=== PATIENT | female | born 1975 | race Caucasian/White ===

== ENCOUNTER 2016-10-19 05:07 | Observation (INO) | payer SELFPAY ==
[2016-10-19] MEDS ORDERED: NS 0.9% 1000 ML* 3,000 ML IV ONE (05:33)
[2016-10-19] MEDS ORDERED: Ondansetron INJ* 2 MG/ML VIAL IV ONE ×2 (05:33→09:58)
[2016-10-19] MEDS ORDERED: HYDROmorphone INJ* 1 MG/ML CARPUJECT SYRINGE IV ONE ×2 (05:33→09:58)
[2016-10-19 05:52] LABS: Hematocrit 39 % (35-47); Mean Corpuscular HGB Conc 34 g/dl (31-36); Mean Corpuscular Hemoglobin 29 pg (27-31); Mean Corpuscular Volume 88 fL (80-97); Mean Platelet Volume 7 um3 (7.4-10.4); Red Blood Count 4.42 10^6/ul (4.0-5.4); Red Cell Distribution Width 14 % (10.5-15); White Blood Count 7.6 10^3/ul (3.5-10.8)
[2016-10-19 06:04] LABS: Urine Bacteria 1+ (Absent); Urine Bilirubin Negative (Negative); Urine Glucose Negative (Negative); Urine Nitrite Positive (Negative)
[2016-10-19] MEDS ORDERED: Ketorolac INJ* 30 MG/ML 1 ML VIAL IV ONE (06:07)
[2016-10-19] MEDS ORDERED: Ketorolac INJ* 30 MG/ML 1 ML VIAL ONE (06:08)
[2016-10-19 06:25] LABS: ALT 11 U/L (7-52); AST 16 U/L (13-39); Albumin 4.1 g/dL (3.2-5.2); Alkaline Phosphatase 49 U/L (34-104); Anion Gap 7 mmol/L (2-11); BUN/Creatinine Ratio 17.7 (8-20); Blood Urea Nitrogen 11 mg/dL (6-24); C Reactive Protein 4.74 mg/L (< 5.00); CO2 Carbon Dioxide 23 mmol/L (22-32); Calcium 9.3 mg/dL (8.6-10.3); Chloride 106 mmol/L (101-111); EGFR African American 137.8 (>60); EGFR Non-African American 107.2 (>60); Globulin 3.2 g/dL (2-4); Glucose 96 mg/dL (70-100); Lipase 30 U/L (11.0-82.0); Potassium 4.1 mmol/L (3.5-5.0); Sodium 136 mmol/L (133-145); Total Protein 7.3 g/dL (6.4-8.9)
[2016-10-19] MEDS ORDERED: Iohexol 300* (CONTRAST) 10 ML SDV IV ONE (06:38)
--- NOTE | 2016-10-19 08:35 | RAD ---
INDICATION: Right abdominal and flank pain. COMPARISON: Appear seated is made with a prior study from August 30, 2016. TECHNIQUE: A CT scan of the abdomen and pelvis was performed with intravenous and oral contrast following intravenous injection of 72 ml of Omnipaque 300 nonionic contrast. Contiguous axial sections were obtained from the lung bases through the symphysis pubis. Images were reconstructed in the coronal and sagittal planes. FINDINGS: There is mild dependent bilateral lower lobe subsegmental atelectasis. No pleural effusion is present. The liver and spleen are normal in size without significant focal abnormality. The patient is status post cholecystectomy. The pancreas appears to be within normal limits. The kidneys and adrenal glands are normal in size. No hydronephrosis is seen. No significant focal renal abnormality is seen. The aorta is normal in caliber. There is mild to moderate calcific plaque present. No significant enlarged retroperitoneal lymph nodes are seen. The stomach, small and large bowel appear nondistended. There is a surgical suture line present along the medial aspect of the cecum consistent with a prior appendectomy which correlates with the patient's history. There is mild descending and sigmoid diverticulosis without evidence for diverticulitis. The uterus is anteverted and normal in size. No free intraperitoneal air or fluid is seen. There is anterior subluxation of L4 relative to L5 of approximately 8 mm consistent with grade I anterior spondylolisthesis. There is bilateral spondylolysis at the L4 level. No other focal osseous abnormality is seen. IMPRESSION: 1. NO EVIDENCE FOR ACUTE FINDING OR CAUSE FOR THE PATIENT'S ABDOMINAL PAIN IS SEEN. 2. STATUS POST CHOLECYSTECTOMY AND APPENDECTOMY. 3. GRADE I ANTERIOR SPONDYLOLISTHESIS AT THE L4-L5 LEVEL AND BILATERAL SPONDYLOLYSIS AT THE L4 LEVEL.
[2016-10-19] MEDS ORDERED: NS 0.9% 1000 ML* 1,000 ML IV ONE (09:58)
[2016-10-19] MEDS ORDERED: Ciprofloxacin 400MG IVPREMIX(* 400 MG/200 ML BAG IVPB ONE (09:58)
[2016-10-19] MEDS ORDERED: Ondansetron INJ* 2 MG/ML VIAL IV PRN ×2 (11:53→18:36)
[2016-10-19] MEDS ORDERED: Morphine INJ* 2 MG/ML 1 ML CARPUJECT IV PRN (11:53)
[2016-10-19] MEDS ORDERED: diPHENhydraMINE IV* 50 MG/ML 1 ml VIAL (BENADRYL) IV ONE (12:56)
[2016-10-19] MEDS: NS 0.9% 1000 ML* 1,000 ML IV SCH ×2 (14:08→23:05)
[2016-10-19] MEDS: cefTRIAXone VIAL(*) 1,000 MG in NS 0.9% 50 ML* 50 ML IVPB SCH (14:29)
[2016-10-19] MEDS: HYDROmorphone INJ* 1 MG/ML CARPUJECT SYRINGE IV SLOW PU PRN ×5 (15:00→23:02)
[2016-10-19] MEDS: Ketorolac INJ* 30 MG/ML 1 ML VIAL IV PUSH PRN (15:00)
--- NOTE | 2016-10-19 17:28 | PN ---
Hospitalist Progress Note HOSPITALIST ADDENDUM Case reviewed and d/w Ruy MARTINS. Mrs. Herrera is a 41yo F with possible h/o nephrolithiasis, admission in August 2016 with E. coli UTI, who presents to ED with intractable right flank pain. Although her CT did not show nephrolithiasis, it was a contrasted study. She does have hematuria on her UA. Agree with current management.
--- NOTE | 2016-10-19 20:43 | HP ---
ADMISSION HISTORY AND PHYSICAL: DATE OF ADMISSION: PRIMARY CARE PROVIDER: Saleem Cramer NP ADMITTING PROVIDER: ELIEZER Mccabe SUPERVISING PHYSICIAN: Dr. Denise Nicole.* (DICTATED BY ELIEZER MCCABE) CHIEF COMPLAINT: Right flank pain. HISTORY OF PRESENT ILLNESS: This is an otherwise healthy 41-year-old female who presented to the emergency department with complaints of right flank pain, nausea, and vomiting. The patient states that her symptoms started acutely yesterday. She has been feeling feverish with chills with right-sided abdominal /flank pain. She noted gross hematuria, but no burning sensation. She has not checked her temperature at home. She denies any associated diarrhea. No sick contacts. The patient was admitted with flank pain in August of this past year where no acute etiology was identified. She was diagnosed with urinary tract infection with no evidence of pyelonephritis. It was suspected that her pain was due to radicular symptoms from her low back and the patient states that her symptoms did subside completely a day or two after returning home and she has had no similar symptoms to that since her admission. In terms of her symptoms today compared to her prior admission, she says that it does feel similar, but she had less abdominal pain and no nausea or vomiting previously, the symptoms are new for her. The patient denies associated chest pain, shortness of breath, cough, or palpitations. She denies any other recent acute illnesses. PAST MEDICAL HISTORY: None. PAST SURGICAL HISTORY: 1. Cholecystectomy. 2. Appendectomy. 3. Tubal ligation. HOME MEDICATIONS: None. SOCIAL HISTORY: The patient smokes a half pack of cigarettes daily. She denies any regular alcohol consumption. Lives at home with her . REVIEW OF SYSTEMS: As noted above in HPI, otherwise negative. PHYSICAL EXAMINATION GENERAL: This is a young female who appears to be incredibly uncomfortable. She is lying in a position and wincing in pain, but is able to participate in conversation. VITAL SIGNS: Temperature 98.6 degrees Fahrenheit, pulse 79 beats per minute, respiratory rate 20 per minute, oxygen saturation 100% on room air, and blood pressure 143/77 mmHg. HEENT: Head is normocephalic, atraumatic. Mucous membranes are pink and moist. RESPIRATORY: Lungs are clear to auscultation without wheezes, crackles, or rhonchi. CARDIOVASCULAR: Heart has a regular rate and rhythm without murmurs, rubs, or gallops. ABDOMEN: Soft, tender to palpation in both right upper and right lower quadrants. Bowel sounds are present, perhaps slightly hyperactive. She does have some right CVA tenderness. EXTREMITIES: No lower extremity edema. PSYCH: The patient is alert, appropriately oriented. SKIN: Limited exam shows no concerning rashes or lesions. DIAGNOSTIC STUDIES/LAB DATA: CBC shows a white blood cell count of 7600, hemoglobin of 13 g/dL, platelet count of 238,000. Comprehensive metabolic panel was unremarkable with a sodium of 136 mmol/L, potassium 4.1 mmol/L, BUN of 11, creatinine 0.62. Transaminases and total bilirubin within normal limits. Beta HCG is negative. Urinalysis shows 3+ blood, is positive for nitrites and bacteria, and is otherwise negative. Imaging: CT of the abdomen and pelvis performed with contrast shows no acute process. No hydronephrosis. She does have a grade 1 anterior spondylolisthesis L4 on L5. ASSESSMENT AND PLAN: This is a 41-year-old female who is otherwise healthy, admitted with intractable right flank pain. No acute findings appreciated on initial workup. 1. Intractable right flank pain - the patient received significant amounts of analgesics in the emergency department with minimal effect. CT scan did not show any hydronephrosis. The scan was completed with contrast and could obscure a small stone which would certainly fit with her presenting symptoms of gross hematuria, right flank pain, nausea, and vomiting. We will continue with IV fluids at this time. Urine was positive for nitrites and we will empirically treat for urinary tract infection with ceftriaxone awaiting final sensitivities. Have her strain her urine and see if she is able to pass a small stone. We will otherwise focus on pain control. 2. Tobacco use: The patient continues to smoke half a pack of cigarettes daily. Did not discuss smoking cessation at this time. She declines the use of a nicotine patch during her hospital stay. 3. Code status: The patient is full code. 4. Healthcare proxy is her . 5. DVT prophylaxis: The patient is a relatively low risk and we will encourage regular ambulation. Medical prophylaxis will not be initiated at this time. DISPOSITION: The patient is being admitted to observation status for intractable right flank pain and suspected small ureterolithiasis. Anticipate discharge tomorrow. ELIEZER MCCABE CC: Saleem Cramer, VIDEO EFFECTS EDITOR* [id number]/[facility] #: [id number] [facility] HEALTHRosalina
[2016-10-20] MEDS: HYDROmorphone INJ* 1 MG/ML CARPUJECT SYRINGE IV SLOW PU PRN ×7 (01:15→15:41)
[2016-10-20] MEDS: NS 0.9% 1000 ML* 1,000 ML IV SCH ×2 (06:06→12:55)
--- NOTE | 2016-10-20 07:36 | CONSULT ---
Consult Consult: Ms. Herrera presented during a previous shift with severe left flank pain that was poorly controlled with parenteral narcotics. Her labs and CT scan were unrevealing and the hospitalist service was called to consult for intractable pain. She had a recent admission for the same thing in which no diagnosis was reached but her pain resolved. She was admitted in stable condition with a diagnosis of intractable flank pain.
[2016-10-20] MEDS: cefTRIAXone VIAL(*) 1,000 MG in NS 0.9% 50 ML* 50 ML IVPB SCH (12:54)
[2016-10-20] MEDS: Ketorolac INJ* 30 MG/ML 1 ML VIAL IV PUSH PRN (15:47)
[2016-10-20] MEDS ORDERED: oxyCODONE/Acetamin 5/325 MG* TAB PO PRN (17:19)
[2016-10-20] MEDS ORDERED: HYDROmorphone INJ* 1 MG/ML CARPUJECT SYRINGE IV SLOW PU PRN (17:19)
--- NOTE | 2016-10-20 17:23 | PN ---
Subjective Date of Service: 10/20/16 Interval History: Patient seen and examined at bedside. Pt reports continued right lower quad abdominal pain and right flank pain. Pt denies fever, chills, shortness of breath, chest discomfort, N/V/D, numbness or tingling. Pt reports that she has passed kidney stones in the past, and this is similar. She has never needed surgical intervention for her kidney stones and passed them at home. Family History: Unchanged from Admission Social History: Unchanged from Admission Past Medical History: Unchanged from Admission Objective Active Medications: Hydromorphone HCl (Dilaudid Iv*) 2 mg IV SLOW PU Q2H PRN Reason: PAIN Sodium Chloride (Ns 0.9% 1000 Ml*) 1,000 mls @ 150 mls/hr IV PER RATE KAUR Ceftriaxone Sodium 1,000 mg/ (Sodium Chloride) 50 mls @ 200 mls/hr IVPB Q24H KAUR Ketorolac Tromethamine (Toradol Inj*) 30 mg IV PUSH Q6H PRN Reason: PAIN Stop: 10/21/16 05:55 Ondansetron HCl (Zofran Inj*) 4 mg IV Q4H PRN Reason: NAUSEA Oxycodone/Acetaminophen (Percocet 5/325 Tab*) 2 tab PO Q4H PRN Reason: PAIN Vital Signs 10/19/16 10/19/16 10/19/16 18:36 19:13 19:36 Temperature 98.4 F Pulse Rate 70 Respiratory 22 18 17 Rate Blood Pressure 95/55 (mmHg) O2 Sat by Pulse 99 Oximetry 10/19/16 10/20/16 10/20/16 23:16 00:02 01:15 Temperature 99.5 F Pulse Rate 60 Respiratory 16 17 20 Rate Blood Pressure 99/53 (mmHg) O2 Sat by Pulse 98 Oximetry 10/20/16 10/20/16 10/20/16 02:15 03:51 03:56 Temperature 98.8 F Pulse Rate 56 Respiratory 16 17 16 Rate Blood Pressure 98/66 (mmHg) O2 Sat by Pulse 99 Oximetry 10/20/16 10/20/16 10/20/16 04:51 06:04 07:54 Temperature 98.3 F Pulse Rate 57 Respiratory 18 18 18 Rate Blood Pressure 109/68 (mmHg) O2 Sat by Pulse 99 Oximetry 10/20/16 10/20/16 10/20/16 08:23 08:56 10:42 Temperature Pulse Rate 62 Respiratory 16 16 18 Rate Blood Pressure 104/52 (mmHg) O2 Sat by Pulse 96 Oximetry Oxygen Devices in Use Now: None Appearance: Laying in bed, looks uncomfortable Eyes: No Scleral Icterus, PERRLA Ears/Nose/Mouth/Throat: NL Teeth, Lips, Gums, Mucous Membranes Moist Neck: NL Appearance and Movements; NL JVP, Trachea Midline Respiratory: Symmetrical Chest Expansion and Respiratory Effort, Clear to Auscultation Cardiovascular: NL Sounds; No Murmurs; No JVD, RRR Abdominal: - - Bowel sounds present, Abdomen soft, tender in the right lower extremity Extremities: No Edema Skin: No Rash or Ulcers Neurological: Alert and Oriented x 3, NL Muscle Strength and Tone Lines/Tubes/Other Access: Clean, Dry and Intact Peripheral IV - site benign Nutrition: Taking PO's Result Diagrams: 10/19/16 05:35 10/19/16 05:35 Assess/Plan/Problems-Billing Assessment: Ms. Herrera is a 41 yo female with no significant PMH who presented to the emergency room with complaints of intractable right flank pain. - Patient Problems (1) Right flank pain Code(s): R10.9 - UNSPECIFIED ABDOMINAL PAIN SNOMED Code(s): 140572068 Comment: - Pt continues to have right flank pain, reports some improvement from yesterday - CT - showed no hydronephrosis - Will get a renal US today to eval for stones - Continue to strain urine (2) UTI (urinary tract infection) Comment: - Urine growing Staph Epidermidis - Continue Ceftriaxone, while cultures are pending (3) Tobacco abuse Code(s): Z72.0 - TOBACCO USE SNOMED Code(s): 786582448 Comment: - Declined Nicotine patch - Will order Nicotine Inhaler PRN (4) DVT prophylaxis Code(s): KGG3877 - SNOMED Code(s): 669985624 Comment: - Ambulation (5) Full code status Code(s): Z78.9 - OTHER SPECIFIED HEALTH STATUS SNOMED Code(s): 102862647 Status and Disposition: OBV. Discharge to home when medically stable.
[2016-10-20] MEDS ORDERED: Mouth Piece, Nicotine* 1 EACH CARTRIDGE INH PRN (17:33)
[2016-10-20] MEDS ORDERED: Nicotine Inhaler* 10 MG AMP INH PRN (17:33)
[2016-10-20 17:55] VITALS: BP 124/75
--- NOTE | 2016-10-20 18:24 | RAD ---
HISTORY: Right flank pain COMPARISONS: CT dated October 19, 2016 TECHNIQUE: Multiple transverse and longitudinal ultrasound images were obtained of the kidneys using grayscale and color Doppler imaging. FINDINGS: RIGHT KIDNEY: The right kidney is normal in shape, size, contour, and echogenicity. There is no hydronephrosis or nephrolithiasis. The right kidney measures 11.2 x 4.3 x 5.9 cm. LEFT KIDNEY: The left kidney is normal in shape, size, contour, and echogenicity. There is no hydronephrosis or nephrolithiasis. The left kidney measures 10.9 x 6.6 x 5.4 cm. BLADDER: No images are submitted of the bladder. AORTA AND IVC: No images are submitted of the vasculature. RETROPERITONEUM: Unremarkable. OTHER: None. IMPRESSION: NO HYDRONEPHROSIS OR NEPHROLITHIASIS
--- NOTE | 2016-10-21 07:07 | DS ---
DISCHARGE SUMMARY: DATE OF ADMISSION: 10/19/16 DATE OF DISCHARGE: 10/20/16 - against medical advice. ATTENDING PHYSICIAN: Edwin Espitia MD *(dictated by Katarina Cobian NP). PRIMARY CARE PROVIDER: Saleem Cramer NP. PRIMARY DIAGNOSIS: Intractable right flank pain. STUDIES WHILE IN THE HOSPITAL: 1. Abdomen and pelvis CT on 10/19/16. Radiologist's impression: No evidence for acute findings or cause for the patient's abnormal pain is seen. Status post cholecystectomy and appendectomy. Grade 1 anterior spondylolisthesis at the L4-L5 level and bilateral spondylolisthesis at the L4 level. 2. Renal ultrasound on 10/20/16. Radiologist's impression: No hydronephrosis or nephrolithiasis noted. HOME MEDICATIONS: Include ibuprofen 800 mg oral 3 times daily as needed for pain. HISTORY OF PRESENT ILLNESS/HOSPITAL COURSE: Ms. Herrera is a 41-year-old healthy female, who presented to the emergency room with complaints of right flank pain, nausea and vomiting. The patient stated that her symptoms started suddenly the day prior. The patient was reporting fever and chills with right- sided abdominal and flank pain. The patient noted gross hematuria but no burning sensation. The patient had not checked her temperature at home. Denied any associated diarrhea or sick contacts. The patient was also noted to have similar flank pain in August and was found to have no acute etiology. The patient had been diagnosed with urinary tract infection with no evidence for pyelonephritis at the time. It was suspected that the patient's pain was due to radicular symptoms from her low back and the patient's symptoms had resolved a few days after being discharged from the hospital for that admission. The patient feels that these symptoms are similar to last time and she presented to the emergency room for further evaluation of her symptoms. While in the emergency room, the patient had urinalysis showing 3+ blood, positive for nitrites and bacteria. It was otherwise negative. The patient had labs that were fairly unremarkable. She had a beta-HCG that was negative. The patient had a CTA of her abdomen and pelvis showing no acute process including no hydronephrosis. She was noted to have a grade 1 anterior spondylolisthesis at L4-L5. The patient was evaluated by hospitalist for admission. While in the hospital, the patient reported decreased pain, where she continued to have right flank pain and right-sided abdominal pain. Her urine grew Staphylococcus epidermidis. It was felt that this could be a contaminant and final cultures were pending. The patient remained afebrile during her stay. Her vital signs were stable. Due to the patient's continued pain and self- reported history of kidney stones, the patient had bilateral renal ultrasound showing no acute findings. The patient continued to also have right CVA tenderness. The patient was encouraged to stay overnight for further IV hydration and pain management. The patient stated that she needed to leave due to a family emergency. It was discussed with the patient the risks of leaving against medical advice. This included progression of illness, permanent disability and possible . The patient stated understanding and proceeded to leave against medical advice. It is to be noted that due to the patient not having final urine cultures back and possibility of a contaminant of staph, the patient was not sent on antibiotics. The patient was then encouraged to follow up with her primary care provider or at an urgent care center if her symptoms persist or she became feeling more ill. The patient states understanding. Again, the patient left against medical advice. This is a summarized report of a complex medical history and hospital stay. For further details, please see the entire medical record. TIME SPENT: Time for this discharge was 30 minutes, 20 minutes was spent face- to- face with the patient, discussing leaving against medical advice. The patient left against medical advice. Reviewed by EBONY LIM 10/27/161910 CC: Saleem Cramer NP* [id number]/[facility] #: [id number] JATINDER
--- NOTE | 2016-11-16 21:14 | ED ---
Jason Kumar Adam, scribed for Shahzad Lara MD on 10/19/16 at 0514 . Abdominal Pain/Female - HPI Summary HPI Summary: Pt is a 41 year old female presenting with abdominal pain. The pain set on yesterday and is localized in the RLQ. It radiates to the right flank. She states that it is similar to but worse than pain she had several months ago when she had a UTI. Pt also c/o nausea and vomiting. PMHx of renal calculi. - History of Current Complaint Stated Complaint: ABD/FLANK PAIN Time Seen by Provider: 10/19/16 05:12 Hx Obtained From: Patient Hx Last Menstrual Period: 08/16/16 Onset/Duration: Gradual Onset, Lasting Days, Still Present Timing: Constant Severity Initially: Moderate Severity Currently: Moderate Location: Discrete At: RLQ Radiates: Yes Radiates to: Flank - Right Aggravating Factor(s): Nothing Alleviating Factor(s): Nothing Associated Signs and Symptoms: Positive: Nausea, Vomiting Allergies/Adverse Reactions: Allergies Allergy/AdvReac Type Severity Reaction Status Date / Time No Known Allergies Allergy Verified 10/19/16 05:22 PMH/Surg Hx/FS Hx/Imm Hx Endocrine/Hematology History: Denies: Hx Anticoagulant Therapy, Hx Diabetes, Hx Thyroid Disease Cardiovascular History: Reports: Other Cardiovascular Problems/Disorders - current hypotension Denies: Hx Congestive Heart Failure, Hx Deep Vein Thrombosis, Hx Hypertension , Hx Myocardial Infarction, Hx Pacemaker/ICD Respiratory History: Reports: Other Respiratory Problems/Disorders - 1 AND 1/2 PACK A DAY Denies: Hx Asthma, Hx Chronic Obstructive Pulmonary Disease (COPD), Hx Lung Cancer, Hx Pneumonia, Hx Pulmonary Embolism GI History: Denies: Hx Gall Bladder Disease, Hx Gastrointestinal Bleed, Hx Ulcer, Hx Urosepsis History: Reports: Hx Kidney Stones - pt stated, Other Problems/Disorders - UTIs Denies: Hx Renal Disease Sensory History: Reports: Hx Contacts or Glasses - reading glasses Opthamlomology History: Reports: Hx Contacts or Glasses - reading glasses Neurological History: Reports: Hx Migraine - No medications for this. Denies: Hx Dementia, Hx Developmental Delay, Hx Headaches, Hx Nerve Disease, Hx Seizures, Hx Spinal Cord Injury, Hx Transient Ischemic Attacks (TIA), Other Neuro Impairments/Disorders Psychiatric History: Denies: Hx Anxiety, Hx Depression, Hx Panic Disorder, Hx Schizophrenia, Hx Bipolar Disorder - Surgical History Surgery Procedure, Year, and Place: hao. appy. tubal. galbladder and appendectomy Hx Anesthesia Reactions: No Infectious Disease History: Denies: Hx Clostridium Difficile, Hx Hepatitis, Hx Human Immunodeficiency Virus (HIV), Hx of Known/Suspected MRSA, Hx Shingles - Family History Known Family History: Positive: Hypertension, Diabetes Negative: Cardiac Disease - Social History Occupation: Employed Full-time Lives: Alone Alcohol Use: None Hx Substance Use: No Substance Use Type: Reports: None Hx Tobacco Use: Yes Smoking Status (MU): Light Every Day Tobacco Smoker Type: Cigarettes Amount Used/How Often: 1/2PPD Length of Time of Smoking/Using Tobacco: 20+ years Have You Smoked in the Last Year: Yes Review of Systems Positive: Abdominal Pain, Vomiting, Nausea Positive: flank pain All Other Systems Reviewed And Are Negative: Yes Physical Exam Triage Information Reviewed: Yes Vital Signs On Initial Exam: Initial Vitals Temp Pulse Resp BP Pulse Ox 98.6 F 79 20 143/77 100 10/19/16 05:10 10/19/16 05:10 10/19/16 05:10 10/19/16 05:10 10/19/16 05:10 Vital Signs Reviewed: Yes Appearance: Positive: Well-Appearing, No Pain Distress Skin: Positive: Warm, Skin Color Reflects Adequate Perfusion, Dry Head/Face: Positive: Normal Head/Face Inspection Eyes: Positive: EOMI, ESTEFANY ENT: Positive: Normal ENT inspection Neck: Positive: Supple, Nontender Respiratory/Lung Sounds: Positive: Clear to Auscultation, Breath Sounds Present Cardiovascular: Positive: RRR Abdomen Description: Positive: Nontender, Soft Bowel Sounds: Positive: Present Musculoskeletal: Positive: Normal, Strength/ROM Intact Neurological: Positive: Normal, Sensory/Motor Intact, Alert, Oriented to Person Place, Time Psychiatric: Positive: Affect/Mood Appropriate Diagnostics - Vital Signs Vital Signs Temp Pulse Resp BP Pulse Ox 10/19/16 11:30 60 112/69 99 10/19/16 11:00 59 105/69 99 10/19/16 10:36 18 10/19/16 10:00 69 115/72 100 10/19/16 09:30 67 113/69 100 10/19/16 09:29 65 98 10/19/16 09:28 110/76 10/19/16 08:30 68 102/72 99 10/19/16 08:01 62 102/50 98 10/19/16 08:00 63 98 10/19/16 07:00 62 99/62 100 10/19/16 06:30 63 96/65 100 10/19/16 06:00 68 101/62 98 10/19/16 05:45 77 99 10/19/16 05:44 105/67 10/19/16 05:39 16 10/19/16 05:10 98.6 F 79 20 143/77 100 - Laboratory Lab Results: Lab Results 10/19/16 10/19/16 10/19/16 Range/Units 05:35 05:35 05:35 WBC 7.6 (3.5-10.8) 10^3/ul RBC 4.42 (4.0-5.4) 10^6/ul Hgb 13.0 (12.0-16.0) g/dl Hct 39 (35-47) % MCV 88 (80-97) fL MCH 29 (27-31) pg MCHC 34 (31-36) g/dl RDW 14 (10.5-15) % Plt Count 238 (150-450) 10^3/ul MPV 7 L (7.4-10.4) um3 Neut % (Auto) 45.5 (38-83) % Lymph % (Auto) 39.7 (25-47) % [place] % (Auto) 9.7 H (1-9) % Eos % (Auto) 3.9 (0-6) % Baso % (Auto) 1.2 (0-2) % Absolute Neuts (auto) 3.5 (1.5-7.7) 10^3/ul Absolute Lymphs (auto) 3.0 (1.0-4.8) 10^3/ul Absolute Monos (auto) 0.7 (0-0.8) 10^3/ul Absolute Eos (auto) 0.3 (0-0.6) 10^3/ul Absolute Basos (auto) 0.1 (0-0.2) 10^3/ul Absolute Nucleated RBC 0 10^3/ul Nucleated RBC % 0.1 Sodium 136 (133-145) mmol/L Potassium 4.1 (3.5-5.0) mmol/L Chloride 106 (101-111) mmol/L Carbon Dioxide 23 (22-32) mmol/L Anion Gap 7 (2-11) mmol/L BUN 11 (6-24) mg/dL Creatinine 0.62 (0.51-0.95) mg/dL Est GFR ( Amer) 137.8 (>60) Est GFR (Non-Af Amer) 107.2 (>60) BUN/Creatinine Ratio 17.7 (8-20) Glucose 96 (70-100) mg/dL Calcium 9.3 (8.6-10.3) mg/dL Total Bilirubin 0.30 (0.2-1.0) mg/dL AST 16 (13-39) U/L ALT 11 (7-52) U/L Alkaline Phosphatase 49 (34-104) U/L C-Reactive Protein 4.74 (< 5.00) mg/L Total Protein 7.3 (6.4-8.9) g/dL Albumin 4.1 (3.2-5.2) g/dL Globulin 3.2 (2-4) g/dL Albumin/Globulin Ratio 1.3 (1-3) Lipase 30 (11.0-82.0) U/L Beta HCG, Quant < 0.60 mIU/mL Urine Color Yellow Urine Appearance Cloudy Urine pH 8.0 (5-9) Ur Specific [place] 1.014 (1.010-1.030) Urine Protein Negative (Negative) Urine Ketones Negative (Negative) Urine Blood 3+ H (Negative) Urine Nitrate Positive H (Negative) Urine Bilirubin Negative (Negative) Urine Urobilinogen Negative (Negative) Ur Leukocyte Esterase Negative (Negative) Urine WBC (Auto) Trace(0-5/hpf) (Absent) Urine RBC (Auto) 3+(>10/hpf) H (Absent) Ur Squamous Epith Cells Present H (Absent) Urine Bacteria 1+ H (Absent) Urine Glucose Negative (Negative) Result Diagrams: 10/19/16 05:35 10/19/16 05:35 Lab Statement: Any lab studies that have been ordered have been reviewed, and results considered in the medical decision making process. Abdominal Pain Fem Course/Dx - Course Course Of Treatment: ADMIT HOSPITALIST STABLE - Diagnoses Provider Diagnoses: Flank pain Discharge - Discharge Plan Condition: Fair Disposition: ADMITTED TO [facility] documentation as recorded by the Jason vo Adam accurately reflects the service I personally performed and the decisions made by me, Shahzad Lara MD.
== END 2016-10-20 19:30 | disposition left against medical advice (07) ==
LOC: ED 05:07 → MEDTELE 11:52
PROVIDERS: ADMIT Internal Medicine; ATTEND Internal Medicine
DX: R10.9 Unspecified abdominal pain (principal); M43.16 Spondylolisthesis, lumbar region; R11.2 Nausea with vomiting, unspecified; N39.0 Urinary tract infection, site not specified; R31.0 Gross hematuria; F17.210 Nicotine dependence, cigarettes, uncomplicated
CPT/HCPCS: 36415; 74177; 76775; 80053; 81003; 81015; 83690; 84702; 85025; 86140; 87077; 87086; 87186; 96361; 96365; 96366; 96375; 96376; 99283; G0378; J0696; J0744; J1170; J1200; J1885; J2270; J2405; Q9967

== ENCOUNTER 2017-07-09 15:34 | Emergency (ER) | payer MEDICAID, OTHER ==
[2017-07-09 16:01] VITALS: BP 109/81
--- NOTE | 2017-07-09 16:05 | UC ---
Throat Pain/Nasal Regan HPI - HPI Summary HPI Summary: 41 y/o female presents to the urgent care c/o left side sinus pain, fever, severe nasal congestion for the past 7 days. Pt states symptoms became worse yesterday when she developed fever and left ear pain, mild PUCKETT and dizziness. Symptoms started with nasal congestion and sore throat. She has been taking Mucinex and Tylenol and Ibuprofen PO to w/o any improvement of symptoms. Pt states now she has pain with swallowing , left side facial swelling and his ear pain is 8/10. Last dose of ibuprofen was this morning. Nasal congestion with green nasal discharge. Pt denies dental pain, cough, SOB, chest pain, N/V/D, abdominal pain. - History of Current Complaint Chief Complaint: UCRespiratory Stated Complaint: SINUS PAIN Time Seen by Provider: 07/09/17 15:57 Hx Obtained From: Patient Hx Last Menstrual Period: 3 WEEKS ?: No Onset/Duration: Gradual Onset, Lasting Weeks - 1 week, Still Present Severity: Worse Since: - yesterday with fever Pain Intensity: 8 Pain Scale Used: 0-10 Numeric Cough: None Associated Signs & Symptoms: Positive: Dysphagia, Sinus Discomfort, Nasal Discharge, Fever - Epiglottits Risk Factors Epiglottis Risk Factors: Negative - Allergies/Home Medications Allergies/Adverse Reactions: Allergies Allergy/AdvReac Type Severity Reaction Status Date / Time No Known Allergies Allergy Verified 07/09/17 16:01 Home Medications: Home Medications Mucinex Multi-Symptom Col 1 tab PO DAILY 07/09/17 [History Confirmed 07/09/17] PMH/Surg Hx/FS Hx/Imm Hx Previously Healthy: Yes - Pt denies PMHX Other History Of: Negative For: HIV, Hepatitis B, Hepatitis C, Anticoagulant Therapy - Surgical History Surgical History: Yes Surgery Procedure, Year, and Place: hao. appy. tubal. galbladder and appendectomy - Family History Known Family History: Positive: Hypertension, Diabetes Negative: Cardiac Disease - Social History Occupation: Employed Full-time Lives: With Family Alcohol Use: None Substance Use Type: None Smoking Status (MU): Light Every Day Tobacco Smoker Type: Cigarettes Amount Used/How Often: 1/2PPD Length of Time of Smoking/Using Tobacco: 20+ years Have You Smoked in the Last Year: Yes Household Exposure Type: Cigarettes - Immunization History Most Recent Influenza Vaccination: unknown Most Recent Tetanus Shot: within the last 5 years Most Recent Pneumonia Vaccination: never Review of Systems Constitutional: Fever - at home Skin: Negative Eyes: Negative ENT: Sore Throat, Ear Ache - Left ear pain, Nasal Discharge, Sinus Congestion, Sinus Pain/Tenderness - left side with mild swelling Respiratory: Negative Cardiovascular: Negative Gastrointestinal: Negative Genitourinary: Negative Motor: Negative Neurovascular: Negative Musculoskeletal: Negative Neurological: Headache Psychological: Negative Is Patient Immunocompromised?: No All Other Systems Reviewed And Are Negative: Yes Physical Exam Triage Information Reviewed: Yes Vital Signs: Initial Vital Signs Temp 98.9 F 07/09/17 15:55 Pulse 90 07/09/17 15:55 Resp 17 07/09/17 15:55 BP 109/81 07/09/17 15:55 Pulse Ox 100 07/09/17 15:55 - Additional Comments Vittal signs: reviewed General: Well developed, well-nourished female patient with NAD. Head and face: Normocephalic and atraumatic, Positive tenderness over the frontal and maxillary sinuses, LF >RT with left side mild swelling. Eyes: PERRLA, EOMI x 2. Normal conjunctiva. No eye discharge. ENT: External ear canal clear and RT TM with normal limits. LF TM injected with erythema and purulent discharge. Mouth WNL, dentures removed and no signs of gum infection or abscess. Nose: Erythematous and edematous nasal mucosa with yellowish discharge .. Pharynx with erythema B/L, no exudate. Neck: Supple, no JVD, no carotid bruits and positive anterior cervical lymphadenopathy tender and enlarged to palpation Lungs: clear, no rales, no rhonchi, no wheezes. CVS: RRR, S1 and S2 present no murmurs or gallops appreciated. Abdomen: soft nontender with positive bowel sounds. Extremities: no edema noted. Neuro: WNL. Skin: warm and dry Throat Pain/Nasal Course/Dx - Course Course Of Treatment: 41 y/o female presents to the urgent care c/o left side sinus pain, fever, severe nasal congestion for the past 7 days. Pt states symptoms became worse yesterday when she developed fever and left ear pain, mild PUCKETT and dizziness. Symptoms started with nasal congestion and sore throat. She has been taking Mucinex and Tylenol and Ibuprofen PO to w/o any improvement of symptoms. Pt states now she has pain with swallowing , left side facial swelling and his ear pain is 8/10. Last dose of ibuprofen was this morning. Nasal congestion with green nasal discharge. Pt denies dental pain, cough, SOB, chest pain, N/V/D, abdominal pain.Hx obtained. Pt with acute sinusitis and Lf otitis media on examination. Pt uses dentures. No signs of infection around gums. Rapid strep ordered: negative. Pt with 1 week of symptoms getting worse. Pt Rx Augmentin PO and flonase nasal spray and Claritine PO . Discharge instructions explained to Pt. Advised to Return to the clinic or PCP in 3 days if symptoms do not improve.Pt understood and agreed with plan of care. - Differential Dx/Diagnosis Differential Diagnosis/HQI/PQRI: Laryngitis, Mononucleosis, Otitis Media, Pharyngitis, Sinusitis, Tonsillitis Provider Diagnoses: 1- Acute sinusitis. 2-Right otitis media Discharge - Discharge Plan Condition: Stable Disposition: HOME Prescriptions: Amoxicillin/Clavulanate TAB* [Augmentin TAB 875*] 875 mg PO BID #20 tab Fluticasone NASAL SPRAY 50MCG* [Flonase NASAL SPRAY 50MCG*] 2 spray BOTH NARES DAILY #1 btl Ibuprofen TAB* [Motrin TAB* 800 MG] 800 mg PO Q6HR #30 tab Loratadine & Pseudoephedrine [Claritin-D 12 Hour] 1 tab PO Q12HR #20 tab Patient Education Materials: Sinusitis (ED), Otitis Media (ED) Referrals: [facility] [place] [facility] [Outside] - 3 Days Non Staff,Doctor [Primary Care Provider] - Additional Instructions: 1- Please increase fluid intake and rest. take full course of antibiotic to avoid resistance 2-Use Flonase as directed to help drain fluid. Also buy saline drops to clear sinuses 3-Take Sudafed or Claritine PO to alleviates sinus congestion 4-Return to the clinic or PCP in 3 days if symptoms do not improve for further management and treatment
[2017-07-09] MEDS ORDERED: Ibuprofen TAB* 400 MG PO ONE (16:14)
== END 2017-07-09 16:52 | disposition home or self-care (01) ==
LOC: UCEAST 15:34
DX: J01.90 Acute sinusitis, unspecified (principal); H66.91 Otitis media, unspecified, right ear; F17.210 Nicotine dependence, cigarettes, uncomplicated
CPT/HCPCS: 87651; 99212; A9270-GY; G0463

== ENCOUNTER 2018-01-12 09:03 | Inpatient (IN) | payer OTHER ==
[2018-01-12] MEDS ORDERED: LORazepam TAB(*) 1 MG PO ONE (10:11)
[2018-01-12 10:37] LABS: ABS Basophils 0.1 10^3/ul (0-0.2); ABS Eosinophils 0.2 10^3/ul (0-0.6); ABS Lymphocytes 3.3 10^3/ul (1.0-4.8); ABS Monocytes 0.6 10^3/ul (0-0.8); ABS Nucleated RBC 0 10^3/ul; Eosinophil % 2.3 % (0-6); Hematocrit 40 % (35-47); Hemoglobin 13.6 g/dl (12.0-16.0); Lymphocyte % 36.1 % (25-47); Mean Corpuscular HGB Conc 34 g/dl (31-36); Mean Corpuscular Hemoglobin 31 pg (27-31); Mean Corpuscular Volume 91 fL (80-97); Mean Platelet Volume 6.7 um3 (7.4-10.4); Nucleated Red Blood Cells % 0.1; Platelet Count 265 10^3/ul (150-450); Red Blood Count 4.34 10^6/ul (4.0-5.4); Red Cell Distribution Width 13 % (10.5-15); White Blood Count 9.2 10^3/ul (3.5-10.8)
[2018-01-12 10:49] LABS: EGFR Non-African American 78.3 (>60)
[2018-01-12 11:01] LABS: INR 0.9 (0.77-1.02)
--- NOTE | 2018-01-12 17:56 | ED ---
Jovon Kumar Stephanie, scribed for Brando Pireto MD on 01/12/18 at 1018 . Neurological HPI - HPI Summary HPI Summary: The pt is a 42 y/o F presenting to the ED with c/o seizure that occurred yesterday at 17:00 while in the car. The pt appears to have seizure-like activity at 09:35 while in the ED. She states she felt weird before and after the seizure. The pt denies ETOH and drug use. - History of Current Complaint Chief Complaint: EDSeizure Stated Complaint: SEIZURES Time Seen by Provider: 01/12/18 10:06 Hx Obtained From: Patient, Family/Crime Scene Technician Hx Last Menstrual Period: 3 WEEKS Onset/Duration: Sudden Onset, Started hours ago, Resolved Timing: Intermittent Episodes Lasting: - seconds Current Severity: Mild Pain Intensity: 8 Pain Scale Used: 0-10 Numeric Aggravating: Nothing Alleviating: Nothing - Additional Pertinent History Primary Care Physician: DENICE - Allergy/Home Medications Allergies/Adverse Reactions: Allergies Allergy/AdvReac Type Severity Reaction Status Date / Time No Known Allergies Allergy Verified 01/12/18 09:09 Home Medications: Home Medications buPROPion TAB* [Wellbutrin TAB*] 300 mg PO DAILY 01/12/18 [History Confirmed 12/27] traZODone TAB* [Desyrel TAB*] 50 mg PO BEDTIME PRN 01/12/18 [History Confirmed 01/12/18] PMH/Surg Hx/FS Hx/Imm Hx Endocrine/Hematology History: Denies: Hx Anticoagulant Therapy, Hx Diabetes, Hx Thyroid Disease Cardiovascular History: Reports: Other Cardiovascular Problems/Disorders - current hypotension Denies: Hx Congestive Heart Failure, Hx Deep Vein Thrombosis, Hx Hypertension , Hx Myocardial Infarction, Hx Pacemaker/ICD Respiratory History: Reports: Other Respiratory Problems/Disorders - 1 AND 1/2 PACK A DAY Denies: Hx Asthma, Hx Chronic Obstructive Pulmonary Disease (COPD), Hx Lung Cancer, Hx Pneumonia, Hx Pulmonary Embolism GI History: Reports: Other GI Disorders - gall bladder removed Denies: Hx Gall Bladder Disease, Hx Gastrointestinal Bleed, Hx Ulcer, Hx Urosepsis History: Reports: Hx Kidney Stones - pt stated, Other Problems/Disorders - UTIs Denies: Hx Renal Disease Sensory History: Reports: Hx Contacts or Glasses - reading glasses Opthamlomology History: Reports: Hx Contacts or Glasses - reading glasses Neurological History: Reports: Hx Migraine - No medications for this. Denies: Hx Dementia, Hx Developmental Delay, Hx Headaches, Hx Nerve Disease, Hx Seizures, Hx Spinal Cord Injury, Hx Transient Ischemic Attacks (TIA), Other Neuro Impairments/Disorders Psychiatric History: Denies: Hx Anxiety, Hx Depression, Hx Panic Disorder, Hx Schizophrenia, Hx Bipolar Disorder - Surgical History Surgery Procedure, Year, and Place: hao. appy. tubal. galbladder and appendectomy Hx Anesthesia Reactions: No - Immunization History Date of Tetanus Vaccine: utd Date of Influenza Vaccine: none Infectious Disease History: No Infectious Disease History: Denies: Hx Clostridium Difficile, Hx Hepatitis, Hx Human Immunodeficiency Virus (HIV), Hx of Known/Suspected MRSA, Hx Shingles, History Other Infectious Disease, Traveled Outside the [place] in Last 30 Days - Family History Known Family History: Positive: Hypertension, Diabetes Negative: Cardiac Disease - Social History Occupation: Employed Full-time Lives: Alone Alcohol Use: None Hx Substance Use: No Substance Use Type: Reports: None Hx Tobacco Use: Yes Smoking Status (MU): Light Every Day Tobacco Smoker Type: Cigarettes Amount Used/How Often: 1/2PPD Length of Time of Smoking/Using Tobacco: 20+ years Have You Smoked in the Last Year: Yes Review of Systems Negative: Fever Negative: Slurred Speech All Other Systems Reviewed And Are Negative: Yes Physical Exam - Summary Physical Exam Summary: Appearance: The patient is well-nourished in no acute distress and in no acute pain. She is shaking at rest. Skin: The skin is warm and dry and skin color reflects adequate perfusion. HEENT: The head is normocephalic and atraumatic. The pupils are equal and reactive. The conjunctivae are clear and without drainage. Nares are patent and without drainage. Mouth reveals moist mucous membranes and the throat is without erythema and exudate. The external ears are intact. The ear canals are patent and without drainage. The tympanic membranes are intact. Neck: the neck is supple with full range of motion and non-tender. There are no carotid bruits. There is no neck vein distension. Respiratory: Chest is non-tender. Lungs are clear to auscultation and breath sounds are symmetrical and equal. Cardiovascular: Heart is regular rate and rhythm. There is no murmur or rub auscultated. There is no peripheral edema and pulses are symmetrical and equal. Abdomen: The abdomen is soft and non-tender. There are normal bowel sounds heard in all four quadrants and there is no organomegaly palpated. Musculoskeletal: There is no back tenderness noted. Extremities are non-tender with full range of motion. There is good capillary refill. There is no peripheral edema or calf tenderness elicited. Neurological: Patient is alert and oriented to person, place and time. The patient has symmetrical motor strength in all four extremities. Cranial nerves are grossly intact. Deep tendon reflexes are symmetrical and equal in all four extremities. Psychiatric: The patient has an appropriate affect and does not exhibit any anxiety or depression. Triage Information Reviewed: Yes Vital Signs On Initial Exam: Initial Vitals Temp Pulse Resp BP Pulse Ox 98.8 F 94 16 121/79 98 01/12/18 09:09 01/12/18 09:09 01/12/18 09:09 01/12/18 09:09 01/12/18 09:09 Vital Signs Reviewed: Yes Diagnostics - Vital Signs Vital Signs Temp Pulse Resp BP Pulse Ox 01/12/18 10:00 96 97 01/12/18 09:56 104 143/93 99 01/12/18 09:38 88 16 114/66 97 01/12/18 09:09 98.8 F 94 16 121/79 98 - Laboratory Lab Results: Lab Results 01/12/18 01/12/18 01/12/18 Range/Units 10:14 10:14 10:14 WBC 9.2 (3.5-10.8) 10^3/ul RBC 4.34 (4.0-5.4) 10^6/ul Hgb 13.6 (12.0-16.0) g/dl Hct 40 (35-47) % MCV 91 (80-97) fL MCH 31 (27-31) pg MCHC 34 (31-36) g/dl RDW 13 (10.5-15) % Plt Count 265 (150-450) 10^3/ul MPV 6.7 L (7.4-10.4) um3 Neut % (Auto) 54.4 (38-83) % Lymph % (Auto) 36.1 (25-47) % [place] % (Auto) 6.4 (0-7) % Eos % (Auto) 2.3 (0-6) % Baso % (Auto) 0.8 (0-2) % Absolute Neuts (auto) 5.0 (1.5-7.7) 10^3/ul Absolute Lymphs (auto) 3.3 (1.0-4.8) 10^3/ul Absolute Monos (auto) 0.6 (0-0.8) 10^3/ul Absolute Eos (auto) 0.2 (0-0.6) 10^3/ul Absolute Basos (auto) 0.1 (0-0.2) 10^3/ul Absolute Nucleated RBC 0 10^3/ul Nucleated RBC % 0.1 INR (Anticoag Therapy) 0.90 (0.77-1.02) Sodium 136 L (139-145) mmol/L Potassium 4.1 (3.5-5.0) mmol/L Chloride 106 (101-111) mmol/L Carbon Dioxide 19 L (22-32) mmol/L Anion Gap 11 (2-11) mmol/L BUN 10 (6-24) mg/dL Creatinine 0.81 (0.51-0.95) mg/dL Est GFR ( Amer) 100.7 (>60) Est GFR (Non-Af Amer) 78.3 (>60) BUN/Creatinine Ratio 12.3 (8-20) Glucose 94 (70-100) mg/dL Lactic Acid (0.5-2.0) mmol/L Calcium 9.4 (8.6-10.3) mg/dL Magnesium 1.7 L (1.9-2.7) mg/dL Total Bilirubin 0.40 (0.2-1.0) mg/dL AST 15 (13-39) U/L ALT 12 (7-52) U/L Alkaline Phosphatase 45 (34-104) U/L Total Protein 7.5 (6.4-8.9) g/dL Albumin 4.4 (3.2-5.2) g/dL Globulin 3.1 (2-4) g/dL Albumin/Globulin Ratio 1.4 (1-3) TSH 2.02 (0.34-5.60) mcIU/mL Beta HCG, Quant < 0.60 mIU/mL Serum Alcohol < 10 (<10) mg/dL 01/12/18 Range/Units 10:14 WBC (3.5-10.8) 10^3/ul RBC (4.0-5.4) 10^6/ul Hgb (12.0-16.0) g/dl Hct (35-47) % MCV (80-97) fL MCH (27-31) pg MCHC (31-36) g/dl RDW (10.5-15) % Plt Count (150-450) 10^3/ul MPV (7.4-10.4) um3 Neut % (Auto) (38-83) % Lymph % (Auto) (25-47) % [place] % (Auto) (0-7) % Eos % (Auto) (0-6) % Baso % (Auto) (0-2) % Absolute Neuts (auto) (1.5-7.7) 10^3/ul Absolute Lymphs (auto) (1.0-4.8) 10^3/ul Absolute Monos (auto) (0-0.8) 10^3/ul Absolute Eos (auto) (0-0.6) 10^3/ul Absolute Basos (auto) (0-0.2) 10^3/ul Absolute Nucleated RBC 10^3/ul Nucleated RBC % INR (Anticoag Therapy) (0.77-1.02) Sodium (139-145) mmol/L Potassium (3.5-5.0) mmol/L Chloride (101-111) mmol/L Carbon Dioxide (22-32) mmol/L Anion Gap (2-11) mmol/L BUN (6-24) mg/dL Creatinine (0.51-0.95) mg/dL Est GFR ( Amer) (>60) Est GFR (Non-Af Amer) (>60) BUN/Creatinine Ratio (8-20) Glucose (70-100) mg/dL Lactic Acid 5.3 H* (0.5-2.0) mmol/L Calcium (8.6-10.3) mg/dL Magnesium (1.9-2.7) mg/dL Total Bilirubin (0.2-1.0) mg/dL AST (13-39) U/L ALT (7-52) U/L Alkaline Phosphatase (34-104) U/L Total Protein (6.4-8.9) g/dL Albumin (3.2-5.2) g/dL Globulin (2-4) g/dL Albumin/Globulin Ratio (1-3) TSH (0.34-5.60) mcIU/mL Beta HCG, Quant mIU/mL Serum Alcohol (<10) mg/dL Result Diagrams: 01/12/18 10:14 01/12/18 10:14 Lab Statement: Any lab studies that have been ordered have been reviewed, and results considered in the medical decision making process. Re-Evaluation - Re-Evaluation First Eval Re-Evaluation Time: 12:29 Change: Unchanged - The pt is shaking upon re-eval. Course/Dx - Course Course Of Treatment: I was called into the room stat to see Ms. Herrera as she was seizing. I did not see any seizure activity and she was not post-ictal. Her lactate returned elevated at 5 which points to a seizure. Her W/U here was negative and she was seen by Dr. Gaspar who recommended admission for further W/ U. - Diagnoses Provider Diagnoses: Seizure - Physician Notifications Discussed Care Of Patient With: Orestes Jones Time Discussed With Above Provider: 16:37 Instructed by Provider To: Admit As Inpatient Discharge - Sign-Out/Discharge Documenting (check all that apply): Discharge/Admit/Transfer - admit - Discharge Plan Condition: Stable Disposition: ADMITTED TO [facility] Referrals: Aishwarya Linares MD [Primary Care Provider] - - Billing Disposition and Condition Condition: STABLE Disposition: [facility] [place] The documentation as recorded by the Jovon vo Stephanie accurately reflects the service I personally performed and the decisions made by al, Brando Prieto MD.
[2018-01-12] MEDS ORDERED: Gadoteridol* (CONTRAST) 279.3 MG/ML 10 ML IV ONE (19:45)
--- NOTE | 2018-01-12 20:34 | RAD ---
HISTORY: Seizure COMPARISONS: None TECHNIQUE: The following sequences were obtained of the head: Sagittal T1-weighted images, axial T2-weighted images, axial FLAIR images, axial susceptibility weighted images, axial T1-weighted images, coronal T1, T2 and FLAIR images through the mesial temporal lobes. Additionally, axial diffusion-weighted images were obtained with calculated apparent diffusion coefficients. Additionally, sagittal and axial T1 weighted images with thin section coronal T1-weighted images through the mesial temporal lobes were obtained after contrast enhancement with a gadolinium-based intravenous contrast agent. FINDINGS: Evaluation is somewhat limited by patient motion artifact. HEMORRHAGE/INFARCT: There is no hemorrhage or acute infarct. MASSES/SHIFT: There is no mass or shift. EXTRA-AXIAL SPACES/MENINGES: There are no extra-axial fluid collections. SULCI AND VENTRICLES: The sulci and ventricles are normal in size and position for the patient's stated age. CEREBRUM: There are scattered small foci of elevated T2/FLAIR signal within the subcortical white matter, predominantly along the frontal lobes, greater on the left than on the right.. There is no associated abnormal enhancement.. The mesial temporal lobes are symmetric in size, architecture, and signal intensity. The collateral white matter bundles are symmetric. The mamillary bodies and temporal horns of the lateral ventricles are symmetric in size. There is no appreciable cortical dysplasia or heterotopia. BRAINSTEM: There are no focal parenchymal abnormalities. CEREBELLUM: There are no focal parenchymal abnormalities. The cerebellar tonsils are normal in size and position. SELLA: The sella is normal. PINEAL: The pineal region is clear. CP ANGLE/TEMPORAL BONES: The labyrinthine structures are grossly normal. VESSELS: Normal flow-voids are noted within the visualized vertebral vasculature. DIFFUSION ABNORMALITIES: There are no diffusion abnormalities. PARANASAL SINUSES/MASTOIDS: The paranasal sinuses are clear. ORBITS: The orbits are unremarkable. BONES AND SOFT TISSUE: No bone or soft tissue abnormalities are noted. OTHER: There is no abnormal enhancement. IMPRESSION: 1. THERE ARE SEVERAL SCATTERED SMALL NONENHANCING FOCI OF ELEVATED T2/FLAIR SIGNAL WITHIN THE SUBCORTICAL WHITE MATTER ALONG THE FRONTAL LOBES BILATERALLY, GREATER ON THE LEFT THAN ON THE RIGHT.. WHILE THESE FINDINGS ARE NONSPECIFIC, THEY CAN BE SEEN IN ASSOCIATION WITH MIGRAINE HEADACHE, THE SEQUELA OF PREVIOUS INFECTION OR INFLAMMATION, AND CHRONIC SMALL VESSEL ISCHEMIA. DEMYELINATING DISEASE IS ALSO WITHIN THE DIFFERENTIAL, BUT IS CONSIDERED LESS LIKELY IN THE ABSENCE OF THE APPROPRIATE CLINICAL PRESENTATION. 2. THE MESIAL TEMPORAL LOBES ARE SYMMETRIC. THERE IS NO APPRECIABLE CORTICAL DYSPLASIA OR HETEROTOPIA.
--- NOTE | 2018-01-12 20:39 | ADMNOTE ---
Subjective Date of Service: 01/12/18 Interval History: Ms. Herrera is a 42 yo F with no significant PMH who was admitted on 01/12/18 with concern for seizure activity. Ms. Herrera notes that she has had a new tremor for the past 24 hours or so. It is described as a full body tremor. She denies ever having a similar tremor or shaking in the past. Yesterday, her witnessed her have a full body shakes in which she appears unconscious. The patient recovered well but then had a similar episode this morning and was therefore brought to the emergency room for evaluation. She was then witnessed to have an episode of shaking which was observed in the emergency room. She was noted by nursing staff to appear to have no post-ictal period afterwards. At the time of my evaluation, she is tremulous and appears anxious. She notes some anxiety in the past but denies having an panic attacks or new recent stressors. Patient is on welbutrin and trazodone. She reports that she has been on welbutrin for over a year. This was started to help with smoking cessation but she reports that it has not helped much as she still smokes about a 1/2 pack per day. She has never had a seizure before. Workup thus far in the emergency room is unremarkable, including a normal CT brain, essentially normal labs, and stable vital signs. Family History: Findings - Mother related to a stroke, Father related to heart failure Social History: Findings - Persistent 1/2 pack per day smoker, denies alcohol, denies drug use Past Medical History: Findings - Cholecystectomy, Appendectomy, Tubal Ligation Review of Systems - Measurements Intake and Output: Intake and Output Last 24 Hours 01/10/18 01/11/18 01/12/18 01/13/18 06:59 06:59 06:59 06:59 Weight 130 lb - Review of Systems Constitutional Symptoms: Positive: Other - Denies unintended weight loss, fatigue, weakness Dermatology: Positive: Normal HEENT: Positive: Normal Eyes: Positive: Normal Thyroid: Positive: Normal Pulmonary: Positive: Normal Cardiology: Positive: Normal Gastroenterology: Positive: Normal Genital - Urinary: Positive: Normal Musculoskeletal: Positive: Other - Denies join pain or stiffness, history of low back pain Endocrinology: Positive: Normal Neurology: Negative: Normal, Headache, Migraines, Change in Vision, Diplopia, Dizziness , Change in Balancing, Change in Coordination, Change in Memory, Change in Speech, Change in Sphincter Function, Change in Walking, Numbness\Paresthesiae, Unexplained Weakness, Hx of Stroke\TIA, Hx of Seizures, Other Psychiatry: Positive: Anxiety Objective Active Medications: Bupropion HCl (Wellbutrin Sr Tab*) 150 mg PO DAILY KAUR Clonazepam (Klonopin Tab(*)) 0.5 mg PO Q8H PRN Heparin Sodium (Porcine) (Heparin Vial(*)) 5,000 units SUBCUT Q8HR KAUR Vital Signs: Temp Pulse Resp BP Pulse Ox 99.0 F 87 20 98/64 97 01/12/18 20:46 01/12/18 20:46 01/12/18 20:46 01/12/18 20:46 01/12/18 20:46 Oxygen Devices in Use Now: None Appearance: Female sitting up in bed, family at bedside, in NAD Eyes: No Scleral Icterus Ears/Nose/Mouth/Throat: Mucous Membranes Moist Neck: NL Appearance and Movements; NL JVP Respiratory: Symmetrical Chest Expansion and Respiratory Effort, Clear to Auscultation Cardiovascular: NL Sounds; No Murmurs; No JVD, No Edema Abdominal: NL Sounds; No Tenderness; No Distention Lymphatic: No Cervical Adenopathy Extremities: No Edema Skin: No Rash or Ulcers Neurological: Alert and Oriented x 3, NL Muscle Strength and Tone Nutrition: Taking PO's Result Diagrams: 01/12/18 10:14 01/12/18 10:14 Additional Lab and Data: Lab Results 01/12/18 01/12/18 01/12/18 Range/Units 10:14 10:14 10:14 WBC 9.2 (3.5-10.8) 10^3/ul RBC 4.34 (4.0-5.4) 10^6/ul Hgb 13.6 (12.0-16.0) g/dl Hct 40 (35-47) % MCV 91 (80-97) fL MCH 31 (27-31) pg MCHC 34 (31-36) g/dl RDW 13 (10.5-15) % Plt Count 265 (150-450) 10^3/ul MPV 6.7 L (7.4-10.4) um3 Neut % (Auto) 54.4 (38-83) % Lymph % (Auto) 36.1 (25-47) % Apache % (Auto) 6.4 (0-7) % Eos % (Auto) 2.3 (0-6) % Baso % (Auto) 0.8 (0-2) % Absolute Neuts (auto) 5.0 (1.5-7.7) 10^3/ul Absolute Lymphs (auto) 3.3 (1.0-4.8) 10^3/ul Absolute Monos (auto) 0.6 (0-0.8) 10^3/ul Absolute Eos (auto) 0.2 (0-0.6) 10^3/ul Absolute Basos (auto) 0.1 (0-0.2) 10^3/ul Absolute Nucleated RBC 0 10^3/ul Nucleated RBC % 0.1 INR (Anticoag Therapy) 0.90 (0.77-1.02) Sodium 136 L (139-145) mmol/L Potassium 4.1 (3.5-5.0) mmol/L Chloride 106 (101-111) mmol/L Carbon Dioxide 19 L (22-32) mmol/L Anion Gap 11 (2-11) mmol/L BUN 10 (6-24) mg/dL Creatinine 0.81 (0.51-0.95) mg/dL Est GFR ( Amer) 100.7 (>60) Est GFR (Non-Af Amer) 78.3 (>60) BUN/Creatinine Ratio 12.3 (8-20) Glucose 94 (70-100) mg/dL Lactic Acid (0.5-2.0) mmol/L Calcium 9.4 (8.6-10.3) mg/dL Magnesium 1.7 L (1.9-2.7) mg/dL Total Bilirubin 0.40 (0.2-1.0) mg/dL AST 15 (13-39) U/L ALT 12 (7-52) U/L Alkaline Phosphatase 45 (34-104) U/L Total Protein 7.5 (6.4-8.9) g/dL Albumin 4.4 (3.2-5.2) g/dL Globulin 3.1 (2-4) g/dL Albumin/Globulin Ratio 1.4 (1-3) TSH 2.02 (0.34-5.60) mcIU/mL Beta HCG, Quant < 0.60 mIU/mL Serum Alcohol < 10 (<10) mg/dL 01/12/18 Range/Units 10:14 WBC (3.5-10.8) 10^3/ul RBC (4.0-5.4) 10^6/ul Hgb (12.0-16.0) g/dl Hct (35-47) % MCV (80-97) fL MCH (27-31) pg MCHC (31-36) g/dl RDW (10.5-15) % Plt Count (150-450) 10^3/ul MPV (7.4-10.4) um3 Neut % (Auto) (38-83) % Lymph % (Auto) (25-47) % Apache % (Auto) (0-7) % Eos % (Auto) (0-6) % Baso % (Auto) (0-2) % Absolute Neuts (auto) (1.5-7.7) 10^3/ul Absolute Lymphs (auto) (1.0-4.8) 10^3/ul Absolute Monos (auto) (0-0.8) 10^3/ul Absolute Eos (auto) (0-0.6) 10^3/ul Absolute Basos (auto) (0-0.2) 10^3/ul Absolute Nucleated RBC 10^3/ul Nucleated RBC % INR (Anticoag Therapy) (0.77-1.02) Sodium (139-145) mmol/L Potassium (3.5-5.0) mmol/L Chloride (101-111) mmol/L Carbon Dioxide (22-32) mmol/L Anion Gap (2-11) mmol/L BUN (6-24) mg/dL Creatinine (0.51-0.95) mg/dL Est GFR ( Amer) (>60) Est GFR (Non-Af Amer) (>60) BUN/Creatinine Ratio (8-20) Glucose (70-100) mg/dL Lactic Acid 5.3 H* (0.5-2.0) mmol/L Calcium (8.6-10.3) mg/dL Magnesium (1.9-2.7) mg/dL Total Bilirubin (0.2-1.0) mg/dL AST (13-39) U/L ALT (7-52) U/L Alkaline Phosphatase (34-104) U/L Total Protein (6.4-8.9) g/dL Albumin (3.2-5.2) g/dL Globulin (2-4) g/dL Albumin/Globulin Ratio (1-3) TSH (0.34-5.60) mcIU/mL Beta HCG, Quant mIU/mL Serum Alcohol (<10) mg/dL Assess/Plan/Problems-Billing Assessment: Ms. Herrera is a 42 yo F with no significant PMH who is admitted on 01/12/18 with concern for seizure like activity. - Patient Problems (1) Seizure Comment: - Patient with seizure like activity. - Appreciate consultation from neurology. Suspect could be related to welbutrin and trazodone which lower seizure threshold. - Recommend tapering welbutrin and then discontinuing. Plan for 150mg po tomorrow. EEG completed in ED. MRI brain report pending. - No antiepileptics ordered at this time. (2) Anxiety Comment: - I question whether some of her symptoms may be psychogenic in origin as she is very anxious in the ED. - Plan for clonazepam 0.5mg po q8h prn anxiety. (3) DVT prophylaxis Comment: - Ambulation (4) Full code status Comment: Status and Disposition: OBV. Anticipate discharge to home when medically stable.
[2018-01-12 21:24] LABS: Urine Appearance Cloudy; Urine Blood Negative (Negative); Urine Color Amber; Urine Ketones Trace (Negative); Urine Protein Negative (Negative); Urine Specific Gravity 1.021 (1.010-1.030); Urine Urobilinogen Negative (Negative)
[2018-01-12] MEDS: Heparin VIAL(*) 5000 UNITS/ML VIAL (FIVE THOUSAND) SUBCUT SCH (21:26)
[2018-01-12] MEDS ORDERED: NS 0.9% 1000 ML* 1,000 ML IV ONE (21:33)
[2018-01-12] MEDS ORDERED: Acetaminophen TAB* 325 MG PO PRN (21:33)
--- NOTE | 2018-01-12 21:33 | PN ---
Progress Note - Progress Note Date of Service: 01/12/18 Note: Nursing staff note foul smelling, dark urine. Patient noted to have positive nitrate in urine concerning for urinary tract infection. Plan to start ceftriaxone now awaiting cultures.
[2018-01-12] MEDS: clonazePAM TAB(*) 0.5 MG PO PRN (23:34)
[2018-01-12] MEDS: cefTRIAXone(*) 1 GM in NS 0.9% 50 ML* 50 ML IVPB SCH (23:47)
[2018-01-13] MEDS: NS 0.9% 1000 ML* 1,000 ML IV SCH ×3 (01:58→21:59)
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
[2018-01-13] MEDS: Heparin VIAL(*) 5000 UNITS/ML VIAL (FIVE THOUSAND) SUBCUT SCH ×3 (06:23→21:53)
--- NOTE | 2018-01-13 08:09 | RAD ---
INDICATION: Head injury. COMPARISON: Comparison is made with a prior MRI of the brain from January 12, 2018. TECHNIQUE: Contiguous axial sections of the brain were obtained from the skull base to the vertex without contrast. FINDINGS: The ventricles, cisterns and sulci are within normal limits. No significant focal abnormality or mass effect is seen. There is no evidence for hemorrhage. No significant focal osseous abnormality is seen. The visualized portion of the paranasal sinuses and mastoid air cells appear clear. IMPRESSION: NO EVIDENCE FOR ACUTE INTRACRANIAL ABNORMALITY.
[2018-01-13] MEDS: buPROPion SR TAB.SR* 150 MG PO SCH (11:03)
[2018-01-13] MEDS: clonazePAM TAB(*) 0.5 MG PO PRN (11:13)
[2018-01-13] MEDS ORDERED: Ibuprofen TAB* 600 MG PO ONE (11:51)
[2018-01-13] MEDS ORDERED: levETIRAcetam TAB* 500 MG PO ONE (12:29)
[2018-01-13] MEDS ORDERED: Magnesium Sulfate 2 GM IV* 2 GM/50 ML BAG IVPB ONE (12:34)
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
--- NOTE | 2018-01-13 14:51 | EEG ---
ELECTROENCEPHALOGRAM REPORT: DATE OF STUDY: 01/12/18 LOCATION: She is in the emergency room to be admitted. REFERRING PROVIDER: Dr. Gaspar. CLINICAL PROBLEM: Episodes of diminished or unresponsiveness starting the day before this recording. Apparently, there is also generalized shaking. MEDICATIONS: Listed are only lorazepam. REPORT: This 16-channel EEG is remarkable for background rhythms consisting of a posterior alpha rhy thm at about 11 cycles per second, which is symmetric and suppressed by eye opening. The patient is described as awake, antsy, and with eyes open. Muscle artifact is seen not infrequently. Low voltag e beta rhythms are seen bifrontally. The patient has intermittent tremoring of one leg or other some times both legs. There is movement artifact, but no electroencephalographic abnormalities. The behzad ent perspires creating some perspiration artifact, but that resolves with cleaning the patient's skin with alcohol. The patient does not show evidence of drowsiness or sleep. Activation procedure is n ot attempted. There are no focal, lateralized, or epileptiform abnormalities. CLINICAL IMPRESSION: Normal awake EEG other than excessive movement artifacts seen at times. There are no epileptiform discharges including during episodes of leg shaking. [id number]/[facility] #: [id number]
--- NOTE | 2018-01-13 15:46 | PN ---
Subjective Date of Service: 01/13/18 Interval History: Examined patient in AM. Discussed event overnight where patient woke up after hitting face after leaning over bed to vomit. Slight abrasion on right face. Patient states she usually gets nauseated before her episodes of losing conciousness. Patient states that she had a febrile illness several months ago with fevers up to 103 but could not elucidate on cause. Patient denies F/C, N/V , abdominal pain, diarrhea, dysuria, hematuria, or other pain. Patient had an episode of convulsing around 1200 and was examined after. Patient was agitated and complained on severe left sided headache but had not focal neurological deficits. Family History: Findings - Mother related to a stroke, Father related to heart failure Social History: Findings - Persistent 1/2 pack per day smoker, denies alcohol, denies drug use Past Medical History: Findings - Cholecystectomy, Appendectomy, Tubal Ligation Objective Active Medications: Acetaminophen (Tylenol Tab*) 650 mg PO Q6H PRN PRN Reason: PAIN Bupropion HCl (Wellbutrin Sr Tab*) 150 mg PO DAILY [facility] Last Admin: 01/13/18 11:03 Dose: 150 mg Clonazepam (Klonopin Tab(*)) 0.5 mg PO Q8H PRN PRN Reason: ANXIETY Last Admin: 01/13/18 11:13 Dose: 0.5 mg Heparin Sodium (Porcine) (Heparin Vial(*)) 5,000 units SUBCUT Q8HR [facility] Last Admin: 01/13/18 13:45 Dose: 5,000 units Ceftriaxone Sodium 1 gm/ (Sodium Chloride) 50 mls @ 200 mls/hr IVPB Q24H [facility] Last Admin: 01/12/18 23:47 Dose: 200 mls/hr Sodium Chloride (Ns 0.9% 1000 Ml*) 1,000 mls @ 100 mls/hr IV PER RATE [facility] Last Admin: 01/13/18 13:16 Dose: 100 mls/hr Levetiracetam (Keppra Tab*) 500 mg PO BID [facility] Vital Signs - 8 hr 01/13/18 01/13/18 01/13/18 11:13 11:21 11:48 Temperature 98.2 F Pulse Rate 86 97 Respiratory 20 20 26 Rate Blood Pressure 93/64 107/60 (mmHg) O2 Sat by Pulse 98 99 Oximetry 01/13/18 13:45 Temperature Pulse Rate Respiratory 18 Rate Blood Pressure (mmHg) O2 Sat by Pulse Oximetry Oxygen Devices in Use Now: None Appearance: Patient is a 42yo female who appears stated age and is sitting in the bed in NAD. Eyes: No Scleral Icterus, PERRLA Ears/Nose/Mouth/Throat: NL Teeth, Lips, Gums, Clear Oropharnyx, Mucous Membranes Moist Neck: NL Appearance and Movements; NL JVP, Trachea Midline Respiratory: Symmetrical Chest Expansion and Respiratory Effort, Clear to Auscultation Cardiovascular: NL Sounds; No Murmurs; No JVD, RRR, No Edema Abdominal: NL Sounds; No Tenderness; No Distention, No Hepatosplenomegaly Lymphatic: No Cervical Adenopathy Extremities: No Edema, No Clubbing, Cyanosis Skin: No Rash or Ulcers, No Nodules or Sclerosis Neurological: Alert and Oriented x 3, NL Sensation, NL Muscle Strength and Tone , - - CN II-XII intact. Result Diagrams: 01/12/18 10:14 01/12/18 10:14 Additional Lab and Data: Lab Results Microbiology and Other Data: Microbiology 01/12/18 21:00 Urine Culture - Preliminary Urine Escherichia Coli Assess/Plan/Problems-Billing Assessment: Ms. Herrera is a 42 yo F with no significant PMH who is admitted on 01/12/18 with concern for seizure like activity which is ongoing. - Patient Problems (1) Seizure Current Visit: Yes Status: Acute Code(s): R56.9 - UNSPECIFIED CONVULSIONS SNOMED Code(s): 75410710 Comment: Patient with seizure like activity. Appreciate consultation from neurology. Suspect could be related to welbutrin and trazodone which lower seizure threshold. Recommend tapering welbutrin and then discontinuing. Plan for 150mg po tomorrow. EEG completed in ED. MRI brain shows diffuse non-specific white matter disease consistent with patient's history of Migraines. Started on Keppra 750mg now and 500 BID. (2) Anxiety Current Visit: Yes Status: Acute Code(s): F41.9 - ANXIETY DISORDER, UNSPECIFIED SNOMED Code(s): 40775834 Comment: I question whether some of her symptoms may be psychogenic in origin as she is very anxious in the ED. Plan for clonazepam 0.5mg po q8h prn anxiety. PNES frequently characterized by lack of concern about events after seizure activity which patient does not display. Will wean off Wellbutrin. Concern for exacerbation with Keppra. (3) UTI (urinary tract infection) Current Visit: No Status: Acute Comment: Continue fluids as urine is concentrated >100K E. Coli Continue Ceftriaxone Could be precipitating factor for Seizures. (4) Tobacco abuse Current Visit: No Status: Acute Code(s): Z72.0 - TOBACCO USE SNOMED Code(s ): 087507188 Comment: Denies cravings at this time. (5) Full code status Current Visit: No Status: Acute Code(s): Z78.9 - OTHER SPECIFIED HEALTH STATUS SNOMED Code(s): 413466770 Comment: (6) DVT prophylaxis Current Visit: No Status: Acute Code(s): LND8471 - SNOMED Code(s): 725088666 Comment: Ambulation Status and Disposition: Inpatient.
[2018-01-13] MEDS ORDERED: NS 0.9% 1000 ML* 1,000 ML IV ONE (17:36)
[2018-01-13] MEDS ORDERED: LORazepam INJ* 2 MG/ML 1 ML VIAL IV PUSH ONE (17:45)
[2018-01-13] MEDS ORDERED: LORazepam INJ* 2 MG/ML 1 ML VIAL ONE (17:46)
[2018-01-13] MEDS ORDERED: LORazepam INJ* 2 MG/ML 1 ML VIAL IV PUSH PRN (17:48)
[2018-01-13] MEDS ORDERED: Ibuprofen TAB* 400 MG PO PRN (17:51)
[2018-01-13] MEDS: levETIRAcetam TAB* 500 MG PO SCH (21:52)
[2018-01-13] MEDS: cefTRIAXone(*) 1 GM in NS 0.9% 50 ML* 50 ML IVPB SCH (21:53)
--- NOTE | 2018-01-13 23:17 | EEG ---
ELECTROENCEPHALOGRAM REPORT: DATE OF STUDY: 01/13/18 LOCATION: She is an inpatient, in room 413. REFERRING PHYSICIAN: Dr. Rios. CLINICAL PROBLEM: Episode of unresponsiveness and generalized shaking, rule out seizure disorder. MEDICATIONS: Include lorazepam, bupropion, clonazepam, ceftriaxone, levetiracetam. EEG DESCRIPTION: This 16-channel EEG is remarkable for background rhythms consisting of a posterior alpha rhythm at about 10.5 to 11 cycles per second, which is symmetric and suppressed by eye opening. Low voltage beta rhythms are seen bifrontally. Movement artifact is seen frequently, particularly during early portions of tracing, but does subside. Activation procedures were not attempted. The patient drowses and briefly falls asleep, with vertex slowing and sleep spindles symmetrically. The patient is awoken with normal background rhythms resuming. There were no clinical events. There were no focal, focal, lateralized, or epileptiform abnormalities. INTERPRETATION: Normal awake and briefly asleep EEG. [id number]/[facility] #: [id number] MTDD
[2018-01-14] MEDS: clonazePAM TAB(*) 0.5 MG PO PRN ×2 (04:19→12:45)
[2018-01-14] MEDS: Heparin VIAL(*) 5000 UNITS/ML VIAL (FIVE THOUSAND) SUBCUT SCH ×2 (05:43→13:16)
[2018-01-14] MEDS: NS 0.9% 1000 ML* 1,000 ML IV SCH (07:46)
[2018-01-14 08:00] LABS: ABS Basophils 0 10^3/ul (0-0.2); ABS Eosinophils 0.2 10^3/ul (0-0.6); ABS Lymphocytes 2.1 10^3/ul (1.0-4.8); ABS Monocytes 0.5 10^3/ul (0-0.8); ABS Nucleated RBC 0 10^3/ul; Eosinophil % 2.8 % (0-6); Hematocrit 33 % (35-47); Hemoglobin 11.6 g/dl (12.0-16.0); Lymphocyte % 36.4 % (25-47); Mean Corpuscular HGB Conc 35 g/dl (31-36); Mean Corpuscular Hemoglobin 32 pg (27-31); Mean Corpuscular Volume 91 fL (80-97); Mean Platelet Volume 7.1 um3 (7.4-10.4); Nucleated Red Blood Cells % 0.1; Platelet Count 209 10^3/ul (150-450); Red Blood Count 3.65 10^6/ul (4.0-5.4); Red Cell Distribution Width 13 % (10.5-15); White Blood Count 5.7 10^3/ul (3.5-10.8)
[2018-01-14] MEDS ORDERED: Nicotine PATCH 21 MG/24 HR* PATCH TRANSDERM SCH (08:00)
[2018-01-14] MEDS: levETIRAcetam TAB* 500 MG PO SCH (08:00)
[2018-01-14] MEDS: buPROPion SR TAB.SR* 150 MG PO SCH (08:00)
[2018-01-14 08:21] LABS: EGFR Non-African American 115.1 (>60)
--- NOTE | 2018-01-14 09:57 | PN ---
Subjective Date of Service: 01/14/18 Interval History: No seizure activity overnight or this am. She felt like she might be about to have one yesterday, has some tremor, but no seizures. Overnight she has done ok and wants to go home. No new issues. EEG: WNL X 2 CT: negative Family History: Findings - Mother related to a stroke, Father related to heart failure Social History: Findings - Persistent 1/2 pack per day smoker, denies alcohol, denies drug use Past Medical History: Findings - Cholecystectomy, Appendectomy, Tubal Ligation Objective Active Medications: Acetaminophen (Tylenol Tab*) 650 mg PO Q6H PRN PRN Reason: PAIN Bupropion HCl (Wellbutrin Sr Tab*) 150 mg PO DAILY [facility] Last Admin: 01/14/18 08:00 Dose: 150 mg Clonazepam (Klonopin Tab(*)) 0.5 mg PO Q8H PRN PRN Reason: ANXIETY Last Admin: 01/14/18 04:19 Dose: 0.5 mg Heparin Sodium (Porcine) (Heparin Vial(*)) 5,000 units SUBCUT Q8HR [facility] Last Admin: 01/14/18 05:43 Dose: 5,000 units Ceftriaxone Sodium 1 gm/ (Sodium Chloride) 50 mls @ 200 mls/hr IVPB Q24H [facility] Last Admin: 01/13/18 21:53 Dose: 200 mls/hr Sodium Chloride (Ns 0.9% 1000 Ml*) 1,000 mls @ 100 mls/hr IV PER RATE [facility] Last Admin: 01/14/18 07:46 Dose: 100 mls/hr Ibuprofen (Motrin Tab*) 400 mg PO Q6H PRN PRN Reason: HEADACHE Last Admin: 01/14/18 08:00 Dose: 400 mg Levetiracetam (Keppra Tab*) 500 mg PO BID [facility] Last Admin: 01/14/18 08:00 Dose: 500 mg Lorazepam (Ativan Inj*) 1 mg IV PUSH Q10M PRN PRN Reason: Seizure Nicotine (Nicotine Patch 21 Mg/24 Hr*) 1 patch TRANSDERM DAILY@0800 [facility] Last Admin: 01/14/18 08:00 Dose: 1 patch Pharmacy Profile Note (Nicotine Patch Removal Note*) 1 note PATCH OFF 2100 [facility] Vital Signs 01/13/18 01/13/18 01/13/18 17:15 17:36 17:50 Temperature 98.3 F Pulse Rate 83 Respiratory 20 12 Rate Blood Pressure 88/48 90/58 (mmHg) O2 Sat by Pulse 99 Oximetry 01/13/18 01/13/18 01/13/18 17:57 18:57 19:15 Temperature 98.4 F Pulse Rate 84 Respiratory 12 16 16 Rate Blood Pressure 101/60 (mmHg) O2 Sat by Pulse 98 Oximetry 01/13/18 01/13/18 01/14/18 20:00 23:48 03:02 Temperature 97.7 F 97.5 F Pulse Rate 85 88 Respiratory 16 18 20 Rate Blood Pressure 101/58 97/60 (mmHg) O2 Sat by Pulse 100 98 Oximetry 01/14/18 01/14/18 01/14/18 04:16 04:19 08:18 Temperature 98.5 F Pulse Rate 90 80 Respiratory 22 20 16 Rate Blood Pressure 101/56 111/69 (mmHg) O2 Sat by Pulse 100 98 Oximetry Oxygen Devices in Use Now: None Neurology Exam: General: HEENT: Normocephalic/atraumatic, sclera anicteric, mucous membranes moist Neck: Supple Chest: Clear to auscultation bilaterally Cardiovascular: Regular rate and rhythm without murmurs, rubs, gallops Abdomen: Soft, nontender/nondistended Extremities: No clubbing, cyanosis, or edema Neurological Findings: Awake, Alert, Oriented x3 Speech: fluent without dysarthria, repetition intact Cranial Nerve: PEERL, EOM intact, VFF, no nystagmus, face symmetric bilaterally , facial sensation intact, hearing intact to finger rub bilaterally, palate elevates symmetrically, tongue midline Motor: 5/5 throughout, proximal and distal extremities x4 tone/bulk normal Sensation: intact to LT/PP bilaterally upper and lower extremities Deep Tendon Reflex: 2+ symmetric in the upper/lower extremities Finger to nose, rapid alternating movements intact, mild intention tremors noted Result Diagrams: 01/14/18 07:09 01/14/18 07:09 Additional Lab and Data: Lab Results Microbiology and Other Data: Microbiology 01/12/18 21:00 Urine Culture - Preliminary Urine Escherichia Coli Assessment/Plan Assessment: 42 year old presents with seizure like activity. None over night. EEG normal X 2. She was started on Keppra empirically. 1. Ok to d/c home today. Schedule follow up with Dr. Rios 2. Would continue the Keppra until she follows up with Neurology, a percentage of patients with non-epileptic events can have seizures 3. Discussed at length non-epileptic seizures. The patient is understanding and agrees that her anxiety is likely playing a large roll. 4. Discussed precautions including no-driving for no, no heights, no heavy machinery, no swimming alone, no showers, only baths and to avoid open flames. Patient and significant other verbalized agreement. 5. Will need o/p psychiatric evaluation, likely psychotherapy and continued med management.
[2018-01-14 12:07] VITALS: BP 101/62
[2018-01-14] MEDS ORDERED: Nicotine Patch Removal NOTE PATCH OFF SCH (21:00)
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
== END 2018-01-14 13:45 | disposition home or self-care (01) | DRG 53 ==
LOC: ED 09:03 → MED 18:02 → OBSVTOIN 01-13 15:51
PROVIDERS: ADMIT Student in an Organized Health Care Education/Training Program; ATTEND Internal Medicine
DX: G40.909 Epilepsy, unspecified, not intractable, without status epilepticus (principal); N39.0 Urinary tract infection, site not specified; E87.2 Acidosis; F17.210 Nicotine dependence, cigarettes, uncomplicated; F41.9 Anxiety disorder, unspecified; B96.20 Unspecified Escherichia coli [E. coli] as the cause of diseases classified elsewhere; G43.809 Other migraine, not intractable, without status migrainosus; G47.00 Insomnia, unspecified; E83.42 Hypomagnesemia; Z79.899 Other long term (current) drug therapy; Z79.01 Long term (current) use of anticoagulants; Z91.410 Personal history of adult physical and sexual abuse; Z82.3 Family history of stroke; Z82.49 Family history of ischemic heart disease and other diseases of the circulatory system
CPT/HCPCS: 36415; 70450; 70553; 80048; 80053; 80307; 80320; 81003; 81015; 82550; 83605; 83735; 84443; 84702; 85025; 85610; 87077; 87086; 87186; 95816; 99284; A9270-GY; A9579; G0378; G0480; J0696; J1644; J2060; J3475

== ENCOUNTER 2018-03-08 07:32 | Emergency (ER) | payer OTHER ==
[2018-03-08] MEDS ORDERED: Ketorolac INJ* 30 MG/ML 1 ML VIAL IV PUSH ONE (08:00)
[2018-03-08] MEDS ORDERED: NS 0.9% 1000 ML* 1,000 ML IV ONE (08:00)
[2018-03-08 08:24] LABS: ABS Basophils 0.1 10^3/ul (0-0.2); ABS Eosinophils 0.2 10^3/ul (0-0.6); ABS Lymphocytes 3.5 10^3/ul (1.0-4.8); ABS Monocytes 0.7 10^3/ul (0-0.8); ABS Neutrophils 5.5 10^3/ul (1.5-7.7); ABS Nucleated RBC 0 10^3/ul; Eosinophil % 2.5 % (0-6); Hematocrit 40 % (35-47); Hemoglobin 13.7 g/dl (12.0-16.0); Lymphocyte % 34.9 % (25-47); Mean Corpuscular HGB Conc 35 g/dl (31-36); Mean Corpuscular Hemoglobin 32 pg (27-31); Mean Corpuscular Volume 92 fL (80-97); Mean Platelet Volume 6.7 um3 (7.4-10.4); Nucleated Red Blood Cells % 0; Platelet Count 264 10^3/ul (150-450); Red Blood Count 4.32 10^6/ul (4.00-5.40); Red Cell Distribution Width 13 % (10.5-15)
[2018-03-08 08:35] LABS: EGFR Non-African American 85.6 (>60)
[2018-03-08] MEDS ORDERED: HYDROmorphone INJ* 2 MG/ML CARPUJECT SYRINGE IV SLOW PU ONE (08:56)
[2018-03-08] MEDS ORDERED: Ondansetron SYRINGE* 4 MG/2 ML SYRINGE (from 40mg/20ml vial) IV ONE (08:58)
[2018-03-08] MEDS ORDERED: Ondansetron INJ* 2 MG/ML VIAL ONE (09:05)
[2018-03-08] MEDS ORDERED: Ondansetron INJ* 2 MG/ML VIAL IV ONE (09:08)
[2018-03-08 09:24] LABS: Urine Appearance Cloudy; Urine Blood 3+ (Negative); Urine Color Amber; Urine Ketones Trace (Negative); Urine Protein 2+(100 mg/dL) (Negative); Urine Specific Gravity 1.024 (1.010-1.030); Urine Urobilinogen Negative (Negative)
[2018-03-08 11:43] VITALS: BP 141/93
--- NOTE | 2018-03-08 12:15 | RAD ---
INDICATION: Right flank pain COMPARISON: CT abdomen pelvis October 19, 2016 TECHNIQUE: Noncontrast axial source images were acquired from the level hemidiaphragms to the symphysis pubis as part of CT imaging for renal stone. Lung bases: The lung bases are clear. Liver: The liver is normal in size. Noncontrast imaging shows no evidence of a hepatic mass or ductal dilatation. Gallbladder: Cholecystectomy. Spleen: The spleen is normal in size. The noncontrast CT appearance is normal. Pancreas: Noncontrast imaging shows no pancreatic mass or ductal dilitation. Adrenal glands: No masses are identified. Kidneys/Bladder: There is no evidence of nephrolithiasis or CT evidence of hydronephrosis. Noncontrast imaging shows no evidence of a renal mass. The bladder is unremarkable.. Adenopathy: There is no evidence of intraperitoneal or retroperitoneal adenopathy. Evaluation is limited without oral contrast. Fluid collections: No significant fluid collections. Vessels: The aorta and iliac vessels are normal in caliber. There are no significant atherosclerotic changes. The IVC appears normal Pelvic organs: The uterus and adnexa appear normal GI tract: Evaluation of the bowel is limited without oral contrast. The stomach, small bowel, and lower GI tract appear grossly normal. There are no obstructive findings. There is appendectomy. Soft tissues: No soft tissue abnormalities of the extraperitoneal abdomen or pelvis are identified. Osseous structures: There are no acute osseous findings. IMPRESSION: No convincing evidence of urolithiasis. No mass or inflammatory changes. No CT imaging findings to account for the patient's right flank pain
--- NOTE | 2018-03-08 18:28 | ED ---
Jairon Kumar Angela, scribed for Brando Prieto MD on 03/08/18 at 0802 . Abdominal Pain/Female - HPI Summary HPI Summary: This pt is a 42 y/o female presenting to [facility] c/o right flank pain. Pt reports her pain began last night on the right side of her back. This morning pt dropped her off at work when she developed severe right sided abd pain. Pt notes she had pinkish urine color today. She states she has been moving her bowels normally. Denies fever, nausea, vomiting, diarrhea, constipation. Pt has hx of kidney stones and believes she is passing a kidney stone. PMHx: kidney stones, seizure 1 month ago. LMP: 2 weeks ago. Pt had a tubal ligation, denies probably of . NKDA. - History of Current Complaint Chief Complaint: EDUrogenitalProblems Stated Complaint: FLANK PAIN Time Seen by Provider: 03/08/18 07:48 Hx Obtained From: Patient Hx Last Menstrual Period: 3 WEEKS Onset/Duration: Lasting Days - 1, Still Present Timing: Days - 1 Severity Currently: Severe Pain Intensity: 10 Pain Scale Used: 0-10 Numeric Location: Flank - right Radiates: Yes Radiates to: Back Aggravating Factor(s): Nothing Alleviating Factor(s): Nothing Associated Signs and Symptoms: Positive: Back Pain, Urinary Symptoms - pink urine color. Negative: Fever, Constipation, Nausea, Vomiting, Diarrhea Allergies/Adverse Reactions: Allergies Allergy/AdvReac Type Severity Reaction Status Date / Time No Known Allergies Allergy Verified 03/08/18 07:43 PMH/Surg Hx/FS Hx/Imm Hx Endocrine/Hematology History: Denies: Hx Anticoagulant Therapy, Hx Diabetes, Hx Thyroid Disease Cardiovascular History: Reports: Other Cardiovascular Problems/Disorders - current hypotension Denies: Hx Congestive Heart Failure, Hx Deep Vein Thrombosis, Hx Hypertension , Hx Myocardial Infarction, Hx Pacemaker/ICD Respiratory History: Reports: Other Respiratory Problems/Disorders - 1 AND 1/2 PACK A DAY Denies: Hx Asthma, Hx Chronic Obstructive Pulmonary Disease (COPD), Hx Lung Cancer, Hx Pneumonia, Hx Pulmonary Embolism GI History: Reports: Other GI Disorders - gall bladder removed Denies: Hx Gall Bladder Disease, Hx Gastrointestinal Bleed, Hx Ulcer, Hx Urosepsis History: Reports: Hx Kidney Stones - pt stated, Other Problems/Disorders - UTIs Denies: Hx Renal Disease Sensory History: Denies: Hx Contacts or Glasses, Hx Hearing Aid Opthamlomology History: Denies: Hx Contacts or Glasses Neurological History: Reports: Hx Migraine - No medications for this. Denies: Hx Dementia, Hx Developmental Delay, Hx Headaches, Hx Nerve Disease, Hx Seizures, Hx Spinal Cord Injury, Hx Transient Ischemic Attacks (TIA), Other Neuro Impairments/Disorders Psychiatric History: Reports: Hx Anxiety Denies: Hx Depression, Hx Panic Disorder, Hx Schizophrenia, Hx Bipolar Disorder - Surgical History Surgery Procedure, Year, and Place: hao. appy. tubal. galbladder and appendectomy. right hand Hx Anesthesia Reactions: No - Immunization History Date of Tetanus Vaccine: utd Date of Influenza Vaccine: none Infectious Disease History: No Infectious Disease History: Denies: Hx Clostridium Difficile, Hx Hepatitis, Hx Human Immunodeficiency Virus (HIV), Hx of Known/Suspected MRSA, Hx Shingles, History Other Infectious Disease, Traveled Outside the [place] in Last 30 Days - Family History Known Family History: Positive: Hypertension, Diabetes Negative: Cardiac Disease - Social History Alcohol Use: Rare Hx Substance Use: No Substance Use Type: Reports: None Hx Tobacco Use: Yes Smoking Status (MU): Light Every Day Tobacco Smoker Type: Cigarettes Amount Used/How Often: 1/2PPD Length of Time of Smoking/Using Tobacco: 20+ years Have You Smoked in the Last Year: Yes Review of Systems Negative: Fever, Chills Negative: Chest Pain Negative: Shortness Of Breath Positive: Abdominal Pain. Negative: Vomiting, Diarrhea, Nausea, Other - constipation Genitourinary: Other - pinkish urine color Musculoskeletal: Other - POS: right sided back pain All Other Systems Reviewed And Are Negative: Yes Physical Exam - Summary Physical Exam Summary: Appearance: The patient is well-nourished in no moderate distress. Skin: The skin is warm and dry and skin color reflects adequate perfusion. HEENT: The head is normocephalic and atraumatic. The pupils are equal and reactive. The conjunctivae are clear and without drainage. Nares are patent and without drainage. Mouth reveals moist mucous membranes and the throat is without erythema and exudate. The external ears are intact. The ear canals are patent and without drainage. The tympanic membranes are intact. Neck: the neck is supple with full range of motion and non-tender. There are no carotid bruits. There is no neck vein distension. Respiratory: Chest is non-tender. Lungs are clear to auscultation and breath sounds are symmetrical and equal. Cardiovascular: Heart is regular rate and rhythm. There is no murmur or rub auscultated. There is no peripheral edema and pulses are symmetrical and equal. Abdomen: The abdomen is soft and non-tender. There are normal bowel sounds heard in all four quadrants and there is no organomegaly palpated. Musculoskeletal: There is no back tenderness noted. Extremities are non-tender with full range of motion. There is good capillary refill. There is no peripheral edema or calf tenderness elicited. Neurological: Patient is alert and oriented to person, place and time. The patient is shaky. Psychiatric: The patient has an appropriate affect and does not exhibit any depression. The patient is shaky. Triage Information Reviewed: Yes Vital Signs On Initial Exam: Initial Vitals Temp Pulse Resp BP Pulse Ox 98.2 F 97 20 142/76 97 03/08/18 07:40 03/08/18 07:40 03/08/18 07:40 03/08/18 07:40 03/08/18 07:40 Vital Signs Reviewed: Yes Diagnostics - Vital Signs Vital Signs Temp Pulse Resp BP Pulse Ox 03/08/18 07:40 98.2 F 97 20 142/76 97 - Laboratory Lab Results: Lab Results 03/08/18 03/08/18 03/08/18 Range/Units 08:09 08:09 08:09 WBC 10.0 (3.5-10.8) 10^3/ul RBC 4.32 (4.00-5.40) 10^6/ul Hgb 13.7 (12.0-16.0) g/dl Hct 40 (35-47) % MCV 92 (80-97) fL MCH 32 H (27-31) pg MCHC 35 (31-36) g/dl RDW 13 (10.5-15) % Plt Count 264 (150-450) 10^3/ul MPV 6.7 L (7.4-10.4) um3 Neut % (Auto) 54.5 (38-83) % Lymph % (Auto) 34.9 (25-47) % [place] % (Auto) 7.2 H (0-7) % Eos % (Auto) 2.5 (0-6) % Baso % (Auto) 0.9 (0-2) % Absolute Neuts (auto) 5.5 (1.5-7.7) 10^3/ul Absolute Lymphs (auto) 3.5 (1.0-4.8) 10^3/ul Absolute Monos (auto) 0.7 (0-0.8) 10^3/ul Absolute Eos (auto) 0.2 (0-0.6) 10^3/ul Absolute Basos (auto) 0.1 (0-0.2) 10^3/ul Absolute Nucleated RBC 0 10^3/ul Nucleated RBC % 0 Sodium 136 (135-145) mmol/L Potassium 4.0 (3.5-5.0) mmol/L Chloride 103 (101-111) mmol/L Carbon Dioxide 24 (22-32) mmol/L Anion Gap 9 (2-11) mmol/L BUN 10 (6-24) mg/dL Creatinine 0.75 (0.51-0.95) mg/dL Est GFR ( Amer) 103.6 (>60) Est GFR (Non-Af Amer) 85.6 (>60) BUN/Creatinine Ratio 13.3 (8-20) Glucose 97 (70-100) mg/dL Lactic Acid 2.8 H* (0.5-2.0) mmol/L Calcium 9.0 (8.6-10.3) mg/dL Total Bilirubin 0.40 (0.2-1.0) mg/dL AST 23 (13-39) U/L ALT 13 (7-52) U/L Alkaline Phosphatase 47 (34-104) U/L C-Reactive Protein 1.82 (<8.01) mg/L Total Protein 7.4 (6.4-8.9) g/dL Albumin 4.3 (3.2-5.2) g/dL Globulin 3.1 (2-4) g/dL Albumin/Globulin Ratio 1.4 (1-3) Lipase 13 (11.0-82.0) U/L Beta HCG, Quant < 0.60 mIU/mL Urine Color Urine Appearance Urine pH (5-9) Ur Specific [place] (1.010-1.030) Urine Protein (Negative) Urine Ketones (Negative) Urine Blood (Negative) Urine Nitrate (Negative) Urine Bilirubin (Negative) Urine Urobilinogen (Negative) Ur Leukocyte Esterase (Negative) Urine WBC (Auto) (Absent) Urine RBC (Auto) (Absent) Ur Squamous Epith Cells (Absent) Urine Bacteria (Absent) Urine Glucose (Negative) 03/08/18 Range/Units 08:55 WBC (3.5-10.8) 10^3/ul RBC (4.00-5.40) 10^6/ul Hgb (12.0-16.0) g/dl Hct (35-47) % MCV (80-97) fL MCH (27-31) pg MCHC (31-36) g/dl RDW (10.5-15) % Plt Count (150-450) 10^3/ul MPV (7.4-10.4) um3 Neut % (Auto) (38-83) % Lymph % (Auto) (25-47) % [place] % (Auto) (0-7) % Eos % (Auto) (0-6) % Baso % (Auto) (0-2) % Absolute Neuts (auto) (1.5-7.7) 10^3/ul Absolute Lymphs (auto) (1.0-4.8) 10^3/ul Absolute Monos (auto) (0-0.8) 10^3/ul Absolute Eos (auto) (0-0.6) 10^3/ul Absolute Basos (auto) (0-0.2) 10^3/ul Absolute Nucleated RBC 10^3/ul Nucleated RBC % Sodium (135-145) mmol/L Potassium (3.5-5.0) mmol/L Chloride (101-111) mmol/L Carbon Dioxide (22-32) mmol/L Anion Gap (2-11) mmol/L BUN (6-24) mg/dL Creatinine (0.51-0.95) mg/dL Est GFR ( Amer) (>60) Est GFR (Non-Af Amer) (>60) BUN/Creatinine Ratio (8-20) Glucose (70-100) mg/dL Lactic Acid (0.5-2.0) mmol/L Calcium (8.6-10.3) mg/dL Total Bilirubin (0.2-1.0) mg/dL AST (13-39) U/L ALT (7-52) U/L Alkaline Phosphatase (34-104) U/L C-Reactive Protein (<8.01) mg/L Total Protein (6.4-8.9) g/dL Albumin (3.2-5.2) g/dL Globulin (2-4) g/dL Albumin/Globulin Ratio (1-3) Lipase (11.0-82.0) U/L Beta HCG, Quant mIU/mL Urine Color [place] Urine Appearance Cloudy Urine pH 5.0 (5-9) Ur Specific [place] 1.024 (1.010-1.030) Urine Protein 2+(100 mg/dl) A (Negative) Urine Ketones Trace A (Negative) Urine Blood 3+ A (Negative) Urine Nitrate Negative (Negative) Urine Bilirubin Negative (Negative) Urine Urobilinogen Negative (Negative) Ur Leukocyte Esterase Trace A (Negative) Urine WBC (Auto) 1+(6-10/hpf) A (Absent) Urine RBC (Auto) 3+(>10/hpf) A (Absent) Ur Squamous Epith Cells Present A (Absent) Urine Bacteria Absent (Absent) Urine Glucose Negative (Negative) Result Diagrams: 03/08/18 08:09 03/08/18 08:09 Lab Statement: Any lab studies that have been ordered have been reviewed, and results considered in the medical decision making process. - CT Abdomen/Pelvis CT CT Interpretation: No Acute Changes - IMPRESSION: No convincing evidence of urolithiasis. No mass or inflammatory changes. No CT imaging findings to account for the patient's right flank pain. Dr. Prieto has reviewed this radiology report. CT Interpretation Completed By: Radiologist Abdominal Pain Fem Course/Dx - Course Course Of Treatment: Ms. Herrera presented to the emergency department with the sudden onset of severe right flank pain. IV fluids and ketorolac did not help much and she was given Dilaudid and Zofran with significant relief. Her urine did have microscopic hematuria but CT scan did not show any acute ureterolithiasis. Possible that she did just pass a stone and I will discharge her to return for any problems. - Diagnoses Provider Diagnoses: Abdominal pain Discharge - Sign-Out/Discharge Documenting (check all that apply): Discharge/Admit/Transfer - Discharge - Discharge Plan Condition: Stable Disposition: HOME Patient Education Materials: Abdominal Pain (ED) Referrals: Aishwarya Linares MD [Medical Doctor] - Additional Instructions: Please follow up with your primary care provider in 2-3 days. RETURN TO THE ED FOR ANY WORSENING SYMPTOMS. - Billing Disposition and Condition Condition: STABLE Disposition: Home The documentation as recorded by the Jairon vo Angela accurately reflects the service I personally performed and the decisions made by me, Brando Prieto MD.
== END 2018-03-08 12:30 | disposition home or self-care (01) ==
LOC: ED 07:32
DX: R10.9 Unspecified abdominal pain (principal); R31.29 Other microscopic hematuria; F17.210 Nicotine dependence, cigarettes, uncomplicated; Z87.442 Personal history of urinary calculi; Z98.51 Tubal ligation status
CPT/HCPCS: 36415; 74176; 80053; 81003; 81015; 83605; 83690; 84702; 85025; 86140; 87086; 96374; 96375; 99283; J1170; J1885; J2405

== ENCOUNTER 2018-11-06 09:20 | Emergency (ER) | payer MEDICAID, OTHER ==
--- NOTE | 2018-11-06 09:48 | ED ---
Back Pain - HPI Summary HPI Summary: Pt. is a 43 y.o female who presents to the ER for low back pain. Pt. states she slipped and fell 3 weeks ago and developed low back pain. She states she was not checked out at that time. Pt. states she then lifted her grandchild yesterday and pain increased. Pain radiates into legs bilaterally. She denies leg numbness, tingling, or weakness. She denies bowel or bladder incontinence or retention. She denies fever, abd. pain, urinary sxs. Pt. has been taking tylenol and motrin without improvement. Sxs are mild in severity. Movement makes sxs worse. Nothing makes sxs better. - History of Current Complaint Chief Complaint: EDBackInjuryPain Stated Complaint: BACK PAIN Time Seen by Provider: 11/06/18 09:45 Hx Obtained From: Patient Hx Last Menstrual Period: 3 WEEKS Pain Intensity: 10 - Allergies/Home Medications Allergies/Adverse Reactions: Allergies Allergy/AdvReac Type Severity Reaction Status Date / Time No Known Allergies Allergy Verified 03/08/18 07:43 PMH/Surg Hx/FS Hx/Imm Hx Previously Healthy: Yes Endocrine/Hematology History: Denies: Hx Anticoagulant Therapy, Hx Diabetes, Hx Thyroid Disease Cardiovascular History: Reports: Other Cardiovascular Problems/Disorders - current hypotension Denies: Hx Congestive Heart Failure, Hx Deep Vein Thrombosis, Hx Hypertension , Hx Myocardial Infarction, Hx Pacemaker/ICD Respiratory History: Reports: Other Respiratory Problems/Disorders - 1 AND 1/2 PACK A DAY Denies: Hx Asthma, Hx Chronic Obstructive Pulmonary Disease (COPD), Hx Lung Cancer, Hx Pneumonia, Hx Pulmonary Embolism GI History: Reports: Other GI Disorders - gall bladder removed Denies: Hx Gall Bladder Disease, Hx Gastrointestinal Bleed, Hx Ulcer, Hx Urosepsis History: Reports: Hx Kidney Stones - pt stated, Other Problems/Disorders - UTIs Denies: Hx Renal Disease Sensory History: Denies: Hx Contacts or Glasses, Hx Hearing Aid Opthamlomology History: Denies: Hx Contacts or Glasses Neurological History: Reports: Hx Migraine - No medications for this. Denies: Hx Dementia, Hx Developmental Delay, Hx Headaches, Hx Nerve Disease, Hx Seizures, Hx Spinal Cord Injury, Hx Transient Ischemic Attacks (TIA), Other Neuro Impairments/Disorders Psychiatric History: Reports: Hx Anxiety Denies: Hx Depression, Hx Panic Disorder, Hx Schizophrenia, Hx Bipolar Disorder - Surgical History Surgery Procedure, Year, and Place: hao. appy. tubal. galbladder and appendectomy. right hand Hx Anesthesia Reactions: No - Immunization History Date of Tetanus Vaccine: utd Date of Influenza Vaccine: none Infectious Disease History: No Infectious Disease History: Denies: Hx Clostridium Difficile, Hx Hepatitis, Hx Human Immunodeficiency Virus (HIV), Hx of Known/Suspected MRSA, Hx Shingles, History Other Infectious Disease, Traveled Outside the [place] in Last 30 Days - Family History Known Family History: Positive: Hypertension, Diabetes Negative: Cardiac Disease - Social History Occupation: Employed Full-time Lives: With Family Alcohol Use: Rare Hx Substance Use: No Substance Use Type: Reports: None Hx Tobacco Use: Yes Smoking Status (MU): Light Every Day Tobacco Smoker Type: Cigarettes Amount Used/How Often: 1/2PPD Length of Time of Smoking/Using Tobacco: 20+ years Have You Smoked in the Last Year: Yes Review of Systems Constitutional: Negative Negative: Fever, Chills Respiratory: Negative Gastrointestinal: Negative Negative: Abdominal Pain Genitourinary: Negative Negative: burning, dysuria, discharge, frequency, flank pain Positive: Other - low back pain Skin: Negative Neurological: Negative Negative: Weakness, Paresthesia, Numbness All Other Systems Reviewed And Are Negative: Yes Physical Exam Triage Information Reviewed: Yes Vital Signs On Initial Exam: Initial Vitals Temp Pulse Resp BP Pulse Ox 98.8 F 112 19 159/98 100 11/06/18 09:22 11/06/18 09:22 11/06/18 09:22 11/06/18 09:22 11/06/18 09:22 Vital Signs Reviewed: Yes Appearance: Positive: Pain Distress - Pt. lying in bed on her side, crying. Family present. Skin: Positive: Warm, Dry Head/Face: Positive: Normal Head/Face Inspection Eyes: Positive: Normal, EOMI Musculoskeletal: Positive: Normal, Strength/ROM Intact, Other - 5/5 strength to bilateral LEs with flexion and dorsiflexion. Midline tenderness diffusely to lumbar spine. No CVA tenderness. Neurological: Positive: Normal, CN Intact II-III Diagnostics - Vital Signs Vital Signs Temp Pulse Resp BP Pulse Ox 11/06/18 09:22 98.8 F 112 19 159/98 100 - Laboratory Lab Statement: Any lab studies that have been ordered have been reviewed, and results considered in the medical decision making process. Back Pain Course/Dx - Course Course Of Treatment: Pt. presenting for exacerbation of low back pain after 2 recent injuries. She has no neuro deficits on exam or evidence or cauda equina syndrome. Afebrile. On chart review it appears pt. has been admitted a few times for intractable flank/back pain. Pt. state she has a hx of kidney stones but pain today does not feel like a stone. Pt. was given IM toradol and percocet. Will obtain ct scan of lumbar spine to evaluate for fx given recent fall. 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 No. fracture is noted. Broad-based protrusion is noted at L4-L5. No fracture is noted. On re-exam pt. is still c/ o significant pain. She state she feels her back is spasming. Pt. given a dose of ativan for muscle relaxer. On re-exam pain is improving and pt. can now ambulate in hallway. Will dc home with a few tabs of lortab, flexeril and naproxen. To apply warm compress and avoid lifting. To call pcp today for a close f.u apt. To return to ER if sxs change or worsen. Pt. dc home stable with family. MAGNETIZER reviewed and no red flags noted. - Diagnoses Differential Diagnosis/HQI/PQRI: Positive: Arthritis, Cauda Equina Syndrome, Compressive Cord Syndrome, Epidural Abscess, Fracture, Herniated Disc, Strain, Sprain Provider Diagnoses: Lumbar strain Discharge - Sign-Out/Discharge Documenting (check all that apply): Patient Departure Patient Received Moderate/Deep Sedation with Procedure: No - Discharge Plan Condition: Improved Disposition: HOME Prescriptions: Cyclobenzaprine TAB* [Flexeril 10 MG TAB*] 10 mg PO TID PRN #9 tab PRN Reason: Pain Hydrocodone/Acetaminophen [Hydrocodone-Acetamin 5-325 mg] 1 each PO Q6H #8 tablet MDD 4 Naproxen [Naproxen 500 mg tab] 500 mg PO BID #20 tablet Patient Education Materials: Low Back Strain (ED) Referrals: Nick Alcocer MD [Primary Care Provider] - Additional Instructions: Call PCP today to schedule an appointment in 2-3 days Take medication as directed Apply warm compresses to back Return to ER if symptoms change or worsen - Billing Disposition and Condition Condition: IMPROVED Disposition: Home
[2018-11-06] MEDS ORDERED: oxyCODONE/Acetamin 5/325 MG* TAB PO ONE (10:17)
[2018-11-06] MEDS ORDERED: Ketorolac INJ* 60 MG/2 ML VIAL IM ONE (10:17)
[2018-11-06] MEDS ORDERED: LORazepam INJ* 2 MG/ML 1 ML VIAL IM ONE (12:11)
[2018-11-06] MEDS ORDERED: LORazepam TAB(*) 1 MG PO ONE (12:12)
[2018-11-06 13:37] VITALS: BP 92/55
== END 2018-11-06 13:35 | disposition home or self-care (01) ==
LOC: ED 09:20
DX: S39.012A Strain of muscle, fascia and tendon of lower back, initial encounter (principal); X50.0XXA Overexertion from strenuous movement or load, initial encounter; Y92.9 Unspecified place or not applicable; M43.16 Spondylolisthesis, lumbar region; M51.26 Other intervertebral disc displacement, lumbar region; Z87.442 Personal history of urinary calculi; F17.210 Nicotine dependence, cigarettes, uncomplicated
CPT/HCPCS: 72131; 96372; 99282; A9270-GY; J1885

== ENCOUNTER 2018-11-07 23:58 | Inpatient (IN) | payer SELFPAY ==
[2018-11-08] MEDS ORDERED: Lidocaine 2% (CARDIAC)* 20 MG/ML 5 ML SYRINGE (100 MG) INJ ONE (00:05)
[2018-11-08] MEDS ORDERED: Ketorolac INJ* 30 MG/ML 1 ML VIAL IV PUSH ONE (00:05)
[2018-11-08] MEDS ORDERED: fentaNYL* 50 MCG/ML 2 ML VIAL (100 MCG VIAL) IV SLOW PU ONE ×2 (00:07→02:34)
--- NOTE | 2018-11-08 00:12 | ED ---
Back Pain - HPI Summary HPI Summary: A 43 y/o F brought in by ambulance presents to ED with c/o lower back pain onset three days ago. She was seen at [facility] on 11/06/18. The pain is radiating down the back of her L thigh. She is unable to ambulate nor bear weight. Denies urinary incontinence, CP, abd pain, SOB, fever. She is a smoker, but denies ETOH and street drugs. ED provider reviewed [facility] [place] and did not see anything concerning. - History of Current Complaint Chief Complaint: EDBackInjuryPain Stated Complaint: BACK PAIN Time Seen by Provider: 11/08/18 00:04 Hx Obtained From: Patient Hx Last Menstrual Period: 3 WEEKS Onset/Duration: Lasting Days, Still Present Onset/Duration: Still Present Timing: Constant Back Pain Location: Is Discrete @ - lower back, Radiates To - LLE Severity Currently: Severe Pain Intensity: 10 Pain Scale Used: 0-10 Numeric Associated Signs And Symptoms: Positive: Negative, Pain with Weight Bearing, Other - neg: CP, SOB. Negative: Fever, Abdominal Pain, Bladder Incontinence - Allergies/Home Medications Allergies/Adverse Reactions: Allergies Allergy/AdvReac Type Severity Reaction Status Date / Time No Known Allergies Allergy Verified 03/08/18 07:43 PMH/Surg Hx/FS Hx/Imm Hx Previously Healthy: No Endocrine/Hematology History: Denies: Hx Anticoagulant Therapy, Hx Diabetes, Hx Thyroid Disease Cardiovascular History: Reports: Other Cardiovascular Problems/Disorders - current hypotension Denies: Hx Congestive Heart Failure, Hx Deep Vein Thrombosis, Hx Hypertension , Hx Myocardial Infarction, Hx Pacemaker/ICD Respiratory History: Reports: Other Respiratory Problems/Disorders - 1 AND 1/2 PACK A DAY Denies: Hx Asthma, Hx Chronic Obstructive Pulmonary Disease (COPD), Hx Lung Cancer, Hx Pneumonia, Hx Pulmonary Embolism GI History: Reports: Other GI Disorders - gall bladder removed Denies: Hx Gall Bladder Disease, Hx Gastrointestinal Bleed, Hx Ulcer, Hx Urosepsis History: Reports: Hx Kidney Stones - pt stated, Other Problems/Disorders - UTIs Denies: Hx Renal Disease Sensory History: Denies: Hx Contacts or Glasses, Hx Hearing Aid Opthamlomology History: Denies: Hx Contacts or Glasses Neurological History: Reports: Hx Migraine - No medications for this. Denies: Hx Dementia, Hx Developmental Delay, Hx Headaches, Hx Nerve Disease, Hx Seizures, Hx Spinal Cord Injury, Hx Transient Ischemic Attacks (TIA), Other Neuro Impairments/Disorders Psychiatric History: Reports: Hx Anxiety Denies: Hx Depression, Hx Panic Disorder, Hx Schizophrenia, Hx Bipolar Disorder - Surgical History Surgery Procedure, Year, and Place: hao. appy. tubal. galbladder and appendectomy. right hand Hx Anesthesia Reactions: No - Immunization History Date of Tetanus Vaccine: utd Date of Influenza Vaccine: none Infectious Disease History: No Infectious Disease History: Denies: Hx Clostridium Difficile, Hx Hepatitis, Hx Human Immunodeficiency Virus (HIV), Hx of Known/Suspected MRSA, Hx Shingles, History Other Infectious Disease, Traveled Outside the [place] in Last 30 Days - Family History Known Family History: Positive: Hypertension, Diabetes Negative: Cardiac Disease - Social History Occupation: Unemployed - OTHER Lives: Alone Alcohol Use: Rare Hx Substance Use: No Substance Use Type: Reports: None Hx Tobacco Use: Yes Smoking Status (MU): Light Every Day Tobacco Smoker Type: Cigarettes Amount Used/How Often: 1/2PPD Length of Time of Smoking/Using Tobacco: 20+ years Have You Smoked in the Last Year: Yes Review of Systems Negative: Fever Negative: Chest Pain Negative: Shortness Of Breath Negative: Abdominal Pain Negative: incontinence Musculoskeletal: Other - pos: lower back pain radiating to LLE All Other Systems Reviewed And Are Negative: Yes Physical Exam - Summary Physical Exam Summary: Appearance: Middle-aged female, appears in good health but is in obvious pain Skin: Warm, dry, no obvious rash Eyes: sclera anicteric, no conjunctival pallor ENT: mucous membranes moist Neck: deferred Respiratory: No signs of respiratory distress Cardiovascular: Appears well perfused, pulses are nml Abdomen: deferred Musculoskeletal: Moving all 4 extremities without obvious discomfort; good strength in LE, reflexes are normal, no clonus of knees and ankles. Neurological: Awake and alert, mentation is normal, speech is fluent and appropriate Psychiatric: affect is normal, does not appear anxious or depressed Triage Information Reviewed: Yes Vital Signs On Initial Exam: Initial Vitals Temp Pulse Resp BP Pulse Ox 98 F 105 24 98/60 100 11/08/18 00:05 11/08/18 00:05 11/08/18 00:05 11/08/18 00:05 11/08/18 00:05 Vital Signs Reviewed: Yes Diagnostics - Vital Signs Vital Signs Temp Pulse Resp BP Pulse Ox 11/08/18 00:05 98 F 105 24 98/60 100 - Laboratory Result Diagrams: 11/08/18 00:11 11/08/18 00:13 Lab Statement: Any lab studies that have been ordered have been reviewed, and results considered in the medical decision making process. Re-Evaluation - Re-Evaluation 1 Re-Evaluation Time: 02:33 Change: Unchanged Comment: Pt is still having pain. Back Pain Course/Dx - Course Course Of Treatment: A 43 y/o F brought in by ambulance presents to ED with c/o lower back pain onset three days ago. She was seen at [facility] on 11/06/18. The pain is radiating down the back of her L thigh. She is unable to ambulate nor bear weight. Denies urinary incontinence, CP, abd pain, SOB, fever. She is a smoker, but denies ETOH and street drugs. ED provider reviewed [facility] [place] and did not see anything concerning. Lab work reveals: CRP is 394. Consulted with Dr. Anderson, hospitalist, who will admit patient. - Diagnoses Differential Diagnosis/HQI/PQRI: Positive: Cauda Equina Syndrome, Epidural Abscess, Herniated Disc, Osteomyelitis Provider Diagnoses: Spinal epidural abscess - Provider Notifications Discussed Care Of Patient With: Krystal Anderson - hospitalist Time Discussed With Above Provider: 02:35 Instructed by Provider To: Admit As Inpatient Discharge - Sign-Out/Discharge Documenting (check all that apply): Patient Departure - ADMIT Patient Received Moderate/Deep Sedation with Procedure: No - Discharge Plan Condition: Guarded Disposition: ADMITTED TO [facility] - Billing Disposition and Condition Condition: GUARDED Disposition: Admitted to [facility] - Attestation Statements Document Initiated by Scribe: Yes Documenting Scribe: Segundo Colon Provider For Whom Eloy is Documenting (Include Credential): Dr. Brando Dotson MD Scribe Attestation: José, lynn Garcia for Dr. Brando Dotson MD on 11/08/18 at 0647. Scribe Documentation Reviewed: Yes Provider Attestation: The documentation as recorded by the Segundo vo accurately reflects the service I personally performed and the decisions made by me, Dr. Brando Dotson MD Status of Scribe Document: Viewed
[2018-11-08 00:43] LABS: ALT 72 U/L (7-52); AST 47 U/L (13-39); Albumin 3.5 g/dL (3.2-5.2); Albumin/Globulin Ratio 0.9 (1-3); Alkaline Phosphatase 148 U/L (34-104); Anion Gap 13 mmol/L (2-11); BUN/Creatinine Ratio 23.2 (8-20); Blood Urea Nitrogen 23 mg/dL (6-24); C Reactive Protein 394.09 mg/L (<8.01); CO2 Carbon Dioxide 21 mmol/L (22-32); Calcium 9.1 mg/dL (8.6-10.3); Chloride 102 mmol/L (101-111); EGFR African American 74.8 (>60); EGFR Non-African American 61.8 (>60); Globulin 3.8 g/dL (2-4); Glucose 117 mg/dL (70-100); Potassium 3.4 mmol/L (3.5-5.0); Sodium 136 mmol/L (135-145); Total Protein 7.3 g/dL (6.4-8.9)
[2018-11-08 00:49] LABS: HCG Pregnancy < 0.60 mIU/mL
[2018-11-08] MEDS ORDERED: fentaNYL* 50 MCG/ML 2 ML VIAL (100 MCG VIAL) ONE (01:51)
[2018-11-08] MEDS: fentaNYL* 50 MCG/ML 2 ML VIAL (100 MCG VIAL) IV SLOW PU SCH ×4 (01:53→05:24)
[2018-11-08 02:36] LABS: ABS Basophils 0.1 10^3/ul (0-0.2); ABS Eosinophils 0.1 10^3/ul (0-0.6); ABS Lymphocytes 0.5 10^3/ul (1.0-4.8); ABS Monocytes 0.3 10^3/ul (0-0.8); ABS Nucleated RBC 0 10^3/ul; Eosinophil % 0.7 %; Hematocrit 37 % (35-47); Hemoglobin 12.4 g/dl (12.0-16.0); Lymphocyte % 3.8 %; Mean Corpuscular HGB Conc 34 g/dl (31-36); Mean Corpuscular Hemoglobin 29 pg (27-31); Mean Corpuscular Volume 86 fL (80-97); Mean Platelet Volume 7.3 fL (7.4-10.4); Nucleated Red Blood Cells % 0.1; Platelet Count 255 10^3/ul (150-450); Red Blood Count 4.23 10^6/ul (4.00-5.40); Red Cell Distribution Width 15 % (10.5-15)
[2018-11-08] MEDS ORDERED: NS 0.9% 1000 ML** 2,000 ML IV ONE (02:38)
[2018-11-08] MEDS ORDERED: cefTRIAXone(*) 1 GM in NS 0.9% 50 ML* 50 ML IVPB ONE (03:21)
[2018-11-08] MEDS ORDERED: Vancomycin(*) 1,250 MG in NS 0.9% 250 ML* 250 ML IVPB ONE (03:21)
[2018-11-08] MEDS ORDERED: cefTRIAXone(*) 1 GM ADVAN/BAG ONE (03:27)
[2018-11-08] MEDS ORDERED: QUEtiapine TAB* 25 MG PO ONE (03:28)
[2018-11-08] MEDS ORDERED: HYDROmorphone INJ1* 1 MG/ML SYRINGE IV SLOW PU PRN (05:16)
[2018-11-08] MEDS: Enoxaparin(*) 40 MG/0.4 ML SYR SUBCUT SCH (05:38)
[2018-11-08 06:59] LABS: ABS Basophils 0 10^3/ul (0-0.2); ABS Eosinophils 0 10^3/ul (0-0.6); ABS Lymphocytes 0.6 10^3/ul (1.0-4.8); ABS Monocytes 0.4 10^3/ul (0-0.8); ABS Neutrophils 10.7 10^3/ul (1.5-7.7); ABS Nucleated RBC 0 10^3/ul; Eosinophil % 0.3 %; Hematocrit 35 % (35-47); Hemoglobin 11.8 g/dl (12.0-16.0); Lymphocyte % 4.8 %; Mean Corpuscular HGB Conc 33 g/dl (31-36); Mean Corpuscular Hemoglobin 28 pg (27-31); Mean Corpuscular Volume 85 fL (80-97); Mean Platelet Volume 7.1 fL (7.4-10.4); Nucleated Red Blood Cells % 0; Platelet Count 211 10^3/ul (150-450); Red Blood Count 4.15 10^6/ul (4.00-5.40); Red Cell Distribution Width 15 % (10.5-15); White Blood Count 11.7 10^3/ul (3.5-10.8)
[2018-11-08 07:09] LABS: Albumin/Globulin Ratio 0.9 (1-3); Globulin 3.3 g/dL (2-4); Indirect Bilirubin 0.3 mg/dL (0.3-1.0); Total Bilirubin 1.3 mg/dL (0.2-1.0); Total Protein 6.3 g/dL (6.4-8.9)
[2018-11-08] MEDS ORDERED: NS 0.9% 1000 ML** 1,000 ML IV SCH (08:15)
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
[2018-11-08] MEDS ORDERED: Vancomycin per Pharmacy* NOTE FOLLOW UP SCH (09:00)
[2018-11-08] MEDS ORDERED: Cefepime 1 GM in Dextrose(*) 1 GM/50 ML BAG IV SCH (09:00)
[2018-11-08] MEDS: oxyCODONE TAB* 5 MG TAB PO PRN ×2 (09:55→15:40)
[2018-11-08 10:45] LABS: Hepatitis B Surface Antigen Nonreactive (Nonreactive)
[2018-11-08 11:23] LABS: Hepatitis C Antibody High Reactive (Nonreactive)
[2018-11-08] MEDS: LORazepam INJ* 2 MG/ML 1 ML VIAL IV PUSH PRN ×2 (11:51→23:27)
[2018-11-08] MEDS: Ketorolac INJ* 15 MG/ML 1 ML VIAL IV PUSH PRN (11:51)
[2018-11-08] MEDS: Cyclobenzaprine TAB* 10 MG PO PRN (11:53)
[2018-11-08] MEDS ORDERED: Vancomycin(*) 750 MG in NS 0.9% 250 ML* 250 ML IVPB SCH (12:00)
[2018-11-08] MEDS: HYDROmorphone INJ1* 1 MG/ML SYRINGE IV SLOW PU PRN ×2 (12:49→16:21)
[2018-11-08] MEDS ORDERED: Famotidine IV* 10 MG/ML 2 ML (20 mg) IV ONE (13:58)
[2018-11-08] MEDS ORDERED: Dexamethasone TAB* 4 MG PO ONE (14:02)
[2018-11-08] MEDS ORDERED: Buffered Lidocaine 1% SYRIN* 1 ML/SYRINGE INTRADERM ONE ×2 (14:02→22:11)
[2018-11-08] MEDS ORDERED: Ondansetron INJ* 2 MG/ML VIAL ONE (14:02)
[2018-11-08 14:59] LABS: Urine Appearance Cloudy; Urine Bacteria 1+ (Absent); Urine Bilirubin Negative (Negative); Urine Blood Negative (Negative); Urine Color Amber; Urine Glucose Negative (Negative); Urine Ketones Negative (Negative); Urine Nitrite Positive (Negative); Urine Protein Negative (Negative); Urine Red Blood Cell 1+(3-5/hpf) (Absent); Urine Specific Gravity 1.021 (1.010-1.030); Urine Squamous Epithelial Cell Present (Absent); Urine Urobilinogen Positive (Negative); Urine White Blood Cell 2+(11-20/hpf) (Absent)
[2018-11-08] MEDS ORDERED: Lactated Ringers 1000 ML Bag* 1,000 ML IV SCH (15:00)
[2018-11-08 15:06] LABS: Barbiturates Urine Screen None Detected (None Detect); Benzodiazepine Urine Screen None Detected (None Detect); Urine Cannabinoids Screen None Detected (None Detect)
[2018-11-08] MEDS ORDERED: Gadoteridol* (CONTRAST) 279.3 MG/ML 10 ML IV ONE (15:27)
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
[2018-11-08] MEDS ORDERED: fentaNYL* 50 MCG/ML 5 ML VIAL (250 MCG VIAL) ONE ×2 (18:32→19:15)
[2018-11-08] MEDS ORDERED: KETAMINE HCL* 50 MG/ML 10 ML VIAL ONE (18:32)
[2018-11-08] MEDS ORDERED: Midazolam* 1 MG/ML 5 ML VIAL (5 MG) ONE (18:32)
[2018-11-08] MEDS ORDERED: Ondansetron ODT TAB* 4 MG ONE (18:51)
[2018-11-08] MEDS ORDERED: Dexamethasone TAB* 4 MG ONE (18:52)
[2018-11-08] MEDS ORDERED: Lidocaine 2% PF * 5 ML VIAL ONE (18:56)
[2018-11-08] MEDS ORDERED: PROCHLORPERAZINE INJ 5 MG/ML 2 ML VIAL IV PRN (20:36)
[2018-11-08] MEDS ORDERED: Naloxone* 0.4 MG/ML 1 ML VIAL IV PRN (20:36)
[2018-11-08] MEDS ORDERED: fentaNYL* 50 MCG/ML 2 ML VIAL (100 MCG VIAL) IV PRN (20:36)
[2018-11-08] MEDS ORDERED: Propofol* 10 MG/ML 20 ML BTL ONE (20:42)
[2018-11-08] MEDS ORDERED: ceFAZolin* 2 GM* Q8H (Duplex) IVPB SCH (21:00)
[2018-11-08] MEDS ORDERED: Ondansetron TAB* 4 MG PO ONE (22:11)
--- NOTE | 2018-11-08 22:44 | PN ---
Hospitalist Progress Note Date of Service: 11/08/18 I was called by vin for Dunia's MRI results--she has a paraspinal abscess as well as an epidural abscess. I spoke with Dr. Siddiqui regarding this read and he is here in the hospital and going to discuss surgery with her. Will make her NPO after midnight.
[2018-11-08] MEDS ORDERED: Vancomycin per Pharmacy* NOTE FOLLOW UP PRN (23:02)
[2018-11-08] MEDS ORDERED: Iodixanol* (CONTRAST) 320 MG/ML 100 ML SDV IV ONE (23:39)
[2018-11-08] MEDS: Vancomycin(*) 750 MG in NS 0.9% 250 ML* 250 ML IVPB SCH (23:42)
[2018-11-08] MEDS: KCL 20 MEQ/100 ML IVPREMIX* 20 MEQ/100 ML BAG IV SCH (23:42)
[2018-11-09] MEDS: HYDROmorphone INJ1* 1 MG/ML SYRINGE IV SLOW PU PRN ×2 (00:33→04:36)
--- NOTE | 2018-11-09 00:33 | PN ---
Hospitalist Progress Note Date of Service: 11/09/18 I was called for delirium after the procedural sedation for the MRI. I came to see Dunia. She says she recognized me from last night, she is appropriately frustrated at attempts to get a 3rd IV line, but also expresses moments of extreme paranoia and outbursts and confusion. She says she remembers meeting Dr. Siddiqui, but is surprised when I tell her the MRI findings. Her vitals remain stable. She is alert and cooperative and follows commands but is clearly delirious following anesthesia. She continues to adamantly deny alcohol use. Her UDS was positive for methamphetamines. I am still suspicious for withdrawal so will treat her with thiamine and prn ativan. Also will check CT brain w/wo to rule out brain abscess. She does not have capacity to consent for a CT at this time. CT has attempted to reach her family for consent with no success. This is medically necessary and we will proceed as such.
[2018-11-09] MEDS: Cyclobenzaprine TAB* 10 MG PO PRN (01:51)
[2018-11-09] MEDS ORDERED: Thiamine IV* 100 MG, Folic Acid IV* 1 MG, Multiple Vitamin IV ADULT* 10 ML in NS 0.9% 1... IV ONE (01:52)
[2018-11-09] MEDS: Cefepime* 2 GM in Dextrose 50mL Q12H (Duplex) IV SCH ×2 (02:55→15:28)
[2018-11-09] MEDS: Ketorolac INJ* 15 MG/ML 1 ML VIAL IV PUSH PRN (03:02)
[2018-11-09] MEDS: LORazepam INJ* 2 MG/ML 1 ML VIAL IV PUSH PRN (03:20)
[2018-11-09] MEDS: KCL 20 MEQ/100 ML IVPREMIX* 20 MEQ/100 ML BAG IV SCH (04:09)
[2018-11-09] MEDS: Enoxaparin(*) 40 MG/0.4 ML SYR SUBCUT SCH (05:12)
[2018-11-09] MEDS ORDERED: Famotidine IV* 10 MG/ML 2 ML (20 mg) IV ONE (06:00)
[2018-11-09] MEDS ORDERED: Dexamethasone TAB* 4 MG PO ONE (06:00)
[2018-11-09] MEDS ORDERED: Lactated Ringers 1000 ML Bag* 1,000 ML IV SCH (06:00)
[2018-11-09 06:01] LABS: Hematocrit 30 % (35-47); Hemoglobin 10.2 g/dl (12.0-16.0); Mean Corpuscular HGB Conc 34 g/dl (31-36); Mean Corpuscular Hemoglobin 29 pg (27-31); Mean Corpuscular Volume 85 fL (80-97); Mean Platelet Volume 6.9 fL (7.4-10.4); Platelet Count 173 10^3/ul (150-450); Red Blood Count 3.56 10^6/ul (4.00-5.40); Red Cell Distribution Width 15 % (10.5-15); White Blood Count 9.2 10^3/ul (3.5-10.8)
[2018-11-09 06:19] LABS: ABS Basophils 0 10^3/ul (0-0.2); ABS Eosinophils 0 10^3/ul (0-0.6); ABS Lymphocytes 0.8 10^3/ul (1.0-4.8); ABS Monocytes 0.4 10^3/ul (0-0.8); ABS Nucleated RBC 0 10^3/ul
[2018-11-09 06:21] LABS: BUN/Creatinine Ratio 28.3 (8-20); Blood Urea Nitrogen 15 mg/dL (6-24); CO2 Carbon Dioxide 19 mmol/L (22-32); EGFR African American 153.8 (>60); EGFR Non-African American 127.1 (>60); Glucose 127 mg/dL (70-100); Sodium 139 mmol/L (135-145)
[2018-11-09 06:25] LABS: Anion Gap 8 mmol/L (2-11); Chloride 112 mmol/L (101-111)
[2018-11-09 06:46] LABS: Immature Granulocytes 6 % (0-9); Lymphocytes % 8 %; Monocytes % 5 %; Neutrophil % 80 %
[2018-11-09 06:49] LABS: ABS Neutrophils 7.91 10^3/ul (1.5-7.7)
[2018-11-09 06:50] LABS: ABS Eosinophils 0.09 10^3/ul (0-0.6)
[2018-11-09] MEDS ORDERED: Lidocaine 1% MPF wEPI 200,000* 30 ML SDV ONE (09:00)
[2018-11-09] MEDS ORDERED: LORazepam TAB(*) 1 MG PO SCH (09:00)
[2018-11-09] MEDS ORDERED: Bacitracin IV* 50,000 UNITS INJ ONE ×2 (09:01→12:00)
[2018-11-09] MEDS ORDERED: Thrombin 5,000 UNITS* 1 APPLIC KIT - topical use - TOPICAL ONE (09:01)
[2018-11-09 09:17] LABS: Alcohol < 10 mg/dL (<10)
[2018-11-09] MEDS ORDERED: fentaNYL* 50 MCG/ML 5 ML VIAL (250 MCG VIAL) ONE ×2 (09:24→11:59)
[2018-11-09] MEDS ORDERED: KETAMINE HCL* 50 MG/ML 10 ML VIAL ONE (09:24)
[2018-11-09] MEDS ORDERED: Atracurium* 10 MG/ML 10 ML VIAL ONE ×2 (09:24→13:30)
[2018-11-09] MEDS ORDERED: Midazolam* 1 MG/ML 5 ML VIAL (5 MG) ONE (09:24)
[2018-11-09] MEDS ORDERED: Dexamethasone IV* 4 MG/ML 1 ML (4 MG) ONE (10:05)
[2018-11-09] MEDS ORDERED: Famotidine IV* 10 MG/ML 2 ML (20 mg) ONE (10:06)
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
--- NOTE | 2018-11-09 10:46 | PN ---
Progress Note - Progress Note Date of Service: 11/09/18 SOAP: Subjective: []No events ON other than episodes of confusion/delirium. CT brain did not reveal intracranial abnormality. Patient seen in preop area with family at bedside. Please see full note in patient's paper chart. Plan: []To OR today Risks and benefits were discussed in extend with patient , her significant other and her daughters. They understand the severity of the condition and the potentially guarded prognosis and possibility of loss of neurological function and . Please refer to paper chart note for details. Patient is cleared for surgery by IM team. Newton Siddiqui MD
[2018-11-09 11:42] LABS: INR 1.43 (0.77-1.02)
[2018-11-09] MEDS ORDERED: Phenylephrine 10 MG/ML VIAL* 1 ML VIAL ONE (13:29)
[2018-11-09] MEDS ORDERED: Propofol* 10 MG/ML 20 ML BTL ONE (13:29)
[2018-11-09] MEDS ORDERED: Norepinephrine VIAL* 1 MG/ML 4 ML VIAL ONE (13:29)
[2018-11-09] MEDS ORDERED: Vancomycin(*) 1,000 MG VIAL ONE (14:16)
[2018-11-09] MEDS ORDERED: HYDROmorphone INJ1* 1 MG/ML SYRINGE ONE ×3 (14:20→15:40)
[2018-11-09] MEDS ORDERED: Metoclopramide IV* 5 MG/ML 2 ML VIAL ONE (14:21)
[2018-11-09] MEDS ORDERED: Ketorolac INJ* 30 MG/ML 1 ML VIAL ONE (14:21)
[2018-11-09] MEDS ORDERED: Ondansetron INJ* 2 MG/ML VIAL ONE (14:21)
[2018-11-09] MEDS ORDERED: Magnesium Hydroxide LIQ* 30 ML UDC PO PRN (14:22)
[2018-11-09] MEDS ORDERED: Ondansetron INJ* 2 MG/ML VIAL IV PRN (14:22)
[2018-11-09] MEDS ORDERED: Vancomycin Trough Check NOTE FOLLOW UP ONE (14:30)
[2018-11-09] MEDS ORDERED: Neostigmine Methylsulfate* 1 MG/ML 10 ML VIAL (1 mg/ml) ONE (14:31)
[2018-11-09] MEDS ORDERED: Glycopyrrolate IV* 0.2 MG/ML 1 ML VIAL ONE (14:31)
[2018-11-09] MEDS ORDERED: ceFAZolin VIAL(*) 2 GM in NS 0.9% 100 ML* 100 ML IVPB SCH (15:00)
[2018-11-09] MEDS ORDERED: DiMENhydriNATE IV* 50 MG/ML VIAL IV PUSH PRN (15:17)
[2018-11-09] MEDS ORDERED: oxyCODONE TAB* 5 MG TAB PO PRN (15:17)
[2018-11-09] MEDS ORDERED: Naloxone* 0.4 MG/ML 1 ML VIAL IV PRN (15:17)
[2018-11-09] MEDS: HYDROmorphone INJ1* 1 MG/ML SYRINGE IV PRN ×4 (15:20→16:00)
[2018-11-09] MEDS: Vancomycin(*) 750 MG in NS 0.9% 250 ML* 250 ML IVPB SCH (15:28)
[2018-11-09] MEDS ORDERED: Gabapentin CAP(*) 300 MG ONE (16:02)
[2018-11-09] MEDS: Gabapentin CAP(*) 300 MG PO ONE ×2 (16:05→17:12)
[2018-11-09] MEDS: Lactated Ringers 1000 ML Bag* 1,000 ML IV SCH (17:03)
[2018-11-09] MEDS: Morphine 4 MG/ML VIAL (1 ml) 4 MG/ML VIAL IV PRN ×2 (17:05→21:27)
[2018-11-09] MEDS: HYDROcodone/ACETAMIN 5-325 MG* 1 TAB PO SCH ×2 (17:12→21:28)
[2018-11-09] MEDS: ceFAZolin* 2 GM* Q8H (Duplex) IVPB SCH (17:25)
[2018-11-09] MEDS ORDERED: Dexmedetomidine* 400 MCG in NS 0.9% 100 ML* 96 ML IVPB SCH (17:30)
--- NOTE | 2018-11-09 19:04 | PN ---
Subjective Date of Service: 11/09/18 Interval History: Patient seen this morning at bedside prior to surgery. Patient alert. She is oriented to self and place. Believes it is 1992. Patient reports pain in back which is causing her to not be able to sit still. Staff preparing for PICC placement. Discussed upcoming surgery and care plans with daughters and boyfriend (HCP). All stating understanding. They will accompany patient to surgical prep area. Patient to surgical prep area on stretcher Family History: Unchanged from Admission Social History: Unchanged from Admission Past Medical History: Unchanged from Admission Objective Active Medications: Acetaminophen (Tylenol Tab*) 650 mg PO Q6H PRN PRN Reason: PAIN Acetaminophen (Tylenol Tab*) 650 mg PO Q4H PRN PRN Reason: PAIN Hydrocodone Bitart/Acetaminophen ([place] 5-325 Tab*) 1 tab PO Q6H [facility] Last Admin: 11/09/18 17:12 Dose: Not Given Cyclobenzaprine HCl (Flexeril Tab*) 10 mg PO Q8H PRN PRN Reason: PAIN Last Admin: 11/09/18 01:51 Dose: 10 mg Enoxaparin Sodium (Lovenox(*)) 40 mg SUBCUT Q24H [facility] Last Admin: 11/09/18 05:12 Dose: Not Given Lactated Ringer's (Lactated Ringers 1000 Ml Bag*) 1,000 mls @ 75 mls/hr IV .per rate [facility] Last Admin: 11/09/18 17:03 Dose: 75 mls/hr Cefazolin Sodium/Dextrose (Kefzol 2 Gm Premix In Ors(*)) 2 gm in 50 mls @ 100 mls/hr IVPB Q8H [facility] Last Admin: 11/09/18 17:25 Dose: 100 mls/hr Dexmedetomidine HCl 400 mcg/ (Sodium Chloride) 100 mls @ 2.78 mls/hr IVPB Q24H [facility]; Protocol Last Admin: 11/09/18 17:09 Dose: 2.78 mls/hr Lorazepam (Ativan Tab(*)) 0 - 6 mg PO .PER WA PROTOCOL [facility]; Protocol Magnesium Hydroxide (Milk Of Magnesia Liq*) 30 ml PO DAILY PRN PRN Reason: CONSTIPATION Morphine Sulfate (Morphine Vial*) 4 mg IV Q4H PRN PRN Reason: PAIN - MODERATE TO SEVERE Last Admin: 11/09/18 17:05 Dose: 4 mg Ondansetron HCl (Zofran Inj*) 4 mg IV Q6H PRN PRN Reason: NAUSEA/VOMITING Oxycodone HCl (Roxycodone Tab*) 5 mg PO Q4H PRN PRN Reason: PAIN - MODERATE Last Admin: 11/08/18 15:40 Dose: 5 mg Vital Signs - 8 hr 11/09/18 11/09/18 11/09/18 15:12 15:16 15:20 Temperature 96.8 F Pulse Rate 107 108 Respiratory 20 30 Rate Blood Pressure 135/91 (mmHg) O2 Sat by Pulse 99 99 Oximetry 11/09/18 11/09/18 11/09/18 15:21 15:25 15:30 Temperature Pulse Rate 103 93 91 Respiratory 31 38 27 Rate Blood Pressure 137/95 140/79 137/96 (mmHg) O2 Sat by Pulse 97 97 98 Oximetry 11/09/18 11/09/18 11/09/18 15:31 15:38 15:40 Temperature Pulse Rate 86 82 Respiratory 18 31 29 Rate Blood Pressure 127/90 146/90 (mmHg) O2 Sat by Pulse 97 97 Oximetry 11/09/18 11/09/18 11/09/18 15:45 16:00 16:01 Temperature 96.8 F Pulse Rate 78 85 Respiratory 22 22 21 Rate Blood Pressure 147/94 130/94 (mmHg) O2 Sat by Pulse 97 98 Oximetry 11/09/18 11/09/18 11/09/18 16:15 16:19 16:33 Temperature Pulse Rate 72 81 83 Respiratory 13 15 Rate Blood Pressure 157/97 149/90 (mmHg) O2 Sat by Pulse 97 99 98 Oximetry 11/09/18 11/09/18 11/09/18 16:36 16:45 17:00 Temperature 97 F Pulse Rate 85 76 84 Respiratory 22 20 32 Rate Blood Pressure 149/90 147/89 143/97 (mmHg) O2 Sat by Pulse 99 99 100 Oximetry 11/09/18 11/09/18 11/09/18 17:05 17:15 17:28 Temperature Pulse Rate 75 Respiratory 23 14 23 Rate Blood Pressure 147/96 (mmHg) O2 Sat by Pulse 100 Oximetry 11/09/18 11/09/18 11/09/18 17:30 17:45 17:50 Temperature Pulse Rate 77 80 Respiratory 23 23 22 Rate Blood Pressure 136/86 131/84 (mmHg) O2 Sat by Pulse 100 99 Oximetry 11/09/18 11/09/18 18:00 18:15 Temperature Pulse Rate 80 80 Respiratory 21 21 Rate Blood Pressure 129/89 136/87 (mmHg) O2 Sat by Pulse 99 100 Oximetry Oxygen Devices in Use Now: None Appearance: Agitated as evidence by constant movements and moaning Eyes: No Scleral Icterus Ears/Nose/Mouth/Throat: Clear Oropharnyx, Mucous Membranes Moist Neck: NL Appearance and Movements; NL JVP Respiratory: Symmetrical Chest Expansion and Respiratory Effort, Clear to Auscultation Cardiovascular: NL Sounds; No Murmurs; No JVD, RRR, No Edema Abdominal: NL Sounds; No Tenderness; No Distention Extremities: No Clubbing, Cyanosis Skin: No Nodules or Sclerosis Neurological: NL Muscle Strength and Tone, - - Alert. Oriented x2 Nutrition: - - NPO Result Diagrams: 11/09/18 05:49 11/09/18 05:49 Additional Lab and Data: Laboratory Results - last 24 hr 11/09/18 11/09/18 11/09/18 05:38 05:49 05:49 WBC 9.2 RBC 3.56 L Hgb 10.2 L Hct 30 L MCV 85 MCH 29 MCHC 34 RDW 15 Plt Count 173 MPV 6.9 L Neut % (Auto) Not Reportable Lymph % (Auto) Not Reportable [place] % (Auto) Not Reportable Eos % (Auto) Not Reportable Baso % (Auto) Not Reportable Absolute Neuts (auto) 8.0 H Absolute Lymphs (auto) 0.8 L Absolute Monos (auto) 0.4 Absolute Eos (auto) 0 Absolute Basos (auto) 0 Absolute Nucleated RBC 0 Immature Gran % 6 Neutrophils % 80 Band Neutrophils % 6 Lymphocytes % 8 Monocytes % 5 Eosinophils % 1 Nucleated RBC % Not Reportable Abs Neuts (Manual) 7.91 H Abs Lymphs (Manual) 0.74 L Abs Monocytes (Manual) 0.46 Absolute Eos (Manual) 0.09 Normal RBC Morphology Normal Hem Pathologist Commnt INR (Anticoag Therapy) Sodium 139 Potassium 4.0 Chloride 112 H Carbon Dioxide 19 L Anion Gap 8 BUN 15 Creatinine 0.53 Est GFR ( Amer) 153.8 Est GFR (Non-Af Amer) 127.1 BUN/Creatinine Ratio 28.3 H Glucose 127 H POC Glucose (mg/dL) 113 H Calcium 8.0 L Ammonia Serum Alcohol < 10 Blood Type Antibody Screen 11/09/18 11/09/18 11/09/18 09:34 11:15 11:15 WBC RBC Hgb Hct MCV MCH MCHC RDW Plt Count MPV Neut % (Auto) Lymph % (Auto) [place] % (Auto) Eos % (Auto) Baso % (Auto) Absolute Neuts (auto) Absolute Lymphs (auto) Absolute Monos (auto) Absolute Eos (auto) Absolute Basos (auto) Absolute Nucleated RBC Immature Gran % Neutrophils % Band Neutrophils % Lymphocytes % Monocytes % Eosinophils % Nucleated RBC % Abs Neuts (Manual) Abs Lymphs (Manual) Abs Monocytes (Manual) Absolute Eos (Manual) Normal RBC Morphology Hem Pathologist Commnt INR (Anticoag Therapy) 1.43 H Sodium Potassium Chloride Carbon Dioxide Anion Gap BUN Creatinine Est GFR ( Amer) Est GFR (Non-Af Amer) BUN/Creatinine Ratio Glucose POC Glucose (mg/dL) Calcium Ammonia 69 H Serum Alcohol Blood Type A Negative Antibody Screen Negative Microbiology and Other Data: Microbiology 11/09/18 16:39 Nasal Nasal Screen MRSA (PCR) - Final Mrsa Detected 11/09/18 11:50 Wound - Abscess Skin and Soft Tissue MRSA/MSSA (PCR - Final Mrsa Negative S.aureus Positive 11/09/18 11:50 Wound - Abscess Gram Stain - Final 11/08/18 14:30 Urine Urine Culture - Final No Growth (<1,000 CFU/mL) 11/08/18 06:32 Blood Venous Aerobic Blood Culture - Final Not Reportable 11/08/18 06:32 Blood Venous Anaerobic Blood Culture - Final Not Reportable 11/08/18 06:32 Blood Venous Blood Culture - Preliminary Staphylococcus Aureus 11/08/18 03:47 Blood Venous Aerobic Blood Culture - Final Not Reportable 11/08/18 03:47 Blood Venous Anaerobic Blood Culture - Final Not Reportable 11/08/18 03:47 Blood Venous Blood Culture - Preliminary Staphylococcus Aureus 11/08/18 03:47 Blood Venous Blood MRSA/MSSA (PCR) - Final Mrsa Negative S.aureus Positive Assess/Plan/Problems-Billing Assessment: Patient is a 43yo female with a PMH for possible seizures, History of traumatic spine injury and history of IV drug abuse who presents to the hospital for chills, tachycardia, hypotension, severe back pain and elevated CRP who is admitted for evaluation of radicular back pain with concern for epidural abscess impinging on nerve root. - Patient Problems (1) Epidural abscess Comment: - OR today with neurosurg - ID consulting. Ancef ordered. Vanco and Cefepime discontinued - Will need CARMELO. - ID will see patient Monday (2) Paraspinal abscess Comment: - As above (3) Agitation Comment: - WAM ordered - Suspected multifactorial due to inpatient medications and illegal drug use (4) History of intravenous drug abuse Comment: - Claims to be clean x3 years - Claims to only have used opiates - UDS positive for Amphetamines, claims she took Buproprion 2 weeks ago but vehemently denies injecting opiates recently or Amphetamines ever - Hepatitis C antibody positive with elevated LFTs, Viral load pending, may need treatment in the non-acute setting. - Daughters found drug supplies in purse while inpatient (5) Sepsis Comment: - On admission had Tachycardia, Chills, Hypotension, Leukocytosis, but currently resolved - Improved with fluids and antibiotics - Source abscess - Still at risk, therefore, needs close monitoring (6) UTI (urinary tract infection) Current Visit: No Status: Acute Comment: - Grossly Positive UA - Culture negative, but urine specimen taken after abx started - Cont Ancef - Repeat UA in 2 days (7) DVT prophylaxis Comment: - Lovenox (8) Full code status Comment: Status and Disposition: Inpatient Attending: Andres Degroot
[2018-11-10] MEDS: ceFAZolin* 2 GM* Q8H (Duplex) IVPB SCH ×3 (00:16→17:08)
[2018-11-10] MEDS: Morphine 4 MG/ML VIAL (1 ml) 4 MG/ML VIAL IV PRN ×6 (00:17→23:30)
[2018-11-10] MEDS: HYDROcodone/ACETAMIN 5-325 MG* 1 TAB PO SCH ×4 (02:25→20:28)
[2018-11-10] MEDS: Dexmedetomidine* 400 MCG in NS 0.9% 100 ML* 96 ML IVPB SCH ×2 (04:34→15:21)
[2018-11-10] MEDS: Enoxaparin(*) 40 MG/0.4 ML SYR SUBCUT SCH (04:34)
[2018-11-10 05:00] LABS: Hematocrit 34 % (35-47); Hemoglobin 11.2 g/dl (12.0-16.0); Mean Corpuscular HGB Conc 34 g/dl (31-36); Mean Corpuscular Hemoglobin 29 pg (27-31); Mean Corpuscular Volume 86 fL (80-97); Platelet Count 201 10^3/ul (150-450); Red Blood Count 3.92 10^6/ul (4.00-5.40); Red Cell Distribution Width 15 % (10.5-15); White Blood Count 12.6 10^3/ul (3.5-10.8)
[2018-11-10 05:17] LABS: Albumin 2.5 g/dL (3.2-5.2); Albumin/Globulin Ratio 0.8 (1-3); BUN/Creatinine Ratio 48.2 (8-20); Calcium 8.1 mg/dL (8.6-10.3); EGFR African American 144.4 (>60); EGFR Non-African American 119.3 (>60); Globulin 3.3 g/dL (2-4); Potassium 3.8 mmol/L (3.5-5.0); Total Bilirubin 0.4 mg/dL (0.2-1.0); Total Protein 5.8 g/dL (6.4-8.9)
[2018-11-10 05:28] LABS: ABS Basophils 0 10^3/ul (0-0.2); ABS Eosinophils 0 10^3/ul (0-0.6); ABS Lymphocytes 1.5 10^3/ul (1.0-4.8); ABS Monocytes 0.8 10^3/ul (0-0.8); ABS Neutrophils 10.2 10^3/ul (1.5-7.7); ABS Nucleated RBC 0 10^3/ul; Eosinophil % 0 %; Lymphocyte % 12.3 %; Nucleated Red Blood Cells % 0
[2018-11-10] MEDS: Cyclobenzaprine TAB* 10 MG PO PRN ×2 (08:03→19:01)
[2018-11-10] MEDS: Lactated Ringers 1000 ML Bag* 1,000 ML IV SCH (09:38)
[2018-11-10] MEDS: oxyCODONE TAB* 5 MG TAB PO PRN ×3 (09:43→18:13)
[2018-11-10] MEDS ORDERED: Vancomycin Trough Check NOTE FOLLOW UP ONE (11:30)
[2018-11-10] MEDS: Acetaminophen TAB* 325 MG PO PRN (13:55)
--- NOTE | 2018-11-10 15:59 | OP ---
DATE OF OPERATION: 11/09/18 - ROOM #335 DATE OF : 79 SURGEON: Dr. Solomon Siddiqui. CO-SURGEON: Dr. Omar Larkin. ANESTHESIA: General. PRE-OP DIAGNOSES: Lumbar epidural abscess, paraspinal abscess, L4-5 grade 2 spondylolisthesis. POST-OP DIAGNOSES: Lumbar epidural abscess, paraspinal abscess, L4-5 grade 2 spondylolisthesis. OPERATIVE PROCEDURE: Patient underwent L4 laminectomy (Palafox's procedure), partial laminectomies left L2, L3, and L5 with ipsi-contralateral approach for evacuation of epidural abscess and paraspinal musculature abscess with L4-5 arthrodesis, with posterolateral fusion and use of DBX and bilateral L4 and L5 pedicle screws with intraoperative navigation. ESTIMATED BLOOD LOSS: 100 mL. COMPLICATIONS: None. SUMMARY: Patient is a very pleasant 43-year-old female with a history of prior substance abuse who presented with one week of altered mental status and increased back pain and weakness and numbness of the left lower extremity. The patient was found to be septic with increased inflammatory markers and UTI. The patient's MRI was positive for lumbar paraspinal abscesses as well as epidural abscesses with an L4-5 grade 2 spondylolisthesis. The patient's blood cultures were positive for staph infection. The patient was placed on antibiotics and was offered the option of surgical intervention for epidural abscess evacuation and stabilization of her spine. After explaining the expectations, limitations, possible complication of the procedure to the patient and her family including her daughters and her significant other, the complications including, but not limited to, bleeding, infection, risk of injury to adjacent structures, coma, paralysis, , need for additional procedure, anesthesia risks, stroke, blindness, cancer, instability, hardware failure, adjacent level disease, pseudoarthrosis, need for additional procedure, spinal fluid leak, inability to evacuate the abscess, persistence of abscess or recurrence of infection, loss of bladder or bowel control, subacute hematoma, anesthesia risks, the patient and the family were agreeable to proceed with surgery and informed consent was obtained. Of note, the patient had been intermittently confused and the above were explained to her on several occasions in the intervals that she was quite lucid and oriented x3. Informed consent was obtained. The patient and her family understood that her condition may not improve and in fact, may get worse after surgery and that she may need to have additional procedures. The patient and her family understood that her condition is critical and that the patient may have permanent neurological injuries requiring extensive ICU stay, possible tracheostomy or gastrostomy, and that her condition may result in fatal outcome. They also understood that operative plan may be modified according to the intraoperative findings and conditions and that the procedure may be abandoned or done in more than one stage. DESCRIPTION OF PROCEDURE: The patient was brought to the operating room and was placed under general anesthesia by the anesthesia team. She was carefully positioned prone on a Artur table and all bony prominences were meticulously padded. Her skin was prepped and draped in the standard fashion. After appropriate surgical pause and patient identification, a midline incision was marked on the skin from the level of S1 to approximately L2. The skin was infiltrated with local anesthetic and #10 surgical blade was used to incise the skin. The incision was carried down with Bovie cautery and self-retaining retractors were introduced into the field. The dorsal fascia was divided on both sides of the midline with Bovie cautery, and the paraspinal abscess was readily identified, initially at the right side as expected from her preoperative MRI. Cultures were then obtained from the purulent collection, and after copious irrigation, the exposure was advanced and paraspinal musclulature was elevated in a subperiosteal fashion using Bovie cautery and periosteal elevators. The transverse processes of L4 and L5 were exposed. While the L4 lamina was found to be extremely mobile as expected from preoperative imaging consistent with a grade 2 spondylolisthesis and bilateral pars defect at L4. The navigation star was secured over the spinous process of S1 approximately and intraoperative O-arm imaging was obtained. The patient data was transferred into the navigation platform, and using a high-speed drill and awl tip tap, the pedicles of L4 and L5 were cannulated and the pedicle screws, Solera [employer], were then placed with a length of 45 mm for the L4 and 40 mm for the L5. A second O-arm imaging was then obtained which confirmed excellent placement of all hardware. The screws were then connected with titanium rods and secured in place with screw head caps. A high-speed drill and Kerrison punches as well as Leksell rongeur were used to perform a laminectomy of L4 in modified Palafox's procedure. A significant amount of purulent material was identified and a laminectomy was performed. The epidural abscess was gently evacuated with gentle suction and copious irrigation. There was a significant amount of scar tissue and phlegmon was encountered. This was carefully dissected in order to decompress the thecal sac and partial laminectomy of L2, L3, and L5 through the left-sided approach extending towards the midline was performed with the use of high-speed drill and Kerrison punches. Again, as expected the purulent material was identified and it was gently evacuated with gentle suction and irrigation while a red rubber catheter with gentle irrigation was used to connect the laminectomy sites and irrigate the epidural space gently. Then attention was turned to perform the arthrodesis part of the procedure. Copious irrigation of the wound was performed with pulse lavage with Bacitracin irrigation. High-speed drill was used to decorticate the transverse processes of L4 and L5, and DBX putty was placed to perform posterolateral arthrodesis. After removal of the retractors and placement of one FRANCESCA on the left side and a Jose drain on the right side which were tunneled through separate stab wound incisions, the wound was closed by layers after placing vancomycin powder. Meticulous hemostasis and copious irrigation and meticulous inspection of the wound was performed prior to closing and placement of the vancomycin powder. The dorsal fascia was approximated with interrupted 0 Vicryl sutures while the subcutaneous tissue was approximated with 2-0 inverted Vicryl sutures, while the skin was approximated with running interrupted 0 Prolene suture. At the end of the procedure, all counts were reported to be correct. The patient remained hemodynamically stable throughout the case. She was then turned supine , was extubated, and was transferred to recovery in excellent condition. The case was done with assistance of an attending because of the complexity of the case. [id number]/[facility] #: [id number] JATINDER
[2018-11-10] MEDS: Nicotine PATCH 21 MG/24 HR* PATCH TRANSDERM SCH (17:08)
--- NOTE | 2018-11-10 17:08 | PN ---
Progress Note - Progress Note Date of Service: 11/10/18 SOAP: Subjective: []POD # 1 Doing well No complaints referable to her legs C/O moderate incisional pain Objective: []Moderate drain output WBC 12.6 HCT 34 Staph growing from wound cultures Assessment: []Satis post op course Plan: []Continue antibiotics Mobilize starting tommorow.
--- NOTE | 2018-11-10 19:23 | PN ---
Subjective Date of Service: 11/10/18 Interval History: Resting in ICU bed. Daughters at bedside. Patient alert and oriented x4. Patient reports back pain. Denies cp, palpitations, nausea, vomiting, diarrhea, numbness/tingling, weakness , fever, chills. Family History: Unchanged from Admission Social History: Unchanged from Admission Past Medical History: Unchanged from Admission Objective Active Medications: Acetaminophen (Tylenol Tab*) 650 mg PO Q6H PRN PRN Reason: PAIN Last Admin: 11/10/18 13:55 Dose: 650 mg Acetaminophen (Tylenol Tab*) 650 mg PO Q4H PRN PRN Reason: PAIN Hydrocodone Bitart/Acetaminophen ([place] 5-325 Tab*) 1 tab PO Q6H [facility] Last Admin: 11/10/18 15:16 Dose: 1 tab Cyclobenzaprine HCl (Flexeril Tab*) 10 mg PO Q8H PRN PRN Reason: PAIN Last Admin: 11/10/18 19:01 Dose: 10 mg Heparin Sodium (Porcine) (Heparin Vial(*)) 5,000 units SUBCUT Q8HR [facility] Lactated Ringer's (Lactated Ringers 1000 Ml Bag*) 1,000 mls @ 75 mls/hr IV .per rate [facility] Last Admin: 11/10/18 09:38 Dose: 75 mls/hr Cefazolin Sodium/Dextrose (Kefzol 2 Gm Premix In Ors(*)) 2 gm in 50 mls @ 100 mls/hr IVPB Q8H [facility] Last Admin: 11/10/18 17:08 Dose: 100 mls/hr Dexmedetomidine HCl 400 mcg/ (Sodium Chloride) 100 mls @ 8.36 mls/hr IVPB Q11H [facility]; Protocol Last Admin: 11/10/18 15:21 Dose: Not Given Magnesium Hydroxide (Milk Of Magnesia Liq*) 30 ml PO DAILY PRN PRN Reason: CONSTIPATION Morphine Sulfate (Morphine Vial*) 4 mg IV Q6H PRN PRN Reason: PAIN - MODERATE TO SEVERE Nicotine (Nicotine Patch 21 Mg/24 Hr*) 1 patch TRANSDERM DAILY [facility] Last Admin: 11/10/18 17:08 Dose: 1 patch Ondansetron HCl (Zofran Inj*) 4 mg IV Q6H PRN PRN Reason: NAUSEA/VOMITING Oxycodone HCl (Roxycodone Tab*) 10 mg PO Q6H PRN PRN Reason: PAIN - MODERATE Last Admin: 11/10/18 18:13 Dose: 10 mg Pharmacy Profile Note (Nicotine Patch Removal Note*) 1 note FOLLOW UP 2100 [facility] Vital Signs - 8 hr 11/10/18 11/10/18 11/10/18 11:32 12:00 12:01 Temperature 98.4 F Pulse Rate 62 73 Respiratory 25 20 30 Rate Blood Pressure 119/81 (mmHg) O2 Sat by Pulse 97 98 Oximetry 11/10/18 11/10/18 11/10/18 13:00 13:01 14:00 Temperature Pulse Rate 88 88 92 Respiratory 26 25 22 Rate Blood Pressure 97/67 97/76 (mmHg) O2 Sat by Pulse 95 95 97 Oximetry 11/10/18 11/10/18 11/10/18 14:01 15:00 15:01 Temperature Pulse Rate 90 97 99 Respiratory 30 23 34 Rate Blood Pressure 102/69 (mmHg) O2 Sat by Pulse 97 98 98 Oximetry 11/10/18 11/10/18 11/10/18 15:16 16:00 17:00 Temperature 98.4 F Pulse Rate 86 95 Respiratory 24 26 26 Rate Blood Pressure 109/75 109/76 (mmHg) O2 Sat by Pulse 96 94 Oximetry 11/10/18 18:00 Temperature Pulse Rate 84 Respiratory 26 Rate Blood Pressure 112/76 (mmHg) O2 Sat by Pulse 96 Oximetry Oxygen Devices in Use Now: None Appearance: NAD Eyes: No Scleral Icterus Ears/Nose/Mouth/Throat: Clear Oropharnyx, Mucous Membranes Moist Neck: NL Appearance and Movements; NL JVP Respiratory: Symmetrical Chest Expansion and Respiratory Effort, Clear to Auscultation Cardiovascular: NL Sounds; No Murmurs; No JVD, No Edema Abdominal: NL Sounds; No Tenderness; No Distention Lymphatic: No Cervical Adenopathy Extremities: No Clubbing, Cyanosis Skin: - - Scant bloody drainage to dressing on back. FRANCESCA drains in place draining SS drainage Neurological: Alert and Oriented x 3, NL Sensation, NL Muscle Strength and Tone Nutrition: Taking PO's Result Diagrams: 11/10/18 04:50 11/10/18 04:50 Additional Lab and Data: Laboratory Results - last 24 hr 11/10/18 11/10/18 11/10/18 04:50 04:50 14:00 WBC 12.6 H RBC 3.92 L Hgb 11.2 L Hct 34 L MCV 86 MCH 29 MCHC 34 RDW 15 Plt Count 201 MPV 7.0 L Neut % (Auto) 81.1 Lymph % (Auto) 12.3 [place] % (Auto) 6.4 Eos % (Auto) 0 Baso % (Auto) 0.2 Absolute Neuts (auto) 10.2 H Absolute Lymphs (auto) 1.5 Absolute Monos (auto) 0.8 Absolute Eos (auto) 0 Absolute Basos (auto) 0 Absolute Nucleated RBC 0 Nucleated RBC % 0 Sodium 137 Potassium 3.8 Chloride 111 Carbon Dioxide 20 L Anion Gap 6 BUN 27 H Creatinine 0.56 Est GFR ( Amer) 144.4 Est GFR (Non-Af Amer) 119.3 BUN/Creatinine Ratio 48.2 H Glucose 124 H Calcium 8.1 L Total Bilirubin 0.40 AST 15 ALT 25 Alkaline Phosphatase 129 H Ammonia 45 Total Protein 5.8 L Albumin 2.5 L Globulin 3.3 Albumin/Globulin Ratio 0.8 L Urine Color Urine Appearance Urine pH Ur Specific [place] Urine Protein Urine Ketones Urine Blood Urine Nitrate Urine Bilirubin Urine Urobilinogen Ur Leukocyte Esterase Urine WBC (Auto) Urine RBC (Auto) Urine Bacteria Urine Glucose 11/10/18 18:10 WBC RBC Hgb Hct MCV MCH MCHC RDW Plt Count MPV Neut % (Auto) Lymph % (Auto) [place] % (Auto) Eos % (Auto) Baso % (Auto) Absolute Neuts (auto) Absolute Lymphs (auto) Absolute Monos (auto) Absolute Eos (auto) Absolute Basos (auto) Absolute Nucleated RBC Nucleated RBC % Sodium Potassium Chloride Carbon Dioxide Anion Gap BUN Creatinine Est GFR ( Amer) Est GFR (Non-Af Amer) BUN/Creatinine Ratio Glucose Calcium Total Bilirubin AST ALT Alkaline Phosphatase Ammonia Total Protein Albumin Globulin Albumin/Globulin Ratio Urine Color Straw Urine Appearance Cloudy Urine pH 5.0 Ur Specific [place] 1.010 Urine Protein Negative Urine Ketones Negative Urine Blood 2+ A Urine Nitrate Negative Urine Bilirubin Negative Urine Urobilinogen Negative Ur Leukocyte Esterase Negative Urine WBC (Auto) Trace(0-5/hpf) Urine RBC (Auto) 3+(>10/hpf) A Urine Bacteria Absent Urine Glucose 2+(150 mg/dl) A Microbiology and Other Data: Microbiology 11/09/18 11:50 Wound - Abscess Anaerobic Culture - Preliminary 11/09/18 11:50 Wound - Abscess Skin and Soft Tissue MRSA/MSSA (PCR - Final Mrsa Negative S.aureus Positive 11/09/18 11:50 Wound - Abscess Gram Stain - Final 11/09/18 11:50 Wound - Abscess Wound Culture - Preliminary Staphylococcus Aureus 11/08/18 06:32 Blood Venous Aerobic Blood Culture - Final Not Reportable 11/08/18 06:32 Blood Venous Anaerobic Blood Culture - Final Not Reportable 11/08/18 06:32 Blood Venous Blood Culture - Preliminary Staphylococcus Aureus 11/08/18 03:47 Blood Venous Aerobic Blood Culture - Final Not Reportable 11/08/18 03:47 Blood Venous Anaerobic Blood Culture - Final Not Reportable 11/08/18 03:47 Blood Venous Blood Culture - Preliminary Staphylococcus Aureus 11/08/18 03:47 Blood Venous Blood MRSA/MSSA (PCR) - Final Mrsa Negative S.aureus Positive 11/09/18 16:39 Nasal Nasal Screen MRSA (PCR) - Final Mrsa Detected 11/08/18 14:30 Urine Urine Culture - Final No Growth (<1,000 CFU/mL) Assess/Plan/Problems-Billing Assessment: Patient is a 43yo female with a PMH for possible seizures, History of traumatic spine injury and history of IV drug abuse who presents to the hospital for chills, tachycardia, hypotension, severe back pain and elevated CRP who is admitted for evaluation of radicular back pain with concern for epidural abscess impinging on nerve root. - Patient Problems (1) Leukocytosis Comment: - 9.6 yesterday and 12.6 today - Aferbile, not tachycardic and no hypotensive. - Could be secondary to inflammation from surg - Cont Ancef - Monitor closely - Repeat CBC tomorrow (2) Epidural abscess Comment: - POD 1 with neurosurg - ID consulting. Ancef ordered. Vanco and Cefepime discontinued - CARMELO ordered for Monday - ID will see patient Monday - Can be mobilized to chair tomorrow per neuro - Pain control: Increased Oxycodone from 5 mg Q4 hrs to 10 mg Q 6 hrs. Increased interval in prn morphine dosing to Q 6 hr. Goal for PO pain med management. Monitor closely for over sedation (3) Paraspinal abscess Comment: - As above (4) Altered mental status Comment: - Patient contunues to have episodes of confusion per nursing. - BF reports this has been ongoing for about one week - Neurology asked to consult (5) Agitation Comment: - Weaning off Precedex drip - Suspected multifactorial due to inpatient medications and illegal drug use (6) History of intravenous drug abuse Comment: - Claims to be clean x3 years - Claims to only have used opiates - UDS positive for Amphetamines, claims she took Buproprion 2 weeks ago but vehemently denies injecting opiates recently or Amphetamines ever - Hepatitis C antibody positive with elevated LFTs, Viral load pending, may need treatment in the non-acute setting. - Daughters found drug supplies in purse while inpatient (7) Sepsis Comment: - On admission had Tachycardia, Chills, Hypotension, Leukocytosis, but currently resolved - Improved with fluids and antibiotics - Source abscess - Still at risk, therefore, needs close monitoring (8) UTI (urinary tract infection) Current Visit: No Status: Acute Comment: - Grossly Positive UA - Culture negative, but urine specimen taken after abx started - Cont Ancef - Repeat UA in 2 days (9) DVT prophylaxis Comment: - Lovenox (10) Full code status Comment: Status and Disposition: Inpatient Attending: Orestes Jones
--- NOTE | 2018-11-10 21:18 | CONS ---
CC: Dr. Siddiqui NEUROLOGY CONSULTATION: DATE OF CONSULT: 11/10/18 REFERRING PROVIDER: Brianne Stevenson NP. LOCATION: She is in ICU bed 2. CHIEF COMPLAINT: Mental status changes. HISTORY OF PRESENT ILLNESS: Dunia Herrera is a 43-year-old woman who presented to the emergency travis with an increase in her chronic back pain on 11/08/18. She had an elevated CRP and has a history o f IV drug abuse and workup revealed an epidural abscess of the lumbar spine. An MRI scan had to be o btained under anesthesia. Dr. Siddiqui saw the patient in consultation and she underwent drainage of the abscess surgically on 11/10/18. The operative report was 5:50 in the morning. Yesterday, she was quite confused according to her nurse, Johana Sinclair. She was agitated and had to be put on Prece dex. I woke her and talked to her and she seems considerably more lucid this late afternoon. Her nu rse, Johana Sinclair, agreed she looks considerably better this evening. She denies problems with confusion prior to this hospitalization. She admits that she was confused e arlier, but she feels better now. PAST MEDICAL HISTORY: Her past medical history is notable for IV drug abuse, chronic back pain with spondylolisthesis, seizures. I had seen her previously on 01/14/18, when she presented the day befor e. She was seen by Dr. Zaki Gaspar. She had a normal EEG, but the history was suggestive of epileps y and I recommended starting Keppra. She was discharged on Keppra 500 mg twice per day. She was sup posed to follow up in our office, but I do not know if she ever did and I have to review her office r ecords. CURRENT MEDICATIONS: Include: 1. Nicotine patch. 2. Oxycodone 10 mg p.o. q.6 hours as needed for pain. 3. Ondansetron 4 mg IV q.6 hours as needed for nausea. 4. Morphine 4 mg IV q.6 hours as needed for pain. 5. Cyclobenzaprine 10 mg p.o. q.8 hours as needed for pain. 6. Kefzol 2 g IV q.8 hours. 7. Hydrocodone 5/325 one p.o. q.6 hours. ALLERGIES: She is listed having no drug allergies. REVIEW OF SYSTEMS: Her review of systems is limited. The patient was somnolent, but woke up and was very anxious looking and a little tremulous. PHYSICAL EXAM: Most recent temperature 98.4, blood pressure 102/69, heart rate in the 90s, respirato ry rate 24, and oxygen saturation is 98%. On limited exam, she is somnolent, but wakes to be a somewhat hyperalert. Eye movements are full wit hout nystagmus. Facial musculature is symmetric. Speech is tremulous, but clear. She is tremulous in the hands, but there is no asterixis. [id number] maneuver is intact. There is no drift of the upper extremities. She is oriented to [facility]. She believes the month to be October and knows it is 2018. Language is fluent. DIAGNOSTIC STUDIES/LAB DATA: Includes an elevated ammonia earlier today at 69, came down to 45 by th e afternoon. Liver enzymes are low if not normal, AST 15 and ALT 25. Her INR, however, is elevated 1.43. Urinalysis from day of admission was positive for urobilinogen and nitrite, 1+ leukocyte maye ase, 1+ bacteria and 2+ white blood cells. Toxicology screen on admission was positive for amphetamin es and opiates. Serum alcohol was less than 10. CBC today notable for persistently elevated white b lood cell count of 12.6, a small drop in hemoglobin to 11.2, normal platelet count 201,000. Her CRP on admission was markedly elevated at 394. Her electrolytes are unremarkable today other than the ca rbon dioxide of 20. Creatinine is normal. A brain CT from the day of admission 11/08/18 is reviewed. It was interpreted as normal and I reviewed the images and I agree. It is with and without contrast . IMPRESSION: Postop delirium in the setting of possible if not probable drug withdrawal, multiple angie n medications, chronic pain, and hyperammonemia. I should note she also has hepatitis C by lab test this admission. I will continue to follow her along with you. At this juncture, I do not see any worrisome evidence that would suggest intracranial infection or other major metabolic disturbance. [id number]/[facility] #: [id number]
[2018-11-10] MEDS: Nicotine Patch Removal NOTE FOLLOW UP SCH (22:14)
[2018-11-11] MEDS: ceFAZolin* 2 GM* Q8H (Duplex) IVPB SCH ×3 (00:01→16:45)
[2018-11-11] MEDS: Lactated Ringers 1000 ML Bag* 1,000 ML IV SCH (00:01)
[2018-11-11] MEDS: oxyCODONE TAB* 5 MG TAB PO PRN ×4 (01:19→21:10)
[2018-11-11] MEDS: Dexmedetomidine* 400 MCG in NS 0.9% 100 ML* 96 ML IVPB SCH (02:55)
[2018-11-11] MEDS: HYDROcodone/ACETAMIN 5-325 MG* 1 TAB PO SCH ×4 (03:31→15:53)
[2018-11-11 04:38] LABS: Hematocrit 29 % (35-47); Hemoglobin 9.7 g/dl (12.0-16.0); Mean Corpuscular HGB Conc 33 g/dl (31-36); Mean Corpuscular Hemoglobin 28 pg (27-31); Mean Corpuscular Volume 86 fL (80-97); Platelet Count 182 10^3/ul (150-450); Red Blood Count 3.43 10^6/ul (4.00-5.40); Red Cell Distribution Width 15 % (10.5-15); White Blood Count 15.5 10^3/ul (3.5-10.8)
[2018-11-11 04:47] LABS: BUN/Creatinine Ratio 54.9 (8-20); Calcium 7.4 mg/dL (8.6-10.3); EGFR African American 160.8 (>60); EGFR Non-African American 132.9 (>60); Potassium 3.6 mmol/L (3.5-5.0)
[2018-11-11 04:56] LABS: ABS Basophils 0 10^3/ul (0-0.2); ABS Eosinophils 0 10^3/ul (0-0.6); ABS Lymphocytes 2.1 10^3/ul (1.0-4.8); ABS Monocytes 0.8 10^3/ul (0-0.8); ABS Neutrophils 12.7 10^3/ul (1.5-7.7); ABS Nucleated RBC 0 10^3/ul; Eosinophil % 0 %; Lymphocyte % 13.3 %; Nucleated Red Blood Cells % 0
[2018-11-11] MEDS: Cyclobenzaprine TAB* 10 MG PO PRN ×3 (05:28→22:38)
[2018-11-11] MEDS: Heparin VIAL(*) 5000 UNITS/ML VIAL (FIVE THOUSAND) SUBCUT SCH ×3 (05:59→21:12)
[2018-11-11] MEDS: Morphine 4 MG/ML VIAL (1 ml) 4 MG/ML VIAL IV PRN ×3 (06:12→18:27)
[2018-11-11] MEDS: Acetaminophen TAB* 325 MG PO PRN (07:20)
[2018-11-11 07:58] LABS: Urine Appearance Clear; Urine Bilirubin Negative (Negative); Urine Blood Negative (Negative); Urine Color Yellow; Urine Glucose Negative (Negative); Urine Ketones Negative (Negative); Urine Nitrite Negative (Negative); Urine Protein Negative (Negative); Urine Specific Gravity 1.014 (1.010-1.030); Urine Urobilinogen Negative (Negative)
[2018-11-11] MEDS: Nicotine PATCH 21 MG/24 HR* PATCH TRANSDERM SCH (08:48)
[2018-11-11] MEDS ORDERED: Ketorolac INJ* 30 MG/ML 1 ML VIAL IV ONE (17:14)
[2018-11-11] MEDS ORDERED: Ketorolac INJ* 30 MG/ML 1 ML VIAL ONE (17:22)
--- NOTE | 2018-11-11 18:18 | PN ---
Subjective Date of Service: 11/11/18 Interval History: Evaluated in ICU. Reports pain in back is well controlled today on current regime. Reports pain is a "3 to 4" which is tolerable. Denies numbness/tingling, weakness, fever, chills, cough, shortness of breath, chest pain. Family History: Unchanged from Admission Social History: Unchanged from Admission Past Medical History: Unchanged from Admission Objective Active Medications: Acetaminophen (Tylenol Tab*) 650 mg PO Q6H PRN PRN Reason: PAIN Last Admin: 11/11/18 07:20 Dose: 650 mg Acetaminophen (Tylenol Tab*) 650 mg PO Q4H PRN PRN Reason: PAIN Cyclobenzaprine HCl (Flexeril Tab*) 10 mg PO Q8H PRN PRN Reason: PAIN Last Admin: 11/11/18 14:29 Dose: 10 mg Famotidine (Pepcid Tab*) 20 mg PO DAILY [facility] Heparin Sodium (Porcine) (Heparin Vial(*)) 5,000 units SUBCUT Q8HR [facility] Last Admin: 11/11/18 14:29 Dose: 5,000 units Cefazolin Sodium/Dextrose (Kefzol 2 Gm Premix In Ors(*)) 2 gm in 50 mls @ 100 mls/hr IVPB Q8H [facility] Last Admin: 11/11/18 16:45 Dose: 100 mls/hr Magnesium Hydroxide (Milk Of Magnesia Liq*) 30 ml PO DAILY PRN PRN Reason: CONSTIPATION Last Admin: 11/11/18 11:54 Dose: 30 ml Morphine Sulfate (Morphine Vial*) 4 mg IV Q6H PRN PRN Reason: PAIN - MODERATE TO SEVERE Last Admin: 11/11/18 11:54 Dose: 4 mg Nicotine (Nicotine Patch 21 Mg/24 Hr*) 1 patch TRANSDERM DAILY [facility] Last Admin: 11/11/18 08:48 Dose: 1 patch Ondansetron HCl (Zofran Inj*) 4 mg IV Q6H PRN PRN Reason: NAUSEA/VOMITING Oxycodone HCl (Roxycodone Tab*) 10 mg PO Q6H PRN PRN Reason: PAIN - MODERATE Last Admin: 11/11/18 15:00 Dose: 10 mg Pharmacy Profile Note (Nicotine Patch Removal Note*) 1 note FOLLOW UP 2100 [facility] Last Admin: 11/10/18 22:14 Dose: Not Given Vital Signs - 8 hr 11/11/18 11/11/18 11/11/18 11:00 11:01 11:51 Temperature 98.5 F Pulse Rate 81 86 Respiratory 25 22 Rate Blood Pressure 141/90 (mmHg) O2 Sat by Pulse 98 98 Oximetry 11/11/18 11/11/18 11/11/18 11:54 12:08 13:01 Temperature Pulse Rate 91 98 Respiratory 22 17 21 Rate Blood Pressure (mmHg) O2 Sat by Pulse 96 74 Oximetry 11/11/18 11/11/18 11/11/18 13:05 14:45 15:00 Temperature 98.4 F Pulse Rate 93 Respiratory 19 28 24 Rate Blood Pressure 113/72 126/81 (mmHg) O2 Sat by Pulse 100 Oximetry 11/11/18 11/11/18 15:53 16:00 Temperature Pulse Rate Respiratory 16 Rate Blood Pressure (mmHg) O2 Sat by Pulse 100 Oximetry Oxygen Devices in Use Now: None Appearance: NAD Eyes: No Scleral Icterus Ears/Nose/Mouth/Throat: Clear Oropharnyx, Mucous Membranes Moist Neck: NL Appearance and Movements; NL JVP Respiratory: Symmetrical Chest Expansion and Respiratory Effort, Clear to Auscultation Cardiovascular: NL Sounds; No Murmurs; No JVD, RRR, No Edema Abdominal: NL Sounds; No Tenderness; No Distention Lymphatic: No Cervical Adenopathy Extremities: No Clubbing, Cyanosis Skin: - - Dressing to back has mild bloody drainage. FRANCESCA drains in place. Neurological: Alert and Oriented x 3, NL Sensation, - - Per nursing patient reported numbness/tingling to LLE and was noted to be slightly weaker. Per nursing neurosurg was updated of findings. These findings were not appreciated by this press writer. Patient also denied symptoms. Nutrition: Taking PO's Result Diagrams: 11/11/18 04:20 11/11/18 04:20 Additional Lab and Data: Laboratory Results - last 24 hr 11/10/18 11/11/18 11/11/18 18:10 04:20 04:20 WBC 15.5 H RBC 3.43 L Hgb 9.7 L Hct 29 L MCV 86 MCH 28 MCHC 33 RDW 15 Plt Count 182 MPV 7.0 L Neut % (Auto) 81.7 Lymph % (Auto) 13.3 [place] % (Auto) 4.9 Eos % (Auto) 0 Baso % (Auto) 0.1 Absolute Neuts (auto) 12.7 H Absolute Lymphs (auto) 2.1 Absolute Monos (auto) 0.8 Absolute Eos (auto) 0 Absolute Basos (auto) 0 Absolute Nucleated RBC 0 Nucleated RBC % 0 Sodium 137 Potassium 3.6 Chloride 108 Carbon Dioxide 21 L Anion Gap 8 BUN 28 H Creatinine 0.51 Est GFR ( Amer) 160.8 Est GFR (Non-Af Amer) 132.9 BUN/Creatinine Ratio 54.9 H Glucose 99 Calcium 7.4 L Urine Color Cancelled Urine Appearance Cancelled Urine pH Cancelled Ur Specific [place] Cancelled Urine Protein Cancelled Urine Ketones Cancelled Urine Blood Cancelled Urine Nitrate Cancelled Urine Bilirubin Cancelled Urine Urobilinogen Cancelled Ur Leukocyte Esterase Cancelled Urine WBC (Auto) Cancelled Urine RBC (Auto) Cancelled Ur Squamous Epith Cells Cancelled Ur Transition Epith Cell Cancelled Ur Renal Epithelial Cell Cancelled Calcium Carbonate Cryst Cancelled Calcium Phosphate Cryst Cancelled Calcium Oxalate Crystal Cancelled Leucine Crystals Cancelled Cystine Crystals Cancelled Uric Acid Crystals Cancelled Triple Phos Crystals Cancelled Tyrosine Crystals Cancelled Amorphous Crystals Cancelled Urine Bacteria Cancelled Cellular Casts Cancelled Epithelial Casts Cancelled Fatty Casts Cancelled Hyaline Casts Cancelled Granular Casts Cancelled Waxy Casts Cancelled Broad Casts Cancelled RBC Casts Cancelled WBC Casts Cancelled Urine Trichomonas Cancelled Urine Yeast Cancelled Urine Sperm Cancelled Ur Oval Fat Bodies Cancelled Urinalysis Comment Cancelled Urine Glucose Cancelled Urine Ascorbic Acid Cancelled 11/11/18 07:50 WBC RBC Hgb Hct MCV MCH MCHC RDW Plt Count MPV Neut % (Auto) Lymph % (Auto) [place] % (Auto) Eos % (Auto) Baso % (Auto) Absolute Neuts (auto) Absolute Lymphs (auto) Absolute Monos (auto) Absolute Eos (auto) Absolute Basos (auto) Absolute Nucleated RBC Nucleated RBC % Sodium Potassium Chloride Carbon Dioxide Anion Gap BUN Creatinine Est GFR ( Amer) Est GFR (Non-Af Amer) BUN/Creatinine Ratio Glucose Calcium Urine Color Yellow Urine Appearance Clear Urine pH 7.0 Ur Specific [place] 1.014 Urine Protein Negative Urine Ketones Negative Urine Blood Negative Urine Nitrate Negative Urine Bilirubin Negative Urine Urobilinogen Negative Ur Leukocyte Esterase Negative Urine WBC (Auto) Urine RBC (Auto) Ur Squamous Epith Cells Ur Transition Epith Cell Ur Renal Epithelial Cell Calcium Carbonate Cryst Calcium Phosphate Cryst Calcium Oxalate Crystal Leucine Crystals Cystine Crystals Uric Acid Crystals Triple Phos Crystals Tyrosine Crystals Amorphous Crystals Urine Bacteria Cellular Casts Epithelial Casts Fatty Casts Hyaline Casts Granular Casts Waxy Casts Broad Casts RBC Casts WBC Casts Urine Trichomonas Urine Yeast Urine Sperm Ur Oval Fat Bodies Urinalysis Comment Urine Glucose Negative Urine Ascorbic Acid Microbiology and Other Data: Microbiology Microbiology 11/09/18 11:50 Wound - Abscess Anaerobic Culture - Preliminary Staphylococcus Aureus 11/09/18 11:50 Wound - Abscess Skin and Soft Tissue MRSA/MSSA (PCR - Final Mrsa Negative S.aureus Positive 11/09/18 11:50 Wound - Abscess Gram Stain - Final 11/09/18 11:50 Wound - Abscess Wound Culture - Final Staphylococcus Aureus 11/08/18 06:32 Blood Venous Aerobic Blood Culture - Final Not Reportable 11/08/18 06:32 Blood Venous Anaerobic Blood Culture - Final Not Reportable 11/08/18 06:32 Blood Venous Blood Culture - Final Staphylococcus Aureus 11/08/18 03:47 Blood Venous Aerobic Blood Culture - Final Not Reportable 11/08/18 03:47 Blood Venous Anaerobic Blood Culture - Final Not Reportable 11/08/18 03:47 Blood Venous Blood Culture - Final Staphylococcus Aureus 11/08/18 03:47 Blood Venous Blood MRSA/MSSA (PCR) - Final Mrsa Negative S.aureus Positive 11/09/18 16:39 Nasal Nasal Screen MRSA (PCR) - Final Mrsa Detected 11/08/18 14:30 Urine Urine Culture - Final No Growth (<1,000 CFU/mL) Assess/Plan/Problems-Billing Assessment: Patient is a 43yo female with a PMH for possible seizures, History of traumatic spine injury and history of IV drug abuse who presents to the hospital for chills, tachycardia, hypotension, severe back pain and elevated CRP who is admitted for evaluation of radicular back pain with concern for epidural abscess impinging on nerve root. - Patient Problems (1) Leukocytosis Comment: - 12.6 and 15.5 today - Aferbile, not tachycardic and no hypotension. - Repeat UA unremarkable - Repeat chest xray unremarkable - Could be secondary to inflammation from surg - Cont Ancef - Monitor closely - Repeat CBC tomorrow (2) Epidural abscess Comment: - POD 2 with neurosurg - ID consulting. Ancef - CARMELO ordered for Monday - ID will see patient Monday - Can be mobilized per neuro - Pain control: Increased Oxycodone from 5 mg Q4 hrs to 10 mg Q 6 hrs. Increased interval in prn morphine dosing to Q 6 hr. Goal for PO pain med management. Monitor closely for over sedation (3) Paraspinal abscess Comment: - As above (4) Altered mental status Comment: - Patient contunues to have episodes of confusion per nursing. - BF reports this has been ongoing for about one week - Neurology asked to consult (5) Agitation Comment: - Weaned off Precedex drip - Suspected multifactorial due to inpatient medications, illegal drug use, pain - Much less agitated today on assessment (6) History of intravenous drug abuse Comment: - Claims to be clean x3 years - Claims to only have used opiates - UDS positive for Amphetamines, claims she took Buproprion 2 weeks ago but vehemently denies injecting opiates recently or Amphetamines ever - Hepatitis C antibody positive with elevated LFTs, Viral load pending, may need treatment in the non-acute setting. - Daughters found drug supplies in purse while inpatient (7) Sepsis Comment: - On admission had Tachycardia, Chills, Hypotension, Leukocytosis, but currently resolved - Improved with fluids and antibiotics - Source abscess - Still at risk, therefore, needs close monitoring (8) UTI (urinary tract infection) Current Visit: No Status: Acute Comment: - Grossly Positive UA - Culture negative, but urine specimen taken after abx started - Cont Ancef - Repeat UA unremarkable (9) DVT prophylaxis Comment: - [facility] (10) Full code status Comment: Status and Disposition: Inpatient Attending: Orestes Jones
[2018-11-11] MEDS: NS 0.9% 1000 ML** 1,000 ML IV SCH (18:37)
--- NOTE | 2018-11-11 18:49 | PN ---
Progress Note - Progress Note Date of Service: 11/11/18 SOAP: Subjective: []POD # 2 Doing better Does complain of left leg tingling Moderate incisional pain Objective: []Dressing intact Neuro intact Assessment: []Satis post op course Plan: [] Transfer to floor Begin to mobilize
--- NOTE | 2018-11-11 19:32 | CONS ---
NEUROLOGY CONSULTATION FOLLOWUP: DATE OF FOLLOWUP: 11/11/18 LOCATION: She is in ICU bed 2. HOSPITALIST: Brianne Stevenson NP. CHIEF COMPLAINT: Confusion. INTERVAL HISTORY: Since yesterday, Dunia feels that her mind is clear and she knows what is going on. She is working with physical therapy right now, was able to stand and bear weight. She said she feels restless and wants to get moving, but seems very coherent. MEDICATIONS: Medications were reviewed and she remains on: 1. Hydrocodone 5/325 p.o. q.6 hours. 2. Cefazolin 2 g IV q.8 hours. 3. Cyclobenzaprine 10 mg p.o. q.8 hours as needed for pain. 4. Subcutaneous heparin 5000 unit q.8 hours. 5. Morphine 4 mg IV q.6 hours as needed for pain. 6. Oxycodone 10 mg p.o. q.6 hours as needed for moderate pain. PHYSICAL EXAMINATION: I just spoke with Dunia today, but did not otherwise examine her. She is quite alert, looks very anxious, but is very coherent and able to provide history. Language is fluent. IMPRESSION: Resolved delirium, probably a combination of infection, pain medications, and drug withdrawal. I will sign off at this time, and please contact Neurology if further input is required. [id number]/[facility] #: [id number] JATINDER
[2018-11-11] MEDS: Nicotine Patch Removal NOTE FOLLOW UP SCH (21:14)
[2018-11-11] MEDS ORDERED: LORazepam TAB(*) 1 MG PO ONE (23:03)
[2018-11-11] MEDS: Ketorolac INJ* 30 MG/ML 1 ML VIAL IV PUSH PRN (23:05)
[2018-11-12] MEDS: ceFAZolin* 2 GM* Q8H (Duplex) IVPB SCH ×3 (00:16→15:35)
[2018-11-12] MEDS: Morphine 4 MG/ML VIAL (1 ml) 4 MG/ML VIAL IV PRN ×4 (00:16→18:46)
[2018-11-12] MEDS: Gabapentin CAP(*) 400 MG PO PRN (02:04)
[2018-11-12] MEDS: oxyCODONE TAB* 5 MG TAB PO PRN ×2 (03:37→15:05)
[2018-11-12] MEDS: Heparin VIAL(*) 5000 UNITS/ML VIAL (FIVE THOUSAND) SUBCUT SCH ×3 (05:20→23:17)
[2018-11-12 05:41] LABS: Hematocrit 29 % (35-47); Hemoglobin 9.7 g/dl (12.0-16.0); Mean Corpuscular HGB Conc 34 g/dl (31-36); Mean Corpuscular Hemoglobin 28 pg (27-31); Mean Corpuscular Volume 84 fL (80-97); Mean Platelet Volume 6.4 fL (7.4-10.4); Platelet Count 195 10^3/ul (150-450); Red Blood Count 3.42 10^6/ul (4.00-5.40); Red Cell Distribution Width 15 % (10.5-15); White Blood Count 16.4 10^3/ul (3.5-10.8)
[2018-11-12] MEDS: LORazepam TAB(*) 1 MG PO PRN ×2 (05:49→20:11)
[2018-11-12 05:58] LABS: BUN/Creatinine Ratio 23.9 (8-20); C Reactive Protein 128.05 mg/L (<8.01); Calcium 7.6 mg/dL (8.6-10.3); EGFR African American 181.1 (>60); EGFR Non-African American 149.7 (>60); Potassium 3.3 mmol/L (3.5-5.0)
[2018-11-12 06:07] LABS: ABS Basophils 0 10^3/ul (0-0.2); ABS Eosinophils 0 10^3/ul (0-0.6); ABS Lymphocytes 1.8 10^3/ul (1.0-4.8); ABS Monocytes 1.1 10^3/ul (0-0.8); ABS Neutrophils 13.5 10^3/ul (1.5-7.7); ABS Nucleated RBC 0 10^3/ul; Eosinophil % 0.1 %; Lymphocyte % 11.2 %; Nucleated Red Blood Cells % 0
[2018-11-12] MEDS: Cyclobenzaprine TAB* 10 MG PO PRN (08:08)
[2018-11-12] MEDS: Lidocaine PATCH 5%* 1 PATCH TRANSDERM SCH (08:08)
[2018-11-12] MEDS: Famotidine TAB* 20 MG PO SCH (08:08)
[2018-11-12] MEDS: Acetaminophen TAB* 325 MG PO PRN ×3 (08:08→21:50)
[2018-11-12] MEDS: Ketorolac INJ* 30 MG/ML 1 ML VIAL IV PUSH PRN ×2 (08:09→21:51)
[2018-11-12] MEDS: Nicotine PATCH 21 MG/24 HR* PATCH TRANSDERM SCH (08:09)
--- NOTE | 2018-11-12 08:17 | PN ---
Progress Note - Progress Note Date of Service: 11/12/18 SOAP: Subjective: [Patient seen this morning at 0800 Pt uncomfortable, complaining of severe back pain this morning. Reports mild lower extremity tingling and pain today Denies weakness in lower extremities Eating and drinking well Denies headache, nausea ] Objective: [ Vital Signs: Temp Pulse Resp BP Pulse Ox 98.5 F 109 18 142/88 100 11/12/18 03:47 11/12/18 03:47 11/12/18 08:08 11/12/18 03:47 11/12/18 03:47 General: Standing at bedside Neuro: Motor and sensory intact Incision: Intact, wound drains in place and functioning well ] Assessment: [Satisfactory post-op. Will need swing bed for antibiotics] Plan: [1. Encourage out of bed, ambulation 2. Pain management]
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
[2018-11-12] MEDS: NS 0.9% 1000 ML** 1,000 ML IV SCH (10:39)
[2018-11-12] MEDS ORDERED: fentaNYL* 50 MCG/ML 2 ML VIAL (100 MCG VIAL) ONE ×2 (13:35→14:10)
[2018-11-12] MEDS ORDERED: Naloxone* 0.4 MG/ML 1 ML VIAL ONE (13:35)
[2018-11-12] MEDS ORDERED: Flumazenil* 0.1 MG/ML 5 ML MDV ONE (13:35)
[2018-11-12] MEDS ORDERED: Midazolam* 1 MG/ML 5 ML VIAL (5 MG) ONE (13:35)
[2018-11-12] MEDS ORDERED: Lidocaine 2% VISCOUS* 15 ML UDC ONE (13:35)
--- NOTE | 2018-11-12 14:02 | CONS ---
CONSULTATION REPORT: DATE OF CONSULT: 11/12/18 REQUESTING PROVIDER: Brianne Stevenson NP CONSULTING SERVICE: Infectious Disease. REASON FOR CONSULT: Epidural abscess. IMPRESSION: 1. L4-L5 epidural abscess and associated paraspinal abscess, status post incision and debridement. Operative cultures are growing methicillin-sensitive Staphylococcus aureus, blood cultures 2/4 of Staphylococcus aureus. She is going to have a transesophageal echocardiogram today. She has some left leg pain, but a negative left log roll and range of motion, left hip and knee are fine. I think that may be referred from the lumbar spine infection. 2. History of injection drug use. 3. Hepatitis C virus antibody positive. RECOMMENDATIONS: Agree with Ancef 2 g IV every 8 hours. We will recheck the blood cultures. She is going to have a transesophageal echocardiogram shortly. Assuming that is negative, the main focus will be prolonged IV antibiotics for her spine infection. HISTORY OF PRESENT ILLNESS: This is a 43-year-old woman who had 2 to 3 weeks of fevers, chills, dizziness and then a few days of worsening low back pain that was quite severe. She came to the ER, was recommended some anti- inflammatories which did not help much, so she came back the next day which was 11/08/18. Blood cultures were taken and 2/4 positive for MSSA. Because of severe back pain, she had the MRI with results as described above. A chest x- ray showed a possible small right base infiltrate. She was on multiple antibiotics. I discussed the case over the weekend with Brianne Stevenson NP. She narrowed the antibiotics to Ancef 2 g IV every 8 hours, which she is tolerating well. She went to the OR on Monday, had drainage of the abscess, which she tolerated well. She has had no chills or sweats. Occasional fevers. She has severe back pain. No infections requiring hospitalization in the past and she has no prosthetic material present. PAST MEDICAL HISTORY: 1. Seizure disorder. 2. Anxiety. 3. Tobacco use. ALLERGIES: No known drug allergies. MEDICATIONS: 1. Tylenol. 2. Cefazolin 2 g IV every 8 hours. 3. Flexeril. 4. Famotidine. 5. Gabapentin. 6. Heparin flush. 7. Subcu heparin. 8. Ketorolac. 9. Lidocaine patch. 10. Ativan as needed. 11. Morphine as needed. 12. Nicotine patch. 13. Oxycodone as needed. SOCIAL HISTORY: She smokes tobacco. She does not drink alcohol. FAMILY HISTORY: No recurrent infections. REVIEW OF SYSTEMS: All negative to a 14-point review except as noted above in the history of present illness. PHYSICAL EXAM: Vital Signs: Temperature 38.2, heart rate 98, respiratory rate 12, blood pressure 141/69, oxygen saturation 100% on room air. In general, she is awake, not in distress. Neurologic: She is oriented x3. Follows all commands. Moves all her extremities. Strength is 5/5 in the quadriceps, tibialis anterior, and gastrocnemius bilaterally. Sensation is intact to light touch in both legs. There is no lower extremity clonus bilaterally. Neck is supple without mass. Heart is regular rate and rhythm without murmurs, rubs, or gallops. Lungs are clear to auscultation bilaterally. Abdomen: Soft, nontender , nondistended. There are bowel sounds present. Skin: There is no rash or splinter hemorrhage. Musculoskeletal: Lumbar spine incision with drain with serosanguineous fluid. The log roll is negative bilaterally and range of motion is normal both hips and knees. There is no joint synovitis. LABORATORY DATA: White blood cell count of 16, hemoglobin 9, platelets 195. Creatinine 0.4. CRP 128, down from 394. Please see impressions and recommendations outlined above, which I have discussed with Brinane Stevenson NP. Thanks for asking me to see Ms. Herrera in consultation. [id number]/[facility] #: [id number] JATINDER
[2018-11-12] MEDS ORDERED: Buffered Lidocaine 1% SYRIN* 1 ML/SYRINGE INTRADERM ONE (15:24)
[2018-11-12] MEDS ORDERED: Alteplase (CATHFLO)* 2 MG VIAL IV ONE (18:31)
[2018-11-12] MEDS ORDERED: Potassium Chlor TAB* 20 MEQ TAB.ER PO ONE (18:47)
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
[2018-11-12] MEDS ORDERED: Methadone TAB* 10 MG PO ONE (19:22)
[2018-11-12] MEDS ORDERED: Prochlorperazine TAB* 10 MG PO PRN (19:23)
[2018-11-12] MEDS ORDERED: Lidocaine Patch REMOVE* 1 NOTE MISC SCH (21:00)
[2018-11-12] MEDS: Methadone TAB* 5 MG PO SCH (23:15)
[2018-11-12] MEDS: Methadone TAB* 10 MG PO SCH (23:16)
[2018-11-12] MEDS: Lidocaine Patch REMOVE* 1 NOTE MISC PATCH OFF SCH (23:53)
[2018-11-12] MEDS: Nicotine Patch Removal NOTE FOLLOW UP SCH (23:54)
[2018-11-13] MEDS: ceFAZolin* 2 GM* Q8H (Duplex) IVPB SCH ×3 (01:07→16:42)
[2018-11-13] MEDS: Ketorolac INJ* 30 MG/ML 1 ML VIAL IV PUSH PRN ×4 (04:49→23:16)
[2018-11-13] MEDS: Heparin VIAL(*) 5000 UNITS/ML VIAL (FIVE THOUSAND) SUBCUT SCH ×3 (05:00→21:08)
[2018-11-13 05:13] LABS: Hematocrit 25 % (35-47); Hemoglobin 8.6 g/dl (12.0-16.0); Mean Corpuscular HGB Conc 34 g/dl (31-36); Mean Corpuscular Hemoglobin 29 pg (27-31); Mean Corpuscular Volume 84 fL (80-97); Mean Platelet Volume 6.6 fL (7.4-10.4); Platelet Count 210 10^3/ul (150-450); Red Cell Distribution Width 15 % (10.5-15)
[2018-11-13 05:31] LABS: ALT 21 U/L (7-52); AST 21 U/L (13-39); Albumin 2.4 g/dL (3.2-5.2); Albumin/Globulin Ratio 0.8 (1-3); Alkaline Phosphatase 93 U/L (34-104); Anion Gap 6 mmol/L (2-11); BUN/Creatinine Ratio 24.4 (8-20); Blood Urea Nitrogen 10 mg/dL (6-24); CO2 Carbon Dioxide 24 mmol/L (22-32); Calcium 7.7 mg/dL (8.6-10.3); Chloride 108 mmol/L (101-111); EGFR African American 206.9 (>60); Glucose 110 mg/dL (70-100); Magnesium 1.6 mg/dL (1.9-2.7); Potassium 3.5 mmol/L (3.5-5.0); Sodium 138 mmol/L (135-145); Total Protein 5.4 g/dL (6.4-8.9)
[2018-11-13 05:52] LABS: ABS Basophils 0 10^3/ul (0-0.2); ABS Eosinophils 0 10^3/ul (0-0.6); ABS Lymphocytes 2.2 10^3/ul (1.0-4.8); ABS Monocytes 0.9 10^3/ul (0-0.8); ABS Neutrophils 11.8 10^3/ul (1.5-7.7); ABS Nucleated RBC 0 10^3/ul; Eosinophil % 0.3 %; Lymphocyte % 14.9 %; Nucleated Red Blood Cells % 0
[2018-11-13] MEDS ORDERED: Lactated Ringers 1000 ML Bag* 1,000 ML IV SCH (06:00)
[2018-11-13] MEDS: Famotidine TAB* 20 MG PO SCH (08:15)
[2018-11-13] MEDS: Methadone TAB* 5 MG PO SCH ×3 (08:15→21:07)
[2018-11-13] MEDS: Methadone TAB* 10 MG PO SCH ×3 (08:15→21:07)
[2018-11-13] MEDS: Lidocaine PATCH 5%* 1 PATCH TRANSDERM SCH (08:17)
[2018-11-13] MEDS: Nicotine PATCH 21 MG/24 HR* PATCH TRANSDERM SCH (08:18)
[2018-11-13] MEDS ORDERED: Magnesium Sulfate 2 GM IV* 2 GM/50 ML BAG IVPB ONE (08:35)
[2018-11-13] MEDS: Gabapentin CAP(*) 400 MG PO PRN (10:20)
[2018-11-13] MEDS: Cyclobenzaprine TAB* 10 MG PO PRN ×2 (10:20→18:24)
[2018-11-13] MEDS ORDERED: Lidocaine 2% VISCOUS* 15 ML UDC ONE (12:05)
[2018-11-13] MEDS ORDERED: fentaNYL* 50 MCG/ML 2 ML VIAL (100 MCG VIAL) ONE (12:32)
[2018-11-13] MEDS ORDERED: Midazolam* 1 MG/ML 2 ML VIAL (2 MG) ONE (12:32)
[2018-11-13] MEDS ORDERED: Propofol* 10 MG/ML 20 ML BTL ONE (12:33)
[2018-11-13 13:02] LABS: HCG Pregnancy < 0.60 mIU/mL
[2018-11-13] MEDS ORDERED: fentaNYL* 50 MCG/ML 2 ML VIAL (100 MCG VIAL) IV PRN (13:13)
[2018-11-13] MEDS ORDERED: Ondansetron INJ* 2 MG/ML VIAL IV PRN (13:13)
[2018-11-13] MEDS ORDERED: Naloxone* 0.4 MG/ML 1 ML VIAL IV PRN (13:13)
[2018-11-13] MEDS ORDERED: oxyCODONE TAB* 5 MG TAB PO PRN (13:13)
[2018-11-13] MEDS: NS 0.9% 1000 ML** 1,000 ML IV SCH (16:42)
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
--- NOTE | 2018-11-13 17:58 | PN ---
Progress Note - Progress Note Date of Service: 11/13/18 Note: INPATIENT PAIN-PROGRESS She looks much better than last night. Able to get off all PRNs. Just on Methadone 15 TID. She does not think it is enough. I offered to increase to 20 TID, but she requested 15 Q6H. Was able to tolerate CARMELO today, could not do this yesterday Current Medications Acetaminophen (Tylenol Tab*) 650 mg PO Q6H PRN PRN Reason: PAIN Last Admin: 11/12/18 21:50 Dose: 650 mg Acetaminophen (Tylenol Tab*) 650 mg PO Q4H PRN PRN Reason: PAIN Cyclobenzaprine HCl (Flexeril Tab*) 10 mg PO Q8H PRN PRN Reason: PAIN Last Admin: 11/13/18 10:20 Dose: 10 mg Famotidine (Pepcid Tab*) 20 mg PO DAILY [facility] Last Admin: 11/13/18 08:15 Dose: 20 mg Gabapentin (Neurontin Cap(*)) 400 mg PO BID PRN PRN Reason: PAIN - MODERATE Last Admin: 11/13/18 10:20 Dose: 400 mg Heparin Sodium (Porcine) (Heparin Vial(*)) 5,000 units SUBCUT Q8HR [facility] Last Admin: 11/13/18 14:16 Dose: 5,000 units Heparin Sodium (Porcine) (Heparin Flush Picc/Ml/Cvc(*)) 1 - 3 ml FLUSH 0600, 1800 [facility]; Protocol Last Admin: 11/13/18 05:02 Dose: 1 ml Cefazolin Sodium/Dextrose (Kefzol 2 Gm Premix In Ors(*)) 2 gm in 50 mls @ 100 mls/hr IVPB Q8H [facility] Last Admin: 11/13/18 16:42 Dose: 100 mls/hr Sodium Chloride (Ns 0.9% 1000 Ml) 1,000 mls @ 75 mls/hr IV PER RATE [facility] Last Admin: 11/13/18 16:42 Dose: 75 mls/hr Lactated Ringer's (Lactated Ringers 1000 Ml Bag*) 1,000 mls @ 125 mls/hr IV PER RATE [facility] Last Admin: 11/13/18 08:20 Dose: 125 mls/hr Ketorolac Tromethamine (Toradol Inj*) 30 mg IV PUSH Q6H PRN PRN Reason: PAIN Last Admin: 11/13/18 16:55 Dose: 30 mg Lidocaine (Lidoderm 5% Patch*) 1 patch TRANSDERM DAILY [facility] Last Admin: 11/13/18 08:17 Dose: 1 patch Lorazepam (Ativan Tab(*)) 1 mg PO Q4H PRN PRN Reason: ANXIETY Last Admin: 11/12/18 20:11 Dose: 1 mg Magnesium Hydroxide (Milk Of Magnesia Liq*) 30 ml PO DAILY PRN PRN Reason: CONSTIPATION Last Admin: 11/11/18 11:54 Dose: 30 ml Methadone HCl (Dolophine Tab*) 10 mg PO TID [facility] Last Admin: 11/13/18 14:15 Dose: 10 mg Methadone HCl (Dolophine Tab*) 5 mg PO TID [facility] Last Admin: 11/13/18 14:15 Dose: 5 mg Nicotine (Nicotine Patch 21 Mg/24 Hr*) 1 patch TRANSDERM DAILY [facility] Last Admin: 11/13/18 08:18 Dose: 1 patch Pharmacy Profile Note (Nicotine Patch Removal Note*) 1 note FOLLOW UP 2099 [facility] Last Admin: 11/12/18 23:54 Dose: 1 note Pharmacy Profile Note (Lidocaine Patch Remove*) 1 note PATCH OFF 2099 [facility] Last Admin: 11/12/18 23:53 Dose: 1 note Prochlorperazine (Compazine Tab*) 10 mg PO Q8HR PRN PRN Reason: NAUSEA/VOMITING Vital Signs Temp Pulse Resp BP Pulse Ox 100.4 F 97 16 119/71 99 11/13/18 14:26 11/13/18 14:27 11/13/18 16:39 11/13/18 14:27 11/13/18 16:00 EXAM: LUNGS: Clear HEART: Reg rhythm ABDOMEN: Soft ASSESSMENT: 1. Epidural Abcess of SPine 2. S/P Lumbar Fusion L4/5 and drainage of abcesses PLAN: Increase Methadone to 15 Q6H. She is doing much better from a pain perspective. Will follow to see how long she will need IV antibiotics and how long she will be in hospital
[2018-11-13] MEDS: Lidocaine Patch REMOVE* 1 NOTE MISC PATCH OFF SCH (21:11)
[2018-11-13] MEDS: Nicotine Patch Removal NOTE FOLLOW UP SCH (21:11)
--- NOTE | 2018-11-13 22:14 | PN ---
Progress Note - Progress Note Date of Service: 11/13/18 SOAP: Subjective: []No events ON. Tolerates PO, Voids, Ambulates. Pain better controlled today Objective: []VSS, Afebrile Wounds s,c,d Drains output noted. Drains were removed. Catheters appeared to be intact. Patient tolerated procedure well. AAOx3, ESTEFANY, CN II-XII grossly intact Motor 5/5 all extremities Sensory grossly intact to light touch Assessment: []43 yof POD#3 L4-5 laminectomy and fusion L2-3, L3-4 laminectomy for evacuation of ED Abscess Plan: []Monitor VS, Neurochecks OOB , Encourage ambulation PT, IS Nutrition consult XR revealed good placement of hardware, stable alignment of spine. On Ancef per ID On Methadone per Dr Recinos Appreciate IM, ID, PMNR, care. Nick Siddiqui MD
[2018-11-13] MEDS: LORazepam TAB(*) 1 MG PO PRN (23:17)
[2018-11-14] MEDS: ceFAZolin* 2 GM* Q8H (Duplex) IVPB SCH ×4 (00:55→23:52)
[2018-11-14] MEDS: Methadone TAB* 5 MG PO SCH ×4 (02:20→20:56)
[2018-11-14] MEDS: Methadone TAB* 10 MG PO SCH ×4 (02:21→20:56)
[2018-11-14] MEDS: LORazepam TAB(*) 1 MG PO PRN ×4 (05:13→22:01)
[2018-11-14] MEDS: Acetaminophen TAB* 325 MG PO PRN ×3 (05:13→22:01)
[2018-11-14] MEDS: Heparin VIAL(*) 5000 UNITS/ML VIAL (FIVE THOUSAND) SUBCUT SCH ×3 (05:14→20:58)
[2018-11-14] MEDS: Famotidine TAB* 20 MG PO SCH (08:30)
[2018-11-14] MEDS: Lidocaine PATCH 5%* 1 PATCH TRANSDERM SCH (08:34)
[2018-11-14] MEDS: Nicotine PATCH 21 MG/24 HR* PATCH TRANSDERM SCH (08:34)
[2018-11-14] MEDS: NS 0.9% 1000 ML** 1,000 ML IV SCH (08:35)
--- NOTE | 2018-11-14 08:43 | PN ---
Progress Note - Progress Note Date of Service: 11/14/18 SOAP: Subjective: [Pt s/p lumbar decompression and evacuation of epidural abscess. Reports feeling tired this morning. Complains of back pain although improved since POD #1, taking suboxone. Out of bed independently. Eating and drinking well. Denies nausea, headache, chest pain.] Objective: [ Vital Signs: Temp Pulse Resp BP Pulse Ox 102.7 F 108 26 103/58 95 11/14/18 05:02 11/14/18 07:28 11/14/18 08:34 11/14/18 07:28 11/14/18 07:28 General: Drowsy this morning but easily awakes to voice, cooperative and pleasant Neuro:Motor and sensory intact Incision: Intact with suture. No swelling, nontender ] Assessment: [Stable post-op.] Plan: [1. Swing bed for antibiotics 2. Suboxone per Dr. Ferris 3. Encourage OOB and ambulation ]
[2018-11-14] MEDS: Ketorolac INJ* 30 MG/ML 1 ML VIAL IV PUSH PRN ×2 (08:55→17:52)
[2018-11-14] MEDS: Cyclobenzaprine TAB* 10 MG PO PRN ×2 (13:57→22:00)
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
[2018-11-14] MEDS: Nicotine Patch Removal NOTE FOLLOW UP SCH (21:56)
[2018-11-14] MEDS: Lidocaine Patch REMOVE* 1 NOTE MISC PATCH OFF SCH (21:56)
[2018-11-15] MEDS ORDERED: NS 0.9% 1000 ML** 1,000 ML IV ONE ×2 (00:13→09:12)
--- NOTE | 2018-11-15 00:13 | PN ---
Progress Note - Progress Note Date of Service: 11/15/18 Note: Paged patient more disoriented this evening. Temp elevated: 102. On RA with no respiratory symptoms. Will repeat blood cultures, U/A and flu swab. On Cefazolin currently.
[2018-11-15] MEDS ORDERED: Vancomycin(*) 1,000 MG in NS 0.9% 250 ML* 250 ML IVPB ONE (00:30)
[2018-11-15 00:39] LABS: ABS Basophils 0.1 10^3/ul (0-0.2); ABS Eosinophils 0 10^3/ul (0-0.6); ABS Lymphocytes 1.8 10^3/ul (1.0-4.8); ABS Monocytes 0.7 10^3/ul (0-0.8); ABS Neutrophils 10.8 10^3/ul (1.5-7.7); ABS Nucleated RBC 0 10^3/ul; Eosinophil % 0.3 %; Hematocrit 20 % (35-47); Hemoglobin 6.8 g/dl (12.0-16.0); Lymphocyte % 13.4 %; Mean Corpuscular HGB Conc 34 g/dl (31-36); Mean Corpuscular Hemoglobin 29 pg (27-31); Mean Corpuscular Volume 85 fL (80-97); Mean Platelet Volume 6.8 fL (7.4-10.4); Nucleated Red Blood Cells % 0; Platelet Count 248 10^3/ul (150-450); Red Blood Count 2.35 10^6/ul (4.00-5.40); Red Cell Distribution Width 15 % (10.5-15); White Blood Count 13.5 10^3/ul (3.5-10.8)
[2018-11-15 01:03] LABS: Influenza A Molecular NEGATIVE (Negative); Influenza B Molecular NEGATIVE (Negative)
[2018-11-15] MEDS ORDERED: Ibuprofen TAB* 600 MG PO ONE (02:16)
[2018-11-15] MEDS: Methadone TAB* 10 MG PO SCH ×4 (02:20→20:27)
[2018-11-15] MEDS: Methadone TAB* 5 MG PO SCH ×4 (02:20→20:27)
[2018-11-15] MEDS ORDERED: Ibuprofen TAB* 600 MG ONE (02:21)
[2018-11-15 02:59] LABS: Urine Appearance Cloudy; Urine Bilirubin Negative (Negative); Urine Blood Negative (Negative); Urine Color Yellow; Urine Glucose Negative (Negative); Urine Ketones Negative (Negative); Urine Nitrite Negative (Negative); Urine Protein Negative (Negative); Urine Specific Gravity 1.015 (1.010-1.030); Urine Urobilinogen Positive (Negative)
[2018-11-15] MEDS: Famotidine TAB* 20 MG PO SCH (08:54)
[2018-11-15] MEDS: Lidocaine PATCH 5%* 1 PATCH TRANSDERM SCH (08:57)
[2018-11-15] MEDS: Nicotine PATCH 21 MG/24 HR* PATCH TRANSDERM SCH (08:58)
[2018-11-15] MEDS: Heparin VIAL(*) 5000 UNITS/ML VIAL (FIVE THOUSAND) SUBCUT SCH ×3 (09:00→21:27)
[2018-11-15] MEDS: ceFAZolin* 2 GM* Q8H (Duplex) IVPB SCH (09:02)
[2018-11-15] MEDS: Acetaminophen TAB* 325 MG PO PRN ×3 (09:29→23:10)
--- NOTE | 2018-11-15 09:41 | PN ---
Progress Note - Progress Note Date of Service: 11/15/18 SOAP: Subjective: Ms. Herrera is a 43 yo female with PMH significant for seizure disorder, anxiety, and history of IV drug abuse. She presented to the hospital for severe low back pain, S/P I+D with Dr. Siddiqui on 11/10/18. Overnight she was noted to have a fever, T max 102.2, now afebrile. She received a dose of IV vanco last night after the fever. She was also noted to have increased confusion, she has had confusion overnight a few nights ago and had a negative brain CT. Reports fever overnight and chills this morning. Denies shortness of breath, urinary symptoms. She reports pain in her back at the site of the incision. Per [facility] staff she was hallucinating overnight. Objective: Vital Signs 11/15/18 11/15/18 11/15/18 02:12 07:37 08:54 Temperature 102.2 F 97.7 F Pulse Rate 100 94 Respiratory 20 20 Rate Blood Pressure 125/81 97/55 (mmHg) O2 Sat by Pulse 91 84 Oximetry Physical Exam General: NAD, laying in bed HEENT: Mucous membranes moist Neurological: Alert and Oriented x 4 Cardiovascular: Heart rate regular, no murmur Respiratory: Lung sounds clear Abdominal: Bowel sounds present, abdomen soft, nontender and non distended Musculoskeletal: No tenderness with palpation of the back/spine, except directly at the surgical site. Skin: No rashes seen on the exposed skin. Incision to the lower back well approximated with sutures intact. There is no erythema or drainage. Laboratory Tests 11/12/18 11/13/18 11/13/18 05:28 05:02 05:02 WBC 15.0 H Hgb 8.6 L Hct 25 L Plt Count 210 C-Reactive Protein 128.05 H 247.50 H Urine Color Urine Appearance Urine pH Ur Specific [place] Urine Protein Urine Ketones Urine Blood Urine Nitrate Urine Bilirubin Urine Urobilinogen Ur Leukocyte Esterase Influenza A (Rapid) Influenza B (Rapid) 11/15/18 11/15/18 11/15/18 00:31 00:51 02:50 WBC 13.5 H Hgb 6.8 L Hct 20 L Plt Count 248 C-Reactive Protein Urine Color Yellow Urine Appearance Cloudy Urine pH 5.0 Ur Specific [place] 1.015 Urine Protein Negative Urine Ketones Negative Urine Blood Negative Urine Nitrate Negative Urine Bilirubin Negative Urine Urobilinogen Positive A Ur Leukocyte Esterase Negative Influenza A (Rapid) Negative Influenza B (Rapid) Negative Assessment: 1. L4-5 epidural abscess with associated paraspinal abscess, S/P I+D POD #5. Cultures are growing MRSA, blood cultures 2/4 staph aureus. CARMELO on 3 shows no vegetation. Repeat blood cultures on 3 with staph epi, this may be a contaminant. She developed confusion/hallucinations and a fever overnight, T max 102.2. She received a dose of IV vanco overnight. 2. History of IV drug use 3. Hepatitis C virus antibody positive Plan: 1. Continue Ancef 2 g IV every 8 hours, she will require a prolonged course of IV antibiotics for her spine infection. Continue addition of vanco at this time , to cover staph epi until repeat blood cultures drawn last night are back. Plan to obtain peripheral IV access and discontinue the PICC line. <Katarina Grant - Last Filed: 11/15/18 18:37> - Progress Note SOAP: Seen, examined, discussed with Heydi Steve NP, I agree with her note above Imp: 1. Encephalopathy due to infection and metabolic derangement 2. Fever ?due to original MSSA spine infection, abx allergy, pneumonia 3. MSSA JULIO CESAR and paraspinal abscess s/p I&D Rec: continue vancomycin and zosyn, will follow temp and cultures, hopefully will be able to change back to MSSA directed treatment shortly <Sheila FELICIANO,Rickey Adams - Last Filed: 11/16/18 15:47>
[2018-11-15 09:49] LABS: Hematocrit 22 % (35-47); Hemoglobin 7.2 g/dl (12.0-16.0)
[2018-11-15] MEDS ORDERED: Vancomycin(*) 0 MG in NS 0.9% 250 ML* 250 ML IVPB SCH (10:00)
[2018-11-15] MEDS ORDERED: Vancomycin(*) 1,250 MG in NS 0.9% 250 ML* 250 ML IVPB ONE (10:00)
[2018-11-15 10:04] LABS: Albumin 2.5 g/dL (3.2-5.2); Albumin/Globulin Ratio 0.8 (1-3); BUN/Creatinine Ratio 18.2 (8-20); Calcium 7.8 mg/dL (8.6-10.3); EGFR African American 190.7 (>60); EGFR Non-African American 157.6 (>60); Globulin 3.3 g/dL (2-4); Magnesium 1.6 mg/dL (1.9-2.7); Potassium 4.1 mmol/L (3.5-5.0); Total Bilirubin 0.5 mg/dL (0.2-1.0); Total Protein 5.8 g/dL (6.4-8.9)
[2018-11-15] MEDS: LORazepam TAB(*) 1 MG PO PRN ×2 (10:07→22:59)
[2018-11-15] MEDS: Cyclobenzaprine TAB* 10 MG PO PRN (10:08)
[2018-11-15] MEDS ORDERED: Vancomycin per Pharmacy* NOTE FOLLOW UP PRN (12:53)
[2018-11-15] MEDS ORDERED: QUEtiapine TAB* 25 MG PO PRN (13:27)
[2018-11-15] MEDS ORDERED: LORazepam INJ* 2 MG/ML 1 ML VIAL IV PUSH ONE (13:27)
[2018-11-15] MEDS: Ketorolac INJ* 30 MG/ML 1 ML VIAL IV PUSH PRN ×2 (15:05→23:00)
--- NOTE | 2018-11-15 15:07 | PN ---
Subjective Date of Service: 11/15/18 Interval History: Patient seen and examined. Per RN, temperature increased with PRBCs transfusion and she is having hallucinations and has been agitated and impulsive. Temp went from 101 to 103. BP was stable, HR with mild tachycardia. Shortly thereafter, CAT call was called overhead for same symptoms. Upon evaluation, patient is agitated with hallucinations, however, she is able to state her name, birthdate , where she is and date. She is complaining of pain in her back and shaking/ chills, denies acute SOB, no chest pain. Family History: Unchanged from Admission Social History: Unchanged from Admission Past Medical History: Unchanged from Admission Objective Active Medications: Acetaminophen (Tylenol Tab*) 650 mg PO Q6H PRN PRN Reason: PAIN Last Admin: 11/15/18 14:10 Dose: 650 mg Acetaminophen (Tylenol Tab*) 650 mg PO Q4H PRN PRN Reason: PAIN Cyclobenzaprine HCl (Flexeril Tab*) 10 mg PO Q8H PRN PRN Reason: PAIN Last Admin: 11/15/18 10:08 Dose: 10 mg Famotidine (Pepcid Tab*) 20 mg PO DAILY KAUR Last Admin: 11/15/18 08:54 Dose: 20 mg Gabapentin (Neurontin Cap(*)) 400 mg PO BID PRN PRN Reason: PAIN - MODERATE Last Admin: 11/13/18 10:20 Dose: 400 mg Heparin Sodium (Porcine) (Heparin Vial(*)) 5,000 units SUBCUT Q8HR [facility] Last Admin: 11/15/18 09:00 Dose: 5,000 units Heparin Sodium (Porcine) (Heparin Flush Picc/Ml/Cvc(*)) 1 - 3 ml FLUSH 0600, 1800 [facility]; Protocol Last Admin: 11/15/18 09:43 Dose: 1 ml Cefazolin Sodium/Dextrose (Kefzol 2 Gm Premix In Ors(*)) 2 gm in 50 mls @ 100 mls/hr IVPB Q8H [facility] Last Admin: 11/15/18 09:02 Dose: 100 mls/hr Cefazolin Sodium 2 gm/ Sodium (Chloride) 100 mls @ 200 mls/hr IVPB Q8H [facility] Ketorolac Tromethamine (Toradol Inj*) 30 mg IV PUSH Q6H PRN PRN Reason: PAIN Stop: 03/08/19 21:00 Lidocaine (Lidoderm 5% Patch*) 1 patch TRANSDERM DAILY [facility] Last Admin: 11/15/18 08:57 Dose: 1 patch Lorazepam (Ativan Tab(*)) 1 mg PO Q4H PRN PRN Reason: ANXIETY Last Admin: 11/15/18 10:07 Dose: 1 mg Magnesium Hydroxide (Milk Of Magnesia Liq*) 30 ml PO DAILY PRN PRN Reason: CONSTIPATION Last Admin: 11/11/18 11:54 Dose: 30 ml Methadone HCl (Dolophine Tab*) 10 mg PO Q6H [facility] Last Admin: 11/15/18 08:55 Dose: 10 mg Methadone HCl (Dolophine Tab*) 5 mg PO Q6H [facility] Last Admin: 11/15/18 08:54 Dose: 5 mg Nicotine (Nicotine Patch 21 Mg/24 Hr*) 1 patch TRANSDERM DAILY [facility] Last Admin: 11/15/18 08:58 Dose: 1 patch Pharmacy Consult (Vancomycin Per Pharmacy*) 1 note FOLLOW UP . PRN PRN Reason: PER PROTOCOL Pharmacy Profile Note (Nicotine Patch Removal Note*) 1 note FOLLOW UP 2099 [facility] Last Admin: 11/14/18 21:56 Dose: 1 note Pharmacy Profile Note (Lidocaine Patch Remove*) 1 note PATCH OFF 2099 [facility] Last Admin: 11/14/18 21:56 Dose: 1 note Prochlorperazine (Compazine Tab*) 10 mg PO Q8HR PRN PRN Reason: NAUSEA/VOMITING Quetiapine Fumarate (Seroquel Tab*) 25 mg PO BID PRN PRN Reason: ANXIETY Last Admin: 11/15/18 14:09 Dose: 25 mg Vital Signs - 8 hr 11/15/18 11/15/18 11/15/18 07:37 08:20 08:54 Temperature 97.7 F Pulse Rate 94 Respiratory 20 Rate Blood Pressure 97/55 (mmHg) O2 Sat by Pulse 84 92 Oximetry 11/15/18 11/15/18 11/15/18 08:55 09:00 10:00 Temperature 100.1 F Pulse Rate Respiratory 20 20 Rate Blood Pressure (mmHg) O2 Sat by Pulse Oximetry 11/15/18 11/15/18 11/15/18 10:07 10:08 11:36 Temperature Pulse Rate Respiratory 22 22 16 Rate Blood Pressure (mmHg) O2 Sat by Pulse Oximetry 11/15/18 11/15/18 11/15/18 11:40 12:39 14:10 Temperature 101 F Pulse Rate 101 Respiratory 30 32 38 Rate Blood Pressure 110/50 (mmHg) O2 Sat by Pulse 94 Oximetry 11/15/18 14:24 Temperature 103.2 F Pulse Rate 118 Respiratory 38 Rate Blood Pressure 130/80 (mmHg) O2 Sat by Pulse 90 Oximetry Oxygen Devices in Use Now: None Appearance: alert, distressed Eyes: No Scleral Icterus, PERRLA Ears/Nose/Mouth/Throat: - - dry oral mucosa Neck: NL Appearance and Movements; NL JVP Respiratory: Symmetrical Chest Expansion and Respiratory Effort, Clear to Auscultation Cardiovascular: NL Sounds; No Murmurs; No JVD, - - tachy 105 Abdominal: NL Sounds; No Tenderness; No Distention Extremities: No Edema, No Clubbing, Cyanosis Skin: No Nodules or Sclerosis Neurological: Alert and Oriented x 3, NL Gait Nutrition: Taking PO's Result Diagrams: 11/15/18 09:30 11/15/18 09:30 Additional Lab and Data: Laboratory Results - last 24 hr 11/13/18 11/13/18 05:02 05:02 WBC 15.0 H RBC 3.00 L Hgb 8.6 L Hct 25 L MCV 84 MCH 29 MCHC 34 RDW 15 Plt Count 210 MPV 6.6 L Neut % (Auto) 78.6 Lymph % (Auto) 14.9 [place] % (Auto) 6.1 Eos % (Auto) 0.3 Baso % (Auto) 0.1 Absolute Neuts (auto) 11.8 H Absolute Lymphs (auto) 2.2 Absolute Monos (auto) 0.9 H Absolute Eos (auto) 0 Absolute Basos (auto) 0 Absolute Nucleated RBC 0 Nucleated RBC % 0 Sodium 138 Potassium 3.5 Chloride 108 Carbon Dioxide 24 Anion Gap 6 BUN 10 Creatinine 0.41 L Est GFR ( Amer) 206.9 Est GFR (Non-Af Amer) 171.0 BUN/Creatinine Ratio 24.4 H Glucose 110 H Calcium 7.7 L Magnesium 1.6 L Total Bilirubin 0.40 AST 21 ALT 21 Alkaline Phosphatase 93 C-Reactive Protein 247.50 H Total Protein 5.4 L Albumin 2.4 L Globulin 3.0 Albumin/Globulin Ratio 0.8 L Beta HCG, Quant < 0.60 Microbiology and Other Data: Microbiology 11/12/18 09:20 Blood Line Aerobic Blood Culture - Preliminary 11/12/18 09:20 Blood Line Anaerobic Blood Culture - Preliminary No Growth Day 1 11/12/18 09:20 Blood Line Blood MRSA/MSSA (PCR) - Final Mrsa Negative S.aureus Negative 11/12/18 09:45 Blood Venous Aerobic Blood Culture - Preliminary No Growth Day 1 11/12/18 09:45 Blood Venous Anaerobic Blood Culture - Preliminary No Growth Day 1 11/09/18 11:50 Wound - Abscess Anaerobic Culture - Final 11/09/18 11:50 Wound - Abscess Skin and Soft Tissue MRSA/MSSA (PCR - Final Mrsa Negative S.aureus Positive 11/09/18 11:50 Wound - Abscess Gram Stain - Final 11/09/18 11:50 Wound - Abscess Wound Culture - Final Staphylococcus Aureus 11/08/18 06:32 Blood Venous Aerobic Blood Culture - Final Not Reportable 11/08/18 06:32 Blood Venous Anaerobic Blood Culture - Final Not Reportable 11/08/18 06:32 Blood Venous Blood Culture - Final Staphylococcus Aureus 11/08/18 03:47 Blood Venous Aerobic Blood Culture - Final Not Reportable 11/08/18 03:47 Blood Venous Anaerobic Blood Culture - Final Not Reportable 11/08/18 03:47 Blood Venous Blood Culture - Final Staphylococcus Aureus 11/08/18 03:47 Blood Venous Blood MRSA/MSSA (PCR) - Final Mrsa Negative S.aureus Positive 11/09/18 16:39 Nasal Nasal Screen MRSA (PCR) - Final Mrsa Detected 11/08/18 14:30 Urine Urine Culture - Final No Growth (<1,000 CFU/mL) Diagnostic Imaging: Patient Name: CHAPINCITO SYED Medical Record#: [id number] Ordering Physician: Gianna Salazar NP Acct.#: [id number] : 1975 Age: 43 Sex: F Location: SURGICAL STAY UNIT Exam Date: 11/15/181402 ADM Status: ADM IN Order Information: CHEST AP OR PORT Accession Number: [id number] CPT: 75627 Indication: Progressive shortness of breath and confusion. Single frontal view of the chest performed at 1416 hours was reviewed. Comparison is made with previous exam dated November 13, 2018. No mediastinal shift is noted. Progressive airspace disease in the right upper lobe, right base and left lung Field is noted. This may represent progressive pneumonia. IMPRESSION: PROGRESSIVE AIRSPACE DISEASE IN BOTH LUNG URBANO PREDOMINANTLY IN THE RIGHT UPPER LOBE. Patient Name: CHAPINCITO SYED Medical Record#: [id number] Ordering Physician: Krystal Anderson DO Acct.#: [id number] : 1975 Age: 43 Sex: F Location: [address] [place] [address]/TELEMET[place] Exam Date: 11/08/18 0700 ADM Status: ADM IN Order Information: MRI LUMBAR SPINE W/WO Accession Number: [id number] CPT: 08884 ADDENDUM THIS REPORT CONTAINS FINDINGS THAT MAY BE CRITICAL TO PATIENT CARE. The findings were verbally communicated via telephone conference with Krystal Link at 10:20 PM EST on 11/08/2018. The findings were acknowledged and understood. EXAM: MR Lumbar Spine Without and With Contrast. EXAM DATE/TIME: 11/08/2018 7:52 PM CLINICAL HISTORY: 43 years old, female; Pain; Low back pain; Patient HX: PT has severe pain that radiates down her legs and causes numbness. PT has also been having chills and subjective fevers for the last few days. Last iv drug use was 3 days ago. PT also has been having dysuria; Additional info: Back pain elevated crp TECHNIQUE: Multiplanar magnetic resonance images of the lumbar spine without and with intravenous contrast. CONTRAST: Contrast Material: 11 ml of PROHANCE; Contrast Route: IV COMPARISON: [facility]KE [facility] CT SPINE LUMBAR W/O 11/06/2018 10:43 AM FINDINGS: Vertebrae: Grade 2 anterolisthesis of L4 over L5 unchanged. 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 Epidural space: There is a 6 x 4 mm fluid collection in the epidural space on the right at the level of L5 vertebra. Spinal cord: Normal signal. No cord compression. Soft tissues: There is a 2.0 x 1.5 x 2.4 cm enhancing fluid collection in the right posterior paraspinal musculature at L4-L5 level. There is a small a small fluid collection measuring 7 x 7 mm in the left paraspinal musculature at L4-L5. IMPRESSION: 1. Right paraspinal fluid collection collection at L4-L5 measuring 2.0 x 1.5 x 2.4 representing an abscess. There is a second abscess on the left at the same level measuring 7 x 7 mm. 2. A small epidural abscess/fluid collection posteriorly at L4-L5 measuring 6 x 4 mm. Assess/Plan/Problems-Billing Assessment: Patient is a 43yo female with a PMH for possible seizures, History of traumatic spine injury and history of IV drug abuse who presents to the hospital for chills, tachycardia, hypotension, severe back pain and elevated CRP who is admitted for evaluation of radicular back pain with concern for epidural abscess impinging on nerve root. - Patient Problems (1) Epidural abscess Code(s): G06.2 - EXTRADURAL AND SUBDURAL ABSCESS, UNSPECIFIED SNOMED Code(s): 22316701 Comment: - POD6 with neurosurgery following, s/p washout and decompression - ID following, vancomycin added today, continue to follow cultures from last night - Remove PICC line - CARMELO under MAC showed no vegetation on valves (2) History of intravenous drug abuse Code(s): Z87.898 - PERSONAL HISTORY OF OTHER SPECIFIED CONDITIONS SNOMED Code( s): 24012178121167965 Comment: - Will re-screen urine today given new behaviors, patient at times appears like she is detoxing - Inititial UDS positive for Amphetamines, claims she took Buproprion 2 weeks ago but vehemently denies injecting opiates recently or Amphetamines ever - Hepatitis C antibody positive with elevated LFTs, Viral load pending, may need treatment in the non-acute setting. - Daughters found drug supplies in purse while inpatient (3) Inadequate pain control Code(s): R52 - PAIN, UNSPECIFIED SNOMED Code(s): 991196238 Comment: - Dr Ferris consulting - Continue Methadone TID (4) Sepsis Comment: - Leukocytosis improving but fevers rising with mild tachycardia and hypotension - s/p fluid bolus, with resolution of hypotension, but had further increase in temp during transfusion and after - Repeat Lactic acid is normal at 1.4 - Continue maintenance IVF - Follow repeat blood cultures - CXR with new infiltrate that may be an aspiration pneumonitis; will DC ancef and start zosyn today and continue vanco (5) History of seizure Code(s): Z87.898 - PERSONAL HISTORY OF OTHER SPECIFIED CONDITIONS SNOMED Code( s): 741082747 Comment: - Questionable, cannot find documentation of true seizures - Was on keppra at one point last year - Neuro consulted for post-op AMS which is now resolved - Appears stable, continue to monitor (6) Hallucination Code(s): R44.3 - HALLUCINATIONS, UNSPECIFIED SNOMED Code(s): 7046388 Comment: - Per record, patient was altered at admission then resolved - Concern that persistent hallucinations are present with fever, unclear if this is metabolic derangement 2/2 bacteremia and infection vs underlying psychiatric disorder with recent drug use - Trial 1 dose IV ativan urgently with seroquel BID PRN - Safety monitor - Psychiatry consulted (7) DVT prophylaxis Code(s): FCO3398 - SNOMED Code(s): 241238817 Comment: - HSQ (8) Full code status Code(s): Z78.9 - OTHER SPECIFIED HEALTH STATUS SNOMED Code(s): 804320494 Comment: Status and Disposition: Inpatient, plan for Swing when medically stable for 6-8 weeks of IV atbx.
[2018-11-15 15:23] LABS: Barbiturates Urine Screen None Detected (None Detect); Benzodiazepine Urine Screen None Detected (None Detect); Urine Cannabinoids Screen None Detected (None Detect)
[2018-11-15] MEDS ORDERED: Piperacillin/Tazobac ADVAN(*) 3.375 GM in NS 0.9% 100 ML* 100 ML IVPB ONE (15:24)
[2018-11-15] MEDS ORDERED: ceFAZolin* 2 GM in NS 100 MLS Q8H (Pharmacy Admix) IVPB SCH (16:00)
[2018-11-15] MEDS ORDERED: Zosyn per Pharmacy* NOTE FOLLOW UP SCH (16:00)
[2018-11-15] MEDS: Vancomycin(*) 1,000 MG in NS 0.9% 250 ML* 250 ML IVPB SCH (18:16)
--- NOTE | 2018-11-15 19:50 | PN ---
Progress Note - Progress Note Date of Service: 11/15/18 SOAP: Subjective: []Reported elevated Temp ON, Confusion. Now resting comfortably, Afebrile Objective: []VSS Afebrile Wound s,c,d Easily arousable. Ox3, ESTEFANY, CN II-XII grassly intact Motoer 5/5 all extremities Sensory grossly intact to light touch FROM c spine . No Neck stiffness Assessment: []43 yof POD#6 Lumbar ED abscess evacuation L4-5 instrumentation Plan: [Monitor VS, Neurochecks CXR: possible PNA On Abx per IM/ ID Cultures results pending Appreciate IM, ID care. Newton Siddiqui MD
[2018-11-15] MEDS: ZOSYN 3.375 GM Q8H per EXTENDED INFUSION IVPB SCH ×2 (20:26)
[2018-11-15] MEDS: Lidocaine Patch REMOVE* 1 NOTE MISC PATCH OFF SCH (21:32)
[2018-11-15] MEDS: Nicotine Patch Removal NOTE FOLLOW UP SCH (21:32)
[2018-11-16] MEDS: Vancomycin(*) 1,000 MG in NS 0.9% 250 ML* 250 ML IVPB SCH ×2 (01:38→10:31)
[2018-11-16] MEDS: Methadone TAB* 10 MG PO SCH ×4 (01:39→20:10)
[2018-11-16] MEDS: Methadone TAB* 5 MG PO SCH ×4 (01:39→20:11)
[2018-11-16] MEDS: ZOSYN 3.375 GM Q8H per EXTENDED INFUSION IVPB SCH ×6 (03:34→20:10)
[2018-11-16] MEDS: Heparin VIAL(*) 5000 UNITS/ML VIAL (FIVE THOUSAND) SUBCUT SCH ×3 (05:30→21:58)
[2018-11-16] MEDS: Cyclobenzaprine TAB* 10 MG PO PRN ×2 (05:52→22:30)
[2018-11-16] MEDS: Gabapentin CAP(*) 400 MG PO PRN ×2 (06:40→17:15)
[2018-11-16] MEDS: Ketorolac INJ* 30 MG/ML 1 ML VIAL IV PUSH PRN ×2 (06:41→14:06)
[2018-11-16] MEDS: Famotidine TAB* 20 MG PO SCH (07:57)
[2018-11-16] MEDS: Nicotine PATCH 21 MG/24 HR* PATCH TRANSDERM SCH (07:57)
[2018-11-16] MEDS: Lidocaine PATCH 5%* 1 PATCH TRANSDERM SCH (07:57)
[2018-11-16] MEDS: Acetaminophen TAB* 325 MG PO PRN ×3 (07:58→18:56)
[2018-11-16] MEDS ORDERED: Magnesium Sulfate 2 GM IV* 2 GM/50 ML BAG IVPB ONE (08:31)
--- NOTE | 2018-11-16 08:39 | PN ---
Progress Note - Progress Note Date of Service: 11/16/18 SOAP: Subjective: [Pt s/p lumbar decompression, evacuation of epidural hematoma and fusion Reports feeling tired, feverish, chills, sweats and back pain this morning Complains of back pain although improving, taking suboxone. Denies headache, nausea, dizziness. Episodes of mental status change and increased temperature yesterday. CXR obtained, antibiotics changed. ] Objective: [ Vital Signs: Temp Pulse Resp BP Pulse Ox 101.5 F 112 18 91/43 97 11/16/18 07:16 11/16/18 07:16 11/16/18 07:58 11/16/18 07:16 11/16/18 07:16 General: Pt is drowsy, easily awakes to voice. Cooperative. Mildly short of breath, increased respirations. Neuro: Motor and sensory intact. Oriented Incision: Intact with suture. Dressing replaced today, mild amount drainage. Nontender, no swelling. ] Assessment: [Neurosurgically stable] Plan: [1. Continue OOB and up to chair, ambulation. 2. Antibiotics per ID 3. Pain management per Dr. Ferris 4. IS provided ]
[2018-11-16] MEDS ORDERED: Vancomycin Trough Check NOTE FOLLOW UP ONE (09:30)
[2018-11-16 09:57] LABS: Hematocrit 17 % (35-47); Hemoglobin 5.8 g/dl (12.0-16.0)
[2018-11-16 10:16] LABS: EGFR African American 164.5 (>60)
[2018-11-16] MEDS ORDERED: diPHENhydraMINE PO* 25 MG PO ONE (10:29)
[2018-11-16] MEDS ORDERED: Acetaminophen TAB* 325 MG PO ONE (10:30)
[2018-11-16 10:33] LABS: Total Iron Binding Capacity 192 mcg/dL (250-450); Transferrin 137 mg/dL (203-362)
[2018-11-16 10:37] LABS: % Iron Saturation 9 % (15-55); Iron < 17 ug/dL (50-212)
[2018-11-16] MEDS ORDERED: diPHENhydraMINE PO* 25 MG ONE (10:51)
[2018-11-16 10:54] LABS: Ferritin 285.5 ng/mL (11-307)
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
--- NOTE | 2018-11-16 15:40 | PN ---
Progress Note - Progress Note Date of Service: 11/16/18 SOAP: Subjective: Ms. Herrera is a 43 yo female with PMH significant for seizure disorder, anxiety, and history of IV drug abuse who presented to the ED with complaints of severe low back pain. S.P I+d with Dr. Siddiqui on 11/10/18. Yesterday afternoon she was noted to have a fever of 104.8, and a fever of 101.4 earlier this AM. She was started on Zosyn at the time of the fever yesterday afternoon. She has also been seen by psychiatry for confusion and is felt to have delirium. She reports intermittent fever, chills, continued low back pain and pain into her left posterior thigh. She feels like the pain is improving. She describes this pain as a burning sensation in the left leg. Denies shortness of breath or urinary symptoms. Denies constipation or diarrhea, but is requesting a stool softener once daily at lunch time. She reports some increased pain in her left LE when she is ambulating. Objective: Vital Signs 11/16/18 11/16/18 13:20 13:30 Temperature 98.3 F Pulse Rate 81 Respiratory 20 Rate Blood Pressure 112/66 (mmHg) Blood Pressure 81 Mean O2 Sat by Pulse 97 Oximetry Oxygen Flow 2 Rate Patient on Room No Air Physical Exam: General: NAD, laying in bed HEENT: Mucous membranes moist, no nuchal rigidity Neurological: Alert and Oriented. Good dorsi and plantar flexion bilateral LEs. Able to perform straight leg rises bilateral without difficulty Cardiovascular: Heart rate regular, no murmur Respiratory: Lung sounds clear bilateral Abdominal: Bowel sounds present. Abdomen is soft, slightly distended, and tender in the left upper quad Musculoskeletal: No tenderness with palpation of the back/spine, except directly at the surgical site. Full ROM of the knees and hips bilateral Skin: No rashes seen on the exposed skin. Incision to the lower back well approximated with sutures intact, no erythema or drainage Laboratory Tests 11/16/18 11/16/18 09:47 09:47 Hgb 5.8 L* Hct 17 L BUN 9 Creatinine 0.50 L Assessment: 1. L4-5 epidural abscess with associated paraspinal abscess, S/P I+D POD #6. Cultures are growing MRSA, initial blood cultures 2/4 staph aureus. CARMELO 11/13/18 shows no vegetation. Repeat blood cultures on 11/12/18 with staph epi, this may be a contaminant. Repeat blood cultures on 11/15/18 with no growth, day 1. T max yesterday was 104.8 yesterday and T Max 101.4 this AM. She has been afebrile after 0700 this AM. 2. Delirium 3. History of IV drug use 3. Hepatitis C virus antibody positive Plan: 1. Continue vancomycin and zosyn over the weekend and plan to re-eval abx on Monday. She will require a prolonged course of IV antibiotics. Continue peripheral IV access at this time and hold on PICC line placement. Check CBC in the AM. <Katarina Grant - Last Filed: 11/16/18 18:10> - Progress Note SOAP: Seen, examined, and discussed with Maddie Little NP, I agree with her full note above. <Sheila FELICIANO,Rickey Adams - Last Filed: 11/19/18 08:16>
[2018-11-16] MEDS: Vancomycin(*) 1,250 MG in NS 0.9% 250 ML* 250 ML IVPB SCH (18:08)
[2018-11-16 18:56] LABS: Hematocrit 27 % (35-47); Hemoglobin 8.7 g/dl (12.0-16.0)
--- NOTE | 2018-11-16 19:24 | PN ---
Subjective Date of Service: 11/16/18 Interval History: Patient seen and examined. Repeated H&H with critical value of 5.8 Hgb. Patient is fatigued and SOB, otherwise agitation is resolving. Denies chest pain, states back pain is still an issue. No further complaints. Family History: Unchanged from Admission Social History: Unchanged from Admission Past Medical History: Unchanged from Admission Objective Active Medications: Acetaminophen (Tylenol Tab*) 650 mg PO Q4H PRN PRN Reason: PAIN Last Admin: 11/16/18 18:56 Dose: 650 mg Docusate Sodium (Colace Cap*) 100 mg PO 1200 KAUR Famotidine (Pepcid Tab*) 20 mg PO DAILY [facility] Last Admin: 11/16/18 07:57 Dose: 20 mg Gabapentin (Neurontin Cap(*)) 400 mg PO BID PRN PRN Reason: PAIN - MODERATE Last Admin: 11/16/18 17:15 Dose: 400 mg Heparin Sodium (Porcine) (Heparin Vial(*)) 5,000 units SUBCUT Q8HR [facility] Last Admin: 11/16/18 14:06 Dose: 5,000 units Piperacillin Sod/Tazobactam (Sod 3.375 gm/ Sodium Chloride) 100 mls @ 25 mls/ hr IVPB Q8H [facility] Last Admin: 11/16/18 11:39 Dose: 25 mls/hr Vancomycin HCl 1,250 mg/ (Sodium Chloride) 250 mls @ 166.667 mls/hr IVPB Q8H [facility] Last Admin: 11/16/18 18:08 Dose: 166.667 mls/hr Ketorolac Tromethamine (Toradol Inj*) 30 mg IV PUSH Q6H PRN PRN Reason: PAIN Stop: 11/16/18 21:00 Last Admin: 11/16/18 14:06 Dose: 30 mg Lidocaine (Lidoderm 5% Patch*) 1 patch TRANSDERM DAILY [facility] Last Admin: 11/16/18 07:57 Dose: 1 patch Magnesium Hydroxide (Milk Of Magnesia Liq*) 30 ml PO DAILY PRN PRN Reason: CONSTIPATION Last Admin: 11/11/18 11:54 Dose: 30 ml Methadone HCl (Dolophine Tab*) 10 mg PO Q6H [facility] Last Admin: 11/16/18 14:06 Dose: 10 mg Methadone HCl (Dolophine Tab*) 5 mg PO Q6H [facility] Last Admin: 11/16/18 14:06 Dose: 5 mg Nicotine (Nicotine Patch 21 Mg/24 Hr*) 1 patch TRANSDERM DAILY [facility] Last Admin: 11/16/18 07:57 Dose: 1 patch Pharmacy Consult (Vancomycin Per Pharmacy*) 1 note FOLLOW UP . PRN PRN Reason: PER PROTOCOL Pharmacy Consult (Zosyn Per Pharmacy*) 1 note FOLLOW UP .ZOSYN PER PHARMACY [facility] Pharmacy Profile Note (Nicotine Patch Removal Note*) 1 note FOLLOW UP 2099 [facility] Last Admin: 11/15/18 21:32 Dose: 1 note Pharmacy Profile Note (Lidocaine Patch Remove*) 1 note PATCH OFF 2099 [facility] Last Admin: 11/15/18 21:32 Dose: 1 note Pharmacy Profile Note (Vancomycin Trough Check) 1 note FOLLOW UP ONCE ONE Stop: 11/18/18 09:31 Prochlorperazine (Compazine Tab*) 10 mg PO Q8HR PRN PRN Reason: NAUSEA/VOMITING Quetiapine Fumarate (Seroquel Tab*) 25 mg PO BID [facility] Vital Signs - 8 hr 11/16/18 11/16/18 11/16/18 12:46 13:20 13:30 Temperature 98.3 F Pulse Rate 81 Respiratory 18 20 Rate Blood Pressure 112/66 (mmHg) O2 Sat by Pulse 97 Oximetry 11/16/18 11/16/18 11/16/18 14:06 15:30 15:55 Temperature 99.7 F Pulse Rate 91 Respiratory 18 24 18 Rate Blood Pressure 97/59 (mmHg) O2 Sat by Pulse Oximetry 11/16/18 11/16/18 11/16/18 15:59 17:15 17:30 Temperature 100.2 F Pulse Rate 93 Respiratory 18 20 Rate Blood Pressure 119/79 (mmHg) O2 Sat by Pulse 97 Oximetry Oxygen Devices in Use Now: Nasal Cannula Appearance: alert, pale, NAD Eyes: No Scleral Icterus, PERRLA Ears/Nose/Mouth/Throat: NL Teeth, Lips, Gums, Mucous Membranes Moist Neck: NL Appearance and Movements; NL JVP, Trachea Midline Respiratory: Symmetrical Chest Expansion and Respiratory Effort, Clear to Auscultation Cardiovascular: NL Sounds; No Murmurs; No JVD, RRR, No Edema Abdominal: NL Sounds; No Tenderness; No Distention Extremities: No Edema, No Clubbing, Cyanosis Skin: No Rash or Ulcers, - - dressing CDI Neurological: Alert and Oriented x 3 Nutrition: Taking PO's Result Diagrams: 11/16/18 18:32 11/16/18 09:47 Additional Lab and Data: Laboratory Results - last 24 hr 11/13/18 11/13/18 05:02 05:02 WBC 15.0 H RBC 3.00 L Hgb 8.6 L Hct 25 L MCV 84 MCH 29 MCHC 34 RDW 15 Plt Count 210 MPV 6.6 L Neut % (Auto) 78.6 Lymph % (Auto) 14.9 [place] % (Auto) 6.1 Eos % (Auto) 0.3 Baso % (Auto) 0.1 Absolute Neuts (auto) 11.8 H Absolute Lymphs (auto) 2.2 Absolute Monos (auto) 0.9 H Absolute Eos (auto) 0 Absolute Basos (auto) 0 Absolute Nucleated RBC 0 Nucleated RBC % 0 Sodium 138 Potassium 3.5 Chloride 108 Carbon Dioxide 24 Anion Gap 6 BUN 10 Creatinine 0.41 L Est GFR ( Amer) 206.9 Est GFR (Non-Af Amer) 171.0 BUN/Creatinine Ratio 24.4 H Glucose 110 H Calcium 7.7 L Magnesium 1.6 L Total Bilirubin 0.40 AST 21 ALT 21 Alkaline Phosphatase 93 C-Reactive Protein 247.50 H Total Protein 5.4 L Albumin 2.4 L Globulin 3.0 Albumin/Globulin Ratio 0.8 L Beta HCG, Quant < 0.60 Microbiology and Other Data: Microbiology 11/12/18 09:20 Blood Line Aerobic Blood Culture - Preliminary 11/12/18 09:20 Blood Line Anaerobic Blood Culture - Preliminary No Growth Day 1 11/12/18 09:20 Blood Line Blood MRSA/MSSA (PCR) - Final Mrsa Negative S.aureus Negative 11/12/18 09:45 Blood Venous Aerobic Blood Culture - Preliminary No Growth Day 1 11/12/18 09:45 Blood Venous Anaerobic Blood Culture - Preliminary No Growth Day 1 11/09/18 11:50 Wound - Abscess Anaerobic Culture - Final 11/09/18 11:50 Wound - Abscess Skin and Soft Tissue MRSA/MSSA (PCR - Final Mrsa Negative S.aureus Positive 11/09/18 11:50 Wound - Abscess Gram Stain - Final 11/09/18 11:50 Wound - Abscess Wound Culture - Final Staphylococcus Aureus 11/08/18 06:32 Blood Venous Aerobic Blood Culture - Final Not Reportable 11/08/18 06:32 Blood Venous Anaerobic Blood Culture - Final Not Reportable 11/08/18 06:32 Blood Venous Blood Culture - Final Staphylococcus Aureus 11/08/18 03:47 Blood Venous Aerobic Blood Culture - Final Not Reportable 11/08/18 03:47 Blood Venous Anaerobic Blood Culture - Final Not Reportable 11/08/18 03:47 Blood Venous Blood Culture - Final Staphylococcus Aureus 11/08/18 03:47 Blood Venous Blood MRSA/MSSA (PCR) - Final Mrsa Negative S.aureus Positive 11/09/18 16:39 Nasal Nasal Screen MRSA (PCR) - Final Mrsa Detected 11/08/18 14:30 Urine Urine Culture - Final No Growth (<1,000 CFU/mL) Diagnostic Imaging: REPEAT LUMBAR CT 11/16/2018 Patient Name: CHAPINCITO SYED Medical Record#: [id number] Ordering Physician: Gianna Salazar NP Acct.#: [id number] : 1975 Age: 43 Sex: F Location: SURGICAL STAY UNIT Exam Date: 11/16/18 121 ADM Status: ADM IN Order Information: CT SPINE LUMBAR W/O Accession Number: [id number] CPT: 62321 Indication: Post L4-L5 spinal fusion November 09, 2018. Bacteremia. Concern for abscess. Comparison: November 06, 2018 CT. November 12, 2018 lumbar sacral spine radiographs. November 08, 2018 MRI. Technique: Noncontrast CT lumbar sacral spine. Multiplanar reformation. Report: Assessment for osteomyelitis discitis and soft tissue abscess with noncontrast CT is limited. Pedicle screws and spinal fixation rods bridge the L4-L5 level with unchanged grade 2 anterolisthesis. Underlying bilateral L4 spondylolysis. Unchanged severe L4-L5 disc space narrowing and reactive endplate sclerosis. LEFT unilateral laminotomy defects present from through L5. No periosteal reaction or focal osteolysis evident. There is edema within the bilateral erector spinae muscles from the level of L2- L3 through L4-L5. Significant obscuration of the posterior soft tissues at the L3-L4 through L4-L5 levels due to the fusion hardware. No conspicuous loculated soft tissue plane fluid collection evident. No abnormal soft tissue gas collection evident. Negative for disc space narrowing at T12-L1, L1-L2, L2-L3, L3-L4, or L5-S1. IMPRESSION: #. Limited noncontrast CT of the lumbar sacral spine with image quality compromised due to the fusion hardware at L4-L5 as described. #. No compelling CT evidence for osteomyelitis. If clinically indicated consider MRI or three-phase bone scan for further assessment. #. Edema within the bilateral erector spinae muscles without a conspicuous loculated soft tissue plane abscess collection. If clinically indicated consider MRI or potentially ultrasound for further assessment. Patient Name: CHAPINCITO SYED Medical Record#: [id number] Ordering Physician: Gianna Salazar NP Acct.#: [id number] : 1975 Age: 43 Sex: F Location: SURGICAL STAY UNIT Exam Date: 11/15/18 1403 ADM Status: ADM IN Order Information: CHEST AP OR PORT Accession Number: [id number] CPT: 66248 Indication: Progressive shortness of breath and confusion. Single frontal view of the chest performed at 1416 hours was reviewed. Comparison is made with previous exam dated November 13, 2018. No mediastinal shift is noted. Progressive airspace disease in the right upper lobe, right base and left lung Field is noted. This may represent progressive pneumonia. IMPRESSION: PROGRESSIVE AIRSPACE DISEASE IN BOTH LUNG URBANO PREDOMINANTLY IN THE RIGHT UPPER LOBE. Patient Name: CHAPINCITO SYED Medical Record#: [id number] Ordering Physician: Krystal Anderson DO Acct.#: [id number] : 1975 Age: 43 Sex: F Location: [address] [place] [address]/[facility]LEMET[employer] Exam Date: 11/08/18 0700 ADM Status: ADM IN Order Information: MRI LUMBAR SPINE W/WO Accession Number: [id number] CPT: 14614 ADDENDUM THIS REPORT CONTAINS FINDINGS THAT MAY BE CRITICAL TO PATIENT CARE. The findings were verbally communicated via telephone conference with Krystal Link at 10:20 PM EST on 11/08/2018. The findings were acknowledged and understood. EXAM: MR Lumbar Spine Without and With Contrast. EXAM DATE/TIME: 11/08/2018 7:52 PM CLINICAL HISTORY: 43 years old, female; Pain; Low back pain; Patient HX: PT has severe pain that radiates down her legs and causes numbness. PT has also been having chills and subjective fevers for the last few days. Last iv drug use was 3 days ago. PT also has been having dysuria; Additional info: Back pain elevated crp TECHNIQUE: Multiplanar magnetic resonance images of the lumbar spine without and with intravenous contrast. CONTRAST: Contrast Material: 11 ml of PROHANCE; Contrast Route: IV COMPARISON: SP L WO CT SPINE LUMBAR W/O 11/06/2018 10:43 AM FINDINGS: Vertebrae: Grade 2 anterolisthesis of L4 over L5 unchanged. 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 Epidural space: There is a 6 x 4 mm fluid collection in the epidural space on the right at the level of L5 vertebra. Spinal cord: Normal signal. No cord compression. Soft tissues: There is a 2.0 x 1.5 x 2.4 cm enhancing fluid collection in the right posterior paraspinal musculature at L4-L5 level. There is a small a small fluid collection measuring 7 x 7 mm in the left paraspinal musculature at L4-L5. IMPRESSION: 1. Right paraspinal fluid collection collection at L4-L5 measuring 2.0 x 1.5 x 2.4 representing an abscess. There is a second abscess on the left at the same level measuring 7 x 7 mm. 2. A small epidural abscess/fluid collection posteriorly at L4-L5 measuring 6 x 4 mm. Assess/Plan/Problems-Billing Assessment: Patient is a 43yo female with a PMH for possible seizures, History of traumatic spine injury and history of IV drug abuse who presents to the hospital for chills, tachycardia, hypotension, severe back pain and elevated CRP who is admitted for evaluation of radicular back pain with concern for epidural abscess impinging on nerve root. - Patient Problems (1) Epidural abscess Code(s): G06.2 - EXTRADURAL AND SUBDURAL ABSCESS, UNSPECIFIED SNOMED Code(s): 31491393 Comment: - POD7 with neurosurgery following, s/p washout and decompression - ID following, continue vanco and zosyn - CARMELO under MAC showed no vegetation on valves - Continued fevers last 24 hours seem to be improving - PICC removed, follow new cultures NTD (2) Anemia Code(s): D64.9 - ANEMIA, UNSPECIFIED SNOMED Code(s): 270842417 Comment: - Attempted transfusion yesterday, elevated temp required transfusion reaction workup which was negative - 2 units STAT today, follow H&H, guaic, and repeat CT of spine - Iron studies indicated bleeding rather than ACD - H&H started to decline after CARMELO, concern that she may have esophageal bleeding? No other identifiable source at this time - Follow closely, consider GI consult in AM - Start IV venofer (3) History of intravenous drug abuse Code(s): Z87.898 - PERSONAL HISTORY OF OTHER SPECIFIED CONDITIONS SNOMED Code( s): 62122491687242488 Comment: - Rescreen UDS shows opiates, per lab, our in house test does not show methadone, will continue to research if morphine and oxydone post-opertively would show in this test from yesterday - Patient continues to deny any recent drug use/abuse, patient daughters found drug supplies in purse while inpatient - Hepatitis C antibody positive with elevated LFTs, Viral load pending, may need treatment in the non-acute setting. (4) Inadequate pain control Code(s): R52 - PAIN, UNSPECIFIED SNOMED Code(s): 549646173 Comment: - Dr Ferris consulting - Continue Methadone TID (5) Sepsis Comment: - Leukocytosis and fevers improving with removal of PICC and change in antibiotics, will defer to ID regarding additional antibiotic therapy - Repeat Lactic acid is normal at 1.4 - Follow repeat blood cultures - CXR with new infiltrate that may be an aspiration pneumonitis; will DC ancef and start zosyn today and continue vanco (6) History of seizure Code(s): Z87.898 - PERSONAL HISTORY OF OTHER SPECIFIED CONDITIONS SNOMED Code( s): 698033914 Comment: - Questionable, cannot find documentation of true seizures - Was on keppra at one point last year - Neuro consulted for post-op AMS which is recurrent and likely toxic metabolic encephalopathy 2/2 infection, abscess and history of drug abuse (7) Hallucination Code(s): R44.3 - HALLUCINATIONS, UNSPECIFIED SNOMED Code(s): 0731325 Comment: - Seems improved today, appreciate consult with psych that recommends limiting benzos and decrease methadone if possible - continue seroquel (8) DVT prophylaxis Code(s): NPM0055 - SNOMED Code(s): 556086341 Comment: - HSQ (9) Full code status Code(s): Z78.9 - OTHER SPECIFIED HEALTH STATUS SNOMED Code(s): 893418548 Comment: Status and Disposition: Inpatient, plan for Swing when medically stable for 6-8 weeks of IV atbx. Currently needs ongoing inpatient treatment.
[2018-11-16] MEDS ORDERED: Iron Sucrose* 200 MG in NS 0.9% 100 ML* 100 ML IVPB ONE (21:30)
[2018-11-16] MEDS: QUEtiapine TAB* 25 MG PO SCH (21:58)
[2018-11-16] MEDS: Nicotine Patch Removal NOTE FOLLOW UP SCH (22:00)
[2018-11-16] MEDS: Lidocaine Patch REMOVE* 1 NOTE MISC PATCH OFF SCH (22:00)
[2018-11-16] MEDS ORDERED: Cyclobenzaprine TAB* 10 MG ONE (22:28)
[2018-11-17] MEDS: Methadone TAB* 5 MG PO SCH ×4 (02:09→20:14)
[2018-11-17] MEDS: Methadone TAB* 10 MG PO SCH ×4 (02:10→20:13)
[2018-11-17] MEDS: Vancomycin(*) 1,250 MG in NS 0.9% 250 ML* 250 ML IVPB SCH ×3 (02:17→17:37)
[2018-11-17] MEDS: Acetaminophen TAB* 325 MG PO PRN ×3 (02:51→18:34)
[2018-11-17] MEDS ORDERED: Furosemide IV* 10 MG/ML 2 ML VIAL (20 MG) IV ONE (03:16)
[2018-11-17] MEDS: ZOSYN 3.375 GM Q8H per EXTENDED INFUSION IVPB SCH ×6 (03:38→20:13)
[2018-11-17] MEDS: Heparin VIAL(*) 5000 UNITS/ML VIAL (FIVE THOUSAND) SUBCUT SCH ×3 (05:34→23:18)
[2018-11-17 06:58] LABS: Hematocrit 28 % (35-47); Hemoglobin 9.1 g/dl (12.0-16.0); Mean Corpuscular HGB Conc 33 g/dl (31-36); Mean Corpuscular Hemoglobin 29 pg (27-31); Mean Corpuscular Volume 87 fL (80-97); Red Blood Count 3.17 10^6/ul (4.00-5.40); Red Cell Distribution Width 16 % (10.5-15)
--- NOTE | 2018-11-17 06:58 | PN ---
Progress Note - Progress Note Date of Service: 11/17/18 Note: Called by nurse that the patient's RR was up to 40. At that time she was febrile to 103F. CXR shows diffuse ?edema. She has coarse breath sounds and 2+ LE edema. Gave lasxi 20mgm IV x1.
[2018-11-17 07:15] LABS: ABS Basophils 0.1 10^3/ul (0-0.2); ABS Eosinophils 0 10^3/ul (0-0.6); ABS Monocytes 1.2 10^3/ul (0-0.8); ABS Neutrophils 12.7 10^3/ul (1.5-7.7); ABS Nucleated RBC 0 10^3/ul; Eosinophil % 0.3 %; Lymphocyte % 12.5 %; Mean Platelet Volume 8.5 fL (7.4-10.4); Nucleated Red Blood Cells % 0.1; Platelet Count 341 10^3/ul (150-450)
[2018-11-17] MEDS: Famotidine TAB* 20 MG PO SCH (08:06)
[2018-11-17] MEDS: QUEtiapine TAB* 25 MG PO SCH ×2 (08:09→20:13)
[2018-11-17] MEDS: Nicotine PATCH 21 MG/24 HR* PATCH TRANSDERM SCH (08:10)
[2018-11-17] MEDS: Lidocaine PATCH 5%* 1 PATCH TRANSDERM SCH (08:10)
[2018-11-17] MEDS ORDERED: Furosemide IV* 10 MG/ML VIAL (40 MG) IV ONE (09:29)
[2018-11-17] MEDS ORDERED: Furosemide IV* 10 MG/ML VIAL (40 MG) ONE (09:43)
[2018-11-17] MEDS: Docusate CAP* 100 MG PO SCH (13:44)
--- NOTE | 2018-11-17 14:04 | PN ---
Progress Note - Progress Note Date of Service: 11/17/18 SOAP: Subjective: []Patient was transferred to ICU ON. XR revealed possible ARDS/Pulmonary edema. Doing very well this am. Ambulates to BTR. Voids. Tolerates PO well. Pain is better controlled. Objective: []VSS Afebrile Wound s,c,d AAOx3, ESTEFANY, CN II-XII grossly intact Motor 5/5 all extremities Sensory grossly intact to light touch Assessment: []43 yof POD#7 Lumbar ED abscess evacuation L4-5 instrumentation Plan: []Monitor VS, Neurochecks On Abx per IM/ ID Encourage ambulation. PT, Nutrition consult. Recheck ammonia levels, repeat XR Appreciate IM, ID care. Newton Siddiqui MD
[2018-11-17] MEDS: Cyclobenzaprine TAB* 10 MG PO PRN (17:43)
[2018-11-17] MEDS: Gabapentin CAP(*) 300 MG PO ONE (17:43)
--- NOTE | 2018-11-17 18:18 | PN ---
Subjective Date of Service: 11/17/18 Interval History: Patient seen and examined this AM. Per overnight notes, patient became hypoxic and had increased RR in the 40s with crackles and edema. Was given lasix with good diuresis overnight after CXR revealed pulmonary edema vs ARDS. Today, she states her respirations are improved but she still feels shaky with considerable back pain. Denies chills, still with fluctuating temps overnight. Decision to transfer to ICU for closer monitoring and potential airway management. Family History: Unchanged from Admission Social History: Unchanged from Admission Past Medical History: Unchanged from Admission Objective Active Medications: Acetaminophen (Tylenol Tab*) 650 mg PO Q4H PRN PRN Reason: PAIN Last Admin: 11/17/18 08:09 Dose: 650 mg Cyclobenzaprine HCl (Flexeril Tab*) 10 mg PO TID PRN PRN Reason: SPASMS Last Admin: 11/17/18 17:43 Dose: 10 mg Docusate Sodium (Colace Cap*) 100 mg PO 1200 [facility] Last Admin: 11/17/18 13:44 Dose: 100 mg Famotidine (Pepcid Tab*) 20 mg PO DAILY [facility] Last Admin: 11/17/18 08:06 Dose: 20 mg Gabapentin (Neurontin Cap(*)) 400 mg PO BID PRN PRN Reason: PAIN - MODERATE Last Admin: 11/16/18 17:15 Dose: 400 mg Heparin Sodium (Porcine) (Heparin Vial(*)) 5,000 units SUBCUT Q8HR [facility] Last Admin: 11/17/18 13:44 Dose: 5,000 units Piperacillin Sod/Tazobactam (Sod 3.375 gm/ Sodium Chloride) 100 mls @ 25 mls/ hr IVPB Q8H [facility] Last Admin: 11/17/18 11:46 Dose: 25 mls/hr Vancomycin HCl 1,250 mg/ (Sodium Chloride) 250 mls @ 166.667 mls/hr IVPB Q8H [facility] Last Admin: 11/17/18 17:37 Dose: 166.667 mls/hr Lidocaine (Lidoderm 5% Patch*) 1 patch TRANSDERM DAILY [facility] Last Admin: 11/17/18 08:10 Dose: 1 patch Magnesium Hydroxide (Milk Of Magnesia Liq*) 30 ml PO DAILY PRN PRN Reason: CONSTIPATION Last Admin: 11/11/18 11:54 Dose: 30 ml Methadone HCl (Dolophine Tab*) 10 mg PO Q6H [facility] Last Admin: 11/17/18 13:44 Dose: 10 mg Methadone HCl (Dolophine Tab*) 5 mg PO Q6H [facility] Last Admin: 11/17/18 13:44 Dose: 5 mg Nicotine (Nicotine Patch 21 Mg/24 Hr*) 1 patch TRANSDERM DAILY [facility] Last Admin: 11/17/18 08:10 Dose: 1 patch Pharmacy Consult (Vancomycin Per Pharmacy*) 1 note FOLLOW UP . PRN PRN Reason: PER PROTOCOL Pharmacy Consult (Zosyn Per Pharmacy*) 1 note FOLLOW UP .ZOSYN PER PHARMACY [facility] Pharmacy Profile Note (Nicotine Patch Removal Note*) 1 note FOLLOW UP 2099 [facility] Last Admin: 11/16/18 22:00 Dose: 1 note Pharmacy Profile Note (Lidocaine Patch Remove*) 1 note PATCH OFF 2099 [facility] Last Admin: 11/16/18 22:00 Dose: 1 note Pharmacy Profile Note (Vancomycin Trough Check) 1 note FOLLOW UP ONCE ONE Stop: 11/18/18 09:31 Prochlorperazine (Compazine Tab*) 10 mg PO Q8HR PRN PRN Reason: NAUSEA/VOMITING Quetiapine Fumarate (Seroquel Tab*) 25 mg PO BID [facility] Last Admin: 11/17/18 08:09 Dose: 25 mg Vital Signs - 8 hr 11/17/18 11/17/18 11/17/18 10:16 10:30 10:32 Temperature Pulse Rate 83 85 Respiratory 20 8 Rate Blood Pressure 90/62 75/49 95/52 (mmHg) O2 Sat by Pulse 95 94 Oximetry 11/17/18 11/17/18 11/17/18 10:46 11:00 11:01 Temperature Pulse Rate 88 84 84 Respiratory 15 21 19 Rate Blood Pressure 86/53 97/58 (mmHg) O2 Sat by Pulse 95 95 95 Oximetry 11/17/18 11/17/18 11/17/18 11:15 11:21 11:31 Temperature Pulse Rate 82 Respiratory 25 18 Rate Blood Pressure 106/56 112/64 (mmHg) O2 Sat by Pulse 94 Oximetry 11/17/18 11/17/18 11/17/18 11:45 12:00 12:01 Temperature Pulse Rate 87 82 80 Respiratory 21 17 16 Rate Blood Pressure 121/81 117/72 (mmHg) O2 Sat by Pulse 97 98 98 Oximetry 11/17/18 11/17/18 11/17/18 12:15 12:31 12:45 Temperature Pulse Rate 81 94 88 Respiratory 21 24 24 Rate Blood Pressure 108/70 113/86 125/75 (mmHg) O2 Sat by Pulse 97 90 94 Oximetry 11/17/18 11/17/18 11/17/18 13:00 13:01 13:44 Temperature Pulse Rate 95 89 Respiratory 23 24 22 Rate Blood Pressure 126/74 (mmHg) O2 Sat by Pulse 95 98 Oximetry 11/17/18 11/17/18 11/17/18 14:00 14:01 15:00 Temperature Pulse Rate 103 98 98 Respiratory 29 24 25 Rate Blood Pressure 111/96 124/64 (mmHg) O2 Sat by Pulse 84 93 98 Oximetry 11/17/18 11/17/18 11/17/18 15:24 16:00 16:01 Temperature 101.6 F Pulse Rate 111 97 Respiratory 30 31 27 Rate Blood Pressure 116/58 (mmHg) O2 Sat by Pulse 89 95 Oximetry 11/17/18 11/17/18 11/17/18 17:00 17:01 17:25 Temperature Pulse Rate 100 96 Respiratory 26 22 Rate Blood Pressure 128/67 (mmHg) O2 Sat by Pulse 93 95 92 Oximetry 11/17/18 11/17/18 17:45 17:49 Temperature Pulse Rate Respiratory 20 20 Rate Blood Pressure (mmHg) O2 Sat by Pulse Oximetry Oxygen Devices in Use Now: Nasal Cannula Appearance: alert, mild distress Eyes: No Scleral Icterus, PERRLA Ears/Nose/Mouth/Throat: NL Teeth, Lips, Gums, Mucous Membranes Moist Neck: NL Appearance and Movements; NL JVP, Trachea Midline Respiratory: Symmetrical Chest Expansion and Respiratory Effort, - - diminished , crackles wheezes with good air entry Cardiovascular: NL Sounds; No Murmurs; No JVD - mild tachycardia and bila LE edema Extremities: No Clubbing, Cyanosis Neurological: Alert and Oriented x 3 Nutrition: Taking PO's Result Diagrams: 11/17/18 06:11 11/16/18 09:47 Additional Lab and Data: Laboratory Results - last 24 hr 11/13/18 11/13/18 05:02 05:02 WBC 15.0 H RBC 3.00 L Hgb 8.6 L Hct 25 L MCV 84 MCH 29 MCHC 34 RDW 15 Plt Count 210 MPV 6.6 L Neut % (Auto) 78.6 Lymph % (Auto) 14.9 [place] % (Auto) 6.1 Eos % (Auto) 0.3 Baso % (Auto) 0.1 Absolute Neuts (auto) 11.8 H Absolute Lymphs (auto) 2.2 Absolute Monos (auto) 0.9 H Absolute Eos (auto) 0 Absolute Basos (auto) 0 Absolute Nucleated RBC 0 Nucleated RBC % 0 Sodium 138 Potassium 3.5 Chloride 108 Carbon Dioxide 24 Anion Gap 6 BUN 10 Creatinine 0.41 L Est GFR ( Amer) 206.9 Est GFR (Non-Af Amer) 171.0 BUN/Creatinine Ratio 24.4 H Glucose 110 H Calcium 7.7 L Magnesium 1.6 L Total Bilirubin 0.40 AST 21 ALT 21 Alkaline Phosphatase 93 C-Reactive Protein 247.50 H Total Protein 5.4 L Albumin 2.4 L Globulin 3.0 Albumin/Globulin Ratio 0.8 L Beta HCG, Quant < 0.60 Microbiology and Other Data: Microbiology 11/12/18 09:20 Blood Line Aerobic Blood Culture - Preliminary 11/12/18 09:20 Blood Line Anaerobic Blood Culture - Preliminary No Growth Day 1 11/12/18 09:20 Blood Line Blood MRSA/MSSA (PCR) - Final Mrsa Negative S.aureus Negative 11/12/18 09:45 Blood Venous Aerobic Blood Culture - Preliminary No Growth Day 1 11/12/18 09:45 Blood Venous Anaerobic Blood Culture - Preliminary No Growth Day 1 11/09/18 11:50 Wound - Abscess Anaerobic Culture - Final 11/09/18 11:50 Wound - Abscess Skin and Soft Tissue MRSA/MSSA (PCR - Final Mrsa Negative S.aureus Positive 11/09/18 11:50 Wound - Abscess Gram Stain - Final 11/09/18 11:50 Wound - Abscess Wound Culture - Final Staphylococcus Aureus 11/08/18 06:32 Blood Venous Aerobic Blood Culture - Final Not Reportable 11/08/18 06:32 Blood Venous Anaerobic Blood Culture - Final Not Reportable 11/08/18 06:32 Blood Venous Blood Culture - Final Staphylococcus Aureus 11/08/18 03:47 Blood Venous Aerobic Blood Culture - Final Not Reportable 11/08/18 03:47 Blood Venous Anaerobic Blood Culture - Final Not Reportable 11/08/18 03:47 Blood Venous Blood Culture - Final Staphylococcus Aureus 11/08/18 03:47 Blood Venous Blood MRSA/MSSA (PCR) - Final Mrsa Negative S.aureus Positive 11/09/18 16:39 Nasal Nasal Screen MRSA (PCR) - Final Mrsa Detected 11/08/18 14:30 Urine Urine Culture - Final No Growth (<1,000 CFU/mL) Diagnostic Imaging: Patient Name: CHAPINCITO SYED Medical Record#: [id number] Ordering Physician: Gianna Salazar NP Acct.#: [id number] : 1975 Age: 43 Sex: F Location: INTENSIVE CARE UNIT Exam Date: 11/17/18 153 ADM Status: ADM IN Order Information: CHEST AP OR PORT Accession Number: [id number] CPT: 37708 Indication: Pulmonary vascular congestion. Comparison: No relevant prior exams available on the [facility] PACS for comparison. Technique: Erect AP chest with the patient rotated to the RIGHT. Report: The LEFT breast is superimposed over the mediastinum due to rightward rotation. Persistent LEFT greater than RIGHT alveolar consolidation. Probable small RIGHT pleural effusion without change. Negative for pneumothorax. Negative for cardiomegaly. Mild prominence of the central pulmonary vasculature increased over the prior exam. IMPRESSION: #. Probable ARDS without significant interval change. The differential includes bronchopneumonia. #. Small RIGHT pleural effusion without change. #. Mild pulmonary vascular congestion. <Electronically signed by Benjy Mcadams MD in [place]> 11/17/181627 Dictated By: Benjy Mcadams MD Dictated Date/Time: 11/17/181627 Transcribed Date/Time: 11/17/181624 Copy to: CC:Ozzie Ferris MD; Tsering Leigh MD; Andrea Avalos MD; Emmanuel Delgado MD; Usman Stahl MD; Oli Mcadams MD; Rickey Sosa MD; Jake Garcia MD; Kiet Marcus MD; Omar Larkin MD; Omar Rios MD; Gianna Salazar NP; Krystal Anderson DO; Kodak Mosher MD; Ab Thomas MD; Nalini Shafer NPP; Bogdan Corrales MD; Bogdan Brown MD; Nick Alcocer MD; Aric Devine MD; Fredrick Garnett NP; Fredrick Nascimento MD; Traci Do MANAGER SPECIALTY; Solomon Siddiqui MD; Aljeandro Workman DO Imaging - [facility] Imaging - [facility] Imaging - [facility] [address] [address] ph ([phone]) ph ([phone]) ph ([phone]) This report is only to be considered final once signed by the Provider(s) as displayed in the "<Electronically Signed by >" field (s). Absence of a signature indicates the report is in a draft status and still needs to be finalized. In the event this document was created by someone other than the signing Provider, the individual initiating the document will be listed in the "Entered by:" or "Dictated by:" urbano. 1 of [address] 11/16/2018 Patient Name: CHAPINCITO SYED Medical Record#: [id number] Ordering Physician: Gianna Salazar NP Acct.#: [id number] : 1975 Age: 43 Sex: F Location: SURGICAL STAY UNIT Exam Date: 11/16/18 1214 ADM Status: ADM IN Order Information: CT SPINE LUMBAR W/O Accession Number: [id number] CPT: 02168 Indication: Post L4-L5 spinal fusion November 09, 2018. Bacteremia. Concern for abscess. Comparison: November 06, 2018 CT. November 12, 2018 lumbar sacral spine radiographs. November 08, 2018 MRI. Technique: Noncontrast CT lumbar sacral spine. Multiplanar reformation. Report: Assessment for osteomyelitis discitis and soft tissue abscess with noncontrast CT is limited. Pedicle screws and spinal fixation rods bridge the L4-L5 level with unchanged grade 2 anterolisthesis. Underlying bilateral L4 spondylolysis. Unchanged severe L4-L5 disc space narrowing and reactive endplate sclerosis. LEFT unilateral laminotomy defects present from through L5. No periosteal reaction or focal osteolysis evident. There is edema within the bilateral erector spinae muscles from the level of L2- L3 through L4-L5. Significant obscuration of the posterior soft tissues at the L3-L4 through L4-L5 levels due to the fusion hardware. No conspicuous loculated soft tissue plane fluid collection evident. No abnormal soft tissue gas collection evident. Negative for disc space narrowing at T12-L1, L1-L2, L2-L3, L3-L4, or L5-S1. IMPRESSION: #. Limited noncontrast CT of the lumbar sacral spine with image quality compromised due to the fusion hardware at L4-L5 as described. #. No compelling CT evidence for osteomyelitis. If clinically indicated consider MRI or three-phase bone scan for further assessment. #. Edema within the bilateral erector spinae muscles without a conspicuous loculated soft tissue plane abscess collection. If clinically indicated consider MRI or potentially ultrasound for further assessment. Patient Name: CHAPINCITO SYED Medical Record#: [id number] Ordering Physician: Gianna Salazar MANAGER SPECIALTY Acct.#: [id number] : 1975 Age: 43 Sex: F Location: SURGICAL STAY UNIT Exam Date: 11/15/18 1403 ADM Status: ADM IN Order Information: CHEST AP OR PORT Accession Number: [id number] CPT: 50477 Indication: Progressive shortness of breath and confusion. Single frontal view of the chest performed at 1416 hours was reviewed. Comparison is made with previous exam dated November 13, 2018. No mediastinal shift is noted. Progressive airspace disease in the right upper lobe, right base and left lung Field is noted. This may represent progressive pneumonia. IMPRESSION: PROGRESSIVE AIRSPACE DISEASE IN BOTH LUNG URBANO PREDOMINANTLY IN THE RIGHT UPPER LOBE. Patient Name: CHAPINCITO SYED Medical Record#: [id number] Ordering Physician: Krystal Anderson DO Acct.#: [id number] : 1975 Age: 43 Sex: F Location: [address] [place] [address]/TELEMETRY Exam Date: 11/08/18 0700 ADM Status: ADM IN Order Information: MRI LUMBAR SPINE W/WO Accession Number: [id number] CPT: 98904 ADDENDUM THIS REPORT CONTAINS FINDINGS THAT MAY BE CRITICAL TO PATIENT CARE. The findings were verbally communicated via telephone conference with Krystal Link at 10:20 PM EST on 11/08/2018. The findings were acknowledged and understood. EXAM: MR Lumbar Spine Without and With Contrast. EXAM DATE/TIME: 11/08/2018 7:52 PM CLINICAL HISTORY: 43 years old, female; Pain; Low back pain; Patient HX: PT has severe pain that radiates down her legs and causes numbness. PT has also been having chills and subjective fevers for the last few days. Last iv drug use was 3 days ago. PT also has been having dysuria; Additional info: Back pain elevated crp TECHNIQUE: Multiplanar magnetic resonance images of the lumbar spine without and with intravenous contrast. CONTRAST: Contrast Material: 11 ml of PROHANCE; Contrast Route: IV COMPARISON: SP L WO CT SPINE LUMBAR W/O 11/06/2018 10:43 AM FINDINGS: Vertebrae: Grade 2 anterolisthesis of L4 over L5 unchanged. 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 Epidural space: There is a 6 x 4 mm fluid collection in the epidural space on the right at the level of L5 vertebra. Spinal cord: Normal signal. No cord compression. Soft tissues: There is a 2.0 x 1.5 x 2.4 cm enhancing fluid collection in the right posterior paraspinal musculature at L4-L5 level. There is a small a small fluid collection measuring 7 x 7 mm in the left paraspinal musculature at L4-L5. IMPRESSION: 1. Right paraspinal fluid collection collection at L4-L5 measuring 2.0 x 1.5 x 2.4 representing an abscess. There is a second abscess on the left at the same level measuring 7 x 7 mm. 2. A small epidural abscess/fluid collection posteriorly at L4-L5 measuring 6 x 4 mm. Assess/Plan/Problems-Billing Assessment: Patient is a 43yo female with a PMH for possible seizures, History of traumatic spine injury and history of IV drug abuse who presents to the hospital for chills, tachycardia, hypotension, severe back pain and elevated CRP who is admitted for evaluation of radicular back pain with concern for epidural abscess impinging on nerve root, s/p washout and decompression, bacteremia and sepsis. - Patient Problems (1) Acute respiratory failure with hypoxia Code(s): J96.01 - ACUTE RESPIRATORY FAILURE WITH HYPOXIA SNOMED Code(s): 08806626 Comment: - CXR favoring ARDS vs acute pulmonary edema - Responded well to IV lasix last night and this morning - Continue respiratory support and O2 - ABG does not indicate need for Bipap or intubation - Continue ICU care for 24 hours then re-assess for downgrade (2) Epidural abscess Code(s): G06.2 - EXTRADURAL AND SUBDURAL ABSCESS, UNSPECIFIED SNOMED Code(s): 01485112 Comment: - POD8 with neurosurgery following, s/p washout and decompression - ID following, continue vanco and zosyn - CARMELO under MAC showed no vegetation on valves - Continued fevers last 48 hours - PICC removed, follow new cultures NTD (3) Anemia Code(s): D64.9 - ANEMIA, UNSPECIFIED SNOMED Code(s): 657415345 Comment: - s/p 2 units PRBCs with Hgb now 9.1 - Repeat CT of spine shows no hematoma - Iron studies indicated bleeding rather than iron deficiency but no source identified, guaiac negative - continue IV venofer - - Start IV venofer (4) History of intravenous drug abuse Code(s): Z87.898 - PERSONAL HISTORY OF OTHER SPECIFIED CONDITIONS SNOMED Code( s): 56006845656468617 Comment: - Rescreen UDS shows opiates, per lab, our in house test does not show methadone, will continue to research if morphine and oxydone post-opertively would show in this test from yesterday - Patient continues to deny any recent drug use/abuse, patient daughters found drug supplies in purse while inpatient - Hepatitis C antibody positive with elevated LFTs, Viral load pending, may need treatment in the non-acute setting. (5) Inadequate pain control Code(s): R52 - PAIN, UNSPECIFIED SNOMED Code(s): 116427474 Comment: - Dr Ferris consulting - Continue Methadone TID (6) Sepsis Comment: - Leukocytosis increased with interval changes on CXR but no elevated LA - PICC removed - ID following, appreciate any further recs in adjusting antibiotics - Follow repeat blood cultures which are NTD (7) History of seizure Code(s): Z87.898 - PERSONAL HISTORY OF OTHER SPECIFIED CONDITIONS SNOMED Code( s): 397873510 Comment: - Questionable, cannot find documentation of true seizures - Was on keppra at one point last year - Neuro consulted for post-op AMS which is recurrent and likely toxic metabolic encephalopathy 2/2 infection, abscess and history of drug abuse (8) Hallucination Code(s): R44.3 - HALLUCINATIONS, UNSPECIFIED SNOMED Code(s): 1027636 Comment: - Seems improved today, appreciate consult with psych that recommends limiting benzos and decrease methadone if possible - continue seroquel (9) DVT prophylaxis Code(s): XHU3491 - SNOMED Code(s): 631281916 Comment: - HSQ (10) Full code status Code(s): Z78.9 - OTHER SPECIFIED HEALTH STATUS SNOMED Code(s): 603448583 Comment: Status and Disposition: Inpatient, requiring critical care treatment. Will need prison atbx therapy. Possibility for SWING when stable.
[2018-11-17] MEDS: Nicotine Patch Removal NOTE FOLLOW UP SCH (20:14)
[2018-11-17] MEDS: Lidocaine Patch REMOVE* 1 NOTE MISC PATCH OFF SCH (20:14)
[2018-11-18] MEDS: Vancomycin(*) 1,250 MG in NS 0.9% 250 ML* 250 ML IVPB SCH ×4 (03:13→19:09)
[2018-11-18] MEDS: Methadone TAB* 10 MG PO SCH ×5 (03:13→21:42)
[2018-11-18] MEDS: ZOSYN 3.375 GM Q8H per EXTENDED INFUSION IVPB SCH ×6 (03:13→20:05)
[2018-11-18] MEDS: Methadone TAB* 5 MG PO SCH ×5 (03:14→21:41)
[2018-11-18] MEDS: Acetaminophen TAB* 325 MG PO PRN ×3 (04:08→23:58)
[2018-11-18] MEDS: Heparin VIAL(*) 5000 UNITS/ML VIAL (FIVE THOUSAND) SUBCUT SCH ×3 (05:48→21:40)
[2018-11-18 06:18] LABS: EGFR African American 84.6 (>60); EGFR Non-African American 69.9 (>60)
[2018-11-18] MEDS: Nicotine PATCH 21 MG/24 HR* PATCH TRANSDERM SCH (07:58)
[2018-11-18] MEDS: QUEtiapine TAB* 25 MG PO SCH ×2 (07:59→21:42)
[2018-11-18] MEDS: Famotidine TAB* 20 MG PO SCH (07:59)
[2018-11-18] MEDS: Lidocaine PATCH 5%* 1 PATCH TRANSDERM SCH (07:59)
--- NOTE | 2018-11-18 08:44 | PN ---
Subjective Date of Service: 11/18/18 Interval History: Ms. Herrera is feeling better today. She still feels SOB and does not feel as though her respiratory status is at baseline. She has been up ambulating around the unit overnight, and has SOB with ambulating, but is able to ambulate without needing to take breaks. She has a frequent cough. Back pain is still about the same. Lidocaine patch is helping. Pain worse with movement. She denies CP, SOB, N/V, dizziness. ' Nursing reports that she has been saturating well on RA, but during my exam she was desaturating to the mid 80s while talking. Family History: Unchanged from Admission Social History: Unchanged from Admission Past Medical History: Unchanged from Admission Objective Active Medications: Acetaminophen (Tylenol Tab*) 650 mg PO Q4H PRN PAIN Cyclobenzaprine HCl (Flexeril Tab*) 10 mg PO TID PRN SPASMS Docusate Sodium (Colace Cap*) 100 mg PO 1200 [facility] Famotidine (Pepcid Tab*) 20 mg PO DAILY [facility] Gabapentin (Neurontin Cap(*)) 400 mg PO BID PRN PAIN - MODERATE Heparin Sodium (Porcine) (Heparin Vial(*)) 5,000 units SUBCUT Q8HR [facility] Piperacillin Sod/Tazobactam (Sod 3.375 gm/ Sodium Chloride) 100 mls @ 25 mls/ hr IVPB Q8H [facility] Vancomycin HCl 1,250 mg/ (Sodium Chloride) 250 mls @ 166.667 mls/hr IVPB Q8H [facility] Lidocaine (Lidoderm 5% Patch*) 1 patch TRANSDERM DAILY [facility] Magnesium Hydroxide (Milk Of Magnesia Liq*) 30 ml PO DAILY PRN CONSTIPATION Methadone HCl (Dolophine Tab*) 10 mg PO Q6H KAUR Methadone HCl (Dolophine Tab*) 5 mg PO Q6H [facility] Nicotine (Nicotine Patch 21 Mg/24 Hr*) 1 patch TRANSDERM DAILY [facility] Prochlorperazine (Compazine Tab*) 10 mg PO Q8HR PRN NAUSEA/VOMITING Quetiapine Fumarate (Seroquel Tab*) 25 mg PO BID [facility] Vital Signs - 8 hr 11/18/18 11/18/18 11/18/18 00:00 01:00 01:02 Temperature Pulse Rate 72 86 90 Respiratory 16 20 25 Rate Blood Pressure 120/72 139/87 (mmHg) O2 Sat by Pulse 97 100 100 Oximetry 03/10/19 03/10/19 03/10/19 03:00 03:01 03:02 Temperature Pulse Rate 91 88 88 Respiratory 19 20 19 Rate Blood Pressure 110/49 110/49 (mmHg) O2 Sat by Pulse 96 96 98 Oximetry 11/18/18 11/18/18 11/18/18 03:13 03:14 04:00 Temperature 100.7 F Pulse Rate 93 Respiratory 30 30 19 Rate Blood Pressure 122/64 (mmHg) O2 Sat by Pulse 95 Oximetry 11/18/18 11/18/18 11/18/18 04:01 05:00 05:01 Temperature Pulse Rate 96 91 Respiratory 20 18 18 Rate Blood Pressure 103/56 (mmHg) O2 Sat by Pulse 96 94 Oximetry 11/18/18 11/18/18 11/18/18 05:55 06:00 06:01 Temperature Pulse Rate 81 81 Respiratory 20 26 20 Rate Blood Pressure 100/51 (mmHg) O2 Sat by Pulse 96 94 Oximetry 11/18/18 11/18/18 11/18/18 07:00 07:10 07:59 Temperature Pulse Rate 83 Respiratory 13 34 30 Rate Blood Pressure 89/46 (mmHg) O2 Sat by Pulse 95 Oximetry 11/18/18 08:00 Temperature 99.4 F Pulse Rate Respiratory Rate Blood Pressure (mmHg) O2 Sat by Pulse Oximetry Oxygen Devices in Use Now: None Appearance: Middle aged female sitting in chair in NAD Eyes: No Scleral Icterus Ears/Nose/Mouth/Throat: Mucous Membranes Moist Neck: NL Appearance and Movements; NL JVP, Trachea Midline Respiratory: Symmetrical Chest Expansion and Respiratory Effort, Clear to Auscultation Cardiovascular: NL Sounds; No Murmurs; No JVD, RRR Abdominal: NL Sounds; No Tenderness; No Distention Extremities: No Edema Skin: - - Surgical dressing intact to lower back Neurological: Alert and Oriented x 3, NL Sensation Lines/Tubes/Other Access: Clean, Dry and Intact Peripheral IV Nutrition: Taking PO's Result Diagrams: 11/17/18 06:11 11/18/18 05:15 Assess/Plan/Problems-Billing Assessment: Ms. Herrera is a 43 yo female with a PMH for possible seizures, traumatic spine injury and IV drug abuse who presents to the ED with chills, tachycardia, hypotension, severe back pain and elevated CRP and admitted for evaluation of radicular back pain with concern for epidural abscess impinging on nerve root, s /p washout and decompression, bacteremia and sepsis. - Patient Problems (1) Acute respiratory failure with hypoxia Code(s): J96.01 - ACUTE RESPIRATORY FAILURE WITH HYPOXIA Comment: - CXR favoring ARDS vs acute pulmonary edema - Responded well to IV furosemide yesterday - Significantly improved today; transfer out of ICU - Continue respiratory support and O2 PRN (2) Epidural abscess Code(s): G06.2 - EXTRADURAL AND SUBDURAL ABSCESS, UNSPECIFIED Comment: - POD #9 washout and decompression - Management per Neurosurgery - CARMELO under MAC showed no vegetation on valves - PICC removed; new cultures NTD - ID following - Continue vanco and zosyn (3) Anemia Code(s): D64.9 - ANEMIA, UNSPECIFIED Comment: - S/p 3 units PRBCs with Hgb now 9.1 - Repeat CT of spine shows no hematoma - Iron studies indicated bleeding rather than iron deficiency but no source identified; guaiac negative - Start ferrous sulfate (4) Sepsis Comment: - Leukocytosis increased with interval changes on CXR but no elevated lactic - PICC removed - ID following; no changes in abx at this point - Follow repeat blood cultures which are NTD (5) History of intravenous drug abuse Code(s): Z87.898 - PERSONAL HISTORY OF OTHER SPECIFIED CONDITIONS Comment: - Rescreen UDS shows opiates; per lab, our in house test does not show methadone - Patient continues to deny any recent drug use/abuse, though daughters found drug supplies in purse while inpatient - Hepatitis C antibody positive with elevated LFTs; may need treatment in the non-acute setting (6) History of seizure Code(s): Z87.898 - PERSONAL HISTORY OF OTHER SPECIFIED CONDITIONS Comment: - Questionable; cannot find documentation of true seizures - Was on keppra last year; no indication for antiepileptics at this time - Neuro consulted for post-op AMS which is recurrent and likely toxic metabolic encephalopathy 2/2 infection, abscess and history of drug abuse (7) DVT prophylaxis Comment: - Heparin SQ (8) Full code status Code(s): Z78.9 - OTHER SPECIFIED HEALTH STATUS Comment: Status and Disposition: Inpatient. Transfer out of ICU today. Will need fpc abx therapy. Possibility for SWING when stable. Attending: Nohemy Jane
[2018-11-18] MEDS: Cyclobenzaprine TAB* 10 MG PO PRN ×2 (11:38→21:42)
[2018-11-18] MEDS: Ferrous Sulfate TAB* 325 MG PO SCH ×2 (11:38→21:41)
[2018-11-18] MEDS: Docusate CAP* 100 MG PO SCH (11:38)
--- NOTE | 2018-11-18 16:20 | PN ---
Progress Note - Progress Note Date of Service: 11/18/18 Note: Saw Dunia on her bed side. She was sitting by the edge of her bed moaning in pain. Otherwise reports that she has been feeling a lot better and was able to ambulate. Her physical health continues to be acute due to unresolved respiratory and infectious issues for which she was admitted in first place. Her H&H has been very low for unknown reasons. Psychiatrically there was no indication of mood, thoughts or perceptual disturbances or reports of thoughts of self harm. Assessment : Psychiatrically stable. Plan is to do follow up only if there is emergence of psychiatric emergencies.
[2018-11-18] MEDS ORDERED: Vancomycin Trough Check NOTE FOLLOW UP ONE (17:30)
--- NOTE | 2018-11-18 19:56 | PN ---
Progress Note - Progress Note Date of Service: 11/18/18 SOAP: Subjective: [] Patient was transferred to floor. Doing very well this am. Ambulates to BTR. Voids. Tolerates PO well. Pain is controlled. Objective: []VSS Afebrile Wound s,c,d AAOx3, ESTEFANY, CN II-XII grossly intact Motor 5/5 all extremities Sensory grossly intact to light touch Assessment: []43 yof POD#8 Lumbar ED abscess evacuation L4-5 instrumentation Plan: []Monitor VS, Neurochecks On Abx per IM/ ID Encourage ambulation. PT, Nutrition consult. DC planning Appreciate IM, ID care. Newton Siddiqui MD
[2018-11-18] MEDS: Lidocaine Patch REMOVE* 1 NOTE MISC PATCH OFF SCH (21:41)
[2018-11-18] MEDS: Nicotine Patch Removal NOTE FOLLOW UP SCH (21:42)
[2018-11-18] MEDS: Gabapentin CAP(*) 400 MG PO PRN (23:58)
[2018-11-19] MEDS: ZOSYN 3.375 GM Q8H per EXTENDED INFUSION IVPB SCH ×6 (03:39→19:33)
[2018-11-19] MEDS: Methadone TAB* 5 MG PO SCH ×4 (03:45→22:28)
[2018-11-19] MEDS: Methadone TAB* 10 MG PO SCH ×4 (03:54→22:28)
[2018-11-19] MEDS: Heparin VIAL(*) 5000 UNITS/ML VIAL (FIVE THOUSAND) SUBCUT SCH ×3 (05:30→22:27)
[2018-11-19] MEDS ORDERED: Vancomycin Random Level* NOTE FOLLOW UP ONE (06:00)
[2018-11-19 06:19] LABS: ABS Basophils 0.1 10^3/ul (0-0.2); ABS Eosinophils 0.1 10^3/ul (0-0.6); ABS Lymphocytes 2.3 10^3/ul (1.0-4.8); ABS Monocytes 0.8 10^3/ul (0-0.8); ABS Nucleated RBC 0 10^3/ul; Eosinophil % 0.7 %; Hematocrit 21 % (35-47); Hemoglobin 7.2 g/dl (12.0-16.0); Lymphocyte % 25.1 %; Mean Corpuscular HGB Conc 34 g/dl (31-36); Mean Corpuscular Hemoglobin 29 pg (27-31); Mean Corpuscular Volume 86 fL (80-97); Nucleated Red Blood Cells % 0; Platelet Count 496 10^3/ul (150-450); Red Blood Count 2.49 10^6/ul (4.00-5.40); Red Cell Distribution Width 15 % (10.5-15); White Blood Count 9.3 10^3/ul (3.5-10.8)
[2018-11-19 06:38] LABS: BUN/Creatinine Ratio 8.5 (8-20); Calcium 7.8 mg/dL (8.6-10.3); EGFR African American 69.1 (>60); EGFR Non-African American 57.1 (>60); Potassium 3.5 mmol/L (3.5-5.0)
[2018-11-19 06:42] LABS: Vancomycin Random 18.4 mcg/mL
[2018-11-19] MEDS ORDERED: Iron Sucrose* 200 MG in NS 0.9% 100 ML* 100 ML IVPB ONE (07:23)
[2018-11-19] MEDS: Cyclobenzaprine TAB* 10 MG PO PRN ×3 (07:38→22:27)
[2018-11-19] MEDS: Famotidine TAB* 20 MG PO SCH (07:38)
[2018-11-19] MEDS: QUEtiapine TAB* 25 MG PO SCH ×2 (07:38→22:29)
[2018-11-19] MEDS: Ferrous Sulfate TAB* 325 MG PO SCH ×2 (07:38→22:28)
[2018-11-19] MEDS: Lidocaine PATCH 5%* 1 PATCH TRANSDERM SCH (07:39)
[2018-11-19] MEDS: Nicotine PATCH 21 MG/24 HR* PATCH TRANSDERM SCH (07:40)
--- NOTE | 2018-11-19 07:47 | PN ---
Subjective Date of Service: 11/19/18 Interval History: Ms. Herrera is feeling ok this morning. Her only complaint is left leg pain. She describes this as intermittent, feeling a jolt of pain all the way down her leg. She has had at least one episode of incontinence when she was unable to get OOB d/t the pain. She feels like a BSC would be helpful. She has been having this same pain since surgery, and it has not gotten any worse or better. Pain meds help to some degree, but she is still uncomfortable. Denies CP, SOB, N /V. Family History: Unchanged from Admission Social History: Unchanged from Admission Past Medical History: Unchanged from Admission Objective Active Medications: Acetaminophen (Tylenol Tab*) 650 mg PO Q4H PRN PAIN Cyclobenzaprine HCl (Flexeril Tab*) 10 mg PO TID PRN SPASMS Docusate Sodium (Colace Cap*) 100 mg PO 1200 [facility] Famotidine (Pepcid Tab*) 20 mg PO DAILY [facility] Ferrous Sulfate (Ferrous Sulfate Tab*) 325 mg PO BID [facility] Gabapentin (Neurontin Cap(*)) 400 mg PO BID PRN PAIN - MODERATE Heparin Sodium (Porcine) (Heparin Vial(*)) 5,000 units SUBCUT Q8HR [facility] Piperacillin Sod/Tazobactam (Sod 3.375 gm/ Sodium Chloride) 100 mls @ 25 mls/ hr IVPB Q8H [facility] Iron Sucrose 200 mg/ Sodium (Chloride) 110 mls @ 110 mls/hr IVPB ONCE ONE Lidocaine (Lidoderm 5% Patch*) 1 patch TRANSDERM DAILY [facility] Magnesium Hydroxide (Milk Of Magnesia Liq*) 30 ml PO DAILY PRN CONSTIPATION Methadone HCl (Dolophine Tab*) 10 mg PO Q6H [facility] Methadone HCl (Dolophine Tab*) 5 mg PO Q6H [facility] Nicotine (Nicotine Patch 21 Mg/24 Hr*) 1 patch TRANSDERM DAILY [facility] Prochlorperazine (Compazine Tab*) 10 mg PO Q8HR PRN NAUSEA/VOMITING Quetiapine Fumarate (Seroquel Tab*) 25 mg PO BID [facility] Vital Signs - 8 hr 11/18/18 11/18/18 11/19/18 23:55 23:58 01:26 Temperature 101.1 F 99.1 F Pulse Rate 95 Respiratory 24 18 Rate Blood Pressure 134/60 (mmHg) O2 Sat by Pulse 95 Oximetry 11/19/18 11/19/18 11/19/18 02:32 03:45 03:51 Temperature 98.7 F Pulse Rate 73 Respiratory 17 18 18 Rate Blood Pressure 122/56 (mmHg) O2 Sat by Pulse 97 Oximetry Oxygen Devices in Use Now: None Appearance: Middle-aged female sitting in bed in NAD Eyes: No Scleral Icterus Ears/Nose/Mouth/Throat: Mucous Membranes Moist Neck: NL Appearance and Movements; NL JVP, Trachea Midline Respiratory: Symmetrical Chest Expansion and Respiratory Effort, Clear to Auscultation Cardiovascular: NL Sounds; No Murmurs; No JVD, RRR Abdominal: NL Sounds; No Tenderness; No Distention Extremities: No Edema Skin: - - Surgical dressing intact to lumbar spine Neurological: Alert and Oriented x 3, NL Sensation Lines/Tubes/Other Access: Clean, Dry and Intact Peripheral IV Nutrition: Taking PO's Result Diagrams: 11/20/18 05:49 11/20/18 05:49 Assess/Plan/Problems-Billing Assessment: Ms. Herrera is a 43 yo female with a PMH for possible seizures, traumatic spine injury and IV drug abuse who presents to the ED with chills, tachycardia, hypotension, severe back pain and elevated CRP and admitted for evaluation of radicular back pain with concern for epidural abscess impinging on nerve root, s /p washout and decompression, bacteremia and sepsis. - Patient Problems (1) Epidural abscess Code(s): G06.2 - EXTRADURAL AND SUBDURAL ABSCESS, UNSPECIFIED Comment: - POD #10 lumbar washout and decompression - Management per Neurosurgery - CARMELO under MAC showed no vegetation on valves - PICC removed; new cultures NTD - ID following; will eventually transition to Ancef - Continue Zosyn; d/c vanco per ID (2) Anemia Code(s): D64.9 - ANEMIA, UNSPECIFIED Comment: - S/p 3 units PRBCs with Hgb now down again to 7.2 - Repeat CT of spine shows no hematoma - Iron studies indicated bleeding rather than iron deficiency but no source identified; guaiac negative - Will plan to transfuse if Hgb <7 as she is currently asymptomatic - Continue ferrous sulfate; one dose of iron sucrose today (3) Acute respiratory failure with hypoxia Code(s): J96.01 - ACUTE RESPIRATORY FAILURE WITH HYPOXIA Comment: - Resolved - CXR favoring ARDS vs acute pulmonary edema - Responded well to IV furosemide (4) Sepsis Comment: - Resolved - Leukocytosis increased with interval changes on CXR but no elevated lactic - PICC removed - Follow repeat blood cultures which are NTD (5) History of intravenous drug abuse Code(s): Z87.898 - PERSONAL HISTORY OF OTHER SPECIFIED CONDITIONS Comment: - Rescreen UDS shows opiates; per lab, our in house test does not show methadone - Patient continues to deny any recent drug use/abuse, though daughters found drug supplies in purse while inpatient - Hepatitis C antibody positive with elevated LFTs; may need treatment in the non-acute setting (6) History of seizure Code(s): Z87.898 - PERSONAL HISTORY OF OTHER SPECIFIED CONDITIONS Comment: - Questionable; cannot find documentation of true seizures - Was on keppra last year; no indication for antiepileptics at this time - Neuro consulted for post-op AMS which is recurrent and likely toxic metabolic encephalopathy 2/2 infection, abscess and history of drug abuse (7) DVT prophylaxis Comment: - Heparin SQ (8) Full code status Code(s): Z78.9 - OTHER SPECIFIED HEALTH STATUS Comment: Status and Disposition: Inpatient. Will need senior care abx therapy. Possibility for SWING when stable. Attending: Nohemy Jane
--- NOTE | 2018-11-19 09:54 | PN ---
Progress Note - Progress Note Date of Service: 11/19/18 SOAP: Subjective: CC: spine infection HPI: 43 year old woman with JULIO CESAR and paraspinal abscess s/p I&D and fixation; ongoing fever. Encephalopathy improved. Has left leg spasm, no weakness. Back pain improving. No rash or diarrhea. Objective: Vital Signs Temp 37.1 C 11/19/18 03:51 Pulse 73 11/19/18 03:51 Resp 20 11/19/18 07:38 BP 122/56 11/19/18 03:51 Pulse Ox 97 11/19/18 03:51 Intake & Output 11/18/18 11/19/18 11/19/18 18:59 06:59 18:59 Intake Total 1047 940 Output Total 500 500 Balance 547 440 Intake: IV Fluids 22 NS (0.9%) 22 IVPB 675 100 ABX - VANCOMYCIN 413 ABX - ZOSYN 179 100 NS (0.9%) 83 Oral 350 840 Output: Urine 500 500 Other: Estimated Void Large # Bowel Movements 0 # Voids 1 Gen:awake, no distress HEENT: no thrush Heart:RRR no murmur Lungs:CTA BL Abd:+BS NTND soft Skin: no rash MSK: L spine incision intact no erythema Neuro: strength 5/5 quad/TA/gastroc BL, sensation intact LE BL Laboratory Results - last 24 hr 11/18/18 11/19/18 11/19/18 18:23 05:50 05:50 WBC 9.3 RBC 2.49 L Hgb 7.2 L Hct 21 L MCV 86 MCH 29 MCHC 34 RDW 15 Plt Count 496 H D MPV 7.0 L Neut % (Auto) 64.8 Lymph % (Auto) 25.1 [place] % (Auto) 8.7 Eos % (Auto) 0.7 Baso % (Auto) 0.7 Absolute Neuts (auto) 6.0 Absolute Lymphs (auto) 2.3 Absolute Monos (auto) 0.8 Absolute Eos (auto) 0.1 Absolute Basos (auto) 0.1 Absolute Nucleated RBC 0 Nucleated RBC % 0 Sodium 139 Potassium 3.5 Chloride 105 Carbon Dioxide 25 Anion Gap 9 BUN 9 Creatinine 1.06 H Est GFR ( Amer) 69.1 Est GFR (Non-Af Amer) 57.1 BUN/Creatinine Ratio 8.5 Glucose 82 Calcium 7.8 L Vancomycin Trough 25.5 Random Vancomycin 18.4 Assessment: 1. MSSA epidural abscess, paraspinal abscess, osteodiskitis 2. Fever likely due to #1 or withdrawal; vanco/zosyn day 5 3. HCV Plan: 1. DC vancomycin, continue zosyn and eventually return to ancef 2. HIV Ab, she gave verbal consent
--- NOTE | 2018-11-19 10:21 | CONSULT ---
Consult Consult: Subjective Patient shows improvement of delirium and was able to participate in the interview. She plans to enroll in the methadone program. She denied signs of opiate withdrawal. She denied suicidal ideation, intent or plan. She denied homicidal ideation intent or plan. She denied auditory and or visual hallucinations. Mental Status Exam on Admission APPEARANCE : 43 year old who appears stated age. Patient with poor hygiene and grooming. BEHAVIOR: calm cooperative EYE CONTACT: fair PSYCHOMOTOR ACTIVITY: mild psychomotor retardation. MOVEMENTS: No abnormal movements observed. SPEECH : normal rate and volume MOOD : " alright" AFFECT : "Fine" THOUGHT PROCESS: linear and goal directed THOUGHT CONTENT: no delusions PERCEPTION: No auditory and or visual hallucinations SUICIDALITY no suicidal ideation, intent or plan HOMICIDALITY no homicidal ideation intent or plan Insight/judgment: fair ORIENTATION: Alert to self, location, and time. Diagnosis Delirium resolved, Opiate use disorder, seizure disorder Assessment: 43 year old with history of opiate use disorder being treated for infectious process shows signs of improvement in cognition and resolved delirium # Delirium resolved #Patient doesnt require psychiatric inpatient hospitalization at this time. # Can discontinue seroquel before discharge # Substance Abuse resources #Patient is future orientated and eager to enroll in methadone program. Psychiatry will sign off, please consult if you have any further questions.
[2018-11-19 12:45] LABS: Magnesium 1.8 mg/dL (1.9-2.7)
[2018-11-19] MEDS: Docusate CAP* 100 MG PO SCH (13:03)
[2018-11-19] MEDS: Acetaminophen TAB* 325 MG PO PRN (19:33)
--- NOTE | 2018-11-19 21:23 | PN ---
Progress Note - Progress Note Date of Service: 11/19/18 SOAP: Subjective: []No events ON. On regular floor. Doing very well this am. Ambulates to BTR. Voids. Tolerates PO well. Pain is controlled. Increased frequency of urination. No incontinence. No loss of perineal sensation. Objective: []VSS Afebrile Wound s,c,d AAOx3, ESTEFANY, CN II-XII grossly intact Motor 5/5 all extremities Sensory grossly intact to light touch Assessment: []43 yof POD#9 Lumbar ED abscess evacuation, L4-5 instrumentation Plan: []Monitor VS, Neurochecks On Abx per IM/ ID WBC improving. Encourage ambulation. PT, Nutrition consult. DC planning Consider UA. Appreciate IM, ID care. Newton Siddiqui MD
[2018-11-19] MEDS: Lidocaine Patch REMOVE* 1 NOTE MISC PATCH OFF SCH (22:31)
[2018-11-19] MEDS: Nicotine Patch Removal NOTE FOLLOW UP SCH (22:31)
[2018-11-20] MEDS: Methadone TAB* 5 MG PO SCH ×4 (02:57→21:20)
[2018-11-20] MEDS: Methadone TAB* 10 MG PO SCH ×4 (02:57→21:20)
[2018-11-20] MEDS: ZOSYN 3.375 GM Q8H per EXTENDED INFUSION IVPB SCH ×6 (02:58→19:40)
[2018-11-20 05:57] LABS: ABS Basophils 0.2 10^3/ul (0-0.2); ABS Eosinophils 0.1 10^3/ul (0-0.6); ABS Monocytes 0.8 10^3/ul (0-0.8); ABS Neutrophils 5.2 10^3/ul (1.5-7.7); ABS Nucleated RBC 0 10^3/ul; Eosinophil % 0.8 %; Hematocrit 22 % (35-47); Hemoglobin 7.2 g/dl (12.0-16.0); Lymphocyte % 24.1 %; Mean Corpuscular HGB Conc 33 g/dl (31-36); Mean Corpuscular Hemoglobin 29 pg (27-31); Mean Corpuscular Volume 86 fL (80-97); Mean Platelet Volume 6.7 fL (7.4-10.4); Nucleated Red Blood Cells % 0; Platelet Count 498 10^3/ul (150-450); Red Blood Count 2.51 10^6/ul (4.00-5.40); Red Cell Distribution Width 15 % (10.5-15); White Blood Count 8.2 10^3/ul (3.5-10.8)
[2018-11-20 06:17] LABS: BUN/Creatinine Ratio 7.1 (8-20); EGFR African American 74.8 (>60); EGFR Non-African American 61.8 (>60); Magnesium 1.8 mg/dL (1.9-2.7); Potassium 3.6 mmol/L (3.5-5.0)
[2018-11-20] MEDS: Heparin VIAL(*) 5000 UNITS/ML VIAL (FIVE THOUSAND) SUBCUT SCH ×3 (06:38→21:28)
[2018-11-20] MEDS: Cyclobenzaprine TAB* 10 MG PO PRN ×3 (06:38→23:54)
--- NOTE | 2018-11-20 08:13 | PN ---
Subjective Date of Service: 11/20/18 Interval History: Ms. Herrera is having a lot of pain this morning. She reports her left leg pain was intermittent yesterday, better with movement. Since going to bed last night she has had increased pain. She has had some incontinence because she has not been able to get OOB quickly enough to get to the [facility]. She is tearful about this. She does think that ambulating will help the pain as it did yesterday. She denies CP, SOB, cough, N/V. She has been anemic in the past, but she is not sure to what extent. She knows she had bloodwork at a hospital in [place]. She also has been told previously that she was hep C positive, but then was told that it was a false positive. She is not convinced she is actually positive despite testing here. Family History: Unchanged from Admission Social History: Unchanged from Admission Past Medical History: Unchanged from Admission Objective Active Medications: Acetaminophen (Tylenol Tab*) 650 mg PO Q4H PRN PAIN Cyclobenzaprine HCl (Flexeril Tab*) 10 mg PO TID PRN SPASMS Docusate Sodium (Colace Cap*) 100 mg PO 1200 [facility] Famotidine (Pepcid Tab*) 20 mg PO DAILY [facility] Ferrous Sulfate (Ferrous Sulfate Tab*) 325 mg PO BID [facility] Gabapentin (Neurontin Cap(*)) 400 mg PO BID PRN PAIN - MODERATE Heparin Sodium (Porcine) (Heparin Vial(*)) 5,000 units SUBCUT Q8HR [facility] Piperacillin Sod/Tazobactam (Sod 3.375 gm/ Sodium Chloride) 100 mls @ 25 mls/ hr IVPB Q8H [facility] Iron Sucrose 200 mg/ Sodium (Chloride) 110 mls @ 110 mls/hr IVPB DAILY [facility] Lidocaine (Lidoderm 5% Patch*) 1 patch TRANSDERM DAILY [facility] Magnesium Hydroxide (Milk Of Magnesia Liq*) 30 ml PO DAILY PRN CONSTIPATION Methadone HCl (Dolophine Tab*) 10 mg PO Q6H [facility] Methadone HCl (Dolophine Tab*) 5 mg PO Q6H [facility] Nicotine (Nicotine Patch 21 Mg/24 Hr*) 1 patch TRANSDERM DAILY [facility] Prochlorperazine (Compazine Tab*) 10 mg PO Q8HR PRN NAUSEA/VOMITING Quetiapine Fumarate (Seroquel Tab*) 25 mg PO BID [facility] Vital Signs - 8 hr 03/12/19 03/12/19 03/12/19 02:57 02:58 03:12 Temperature 100.7 F Pulse Rate 84 Respiratory 22 22 22 Rate Blood Pressure 146/78 (mmHg) O2 Sat by Pulse 97 Oximetry Oxygen Devices in Use Now: None Appearance: Middle-aged female laying in bed in NAD, but tearful Eyes: No Scleral Icterus Ears/Nose/Mouth/Throat: Mucous Membranes Moist Neck: NL Appearance and Movements; NL JVP, Trachea Midline Respiratory: Symmetrical Chest Expansion and Respiratory Effort, Clear to Auscultation Cardiovascular: NL Sounds; No Murmurs; No JVD, RRR Abdominal: NL Sounds; No Tenderness; No Distention Extremities: No Edema Skin: - - Surgical dressing intact to lumbar spine Neurological: Alert and Oriented x 3, NL Sensation Lines/Tubes/Other Access: Clean, Dry and Intact Peripheral IV Nutrition: Taking PO's Result Diagrams: 11/20/18 05:49 11/20/18 05:49 Assess/Plan/Problems-Billing Assessment: Ms. Herrera is a 43 yo female with a PMH for possible seizures, traumatic spine injury and IV drug abuse who presents to the ED with chills, tachycardia, hypotension, severe back pain and elevated CRP and admitted for evaluation of radicular back pain with concern for epidural abscess impinging on nerve root, s /p washout and decompression, bacteremia and sepsis. - Patient Problems (1) Epidural abscess Code(s): G06.2 - EXTRADURAL AND SUBDURAL ABSCESS, UNSPECIFIED Comment: - POD #11 lumbar washout and decompression - Management per Neurosurgery - CARMELO under MAC showed no vegetation on valves - PICC removed; new cultures NTD - ID following; will eventually transition to Ancef - Continue Zosyn; d/c vanco per ID (2) Anemia Code(s): D64.9 - ANEMIA, UNSPECIFIED Comment: - S/p 3 units PRBCs this hospitalization, with Hgb now down again to 7.2 - Repeat CT of spine shows no hematoma - Combination of iron deficiency and anemia of chronic disease - Patient reports longstanding anemia; will attempt to obtain old records - Will plan to transfuse if Hgb <7 as she is currently asymptomatic - Continue ferrous sulfate; one dose of iron sucrose today (3) Acute respiratory failure with hypoxia Code(s): J96.01 - ACUTE RESPIRATORY FAILURE WITH HYPOXIA Comment: - Resolved - CXR favoring ARDS vs acute pulmonary edema - Responded well to IV furosemide (4) Sepsis Comment: - Resolved - Leukocytosis increased with interval changes on CXR but no elevated lactic - Repeat blood cultures negative (5) History of intravenous drug abuse Code(s): Z87.898 - PERSONAL HISTORY OF OTHER SPECIFIED CONDITIONS Comment: - Rescreen UDS shows opiates; per lab, our in house test does not show methadone - Patient continues to deny any recent drug use/abuse, though daughters found drug supplies in purse while inpatient - Hepatitis C antibody positive with elevated LFTs; may need treatment in the non-acute setting (6) History of seizure Code(s): Z87.898 - PERSONAL HISTORY OF OTHER SPECIFIED CONDITIONS Comment: - Questionable; cannot find documentation of true seizures - Was on keppra last year; no indication for antiepileptics at this time (7) DVT prophylaxis Comment: - Heparin SQ (8) Full code status Code(s): Z78.9 - OTHER SPECIFIED HEALTH STATUS Comment: Status and Disposition: Inpatient. Will need termite treater helper abx therapy. Likely SWING when stable, possibly in 1-2 days if cleared by Neurosurgery and ID and if H&H remains stable. Attending: Denise Campbell
[2018-11-20] MEDS: Famotidine TAB* 20 MG PO SCH (09:13)
[2018-11-20] MEDS: Ferrous Sulfate TAB* 325 MG PO SCH ×2 (09:14→21:20)
[2018-11-20] MEDS: QUEtiapine TAB* 25 MG PO SCH ×2 (09:14→21:20)
[2018-11-20] MEDS: Acetaminophen TAB* 325 MG PO PRN ×2 (09:15→18:52)
[2018-11-20] MEDS: Lidocaine PATCH 5%* 1 PATCH TRANSDERM SCH (09:15)
[2018-11-20] MEDS: Nicotine PATCH 21 MG/24 HR* PATCH TRANSDERM SCH (09:17)
[2018-11-20 09:59] LABS: Urine Appearance Clear; Urine Bilirubin Negative (Negative); Urine Blood Negative (Negative); Urine Color Straw; Urine Glucose Negative (Negative); Urine Ketones Negative (Negative); Urine Nitrite Negative (Negative); Urine Protein Negative (Negative); Urine Specific Gravity 1.008 (1.010-1.030); Urine Urobilinogen Negative (Negative)
[2018-11-20] MEDS: Iron Sucrose* 200 MG in NS 0.9% 100 ML* 100 ML IVPB SCH (10:57)
[2018-11-20] MEDS: Docusate CAP* 100 MG PO SCH (12:21)
--- NOTE | 2018-11-20 15:52 | PN ---
Progress Note - Progress Note Date of Service: 11/20/18 SOAP: Subjective: CC: Spine infection HPI: Ms. Herrera is a 43 yo female with PMH significant seizure disorder, anxiety, and history of IV drug abuse who presented to the ED with a paraspinal abscess s/p I+D and fixation, POD #10; with ongoing fevers. She has had encephalopathy that is improving. Back pain continues to be an issues, but is slowly improving. She states that she has developed burning pain in her right LE , like she has been having in ther left LE. She states that that pain in her legs is increased when she is trying to get up or sit down, but once she is walking or sitting the pain improves. Reports intermittent fever and chills, intermittent cough that is worse in the morning, and continues back pain. Denies constipation, nausea, vomiting. Objective: Vital Signs 11/20/18 11:11 Temperature 99.1 F Temperature Oral Source Pulse Rate 84 Respiratory 20 Rate Blood Pressure 112/60 (mmHg) Blood Pressure 77 Mean Patient on Room Yes Air Physical Exam: General: Awake, no acute distress Neurological: Alert and Oriented Cardiovascular: Heart rate regular, no murmur Respiratory: Lungs sounds clear to auscultation bilateral Musculoskeletal: 5/5 strength to bilateral LEs. Able to move ankles, knees, and hips. No tenderness with palpation of upper spine, but tenderness at incision site to lower back. Skin: No rash. Incision to back is well approximated with sutures intact. No drainage noted. Laboratory Tests 11/20/18 11/20/18 05:49 05:49 WBC 8.2 Hgb 7.2 L Hct 22 L Plt Count 498 H Sodium 138 Potassium 3.6 Chloride 105 Carbon Dioxide 25 BUN 7 Creatinine 0.99 H Glucose 83 Assessment: 1. MSSA epidural abscess, paraspinal abscess, osteodiskitis. Continues to have intermittent fevers, T max 102.3 last evening. Continues to have pain in her back and legs, good strength. 2. Fever, suspect secondary to MSSA infection 3. HCV 4. Negative HIV antibody Plan: Continue zosyn, will eventually return to ancef. Check CRP (add to this AM's labs).
[2018-11-20 17:04] LABS: C Reactive Protein 186.19 mg/L (<8.01)
[2018-11-20] MEDS: Magnesium Oxide TAB* 400 MG PO SCH (21:20)
[2018-11-20] MEDS: Nicotine Patch Removal NOTE FOLLOW UP SCH (21:31)
[2018-11-20] MEDS: Lidocaine Patch REMOVE* 1 NOTE MISC PATCH OFF SCH (21:31)
[2018-11-21] MEDS: Methadone TAB* 5 MG PO SCH ×4 (03:27→21:50)
[2018-11-21] MEDS: Methadone TAB* 10 MG PO SCH ×4 (03:28→21:51)
[2018-11-21] MEDS: ZOSYN 3.375 GM Q8H per EXTENDED INFUSION IVPB SCH ×4 (03:33→12:32)
[2018-11-21] MEDS: Heparin VIAL(*) 5000 UNITS/ML VIAL (FIVE THOUSAND) SUBCUT SCH ×3 (05:25→21:49)
[2018-11-21 07:15] LABS: ABS Basophils 0.1 10^3/ul (0-0.2); ABS Eosinophils 0.1 10^3/ul (0-0.6); ABS Lymphocytes 1.8 10^3/ul (1.0-4.8); ABS Monocytes 0.7 10^3/ul (0-0.8); ABS Neutrophils 5.7 10^3/ul (1.5-7.7); ABS Nucleated RBC 0 10^3/ul; Eosinophil % 0.9 %; Hematocrit 21 % (35-47); Hemoglobin 7.1 g/dl (12.0-16.0); Lymphocyte % 21.6 %; Mean Corpuscular HGB Conc 34 g/dl (31-36); Mean Corpuscular Hemoglobin 29 pg (27-31); Mean Corpuscular Volume 86 fL (80-97); Mean Platelet Volume 6.9 fL (7.4-10.4); Nucleated Red Blood Cells % 0.1; Platelet Count 475 10^3/ul (150-450); Red Blood Count 2.43 10^6/ul (4.00-5.40); Red Cell Distribution Width 15 % (10.5-15); White Blood Count 8.5 10^3/ul (3.5-10.8)
[2018-11-21] MEDS: Lidocaine PATCH 5%* 1 PATCH TRANSDERM SCH (09:28)
[2018-11-21] MEDS: Famotidine TAB* 20 MG PO SCH (09:30)
[2018-11-21] MEDS: Nicotine PATCH 21 MG/24 HR* PATCH TRANSDERM SCH (09:30)
[2018-11-21] MEDS: Ferrous Sulfate TAB* 325 MG PO SCH ×2 (09:33→21:49)
[2018-11-21] MEDS: Cyclobenzaprine TAB* 10 MG PO PRN (09:34)
[2018-11-21] MEDS: Magnesium Oxide TAB* 400 MG PO SCH ×2 (09:35→21:49)
--- NOTE | 2018-11-21 09:50 | PN ---
Subjective Date of Service: 11/21/18 Interval History: Ms. Herrera is feeling ok today. She reports occasional shooting pains in her groin. These pains can radiate up her spine or down her left leg. She reports having these pain occasionally in the past, but this is more frequent than they have been in the past. She does not have as much left leg pain as she did yesterday. The pain improved with ambulation. She denies any CP, SOB, N/V, dizziness. No other neurological deficits including groin numbness or tingling. Nursing reported a fever of 102 yesterday evening and a lower grade temp again this morning. Family History: Unchanged from Admission Social History: Unchanged from Admission Past Medical History: Unchanged from Admission Objective Active Medications: Acetaminophen (Tylenol Tab*) 650 mg PO Q4H PRN PAIN Cyclobenzaprine HCl (Flexeril Tab*) 10 mg PO TID PRN SPASMS Docusate Sodium (Colace Cap*) 100 mg PO 1200 [facility] Famotidine (Pepcid Tab*) 20 mg PO DAILY [facility] Ferrous Sulfate (Ferrous Sulfate Tab*) 325 mg PO BID [facility] Gabapentin (Neurontin Cap(*)) 400 mg PO BID PRN PAIN - MODERATE Heparin Sodium (Porcine) (Heparin Vial(*)) 5,000 units SUBCUT Q8HR [facility] Piperacillin Sod/Tazobactam (Sod 3.375 gm/ Sodium Chloride) 100 mls @ 25 mls/ hr IVPB Q8H [facility] Iron Sucrose 200 mg/ Sodium (Chloride) 110 mls @ 110 mls/hr IVPB DAILY [facility] Lidocaine (Lidoderm 5% Patch*) 1 patch TRANSDERM DAILY [facility] Magnesium Hydroxide (Milk Of Magnesia Liq*) 30 ml PO DAILY PRN CONSTIPATION Magnesium Oxide (Magox 400 Tab*) 400 mg PO BID [facility] Methadone HCl (Dolophine Tab*) 10 mg PO Q6H [facility] Methadone HCl (Dolophine Tab*) 5 mg PO Q6H [facility] Nicotine (Nicotine Patch 21 Mg/24 Hr*) 1 patch TRANSDERM DAILY [facility] Prochlorperazine (Compazine Tab*) 10 mg PO Q8HR PRN NAUSEA/VOMITING Quetiapine Fumarate (Seroquel Tab*) 25 mg PO BID [facility] Vital Signs - 8 hr 11/21/18 11/21/18 11/21/18 03:27 03:28 03:39 Temperature 99.9 F Pulse Rate 84 Respiratory 16 16 16 Rate Blood Pressure 142/82 (mmHg) O2 Sat by Pulse 92 Oximetry 11/21/18 11/21/18 11/21/18 05:29 05:30 08:20 Temperature 100.2 F Pulse Rate 78 Respiratory 16 16 18 Rate Blood Pressure 135/69 (mmHg) O2 Sat by Pulse 97 Oximetry Oxygen Devices in Use Now: None Appearance: Middle-aged female laying in bed in NAD Eyes: No Scleral Icterus Ears/Nose/Mouth/Throat: Mucous Membranes Moist Neck: NL Appearance and Movements; NL JVP, Trachea Midline Respiratory: Symmetrical Chest Expansion and Respiratory Effort, Clear to Auscultation Cardiovascular: NL Sounds; No Murmurs; No JVD, RRR Abdominal: NL Sounds; No Tenderness; No Distention Extremities: No Edema Skin: - - Surgical dressing intact to lumbar spine Neurological: Alert and Oriented x 3, NL Sensation Lines/Tubes/Other Access: Clean, Dry and Intact Peripheral IV Nutrition: Taking PO's Result Diagrams: 11/21/18 06:15 11/20/18 05:49 Assess/Plan/Problems-Billing Assessment: Ms. Herrera is a 43 yo female with a PMH for possible seizures, traumatic spine injury and IV drug abuse who presents to the ED with chills, tachycardia, hypotension, severe back pain and elevated CRP and admitted for evaluation of radicular back pain with concern for epidural abscess impinging on nerve root, s /p washout and decompression, bacteremia and sepsis. - Patient Problems (1) Epidural abscess Code(s): G06.2 - EXTRADURAL AND SUBDURAL ABSCESS, UNSPECIFIED Comment: - POD #12 lumbar washout and decompression - Continues to be febrile, Tmax 102.7; will touch base with ID - Management per Neurosurgery - CARMELO under MAC showed no vegetation on valves - PICC removed; most recent blood cultures negative - ID following; will change back to cefazolin per recommendations - Restart cefazolin; d/c Zosyn; change gabapentin to BID for pain management (2) Anemia Code(s): D64.9 - ANEMIA, UNSPECIFIED Comment: - S/p 3 units PRBCs this hospitalization, with Hgb now down again to 7.1 - Repeat CT of spine shows no hematoma - Combination of iron deficiency and anemia of chronic disease - Patient reports longstanding anemia; will attempt to obtain old records - Will plan to transfuse if Hgb <7 as she is currently asymptomatic - Continue ferrous sulfate; one more dose of iron sucrose today (3) Hallucination Current Visit: Yes Status: Acute Code(s): R44.3 - HALLUCINATIONS, UNSPECIFIED SNOMED Code(s): 1975669 Comment: - Continues to have vivid dreams and possible mild hallucinations overnight - Appreciate consult with Psych; recommends limiting benzos and decrease methadone if possible - Change Seroquel to bedtime only and increase to 50mg (4) Acute respiratory failure with hypoxia Code(s): J96.01 - ACUTE RESPIRATORY FAILURE WITH HYPOXIA Comment: - Resolved - CXR favoring ARDS vs acute pulmonary edema - Responded well to IV furosemide (5) Sepsis Comment: - Resolved - Leukocytosis increased with interval changes on CXR but no elevated lactic - Repeat blood cultures negative (6) History of intravenous drug abuse Code(s): Z87.898 - PERSONAL HISTORY OF OTHER SPECIFIED CONDITIONS Comment: - Rescreen UDS shows opiates; per lab, our in house test does not show methadone - Patient continues to deny any recent drug use/abuse, though daughters found drug supplies in purse while inpatient - Hepatitis C antibody positive with elevated LFTs; may need treatment in the non-acute setting (7) History of seizure Code(s): Z87.898 - PERSONAL HISTORY OF OTHER SPECIFIED CONDITIONS Comment: - Questionable; cannot find documentation of true seizures - Was on keppra last year; no indication for antiepileptics at this time (8) DVT prophylaxis Comment: - Heparin SQ (9) Full code status Code(s): Z78.9 - OTHER SPECIFIED HEALTH STATUS Comment: Status and Disposition: Inpatient. Will need senior living abx therapy. Will likely remain inpatient and not swing d/t insurance issues. Attending: Ananth Cordon
[2018-11-21] MEDS: QUEtiapine TAB* 25 MG PO SCH ×2 (10:03→21:49)
[2018-11-21] MEDS: Gabapentin CAP(*) 300 MG PO SCH ×2 (10:51→21:51)
[2018-11-21] MEDS: Iron Sucrose* 200 MG in NS 0.9% 100 ML* 100 ML IVPB SCH (10:53)
[2018-11-21] MEDS: Docusate CAP* 100 MG PO SCH (12:32)
[2018-11-21] MEDS ORDERED: Magnesium Oxide TAB* 400 MG PO SCH (13:00)
[2018-11-21] MEDS: Acetaminophen TAB* 325 MG PO PRN (17:23)
--- NOTE | 2018-11-21 18:06 | PN ---
Progress Note - Progress Note Date of Service: 11/21/18 SOAP: Subjective: []No events ON. On regular floor. Doing very well this pm. Ambulates well. Voids. Tolerates PO well. Pain is well controlled. Objective: [] VSS Afebrile Wound s,c,d AAOx3, ESTEFANY, CN II-XII grossly intact Motor 5/5 all extremities Sensory grossly intact to light touch Assessment: []43 yof POD#12 Lumbar ED abscess evacuation, L4-5 instrumentation Plan: []Monitor VS, Neurochecks On Abx per IM/ ID WBC improving. Encourage ambulation. PT, Nutrition consult. DC planning. EEG today Appreciate IM, ID care. Newton Siddiqui MD
[2018-11-21] MEDS ORDERED: ceFAZolin 2 GM PREMIX in ORs 2 GM/50 ML BAG IVPB SCH (19:00)
[2018-11-21] MEDS: ceFAZolin* 2 GM in NS 100 MLS Q8H (Pharmacy Admix) IVPB SCH (20:07)
[2018-11-21] MEDS: Nicotine Patch Removal NOTE FOLLOW UP SCH (21:53)
[2018-11-21] MEDS: Lidocaine Patch REMOVE* 1 NOTE MISC PATCH OFF SCH (21:53)
[2018-11-22] MEDS: Cyclobenzaprine TAB* 10 MG PO PRN ×3 (00:31→17:51)
[2018-11-22] MEDS: Acetaminophen TAB* 325 MG PO PRN ×3 (00:31→17:51)
[2018-11-22] MEDS: Methadone TAB* 10 MG PO SCH ×4 (03:25→21:22)
[2018-11-22] MEDS: Methadone TAB* 5 MG PO SCH ×4 (03:25→21:23)
[2018-11-22] MEDS: ceFAZolin* 2 GM in NS 100 MLS Q8H (Pharmacy Admix) IVPB SCH ×3 (03:30→20:30)
[2018-11-22] MEDS: Heparin VIAL(*) 5000 UNITS/ML VIAL (FIVE THOUSAND) SUBCUT SCH ×3 (05:35→21:18)
[2018-11-22 06:00] LABS: ABS Basophils 0.2 10^3/ul (0-0.2); ABS Eosinophils 0.1 10^3/ul (0-0.6); ABS Lymphocytes 1.6 10^3/ul (1.0-4.8); ABS Monocytes 0.7 10^3/ul (0-0.8); ABS Nucleated RBC 0 10^3/ul; Eosinophil % 0.9 %; Hematocrit 22 % (35-47); Hemoglobin 7.4 g/dl (12.0-16.0); Lymphocyte % 21.2 %; Mean Corpuscular HGB Conc 34 g/dl (31-36); Mean Corpuscular Hemoglobin 30 pg (27-31); Mean Corpuscular Volume 87 fL (80-97); Mean Platelet Volume 6.6 fL (7.4-10.4); Nucleated Red Blood Cells % 0; Platelet Count 487 10^3/ul (150-450); Red Cell Distribution Width 15 % (10.5-15); White Blood Count 7.6 10^3/ul (3.5-10.8)
[2018-11-22 06:19] LABS: BUN/Creatinine Ratio 8.3 (8-20); Calcium 8.1 mg/dL (8.6-10.3); EGFR African American 77.5 (>60); Magnesium 1.9 mg/dL (1.9-2.7); Potassium 3.5 mmol/L (3.5-5.0)
[2018-11-22] MEDS: Famotidine TAB* 20 MG PO SCH (09:47)
[2018-11-22] MEDS: Ferrous Sulfate TAB* 325 MG PO SCH ×2 (09:51→21:19)
[2018-11-22] MEDS: Gabapentin CAP(*) 300 MG PO SCH ×2 (09:51→21:19)
[2018-11-22] MEDS: Magnesium Oxide TAB* 400 MG PO SCH ×2 (09:51→21:19)
[2018-11-22] MEDS: Nicotine PATCH 21 MG/24 HR* PATCH TRANSDERM SCH (09:56)
[2018-11-22] MEDS: Lidocaine PATCH 5%* 1 PATCH TRANSDERM SCH (09:58)
[2018-11-22] MEDS: Docusate CAP* 100 MG PO SCH (11:51)
--- NOTE | 2018-11-22 12:56 | PN ---
Subjective Date of Service: 11/22/18 Interval History: Patient continues to have back pain radiating down her leg with decreased intensity and without bowel or bladder dysfunction. Patient denies CP, SOB, dizziness on standing, F/C, abdominal pain, or other pain. Patient has been having normal non-melanotic bowel movements. Patient has not menstruated in a month and states they happen sporadically. Patient states she had melena when she was in 2006 and she states they did a colonoscopy at that time which didn't show anything. Patient never remembers having an upper endoscopy. Family History: Unchanged from Admission Social History: Unchanged from Admission Past Medical History: Unchanged from Admission Objective Active Medications: Acetaminophen (Tylenol Tab*) 650 mg PO Q4H PRN PRN Reason: PAIN Last Admin: 11/22/18 09:51 Dose: 650 mg Cyclobenzaprine HCl (Flexeril Tab*) 10 mg PO TID PRN PRN Reason: SPASMS Last Admin: 11/22/18 09:49 Dose: 10 mg Docusate Sodium (Colace Cap*) 100 mg PO 1200 [facility] Last Admin: 11/22/18 11:51 Dose: 100 mg Famotidine (Pepcid Tab*) 20 mg PO DAILY [facility] Last Admin: 11/22/18 09:47 Dose: 20 mg Ferrous Sulfate (Ferrous Sulfate Tab*) 325 mg PO BID [facility] Last Admin: 11/22/18 09:51 Dose: 325 mg Gabapentin (Neurontin Cap(*)) 300 mg PO BID [facility] Last Admin: 11/22/18 09:51 Dose: 300 mg Heparin Sodium (Porcine) (Heparin Vial(*)) 5,000 units SUBCUT Q8HR [facility] Last Admin: 11/22/18 05:35 Dose: 5,000 units Cefazolin Sodium 2 gm/ Sodium (Chloride) 100 mls @ 200 mls/hr IVPB Q8H [facility] Last Admin: 11/22/18 11:51 Dose: 200 mls/hr Lidocaine (Lidoderm 5% Patch*) 1 patch TRANSDERM DAILY [facility] Last Admin: 11/22/18 09:58 Dose: 1 patch Magnesium Hydroxide (Milk Of Magnesia Liq*) 30 ml PO DAILY PRN PRN Reason: CONSTIPATION Last Admin: 11/11/18 11:54 Dose: 30 ml Magnesium Oxide (Magox 400 Tab*) 400 mg PO BID [facility] Last Admin: 11/22/18 09:51 Dose: 400 mg Methadone HCl (Dolophine Tab*) 10 mg PO Q6H [facility] Last Admin: 11/22/18 09:47 Dose: 10 mg Methadone HCl (Dolophine Tab*) 5 mg PO Q6H [facility] Last Admin: 11/22/18 09:50 Dose: 5 mg Nicotine (Nicotine Patch 21 Mg/24 Hr*) 1 patch TRANSDERM DAILY [facility] Last Admin: 11/22/18 09:56 Dose: 1 patch Pharmacy Profile Note (Nicotine Patch Removal Note*) 1 note FOLLOW UP 2099 [facility] Last Admin: 11/21/18 21:53 Dose: 1 note Pharmacy Profile Note (Lidocaine Patch Remove*) 1 note PATCH OFF 2099 [facility] Last Admin: 11/21/18 21:53 Dose: 1 note Prochlorperazine (Compazine Tab*) 10 mg PO Q8HR PRN PRN Reason: NAUSEA/VOMITING Quetiapine Fumarate (Seroquel Tab*) 50 mg PO BEDTIME [facility] Last Admin: 11/21/18 21:49 Dose: 50 mg Vital Signs - 8 hr 11/22/18 11/22/18 11/22/18 08:00 09:47 09:49 Temperature 98.2 F Pulse Rate 49 Respiratory 18 20 20 Rate Blood Pressure 113/67 (mmHg) O2 Sat by Pulse 96 Oximetry 11/22/18 11/22/18 11/22/18 09:50 09:51 09:55 Temperature 100.0 F Pulse Rate Respiratory 20 20 20 Rate Blood Pressure (mmHg) O2 Sat by Pulse Oximetry 11/22/18 11/22/18 11/22/18 11:39 11:40 12:15 Temperature 100.4 F Pulse Rate 85 Respiratory 18 18 18 Rate Blood Pressure 124/70 (mmHg) O2 Sat by Pulse 94 Oximetry Oxygen Devices in Use Now: None Appearance: Patient is a 43yo female who appears stated age and is sitting in the bed in [facility]. Eyes: No Scleral Icterus, PERRLA Ears/Nose/Mouth/Throat: NL Teeth, Lips, Gums, Clear Oropharnyx, Mucous Membranes Moist Neck: NL Appearance and Movements; NL JVP, Trachea Midline Respiratory: Symmetrical Chest Expansion and Respiratory Effort, Clear to Auscultation Cardiovascular: NL Sounds; No Murmurs; No JVD, RRR, No Edema Abdominal: NL Sounds; No Tenderness; No Distention, No Hepatosplenomegaly Lymphatic: No Cervical Adenopathy Extremities: No Edema Skin: No Rash or Ulcers, No Nodules or Sclerosis Neurological: Alert and Oriented x 3, - - CN II-XII intact. Result Diagrams: 11/22/18 05:44 11/22/18 05:44 Additional Lab and Data: . Microbiology and Other Data: . Diagnostic Imaging: . Assess/Plan/Problems-Billing Assessment: Ms. Herrera is a 43 yo female with a PMH for possible seizures, traumatic spine injury and IV drug abuse who presents to the ED with chills, tachycardia, hypotension, severe back pain and elevated CRP and admitted for evaluation of radicular back pain with concern for epidural abscess impinging on nerve root, s /p washout and decompression, bacteremia and sepsis. - Patient Problems (1) Epidural abscess Current Visit: Yes Status: Acute Code(s): G06.2 - EXTRADURAL AND SUBDURAL ABSCESS, UNSPECIFIED SNOMED Code(s): 77092945 Comment: - POD #13 lumbar washout and decompression - Management per Neurosurgery - CARMELO under MAC showed no vegetation on valves - PICC removed; most recent blood cultures negative - ID following; will change back to cefazolin per recommendations - Gabapentin to BID for pain management (2) Sepsis Current Visit: Yes Status: Acute Comment: - Resolved - Repeat blood cultures negative (3) History of intravenous drug abuse Current Visit: Yes Status: Acute Code(s): Z87.898 - PERSONAL HISTORY OF OTHER SPECIFIED CONDITIONS SNOMED Code(s): 74164863506487875 Comment: - Rescreen UDS shows opiates; per lab, our in house test does not show methadone - Patient continues to deny any recent drug use/abuse, though daughters found drug supplies in purse while inpatient - Hepatitis C antibody positive with elevated LFTs; may need treatment in the non-acute setting (4) Acute respiratory failure with hypoxia Current Visit: Yes Status: Acute Code(s): J96.01 - ACUTE RESPIRATORY FAILURE WITH HYPOXIA SNOMED Code(s): 06560500 Comment: - Resolved - CXR favoring ARDS vs acute pulmonary edema - Responded well to IV furosemide (5) Altered mental status Current Visit: Yes Status: Acute Code(s): R41.82 - ALTERED MENTAL STATUS, UNSPECIFIED SNOMED Code(s): 397973880 Comment: - No longer having episodes of confusion - BF reports he has note episodes of confusion for about one week prior to admission - Neurology consulting (6) Anemia Current Visit: Yes Status: Acute Code(s): D64.9 - ANEMIA, UNSPECIFIED SNOMED Code(s): 626970153 Comment: - S/p 3 units PRBCs this hospitalization hemoglobin stable - Stool occult blood positive. With RAFA without menorrhagia. - Appreciate GI input, plan for upper and lower endoscopy Sunday 11/26 - Repeat CT of spine shows no hematoma - Combination of iron deficiency and anemia of chronic disease - Patient reports longstanding anemia and melena when with negative colonoscopy 12 years ago - Will plan to transfuse if Hgb <7 as she is currently asymptomatic - Continue ferrous sulfate, will not give IV iron with active infection. (7) Full code status Current Visit: No Status: Acute Code(s): Z78.9 - OTHER SPECIFIED HEALTH STATUS SNOMED Code(s): 099208276 Comment: (8) DVT prophylaxis Current Visit: No Status: Acute Code(s): [id number] - SNOMED Code(s): 544906645 Comment: - Heparin SQ Status and Disposition: Inpatient. 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 Will likely remain inpatient and not swing d/t insurance issues.
--- NOTE | 2018-11-22 14:24 | EEG ---
ELECTROENCEPHALOGRAPHY: DATE OF STUDY: 11/21/18 - ROOM #335 REFERRING PROVIDER: Megha Lopez NP. LOCATION: She is an inpatient. CLINICAL HISTORY: History of spinal abscess, drug withdrawal. The patient is having staring spells. MEDICATIONS: Include: 1. Gabapentin. 2. Heparin. 3. Dolophine. REPORT: This 16-channel EEG is remarkable for muscle artifact and movement artifact through significant portions of the tracing. Readable background rhythms consist of mixed beta activity, which is fairly abundant and theta rhythms centrally and bitemporally. A readable alpha rhythm is not discernable. The patient is awake and talking and picking with her hands at times. The patient is warm and is cooled by fanning. There is no evidence of sleep. Activation procedures were not attempted. There is a body jerking described, but no other clinical events. There are no focal or epileptiform abnormalities. INTERPRETATION: Limited study due to significant muscle and motion artifact. Readable portions of the tracing revealed possible mild slowing of background rhythms consistent with mild diffuse cerebral dysfunction. There are no focal or epileptiform features to this recording including during episodes of muscle jerking. [id number]/[facility] #: [id number] JATINDER
--- NOTE | 2018-11-22 15:22 | CONS ---
CONSULTATION REPORT: DATE OF CONSULT: 11/22/18 REQUESTING PROVIDER: ELIEZER King INDICATION: Anemia. NARRATIVE: Ms. Herrera is a 43-year-old female who was admitted on 11/08/18 with intractable back pain. While in the hospital, she has undergone treatment for an epidural abscess. She has been seen by Neurology, Neurosurgery, and Infectious Diseases. She does have a history of anemia. When I asked the patient if she has ever had a workup for her anemia including procedures, she denies it; however, she did tell the hospitalist ELIEZER that she had a colonoscopy in 2006 that was normal. She denies any blood in her stools, however, does say that occasionally it is dark. She is not sure if it is black or not, but she denies any bright red blood. She denies any nausea, vomiting, abdominal pain. She denies any nonsteroidal use. She does use Tylenol predominantly. No family history of anemia. She does tell me that she has known about her diagnosis of anemia for a couple of decades. PAST MEDICAL HISTORY: Significant for seizure disorder, anxiety disorder. MEDICATIONS PRIOR TO ADMISSION: None. SOCIAL HISTORY: She continues to smoke tobacco. I counseled her against this. She does have a history of narcotic abuse. PHYSICAL EXAM: Temperature is 100.4, blood pressure is 124/70, O2 sat is 94%. General: Well-appearing female, sitting up in bed, eating pancakes and Frosted Mini-Wheats. HEENT: Mucous membranes are moist without lesions, ulcers, or exudates. Neck is supple. Trachea is midline. Head is normocephalic, atraumatic. Heart: Regular rate and rhythm. No murmurs, rubs, or gallops. Lungs: Clear to auscultation bilaterally. No wheezes, rales, or rhonchi. Abdomen: Positive bowel sounds. Soft, nontender, nondistended. No hepatosplenomegaly, masses, rebound, or guarding. Skin is warm and dry. Positive tattoos. LABORATORY DATA: Labs of note, white count of 7.6; hemoglobin of 7.4, it is down from 9.1, back on 11/16/18 it was 5.8, it appears that her baseline is around 12; platelet count of 487. INR of 1.43. Her BUN is 8, creatinine is 0.96. ASSESSMENT AND PLAN: This is a pleasant 43-year-old female with an iron deficiency normochromic anemia. No gastrointestinal etiology is obvious. She did have 1 heme- positive stool yesterday; however, a few days prior, it was negative. The patient told me she has had no workup in the past; however, she told the hospitalist provider she did have a colonoscopy in the past. I do not here see any obvious source of gastrointestinal bleeding. I think given her degree of anemia, we should pursue a workup. She is eating today, thus I cannot do anything today. I recommend that perform we both an EGD and colonoscopy. Her hospitalist provider tells me that she is going to be here for at least a few more days. We will plan on prepping her Monday for an EGD and colonoscopy on Monday. [id number]/[facility] #: [id number] JATINDER
[2018-11-22] MEDS: Nicotine Patch Removal NOTE FOLLOW UP SCH (21:24)
[2018-11-22] MEDS: Lidocaine Patch REMOVE* 1 NOTE MISC PATCH OFF SCH (21:24)
[2018-11-22] MEDS: QUEtiapine TAB* 25 MG PO SCH (21:24)
--- NOTE | 2018-11-22 23:26 | PN ---
Progress Note - Progress Note Date of Service: 11/22/18 SOAP: Subjective: []No events ON. On regular floor. Doing very well. Ambulates well. Voids. Tolerates PO well. Pain is well controlled. Objective: []VSS Afebrile Wound s,c,d AAOx3, ESTEFANY, CN II-XII grossly intact Motor 5/5 all extremities Sensory grossly intact to light touch Assessment: []43 yof POD#13 Lumbar ED abscess evacuation, L4-5 instrumentation Plan: []Monitor VS, Neurochecks On Abx per IM/ ID WBC improving. Encourage ambulation. PT, Nutrition consult. DC planning. EEG did not reveal SZ. Appreciate IM, ID care. Newton Siddiqui MD
[2018-11-23] MEDS: Methadone TAB* 10 MG PO SCH ×4 (02:48→21:19)
[2018-11-23] MEDS: Cyclobenzaprine TAB* 10 MG PO PRN ×2 (02:49→12:26)
[2018-11-23] MEDS: Methadone TAB* 5 MG PO SCH ×4 (02:49→21:19)
[2018-11-23] MEDS: ceFAZolin* 2 GM in NS 100 MLS Q8H (Pharmacy Admix) IVPB SCH ×3 (03:30→20:28)
[2018-11-23] MEDS: Acetaminophen TAB* 325 MG PO PRN (03:53)
[2018-11-23] MEDS: Heparin VIAL(*) 5000 UNITS/ML VIAL (FIVE THOUSAND) SUBCUT SCH ×3 (05:49→21:25)
[2018-11-23 06:20] LABS: ABS Basophils 0.1 10^3/ul (0-0.2); ABS Eosinophils 0.1 10^3/ul (0-0.6); ABS Lymphocytes 1.8 10^3/ul (1.0-4.8); ABS Monocytes 0.8 10^3/ul (0-0.8); ABS Neutrophils 6.9 10^3/ul (1.5-7.7); ABS Nucleated RBC 0 10^3/ul; Eosinophil % 0.8 %; Hematocrit 24 % (33-41); Hemoglobin 7.8 g/dL (12.0-16.0); Lymphocyte % 18.6 %; Mean Corpuscular HGB Conc 33 g/dL (31-36); Mean Corpuscular Hemoglobin 29 pg (27-31); Mean Corpuscular Volume 87 fL (80-97); Mean Platelet Volume 6.6 fL (7.4-10.4); Nucleated Red Blood Cells % 0; Platelet Count 541 10^3/uL (150-450); Red Blood Count 2.71 10^6 /uL (3.70-4.87); Red Cell Distribution Width 15 % (10.5-15); White Blood Count 9.7 10^3/uL (3.5-10.8)
[2018-11-23 06:28] LABS: BUN/Creatinine Ratio 11.2 (8-20); Calcium 8.2 mg/dL (8.6-10.3); EGFR African American 75.7 (>60); EGFR Non-African American 62.5 (>60); Magnesium 1.8 mg/dL (1.9-2.7); Potassium 3.5 mmol/L (3.5-5.0)
[2018-11-23] MEDS: Famotidine TAB* 20 MG PO SCH (09:31)
[2018-11-23] MEDS: Gabapentin CAP(*) 300 MG PO SCH ×2 (09:31→21:19)
[2018-11-23] MEDS: Magnesium Oxide TAB* 400 MG PO SCH ×2 (09:31→21:18)
[2018-11-23] MEDS: Nicotine PATCH 21 MG/24 HR* PATCH TRANSDERM SCH (09:33)
[2018-11-23] MEDS: Lidocaine PATCH 5%* 1 PATCH TRANSDERM SCH (09:33)
[2018-11-23] MEDS: Ferrous Sulfate TAB* 325 MG PO SCH ×2 (09:37→21:19)
[2018-11-23] MEDS: Docusate CAP* 100 MG PO SCH (12:26)
--- NOTE | 2018-11-23 13:22 | PN ---
Subjective Date of Service: 11/23/18 Interval History: Patient is complaining of severe spasms in her left leg which have been going on intermittently. Patient denies any identifiable provoking factor besides sitting up. Patient states that Flexeril does not alleviate the pain. Patient denies blood in her stool, N/V, abdominal pain, diarrhea, dysuria, F/C, CP, SOB , or other pain. Family History: Unchanged from Admission Social History: Unchanged from Admission Past Medical History: Unchanged from Admission Objective Active Medications: Acetaminophen (Tylenol Tab*) 650 mg PO Q4H PRN PRN Reason: PAIN Last Admin: 11/23/18 03:53 Dose: 650 mg Cyclobenzaprine HCl (Flexeril Tab*) 10 mg PO TID PRN PRN Reason: SPASMS Last Admin: 11/23/18 12:26 Dose: 10 mg Docusate Sodium (Colace Cap*) 100 mg PO 1200 [facility] Last Admin: 11/23/18 12:26 Dose: 100 mg Famotidine (Pepcid Tab*) 20 mg PO DAILY [facility] Last Admin: 11/23/18 09:31 Dose: 20 mg Ferrous Sulfate (Ferrous Sulfate Tab*) 325 mg PO BID [facility] Last Admin: 11/23/18 09:37 Dose: 325 mg Gabapentin (Neurontin Cap(*)) 300 mg PO BID [facility] Last Admin: 11/23/18 09:31 Dose: 300 mg Heparin Sodium (Porcine) (Heparin Vial(*)) 5,000 units SUBCUT Q8HR [facility] Last Admin: 11/23/18 05:49 Dose: 5,000 units Cefazolin Sodium 2 gm/ Sodium (Chloride) 100 mls @ 200 mls/hr IVPB Q8H [facility] Last Admin: 11/23/18 12:26 Dose: 200 mls/hr Lidocaine (Lidoderm 5% Patch*) 1 patch TRANSDERM DAILY [facility] Last Admin: 11/23/18 09:33 Dose: 1 patch Magnesium Hydroxide (Milk Of Magnesia Liq*) 30 ml PO DAILY PRN PRN Reason: CONSTIPATION Last Admin: 11/11/18 11:54 Dose: 30 ml Magnesium Oxide (Magox 400 Tab*) 400 mg PO BID [facility] Last Admin: 11/23/18 09:31 Dose: 400 mg Methadone HCl (Dolophine Tab*) 10 mg PO Q6H [facility] Last Admin: 11/23/18 09:32 Dose: 10 mg Methadone HCl (Dolophine Tab*) 5 mg PO Q6H [facility] Last Admin: 11/23/18 09:32 Dose: 5 mg Nicotine (Nicotine Patch 21 Mg/24 Hr*) 1 patch TRANSDERM DAILY [facility] Last Admin: 11/23/18 09:33 Dose: 1 patch Pharmacy Profile Note (Nicotine Patch Removal Note*) 1 note FOLLOW UP 2099 [facility] Last Admin: 11/22/18 21:24 Dose: 1 note Pharmacy Profile Note (Lidocaine Patch Remove*) 1 note PATCH OFF 2099 [facility] Last Admin: 11/22/18 21:24 Dose: 1 note Polyethylene Glycol/Electrolytes (Golytely*) 4,000 ml PO ONCE ONE Stop: 11/25/18 16:01 Prochlorperazine (Compazine Tab*) 10 mg PO Q8HR PRN PRN Reason: NAUSEA/VOMITING Quetiapine Fumarate (Seroquel Tab*) 50 mg PO BEDTIME [facility] Last Admin: 11/22/18 21:24 Dose: 50 mg Vital Signs - 8 hr 11/23/18 11/23/18 11/23/18 07:52 07:54 09:31 Temperature 97.6 F Pulse Rate 76 Respiratory 20 16 20 Rate Blood Pressure 130/78 (mmHg) O2 Sat by Pulse 96 Oximetry 11/23/18 11/23/18 11/23/18 09:32 11:30 12:03 Temperature 99.9 F Pulse Rate 81 Respiratory 20 18 20 Rate Blood Pressure 122/62 (mmHg) O2 Sat by Pulse 97 Oximetry 11/23/18 12:26 Temperature Pulse Rate Respiratory 20 Rate Blood Pressure (mmHg) O2 Sat by Pulse Oximetry Oxygen Devices in Use Now: None Appearance: Patient is a 43yo female who appears stated age and is sitting in the bed in [facility]. Eyes: No Scleral Icterus, PERRLA Ears/Nose/Mouth/Throat: NL Teeth, Lips, Gums, Clear Oropharnyx, Mucous Membranes Moist Neck: NL Appearance and Movements; NL JVP, Trachea Midline Respiratory: Symmetrical Chest Expansion and Respiratory Effort, Clear to Auscultation Cardiovascular: NL Sounds; No Murmurs; No JVD, RRR, No Edema Abdominal: NL Sounds; No Tenderness; No Distention, No Hepatosplenomegaly Lymphatic: No Cervical Adenopathy Extremities: No Edema, No Clubbing, Cyanosis Skin: No Rash or Ulcers, No Nodules or Sclerosis Neurological: Alert and Oriented x 3, - - CN II-XII intact. Normal Gait. Result Diagrams: 11/23/18 05:49 11/23/18 05:49 Additional Lab and Data: . Microbiology and Other Data: . Diagnostic Imaging: . Assess/Plan/Problems-Billing Assessment: Ms. Herrera is a 43 yo female with a PMH for possible seizures, traumatic spine injury and IV drug abuse who presents to the ED with chills, tachycardia, hypotension, severe back pain and elevated CRP and admitted for evaluation of radicular back pain with concern for epidural abscess impinging on nerve root, s /p washout and decompression, bacteremia and sepsis. - Patient Problems (1) Epidural abscess Current Visit: Yes Status: Acute Code(s): G06.2 - EXTRADURAL AND SUBDURAL ABSCESS, UNSPECIFIED SNOMED Code(s): 09061392 Comment: - POD #14 lumbar washout and decompression - Management per Neurosurgery - CARMELO under MAC showed no vegetation on valves - PICC removed; most recent blood cultures negative - ID following; Continue Cefazolin, no recent fevers - Gabapentin to BID for pain management - Try Baclofen instead of Flexeril - Continue methadone. (2) Sepsis Current Visit: Yes Status: Acute Comment: - Resolved - Repeat blood cultures negative (3) History of intravenous drug abuse Current Visit: Yes Status: Acute Code(s): Z87.898 - PERSONAL HISTORY OF OTHER SPECIFIED CONDITIONS SNOMED Code(s): 06598315740233863 Comment: - Rescreen UDS shows opiates; per lab, our in house test does not show methadone - Patient continues to deny any recent drug use/abuse, though daughters found drug supplies in purse while inpatient - Hepatitis C antibody positive with elevated LFTs; may need treatment in the non-acute setting (4) Acute respiratory failure with hypoxia Current Visit: Yes Status: Acute Code(s): J96.01 - ACUTE RESPIRATORY FAILURE WITH HYPOXIA SNOMED Code(s): 67362917 Comment: - Resolved - CXR favoring ARDS vs acute pulmonary edema - Responded well to IV furosemide (5) Altered mental status Current Visit: Yes Status: Acute Code(s): R41.82 - ALTERED MENTAL STATUS, UNSPECIFIED SNOMED Code(s): 517740836 Comment: - No longer having episodes of confusion - BF reports he has note episodes of confusion for about one week prior to admission - Neurology consulting (6) Anemia Current Visit: Yes Status: Acute Code(s): D64.9 - ANEMIA, UNSPECIFIED SNOMED Code(s): 587044958 Comment: - Currently stable hemoglobin - S/p 3 units PRBCs this hospitalization hemoglobin stable - Stool occult blood positive. With RAFA without menorrhagia. - Appreciate GI input, plan for upper and lower endoscopy Sunday 11/26 - Repeat CT of spine shows no hematoma - Combination of iron deficiency and anemia of chronic disease - Patient reports longstanding anemia and melena when with negative colonoscopy 12 years ago - Will plan to transfuse if Hgb <7 as she is currently asymptomatic - Continue ferrous sulfate, will not give IV iron with active infection. (7) Full code status Current Visit: No Status: Acute Code(s): Z78.9 - OTHER SPECIFIED HEALTH STATUS SNOMED Code(s): 072985138 Comment: (8) DVT prophylaxis Current Visit: No Status: Acute Code(s): DFF1922 - SNOMED Code(s): 631293267 Comment: - Heparin SQ Status and Disposition: Inpatient. 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 Will likely remain inpatient and not swing d/t insurance issues.
[2018-11-23] MEDS: Baclofen TAB* 10 MG PO PRN (15:57)
[2018-11-23] MEDS: QUEtiapine TAB* 25 MG PO SCH (21:18)
[2018-11-23] MEDS: Nicotine Patch Removal NOTE FOLLOW UP SCH (21:23)
[2018-11-23] MEDS: Lidocaine Patch REMOVE* 1 NOTE MISC PATCH OFF SCH (21:23)
[2018-11-24] MEDS: Baclofen TAB* 10 MG PO PRN ×2 (01:37→17:38)
[2018-11-24] MEDS: ceFAZolin* 2 GM in NS 100 MLS Q8H (Pharmacy Admix) IVPB SCH ×3 (03:31→20:01)
[2018-11-24] MEDS: Methadone TAB* 5 MG PO SCH ×4 (03:31→21:03)
[2018-11-24] MEDS: Methadone TAB* 10 MG PO SCH ×4 (03:33→21:04)
[2018-11-24 05:47] LABS: ABS Basophils 0 10^3/ul (0-0.2); ABS Eosinophils 0.1 10^3/ul (0-0.6); ABS Lymphocytes 2.4 10^3/ul (1.0-4.8); ABS Neutrophils 7.4 10^3/ul (1.5-7.7); ABS Nucleated RBC 0 10^3/ul; Eosinophil % 0.9 %; Hematocrit 26 % (33-41); Hemoglobin 8.6 g/dL (12.0-16.0); Mean Corpuscular HGB Conc 34 g/dL (31-36); Mean Corpuscular Hemoglobin 29 pg (27-31); Mean Corpuscular Volume 87 fL (80-97); Mean Platelet Volume 6.3 fL (7.4-10.4); Nucleated Red Blood Cells % 0; Platelet Count 624 10^3/uL (150-450); Red Blood Count 2.92 10^6 /uL (3.70-4.87); Red Cell Distribution Width 15 % (10.5-15); White Blood Count 10.8 10^3/uL (3.5-10.8)
[2018-11-24] MEDS: Heparin VIAL(*) 5000 UNITS/ML VIAL (FIVE THOUSAND) SUBCUT SCH ×3 (06:18→21:07)
[2018-11-24] MEDS: Famotidine TAB* 20 MG PO SCH (08:03)
[2018-11-24] MEDS: Gabapentin CAP(*) 300 MG PO SCH ×2 (08:04→21:04)
[2018-11-24] MEDS: Magnesium Oxide TAB* 400 MG PO SCH ×2 (08:04→21:03)
[2018-11-24] MEDS: Acetaminophen TAB* 325 MG PO PRN (08:04)
[2018-11-24] MEDS: Ferrous Sulfate TAB* 325 MG PO SCH ×2 (08:04→21:04)
--- NOTE | 2018-11-24 08:04 | PN ---
Subjective Date of Service: 11/24/18 Interval History: pt sleeping on arrival -awoke with verbal and gentle physical stimulation - moans and winces with movement. Reports pain is "okay". Denies any fever/chills/ N/V/D. August SOB. Family History: Unchanged from Admission Social History: Unchanged from Admission Past Medical History: Unchanged from Admission Objective Active Medications: Acetaminophen (Tylenol Tab*) 650 mg PO Q4H PRN PRN Reason: PAIN Last Admin: 11/23/18 03:53 Dose: 650 mg Baclofen (Lioresal Tab*) 10 mg PO TID PRN PRN Reason: SPASMS Last Admin: 11/24/18 01:37 Dose: 10 mg Docusate Sodium (Colace Cap*) 100 mg PO 1200 [facility] Last Admin: 11/23/18 12:26 Dose: 100 mg Famotidine (Pepcid Tab*) 20 mg PO DAILY [facility] Last Admin: 11/23/18 09:31 Dose: 20 mg Ferrous Sulfate (Ferrous Sulfate Tab*) 325 mg PO BID [facility] Last Admin: 11/23/18 21:19 Dose: 325 mg Gabapentin (Neurontin Cap(*)) 300 mg PO BID [facility] Last Admin: 11/23/18 21:19 Dose: 300 mg Heparin Sodium (Porcine) (Heparin Vial(*)) 5,000 units SUBCUT Q8HR [facility] Last Admin: 11/24/18 06:18 Dose: 5,000 units Cefazolin Sodium 2 gm/ Sodium (Chloride) 100 mls @ 200 mls/hr IVPB Q8H [facility] Last Admin: 11/24/18 03:31 Dose: 200 mls/hr Lidocaine (Lidoderm 5% Patch*) 1 patch TRANSDERM DAILY [facility] Last Admin: 11/23/18 09:33 Dose: 1 patch Magnesium Hydroxide (Milk Of Magnesia Liq*) 30 ml PO DAILY PRN PRN Reason: CONSTIPATION Last Admin: 11/11/18 11:54 Dose: 30 ml Magnesium Oxide (Magox 400 Tab*) 400 mg PO BID [facility] Last Admin: 11/23/18 21:18 Dose: 400 mg Methadone HCl (Dolophine Tab*) 10 mg PO Q6H [facility] Last Admin: 11/24/18 03:33 Dose: 10 mg Methadone HCl (Dolophine Tab*) 5 mg PO Q6H [facility] Last Admin: 11/24/18 03:31 Dose: 5 mg Nicotine (Nicotine Patch 21 Mg/24 Hr*) 1 patch TRANSDERM DAILY [facility] Last Admin: 11/23/18 09:33 Dose: 1 patch Pharmacy Profile Note (Nicotine Patch Removal Note*) 1 note FOLLOW UP 2099 [facility] Last Admin: 11/23/18 21:23 Dose: 1 note Pharmacy Profile Note (Lidocaine Patch Remove*) 1 note PATCH OFF 2099 [facility] Last Admin: 11/23/18 21:23 Dose: 1 note Polyethylene Glycol/Electrolytes (Golytely*) 4,000 ml PO ONCE ONE Stop: 11/25/18 16:01 Prochlorperazine (Compazine Tab*) 10 mg PO Q8HR PRN PRN Reason: NAUSEA/VOMITING Quetiapine Fumarate (Seroquel Tab*) 50 mg PO BEDTIME [facility] Last Admin: 11/23/18 21:18 Dose: 50 mg Vital Signs - 8 hr 11/24/18 11/24/18 11/24/18 03:05 03:31 03:33 Temperature 98.6 F Pulse Rate 94 Respiratory 16 16 16 Rate Blood Pressure 152/90 (mmHg) O2 Sat by Pulse 95 Oximetry 11/24/18 11/24/18 11/24/18 03:47 03:48 06:20 Temperature Pulse Rate Respiratory 16 16 17 Rate Blood Pressure (mmHg) O2 Sat by Pulse Oximetry 11/24/18 11/24/18 06:43 07:49 Temperature 97.8 F Pulse Rate 91 Respiratory 16 20 Rate Blood Pressure 134/69 (mmHg) O2 Sat by Pulse 90 Oximetry Oxygen Devices in Use Now: None Appearance: 43 yo female laying in bed resting in NAD, A+Ox3 Eyes: No Scleral Icterus, PERRLA Ears/Nose/Mouth/Throat: NL Teeth, Lips, Gums, Mucous Membranes Moist Neck: NL Appearance and Movements; NL JVP Respiratory: Symmetrical Chest Expansion and Respiratory Effort, Clear to Auscultation Cardiovascular: NL Sounds; No Murmurs; No JVD, RRR, No Edema Abdominal: NL Sounds; No Tenderness; No Distention Extremities: No Edema, No Clubbing, Cyanosis Skin: No Rash or Ulcers, - - lumbar/thoracic dressing intact with no noted drainage. Neurological: Alert and Oriented x 3, NL Sensation Lines/Tubes/Other Access: Clean, Dry and Intact Peripheral IV Nutrition: Taking PO's Result Diagrams: 11/24/18 05:36 11/23/18 05:49 Additional Lab and Data: . Microbiology and Other Data: . Diagnostic Imaging: . Assess/Plan/Problems-Billing Assessment: Ms. Herrera is a 43 yo female with a PMH for possible seizures, traumatic spine injury and IV drug abuse who presents to the ED with chills, tachycardia, hypotension, severe back pain and elevated CRP and admitted for evaluation of radicular back pain with concern for epidural abscess impinging on nerve root, s /p washout and decompression, bacteremia and sepsis. - Patient Problems (1) Epidural abscess Comment: - MSSA epidural abscess, paraspinal abscess, osteodiskitis - POD #15 lumbar washout and decompression - Management per Neurosurgery - Ambulates well - CARMELO under MAC showed no vegetation on valves - PICC removed; most recent blood cultures negative - ID following; Continue Cefazolin, no recent fevers - Gabapentin to BID for pain management - Try Baclofen instead of Flexeril - Continue methadone. (2) Sepsis Comment: - Resolved - Repeat blood cultures negative (3) Encephalopathy Comment: - improving (4) Acute respiratory failure with hypoxia Comment: - Resolved - tx to ICU for 24 hours 11/17-11/18 - CXR favoring ARDS vs acute pulmonary edema - Responded well to IV furosemide (5) Anemia Comment: - Currently stable hemoglobin - S/p 3 units PRBCs this hospitalization hemoglobin stable - Stool occult blood positive. With RAFA without menorrhagia. - Appreciate GI input, plan for upper and lower endoscopy Sunday 11/26 - Repeat CT of spine shows no hematoma - Combination of iron deficiency and anemia of chronic disease - Patient reports longstanding anemia and melena when with negative colonoscopy 12 years ago - Will plan to transfuse if Hgb <7 as she is currently asymptomatic - Continue ferrous sulfate, will not give IV iron with active infection. (6) History of intravenous drug abuse Comment: - Rescreen UDS shows opiates; per lab, our in house test does not show methadone - Patient continues to deny any recent drug use/abuse, though daughters found drug supplies in purse while inpatient - Hepatitis C antibody positive with elevated LFTs; may need treatment in the non-acute setting (7) DVT prophylaxis Comment: - Heparin SQ (8) Full code status Comment: Status and Disposition: Inpatient. 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 Will likely remain inpatient and not swing d/t insurance issues. NPO monday night for upper/lower scope Monday
[2018-11-24] MEDS: Nicotine PATCH 21 MG/24 HR* PATCH TRANSDERM SCH (08:05)
[2018-11-24] MEDS: Lidocaine PATCH 5%* 1 PATCH TRANSDERM SCH (08:05)
[2018-11-24] MEDS: Docusate CAP* 100 MG PO SCH ×2 (11:19→11:23)
[2018-11-24] MEDS: QUEtiapine TAB* 25 MG PO SCH (21:04)
[2018-11-24] MEDS: Nicotine Patch Removal NOTE FOLLOW UP SCH (21:12)
[2018-11-24] MEDS: Lidocaine Patch REMOVE* 1 NOTE MISC PATCH OFF SCH (21:12)
[2018-11-25] MEDS: Methadone TAB* 10 MG PO SCH ×4 (03:15→20:26)
[2018-11-25] MEDS: Methadone TAB* 5 MG PO SCH ×4 (03:15→20:27)
[2018-11-25] MEDS: ceFAZolin* 2 GM in NS 100 MLS Q8H (Pharmacy Admix) IVPB SCH ×3 (04:15→20:29)
[2018-11-25] MEDS: Heparin VIAL(*) 5000 UNITS/ML VIAL (FIVE THOUSAND) SUBCUT SCH ×3 (05:07→21:28)
[2018-11-25 05:58] LABS: ABS Basophils 0.1 10^3/ul (0-0.2); ABS Eosinophils 0.1 10^3/ul (0-0.6); ABS Lymphocytes 2.6 10^3/ul (1.0-4.8); ABS Monocytes 0.9 10^3/ul (0-0.8); ABS Neutrophils 5.9 10^3/ul (1.5-7.7); ABS Nucleated RBC 0 10^3/ul; Hematocrit 27 % (33-41); Lymphocyte % 26.6 %; Mean Corpuscular HGB Conc 33 g/dL (31-36); Mean Corpuscular Hemoglobin 29 pg (27-31); Mean Corpuscular Volume 87 fL (80-97); Mean Platelet Volume 6.5 fL (7.4-10.4); Nucleated Red Blood Cells % 0; Platelet Count 657 10^3/uL (150-450); Red Blood Count 3.12 10^6 /uL (3.70-4.87); Red Cell Distribution Width 16 % (10.5-15); White Blood Count 9.7 10^3/uL (3.5-10.8)
[2018-11-25 06:12] LABS: BUN/Creatinine Ratio 12.2 (8-20); EGFR African American 83.5 (>60); Potassium 3.6 mmol/L (3.5-5.0)
--- NOTE | 2018-11-25 11:10 | PN ---
Subjective Date of Service: 11/25/18 Interval History: Pt reports her pain is better controlled today. She reports she feels tired. offers no complaints. Family History: Unchanged from Admission Social History: Unchanged from Admission Past Medical History: Unchanged from Admission Objective Active Medications: Acetaminophen (Tylenol Tab*) 650 mg PO Q4H PRN PRN Reason: PAIN Last Admin: 11/24/18 08:04 Dose: 650 mg Baclofen (Lioresal Tab*) 10 mg PO TID PRN PRN Reason: SPASMS Last Admin: 11/24/18 17:38 Dose: 10 mg Docusate Sodium (Colace Cap*) 100 mg PO 1200 [facility] Last Admin: 11/24/18 11:23 Dose: Not Given Famotidine (Pepcid Tab*) 20 mg PO DAILY [facility] Last Admin: 11/24/18 08:03 Dose: 20 mg Ferrous Sulfate (Ferrous Sulfate Tab*) 325 mg PO BID [facility] Last Admin: 11/24/18 21:04 Dose: 325 mg Gabapentin (Neurontin Cap(*)) 300 mg PO BID [facility] Last Admin: 11/24/18 21:04 Dose: 300 mg Heparin Sodium (Porcine) (Heparin Vial(*)) 5,000 units SUBCUT Q8HR [facility] Last Admin: 11/25/18 05:07 Dose: 5,000 units Cefazolin Sodium 2 gm/ Sodium (Chloride) 100 mls @ 200 mls/hr IVPB Q8H [facility] Last Admin: 11/25/18 04:15 Dose: 200 mls/hr Lidocaine (Lidoderm 5% Patch*) 1 patch TRANSDERM DAILY [facility] Last Admin: 11/24/18 08:05 Dose: 1 patch Magnesium Hydroxide (Milk Of Magnalejandra Liq*) 30 ml PO DAILY PRN PRN Reason: CONSTIPATION Last Admin: 11/11/18 11:54 Dose: 30 ml Magnesium Oxide (Magox 400 Tab*) 400 mg PO BID [facility] Last Admin: 11/24/18 21:03 Dose: 400 mg Methadone HCl (Dolophine Tab*) 10 mg PO Q6H [facility] Last Admin: 11/25/18 03:15 Dose: Not Given Methadone HCl (Dolophine Tab*) 5 mg PO Q6H [facility] Last Admin: 11/25/18 03:15 Dose: Not Given Nicotine (Nicotine Patch 21 Mg/24 Hr*) 1 patch TRANSDERM DAILY [facility] Last Admin: 11/24/18 08:05 Dose: 1 patch Pharmacy Profile Note (Nicotine Patch Removal Note*) 1 note FOLLOW UP 2099 [facility] Last Admin: 11/24/18 21:12 Dose: 1 note Pharmacy Profile Note (Lidocaine Patch Remove*) 1 note PATCH OFF 2099 [facility] Last Admin: 11/24/18 21:12 Dose: 1 note Polyethylene Glycol/Electrolytes (Golytely*) 4,000 ml PO ONCE ONE Stop: 11/25/18 16:01 Prochlorperazine (Compazine Tab*) 10 mg PO Q8HR PRN PRN Reason: NAUSEA/VOMITING Quetiapine Fumarate (Seroquel Tab*) 50 mg PO BEDTIME [facility] Last Admin: 11/24/18 21:04 Dose: 50 mg Vital Signs - 8 hr 11/25/18 11/25/18 03:47 07:48 Temperature 99.8 F 98.4 F Pulse Rate 74 75 Respiratory 18 18 Rate Blood Pressure 132/70 132/82 (mmHg) O2 Sat by Pulse 94 96 Oximetry Oxygen Devices in Use Now: None Appearance: 43 yo female A+Ox3 in NAD Eyes: No Scleral Icterus Ears/Nose/Mouth/Throat: Mucous Membranes Moist Respiratory: Symmetrical Chest Expansion and Respiratory Effort, Clear to Auscultation Cardiovascular: NL Sounds; No Murmurs; No JVD, No Edema Abdominal: NL Sounds; No Tenderness; No Distention Extremities: No Edema, No Clubbing, Cyanosis Skin: - - lumbar/dressing intact no drainage noted Neurological: Alert and Oriented x 3, NL Sensation, NL Muscle Strength and Tone Lines/Tubes/Other Access: Clean, Dry and Intact Endotracheal Tube, Clean, Dry and Intact Peripheral IV Nutrition: Taking PO's Result Diagrams: 11/25/18 05:13 11/25/18 05:13 Additional Lab and Data: . Microbiology and Other Data: . Diagnostic Imaging: . Assess/Plan/Problems-Billing Assessment: Ms. Herrera is a 43 yo female with a PMH for possible seizures, traumatic spine injury and IV drug abuse who presents to the ED with chills, tachycardia, hypotension, severe back pain and elevated CRP and admitted for evaluation of radicular back pain with concern for epidural abscess impinging on nerve root, s /p washout and decompression, bacteremia and sepsis. - Patient Problems (1) Epidural abscess Comment: - MSSA epidural abscess, paraspinal abscess, osteodiskitis - POD #16 lumbar washout and decompression - Management per Neurosurgery - Ambulates well - CARMELO under MAC showed no vegetation on valves - PICC removed; most recent blood cultures negative - ID following; Continue Cefazolin, no recent fevers - Gabapentin to BID for pain management - Try Baclofen instead of Flexeril - Continue methadone. (2) Sepsis Comment: - Resolved - Repeat blood cultures negative (3) Encephalopathy Comment: - improving (4) Acute respiratory failure with hypoxia Comment: - Resolved - tx to ICU for 24 hours 11/17-11/18 - CXR favoring ARDS vs acute pulmonary edema - Responded well to IV furosemide (5) Anemia Comment: - Currently stable hemoglobin - S/p 3 units PRBCs this hospitalization hemoglobin stable - Stool occult blood positive. With RAFA without menorrhagia. - Appreciate GI input, plan for upper and lower endoscopy Sunday 11/26 - Repeat CT of spine shows no hematoma - Combination of iron deficiency and anemia of chronic disease - Patient reports longstanding anemia and melena when with negative colonoscopy 12 years ago - Will plan to transfuse if Hgb <7 as she is currently asymptomatic - Continue ferrous sulfate, will not give IV iron with active infection. (6) History of intravenous drug abuse Comment: - Rescreen UDS shows opiates; per lab, our in house test does not show methadone - Patient continues to deny any recent drug use/abuse, though daughters found drug supplies in purse while inpatient - Hepatitis C antibody positive with elevated LFTs; may need treatment in the non-acute setting - Dr. Greenwood following - Continue Methadone (7) DVT prophylaxis Comment: - Heparin SQ (8) Full code status Comment: Status and Disposition: Inpatient. 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 Will likely remain inpatient and not swing d/t insurance issues. NPO monday night for upper/lower scope Monday
[2018-11-25] MEDS: Docusate CAP* 100 MG PO SCH (11:11)
[2018-11-25] MEDS: Gabapentin CAP(*) 300 MG PO SCH ×2 (11:11→20:27)
[2018-11-25] MEDS: Magnesium Oxide TAB* 400 MG PO SCH ×2 (11:11→20:26)
[2018-11-25] MEDS: Famotidine TAB* 20 MG PO SCH (11:11)
[2018-11-25] MEDS: Ferrous Sulfate TAB* 325 MG PO SCH ×2 (11:11→20:27)
[2018-11-25] MEDS: Nicotine PATCH 21 MG/24 HR* PATCH TRANSDERM SCH (11:12)
[2018-11-25] MEDS: Lidocaine PATCH 5%* 1 PATCH TRANSDERM SCH (11:14)
[2018-11-25] MEDS ORDERED: PEG 3000 GI LAVAGE* 1 GALLON PO ONE (16:00)
[2018-11-25] MEDS: QUEtiapine TAB* 25 MG PO SCH (20:27)
[2018-11-25] MEDS: Nicotine Patch Removal NOTE FOLLOW UP SCH (20:36)
[2018-11-25] MEDS: Lidocaine Patch REMOVE* 1 NOTE MISC PATCH OFF SCH (20:36)
--- NOTE | 2018-11-25 21:30 | PN ---
Progress Note - Progress Note Date of Service: 11/25/18 SOAP: Subjective: []Patient was seen earlier today. No events ON. On regular floor. Doing very well. Ambulates well. Voids. Tolerates PO well. Objective: []VSS Afebrile Wound s,c,d AAOx3, ESTEFANY, CN II-XII grossly intact Motor 5/5 all extremities Sensory grossly intact to light touch Assessment: []43 yof POD#16 Lumbar ED abscess evacuation, L4-5 instrumentation Plan: []Monitor VS, Neurochecks On Abx per IM/ ID WBC WNL. Encourage ambulation. PT, Nutrition consult. DC planning. Appreciate IM, ID care. Newton Siddiqui MD
[2018-11-26] MEDS: Methadone TAB* 5 MG PO SCH ×4 (04:11→21:37)
[2018-11-26] MEDS: Methadone TAB* 10 MG PO SCH ×4 (04:11→21:38)
[2018-11-26] MEDS: ceFAZolin* 2 GM in NS 100 MLS Q8H (Pharmacy Admix) IVPB SCH ×3 (04:13→20:16)
[2018-11-26] MEDS: Heparin VIAL(*) 5000 UNITS/ML VIAL (FIVE THOUSAND) SUBCUT SCH ×3 (05:16→21:36)
[2018-11-26] MEDS: Gabapentin CAP(*) 300 MG PO SCH ×2 (08:25→21:38)
[2018-11-26] MEDS: Magnesium Oxide TAB* 400 MG PO SCH ×2 (08:25→21:37)
[2018-11-26] MEDS: Famotidine TAB* 20 MG PO SCH (08:25)
[2018-11-26] MEDS: Ferrous Sulfate TAB* 325 MG PO SCH ×2 (08:26→21:37)
[2018-11-26] MEDS ORDERED: Midazolam* 1 MG/ML 10 ML VIAL (10 MG) ONE ×2 (09:16→09:57)
[2018-11-26] MEDS ORDERED: fentaNYL* 50 MCG/ML 2 ML VIAL (100 MCG VIAL) ONE ×2 (09:16→09:57)
[2018-11-26] MEDS: Docusate CAP* 100 MG PO SCH (12:18)
[2018-11-26] MEDS: Nicotine PATCH 21 MG/24 HR* PATCH TRANSDERM SCH (12:18)
[2018-11-26] MEDS: Lidocaine PATCH 5%* 1 PATCH TRANSDERM SCH (12:19)
--- NOTE | 2018-11-26 17:56 | PN ---
Subjective Date of Service: 11/26/18 Interval History: c/o feeling drowsy. denies chest pain or shortness of breath. denies abd pain n/v/d. denies fever or chills. Family History: Unchanged from Admission Social History: Unchanged from Admission Past Medical History: Unchanged from Admission Objective Active Medications: Acetaminophen (Tylenol Tab*) 650 mg PO Q4H PRN PRN Reason: PAIN Last Admin: 11/24/18 08:04 Dose: 650 mg Baclofen (Lioresal Tab*) 10 mg PO TID PRN PRN Reason: SPASMS Last Admin: 11/24/18 17:38 Dose: 10 mg Docusate Sodium (Colace Cap*) 100 mg PO 1200 [facility] Last Admin: 11/26/18 12:18 Dose: Not Given Famotidine (Pepcid Tab*) 20 mg PO DAILY [facility] Last Admin: 11/26/18 08:25 Dose: Not Given Ferrous Sulfate (Ferrous Sulfate Tab*) 325 mg PO BID [facility] Last Admin: 11/26/18 08:26 Dose: Not Given Gabapentin (Neurontin Cap(*)) 300 mg PO BID [facility] Last Admin: 11/26/18 08:25 Dose: Not Given Heparin Sodium (Porcine) (Heparin Vial(*)) 5,000 units SUBCUT Q8HR [facility] Last Admin: 11/26/18 14:35 Dose: 5,000 units Cefazolin Sodium 2 gm/ Sodium (Chloride) 100 mls @ 200 mls/hr IVPB Q8H [facility] Last Admin: 11/26/18 12:18 Dose: 200 mls/hr Lidocaine (Lidoderm 5% Patch*) 1 patch TRANSDERM DAILY [facility] Last Admin: 11/26/18 12:19 Dose: 1 patch Magnesium Hydroxide (Milk Of Magnesia Liq*) 30 ml PO DAILY PRN PRN Reason: CONSTIPATION Last Admin: 11/11/18 11:54 Dose: 30 ml Magnesium Oxide (Magox 400 Tab*) 400 mg PO BID [facility] Last Admin: 11/26/18 08:25 Dose: Not Given Methadone HCl (Dolophine Tab*) 10 mg PO Q6H [facility] Last Admin: 11/26/18 14:35 Dose: 10 mg Methadone HCl (Dolophine Tab*) 5 mg PO Q6H [facility] Last Admin: 11/26/18 14:35 Dose: 5 mg Nicotine (Nicotine Patch 21 Mg/24 Hr*) 1 patch TRANSDERM DAILY [facility] Last Admin: 11/26/18 12:18 Dose: 1 patch Pharmacy Profile Note (Nicotine Patch Removal Note*) 1 note FOLLOW UP 2099 [facility] Last Admin: 11/25/18 20:36 Dose: 1 note Pharmacy Profile Note (Lidocaine Patch Remove*) 1 note PATCH OFF 2099 [facility] Last Admin: 11/25/18 20:36 Dose: 1 note Prochlorperazine (Compazine Tab*) 10 mg PO Q8HR PRN PRN Reason: NAUSEA/VOMITING Quetiapine Fumarate (Seroquel Tab*) 50 mg PO BEDTIME [facility] Last Admin: 11/25/18 20:27 Dose: 50 mg Vital Signs - 8 hr 11/26/18 11/26/18 14:35 16:14 Temperature 98.6 F Pulse Rate 91 Respiratory 18 15 Rate Blood Pressure 132/68 (mmHg) O2 Sat by Pulse 96 Oximetry Oxygen Devices in Use Now: None Appearance: alert ot verbal, no acute distress Eyes: No Scleral Icterus Ears/Nose/Mouth/Throat: Clear Oropharnyx, Mucous Membranes Moist Neck: NL Appearance and Movements; NL JVP, Trachea Midline Respiratory: Symmetrical Chest Expansion and Respiratory Effort, Clear to Auscultation Cardiovascular: NL Sounds; No Murmurs; No JVD, No Edema Abdominal: NL Sounds; No Tenderness; No Distention Extremities: No Edema, No Clubbing, Cyanosis Skin: - - surgical incision to back dry and intact Neurological: Alert and Oriented x 3 Nutrition: Taking PO's Result Diagrams: 11/25/18 05:13 11/25/18 05:13 Additional Lab and Data: . Microbiology and Other Data: . Diagnostic Imaging: . Assess/Plan/Problems-Billing Assessment: Ms. Herrera is a 43 yo female with a PMH for possible seizures, traumatic spine injury and IV drug abuse who presents to the ED with chills, tachycardia, hypotension, severe back pain and elevated CRP and admitted for evaluation of radicular back pain with concern for epidural abscess impinging on nerve root, s /p washout and decompression, bacteremia and sepsis. - Patient Problems (1) Epidural abscess Current Visit: Yes Status: Acute Code(s): G06.2 - EXTRADURAL AND SUBDURAL ABSCESS, UNSPECIFIED SNOMED Code(s): 23033014 Comment: - MSSA epidural abscess, paraspinal abscess, osteodiskitis - POD #17 lumbar washout and decompression - Management per Neurosurgery - Ambulates well - CARMELO under MAC showed no vegetation on valves - PICC removed; most recent blood cultures negative - ID following; Continue Cefazolin, no recent fevers- will need total of 6-8 weeks of IV antibiotics from surgery- completion of 6 weeks will be 11/21/18. - Gabapentin to BID for pain management - Try Baclofen instead of Flexeril - Continue methadone. (2) Sepsis Current Visit: Yes Status: Acute Comment: - Resolved - Repeat blood cultures negative (3) Acute respiratory failure with hypoxia Current Visit: Yes Status: Acute Code(s): J96.01 - ACUTE RESPIRATORY FAILURE WITH HYPOXIA SNOMED Code(s): 78752637 Comment: - Resolved - tx to ICU for 24 hours 11/17-11/18 - CXR favoring ARDS vs acute pulmonary edema - Responded well to IV furosemide (4) Anemia Current Visit: Yes Status: Acute Code(s): D64.9 - ANEMIA, UNSPECIFIED SNOMED Code(s): 982163419 Comment: - Currently stable hemoglobin - S/p 3 units PRBCs this hospitalization hemoglobin stable - Stool occult blood positive. With RAFA without menorrhagia. - Appreciate GI input, plan for upper Sunday 11/26- hital hernia - colonoscopy not completed as patient did not complete prep - Repeat CT of spine shows no hematoma - Combination of iron deficiency and anemia of chronic disease - Patient reports longstanding anemia and melena when with negative colonoscopy 12 years ago - Will plan to transfuse if Hgb <7 as she is currently asymptomatic - Continue ferrous sulfate, will not give IV iron with active infection. (5) Encephalopathy Current Visit: Yes Status: Acute Code(s): G93.40 - ENCEPHALOPATHY, UNSPECIFIED SNOMED Code(s): 94380399 Comment: - improving (6) History of intravenous drug abuse Current Visit: Yes Status: Acute Code(s): Z87.898 - PERSONAL HISTORY OF OTHER SPECIFIED CONDITIONS SNOMED Code(s): 16306516747710676 Comment: - Rescreen UDS shows opiates; per lab, our in house test does not show methadone - Patient continues to deny any recent drug use/abuse, though daughters found drug supplies in purse while inpatient - Hepatitis C antibody positive with elevated LFTs; may need treatment in the non-acute setting - Dr. Greenwood following - Continue Methadone (7) DVT prophylaxis Current Visit: Yes Status: Acute Code(s): VUM7024 - SNOMED Code(s): 325734079 Comment: - Heparin SQ (8) Full code status Current Visit: Yes Status: Acute Code(s): Z78.9 - OTHER SPECIFIED HEALTH STATUS SNOMED Code(s): 128055928 Comment: Status and Disposition: Inpatient. Will need terminal clerk abx therapy. Will likely remain inpatient and not swing d/t insurance issues. NPO monday for upper/lower scope Monday
[2018-11-26] MEDS: Acetaminophen TAB* 325 MG PO PRN (20:17)
--- NOTE | 2018-11-26 20:36 | PRO ---
DATE OF PROCEDURE: 11/26/18 - ROOM #[id number] REFERRING PHYSICIAN: Dr. Larkin.* PROCEDURE: EGD. INDICATIONS: Anemia. MEDICATIONS GIVEN: 25 mcg IV fentanyl, 6 mg IV Versed. DESCRIPTION OF PROCEDURE: After the EGD procedure including the risks, benefits , and alternatives not limited to perforation, surgery, and/or were explained to Ms. Herrera, written consent was then obtained, IV medication was given, and a bite block was placed between the teeth. An Olympus gastroscope was then inserted into the patient's mouth, advanced down the esophagus, into the stomach, into the distal duodenum. In the esophagus, at the GE junction, Z- line was intact. No erosive esophagitis, stricture, or ring was seen. She does have a small hiatal hernia. Scope was advanced through the GE junction into the body of the stomach. Retroflexion view was unremarkable. Forward view also was unremarkable. A biopsy was obtained for H. pylori. Scope was advanced through a widely patent pylorus, into the duodenal bulb, into the distal duodenum, both of which were unremarkable and a biopsy was obtained for celiac disease. Scope was then withdrawn from the patient. She tolerated the procedure well and was returned to the recovery room in stable condition. IMPRESSION: 1. Complete upper endoscopy into the distal duodenum with biopsies. 2. No etiology was seen for her anemia. 3. Biopsies were obtained for Helicobacter pylori and celiac disease. I had planned on performing a colonoscopy today. Unfortunately, the patient only consumed approximately 10% of the [employer] prep. She is refusing to consume anymore. Unfortunately, we will not be able to perform the colonoscopy unless she is able to prep. [id number]/[facility] #: [id number] [facility]
[2018-11-26] MEDS: Nicotine Patch Removal NOTE FOLLOW UP SCH (21:38)
[2018-11-26] MEDS: QUEtiapine TAB* 25 MG PO SCH (21:38)
[2018-11-26] MEDS: Lidocaine Patch REMOVE* 1 NOTE MISC PATCH OFF SCH (21:38)
[2018-11-27] MEDS: Methadone TAB* 10 MG PO SCH ×4 (03:34→21:58)
[2018-11-27] MEDS: ceFAZolin* 2 GM in NS 100 MLS Q8H (Pharmacy Admix) IVPB SCH ×3 (03:35→20:51)
[2018-11-27] MEDS: Methadone TAB* 5 MG PO SCH ×4 (03:35→21:59)
[2018-11-27] MEDS: Heparin VIAL(*) 5000 UNITS/ML VIAL (FIVE THOUSAND) SUBCUT SCH ×3 (05:52→22:00)
[2018-11-27] MEDS: Famotidine TAB* 20 MG PO SCH (09:20)
[2018-11-27] MEDS: Magnesium Oxide TAB* 400 MG PO SCH ×2 (09:20→22:00)
[2018-11-27] MEDS: Gabapentin CAP(*) 300 MG PO SCH ×2 (09:21→21:58)
[2018-11-27] MEDS: Ferrous Sulfate TAB* 325 MG PO SCH ×2 (09:21→21:58)
[2018-11-27] MEDS: Nicotine PATCH 21 MG/24 HR* PATCH TRANSDERM SCH (09:21)
[2018-11-27] MEDS: Lidocaine PATCH 5%* 1 PATCH TRANSDERM SCH (09:22)
[2018-11-27] MEDS: Docusate CAP* 100 MG PO SCH (12:17)
--- NOTE | 2018-11-27 19:52 | PN ---
Subjective Date of Service: 11/27/18 Interval History: Denies chest pain or shortness of breath. denies abd pain n/v/d. Denies fever or chills. reports back pain is tolerable with pain medications. Family History: Unchanged from Admission Social History: Unchanged from Admission Past Medical History: Unchanged from Admission Objective Active Medications: Acetaminophen (Tylenol Tab*) 650 mg PO Q4H PRN PRN Reason: PAIN Last Admin: 11/26/18 20:17 Dose: 650 mg Baclofen (Lioresal Tab*) 10 mg PO TID PRN PRN Reason: SPASMS Last Admin: 11/24/18 17:38 Dose: 10 mg Docusate Sodium (Colace Cap*) 100 mg PO 1200 [facility] Last Admin: 11/27/18 12:17 Dose: 100 mg Famotidine (Pepcid Tab*) 20 mg PO DAILY [facility] Last Admin: 11/27/18 09:20 Dose: 20 mg Ferrous Sulfate (Ferrous Sulfate Tab*) 325 mg PO BID [facility] Last Admin: 11/27/18 09:21 Dose: 325 mg Gabapentin (Neurontin Cap(*)) 300 mg PO BID [facility] Last Admin: 11/27/18 09:21 Dose: 300 mg Heparin Sodium (Porcine) (Heparin Vial(*)) 5,000 units SUBCUT Q8HR [facility] Last Admin: 11/27/18 14:29 Dose: 5,000 units Cefazolin Sodium 2 gm/ Sodium (Chloride) 100 mls @ 200 mls/hr IVPB Q8H [facility] Last Admin: 11/27/18 12:14 Dose: 200 mls/hr Lidocaine (Lidoderm 5% Patch*) 1 patch TRANSDERM DAILY [facility] Last Admin: 11/27/18 09:22 Dose: 1 patch Magnesium Hydroxide (Milk Of Magnesia Liq*) 30 ml PO DAILY PRN PRN Reason: CONSTIPATION Last Admin: 11/11/18 11:54 Dose: 30 ml Magnesium Oxide (Magox 400 Tab*) 400 mg PO BID [facility] Last Admin: 11/27/18 09:20 Dose: 400 mg Methadone HCl (Dolophine Tab*) 10 mg PO Q6H [facility] Last Admin: 11/27/18 14:29 Dose: 10 mg Methadone HCl (Dolophine Tab*) 5 mg PO Q6H [facility] Last Admin: 11/27/18 14:28 Dose: 5 mg Nicotine (Nicotine Patch 21 Mg/24 Hr*) 1 patch TRANSDERM DAILY [facility] Last Admin: 11/27/18 09:21 Dose: 1 patch Pharmacy Profile Note (Nicotine Patch Removal Note*) 1 note FOLLOW UP 2099 [facility] Last Admin: 11/26/18 21:38 Dose: 1 note Pharmacy Profile Note (Lidocaine Patch Remove*) 1 note PATCH OFF 2099 [facility] Last Admin: 11/26/18 21:38 Dose: 1 note Prochlorperazine (Compazine Tab*) 10 mg PO Q8HR PRN PRN Reason: NAUSEA/VOMITING Quetiapine Fumarate (Seroquel Tab*) 50 mg PO BEDTIME [facility] Last Admin: 11/26/18 21:38 Dose: 50 mg Vital Signs - 8 hr 11/27/18 11/27/18 11/27/18 11:54 12:17 14:28 Temperature 97.9 F Pulse Rate 71 Respiratory 16 16 16 Rate Blood Pressure 130/61 (mmHg) O2 Sat by Pulse 94 Oximetry 11/27/18 11/27/18 11/27/18 14:29 15:00 16:17 Temperature 97.8 F Pulse Rate 85 Respiratory 16 16 Rate Blood Pressure 165/70 140/65 (mmHg) O2 Sat by Pulse 93 Oximetry 11/27/18 17:05 Temperature Pulse Rate Respiratory 16 Rate Blood Pressure (mmHg) O2 Sat by Pulse Oximetry Oxygen Devices in Use Now: None Appearance: alert and oreinted x 3, no acute distress Eyes: No Scleral Icterus Ears/Nose/Mouth/Throat: Clear Oropharnyx, Mucous Membranes Moist Neck: NL Appearance and Movements; NL JVP, Trachea Midline Respiratory: Symmetrical Chest Expansion and Respiratory Effort, Clear to Auscultation Cardiovascular: NL Sounds; No Murmurs; No JVD, No Edema Abdominal: NL Sounds; No Tenderness; No Distention Lymphatic: No Cervical Adenopathy Extremities: No Edema, No Clubbing, Cyanosis Skin: No Rash or Ulcers, - - sutures intact to back surgical incision, no redness or swelling Neurological: Alert and Oriented x 3 Nutrition: Taking PO's Result Diagrams: 11/25/18 05:13 11/25/18 05:13 Additional Lab and Data: . Microbiology and Other Data: . Diagnostic Imaging: . Assess/Plan/Problems-Billing Assessment: Ms. Herrera is a 43 yo female with a PMH for possible seizures, traumatic spine injury and IV drug abuse who presents to the ED with chills, tachycardia, hypotension, severe back pain and elevated CRP and admitted for evaluation of radicular back pain with concern for epidural abscess impinging on nerve root, s /p washout and decompression, bacteremia and sepsis. - Patient Problems (1) Epidural abscess Current Visit: Yes Status: Acute Code(s): G06.2 - EXTRADURAL AND SUBDURAL ABSCESS, UNSPECIFIED SNOMED Code(s): 53137533 Comment: - MSSA epidural abscess, paraspinal abscess, osteodiskitis - POD #18 lumbar washout and decompression - Management per Neurosurgery - Ambulates well - CARMELO under MAC showed no vegetation on valves - PICC removed; most recent blood cultures negative - ID following; Continue Cefazolin, no recent fevers- will need total of 6-8 weeks of IV antibiotics from surgery- completion of 6 weeks will be 11/21/18. - sutures will remain in place for 6 weeks according to neurosurgery - Gabapentin to BID for pain management - Try Baclofen instead of Flexeril - Continue methadone. (2) Sepsis Current Visit: Yes Status: Acute Comment: - Resolved - Repeat blood cultures negative (3) Acute respiratory failure with hypoxia Current Visit: Yes Status: Acute Code(s): J96.01 - ACUTE RESPIRATORY FAILURE WITH HYPOXIA SNOMED Code(s): 53984980 Comment: - Resolved - tx to ICU for 24 hours 11/17-11/18 - CXR favoring ARDS vs acute pulmonary edema - Responded well to IV furosemide (4) Anemia Current Visit: Yes Status: Acute Code(s): D64.9 - ANEMIA, UNSPECIFIED SNOMED Code(s): 782173036 Comment: - Currently stable hemoglobin - S/p 3 units PRBCs this hospitalization hemoglobin stable - Stool occult blood positive. With RAFA without menorrhagia. - Appreciate GI input, plan for upper Sunday 11/26- hital hernia - colonoscopy not completed as patient did not complete prep - Repeat CT of spine shows no hematoma - Combination of iron deficiency and anemia of chronic disease - Patient reports longstanding anemia and melena when with negative colonoscopy 12 years ago - Will plan to transfuse if Hgb <7 as she is currently asymptomatic - Continue ferrous sulfate, will not give IV iron with active infection. (5) Encephalopathy Current Visit: Yes Status: Acute Code(s): G93.40 - ENCEPHALOPATHY, UNSPECIFIED SNOMED Code(s): 17210129 Comment: - improved (6) History of intravenous drug abuse Current Visit: Yes Status: Acute Code(s): Z87.898 - PERSONAL HISTORY OF OTHER SPECIFIED CONDITIONS SNOMED Code(s): 81463125879927679 Comment: - Rescreen UDS shows opiates; per lab, our in house test does not show methadone - Patient continues to deny any recent drug use/abuse, though daughters found drug supplies in purse while inpatient - Hepatitis C antibody positive with elevated LFTs; may need treatment in the non-acute setting - Dr. Greenwood following - Continue Methadone (7) DVT prophylaxis Current Visit: Yes Status: Acute Code(s): WDQ1988 - SNOMED Code(s): 099313697 Comment: - Heparin SQ (8) Full code status Current Visit: Yes Status: Acute Code(s): Z78.9 - OTHER SPECIFIED HEALTH STATUS SNOMED Code(s): 686512592 Comment: Status and Disposition: Inpatient. Will need intermediate abx therapy. Will likely remain inpatient for IV antibiotics
[2018-11-27] MEDS: Lidocaine Patch REMOVE* 1 NOTE MISC PATCH OFF SCH (21:02)
[2018-11-27] MEDS: Nicotine Patch Removal NOTE FOLLOW UP SCH (21:02)
[2018-11-27] MEDS: QUEtiapine TAB* 25 MG PO SCH (22:00)
[2018-11-28] MEDS: Methadone TAB* 10 MG PO SCH ×4 (03:27→20:33)
[2018-11-28] MEDS: Methadone TAB* 5 MG PO SCH ×4 (03:27→20:34)
[2018-11-28] MEDS: ceFAZolin* 2 GM in NS 100 MLS Q8H (Pharmacy Admix) IVPB SCH ×3 (03:35→20:34)
[2018-11-28] MEDS: Heparin VIAL(*) 5000 UNITS/ML VIAL (FIVE THOUSAND) SUBCUT SCH ×3 (05:50→20:34)
[2018-11-28] MEDS: Lidocaine PATCH 5%* 1 PATCH TRANSDERM SCH (08:50)
[2018-11-28] MEDS: Nicotine PATCH 21 MG/24 HR* PATCH TRANSDERM SCH (08:51)
[2018-11-28] MEDS: Gabapentin CAP(*) 300 MG PO SCH ×2 (08:53→20:34)
[2018-11-28] MEDS: Famotidine TAB* 20 MG PO SCH (08:54)
[2018-11-28] MEDS: Ferrous Sulfate TAB* 325 MG PO SCH ×2 (08:54→20:33)
[2018-11-28] MEDS: Magnesium Oxide TAB* 400 MG PO SCH ×2 (08:54→20:33)
[2018-11-28] MEDS: Docusate CAP* 100 MG PO SCH (11:53)
--- NOTE | 2018-11-28 12:50 | PN ---
Subjective Date of Service: 11/28/18 Interval History: Patient is feeling well. Patient had only mild pain ambulating in the hallway. Patient denies CP, SOB, Dizziness, N/V, Abdominal pain, diarrhea, dysuria, F/C, or other pain. Patient has had no blood in her BMs or other new concerns. Family History: Unchanged from Admission Social History: Unchanged from Admission Past Medical History: Unchanged from Admission Objective Active Medications: Acetaminophen (Tylenol Tab*) 650 mg PO Q4H PRN PRN Reason: PAIN Last Admin: 11/26/18 20:17 Dose: 650 mg Baclofen (Lioresal Tab*) 10 mg PO TID PRN PRN Reason: SPASMS Last Admin: 11/24/18 17:38 Dose: 10 mg Docusate Sodium (Colace Cap*) 100 mg PO 1200 [facility] Last Admin: 11/28/18 11:53 Dose: 100 mg Famotidine (Pepcid Tab*) 20 mg PO DAILY [facility] Last Admin: 11/28/18 08:54 Dose: 20 mg Ferrous Sulfate (Ferrous Sulfate Tab*) 325 mg PO BID [facility] Last Admin: 11/28/18 08:54 Dose: 325 mg Gabapentin (Neurontin Cap(*)) 300 mg PO BID [facility] Last Admin: 11/28/18 08:53 Dose: 300 mg Heparin Sodium (Porcine) (Heparin Vial(*)) 5,000 units SUBCUT Q8HR [facility] Last Admin: 11/28/18 05:50 Dose: 5,000 units Cefazolin Sodium 2 gm/ Sodium (Chloride) 100 mls @ 200 mls/hr IVPB Q8H [facility] Last Admin: 11/28/18 11:53 Dose: 200 mls/hr Lidocaine (Lidoderm 5% Patch*) 1 patch TRANSDERM DAILY [facility] Last Admin: 11/28/18 08:50 Dose: 1 patch Magnesium Hydroxide (Milk Of Magnesia Liq*) 30 ml PO DAILY PRN PRN Reason: CONSTIPATION Last Admin: 11/11/18 11:54 Dose: 30 ml Magnesium Oxide (Magox 400 Tab*) 400 mg PO BID [facility] Last Admin: 11/28/18 08:54 Dose: 400 mg Methadone HCl (Dolophine Tab*) 10 mg PO Q6H [facility] Last Admin: 11/28/18 08:53 Dose: 10 mg Methadone HCl (Dolophine Tab*) 5 mg PO Q6H [facility] Last Admin: 11/28/18 08:51 Dose: 5 mg Nicotine (Nicotine Patch 21 Mg/24 Hr*) 1 patch TRANSDERM DAILY [facility] Last Admin: 11/28/18 08:51 Dose: 1 patch Pharmacy Profile Note (Nicotine Patch Removal Note*) 1 note FOLLOW UP 2099 [facility] Last Admin: 11/27/18 21:02 Dose: 1 note Pharmacy Profile Note (Lidocaine Patch Remove*) 1 note PATCH OFF 2099 [facility] Last Admin: 11/27/18 21:02 Dose: 1 note Prochlorperazine (Compazine Tab*) 10 mg PO Q8HR PRN PRN Reason: NAUSEA/VOMITING Quetiapine Fumarate (Seroquel Tab*) 50 mg PO BEDTIME [facility] Last Admin: 11/27/18 22:00 Dose: 50 mg Vital Signs - 8 hr 11/28/18 11/28/18 11/28/18 07:30 07:36 08:51 Temperature 97.9 F Pulse Rate 68 Respiratory 16 16 20 Rate Blood Pressure 136/90 (mmHg) O2 Sat by Pulse 97 Oximetry 11/28/18 11/28/18 11/28/18 08:53 11:30 11:31 Temperature Pulse Rate Respiratory 20 16 16 Rate Blood Pressure (mmHg) O2 Sat by Pulse Oximetry Oxygen Devices in Use Now: None Appearance: Patient is a 43yo female who appears older than stated age and is sitting in the bed in [facility]. Eyes: No Scleral Icterus, PERRLA Ears/Nose/Mouth/Throat: NL Teeth, Lips, Gums, Clear Oropharnyx, Mucous Membranes Moist Neck: NL Appearance and Movements; NL JVP, Trachea Midline Respiratory: Symmetrical Chest Expansion and Respiratory Effort, Clear to Auscultation Cardiovascular: NL Sounds; No Murmurs; No JVD, RRR, No Edema Abdominal: NL Sounds; No Tenderness; No Distention, No Hepatosplenomegaly Lymphatic: No Cervical Adenopathy Extremities: No Edema, No Clubbing, Cyanosis Skin: No Rash or Ulcers, No Nodules or Sclerosis Neurological: Alert and Oriented x 3, NL Sensation, NL Muscle Strength and Tone , - - CN II-XII intact. Result Diagrams: 11/25/18 05:13 11/25/18 05:13 Additional Lab and Data: . Microbiology and Other Data: . Diagnostic Imaging: . Assess/Plan/Problems-Billing Assessment: Ms. Herrera is a 43 yo female with a PMH for possible seizures, traumatic spine injury and IV drug abuse who presents to the ED with chills, tachycardia, hypotension, severe back pain and elevated CRP and admitted for evaluation of radicular back pain with concern for epidural abscess impinging on nerve root, s /p washout and decompression, bacteremia and sepsis. - Patient Problems (1) Epidural abscess Current Visit: Yes Status: Acute Code(s): G06.2 - EXTRADURAL AND SUBDURAL ABSCESS, UNSPECIFIED SNOMED Code(s): 33889685 Comment: - MSSA epidural abscess, paraspinal abscess, osteodiskitis - POD #19 lumbar washout and decompression - Management per Neurosurgery - Ambulates well - CARMELO under MAC showed no vegetation on valves - PICC removed; most recent blood cultures negative - ID following; Continue Cefazolin, no recent fevers- will need total of 6-8 weeks of IV antibiotics from surgery- completion of 6 weeks will be 12/19/2018 - sutures will remain in place for 6 weeks according to neurosurgery - Gabapentin to BID for pain management - Baclofen PRN - Continue methadone. (2) Sepsis Current Visit: Yes Status: Acute Comment: - Resolved - Repeat blood cultures negative (3) History of intravenous drug abuse Current Visit: Yes Status: Acute Code(s): Z87.898 - PERSONAL HISTORY OF OTHER SPECIFIED CONDITIONS SNOMED Code(s): 02176036129707528 Comment: - Rescreen UDS shows opiates; per lab, our in house test does not show methadone - Patient continues to deny any recent drug use/abuse, though daughters found drug supplies in purse while inpatient - Hepatitis C antibody positive with elevated LFTs; may need treatment in the non-acute setting - Dr. Greenwood following - Continue Methadone (4) Acute respiratory failure with hypoxia Current Visit: Yes Status: Acute Code(s): J96.01 - ACUTE RESPIRATORY FAILURE WITH HYPOXIA SNOMED Code(s): 32542901 Comment: - Resolved - tx to ICU for 24 hours 11/17-11/18 - CXR favoring ARDS vs acute pulmonary edema - Responded well to IV furosemide (5) Altered mental status Current Visit: Yes Status: Acute Code(s): R41.82 - ALTERED MENTAL STATUS, UNSPECIFIED SNOMED Code(s): 781595979 Comment: - No longer having episodes of confusion - BF reports he has note episodes of confusion for about one week prior to admission - Neurology consulting (6) Anemia Current Visit: Yes Status: Acute Code(s): D64.9 - ANEMIA, UNSPECIFIED SNOMED Code(s): 464846167 Comment: - Currently stable hemoglobin - S/p 3 units PRBCs this hospitalization hemoglobin stable - Stool occult blood positive. With RAFA without menorrhagia. - Appreciate GI input, EGD showed no ulcers, Colonoscopy unable to be done. - colonoscopy not completed as patient did not complete prep - Repeat CT of spine shows no hematoma - Combination of iron deficiency and anemia of chronic disease - Patient reports longstanding anemia and melena when with negative colonoscopy 12 years ago - Will plan to transfuse if Hgb <7 as she is currently asymptomatic - Continue ferrous sulfate, will not give IV iron with active infection. (7) Full code status Current Visit: Yes Status: Acute Code(s): Z78.9 - OTHER SPECIFIED HEALTH STATUS SNOMED Code(s): 488650098 Comment: (8) DVT prophylaxis Current Visit: Yes Status: Acute Code(s): [id number] - SNOMED Code(s): 766375963 Comment: - Heparin SQ Status and Disposition: Inpatient. Will need usp abx therapy. Will likely remain inpatient for IV antibiotics
[2018-11-28] MEDS: QUEtiapine TAB* 25 MG PO SCH (20:33)
[2018-11-28] MEDS: Nicotine Patch Removal NOTE FOLLOW UP SCH (21:52)
[2018-11-28] MEDS: Lidocaine Patch REMOVE* 1 NOTE MISC PATCH OFF SCH (21:52)
[2018-11-29] MEDS: Methadone TAB* 10 MG PO SCH ×4 (03:36→20:22)
[2018-11-29] MEDS: Methadone TAB* 5 MG PO SCH ×4 (03:36→20:21)
[2018-11-29] MEDS: Heparin VIAL(*) 5000 UNITS/ML VIAL (FIVE THOUSAND) SUBCUT SCH ×3 (04:53→21:46)
[2018-11-29] MEDS: ceFAZolin* 2 GM in NS 100 MLS Q8H (Pharmacy Admix) IVPB SCH ×3 (04:53→20:21)
[2018-11-29] MEDS: Ferrous Sulfate TAB* 325 MG PO SCH ×2 (08:11→20:22)
[2018-11-29] MEDS: Magnesium Oxide TAB* 400 MG PO SCH ×2 (08:11→20:22)
[2018-11-29] MEDS: Gabapentin CAP(*) 300 MG PO SCH ×2 (08:11→20:22)
[2018-11-29] MEDS: Famotidine TAB* 20 MG PO SCH (08:12)
[2018-11-29] MEDS: Lidocaine PATCH 5%* 1 PATCH TRANSDERM SCH (08:13)
[2018-11-29] MEDS: Nicotine PATCH 21 MG/24 HR* PATCH TRANSDERM SCH (08:13)
--- NOTE | 2018-11-29 10:16 | PN ---
Progress Note - Progress Note Date of Service: 11/29/18 SOAP: Subjective: CC: Spinal infection HPI: Ms. Herrera is a 43 yo female with PMH significant for seizure disorder, anxiety, and history of IV drug abuse who presented to the ED with a paraspinal abscess. She is S/P I+D and fixation, POD #19. She is afebrile and had no fevers since 11/24/18. She states that her back pain is improving and she has been ambulating in the halls. Denies fever, chills, abdominal pain, constipation , N/V/D. Objective: Vital Signs 11/29/18 08:04 Temperature 98.2 F Temperature Oral Source Respiratory 16 Rate Blood Pressure 132/86 (mmHg) Blood Pressure 101 Mean Patient on Room Yes Air Physical Exam: General: NAD, laying in bed Neurological: Alert and Oriented Cardiovascular: Heart rate regular, no murmur Respiratory: Lung sounds clear bilateral Musculoskeletal: 5/5 strength in bilateral LEs. ABle to move ankles, knees and hips. No tenderness with palpation of the spine Skin: No rash. Incision to midline back well approximated, with sutures intact, no erythema Laboratory Tests 11/20/18 11/25/18 11/25/18 05:49 05:13 05:13 WBC 9.7 Hgb 9.0 L Hct 27 L Plt Count 657 H Sodium 138 Potassium 3.6 Chloride 102 Carbon Dioxide 27 BUN 11 Creatinine 0.90 Glucose 86 C-Reactive Protein 186.19 H Assessment: 1. MSSA epidural abscess, paraspinal abscess, osteodiskitis. Afebrile. Pain is improving 2. HCV 3. Negative HIV antibody Plan: Continue cefazolin, will complete course of antibiotics on 12/22/18. Continue to check weekly labs (CBC, CMP, and CRP, next labs are ordered for 12/02/18)
[2018-11-29] MEDS: Baclofen TAB* 10 MG PO PRN ×2 (10:53→20:21)
[2018-11-29] MEDS: Docusate CAP* 100 MG PO SCH (10:54)
[2018-11-29] MEDS: Acetaminophen TAB* 325 MG PO PRN (12:21)
--- NOTE | 2018-11-29 14:28 | PN ---
Subjective Date of Service: 11/29/18 Interval History: Patient complains of mild spasms in leg much improved from previous exams. Patient denies abdominal pain, dysuria, F/C, numbness, N/V, CP, SOB, dizziness, or other pain. Family History: Unchanged from Admission Social History: Unchanged from Admission Past Medical History: Unchanged from Admission Objective Active Medications: Acetaminophen (Tylenol Tab*) 650 mg PO Q4H PRN PRN Reason: PAIN Last Admin: 11/29/18 12:21 Dose: 650 mg Baclofen (Lioresal Tab*) 10 mg PO TID PRN PRN Reason: SPASMS Last Admin: 11/29/18 10:53 Dose: 10 mg Docusate Sodium (Colace Cap*) 100 mg PO 1200 [facility] Last Admin: 11/29/18 10:54 Dose: 100 mg Famotidine (Pepcid Tab*) 20 mg PO DAILY [facility] Last Admin: 11/29/18 08:12 Dose: 20 mg Ferrous Sulfate (Ferrous Sulfate Tab*) 325 mg PO BID [facility] Last Admin: 11/29/18 08:11 Dose: 325 mg Gabapentin (Neurontin Cap(*)) 300 mg PO BID [facility] Last Admin: 11/29/18 08:11 Dose: 300 mg Heparin Sodium (Porcine) (Heparin Vial(*)) 5,000 units SUBCUT Q8HR [facility] Last Admin: 11/29/18 04:53 Dose: 5,000 units Cefazolin Sodium 2 gm/ Sodium (Chloride) 100 mls @ 200 mls/hr IVPB Q8H [facility] Last Admin: 11/29/18 12:18 Dose: 200 mls/hr Lidocaine (Lidoderm 5% Patch*) 1 patch TRANSDERM DAILY [facility] Last Admin: 11/29/18 08:13 Dose: 1 patch Magnesium Hydroxide (Milk Of Magnesia Liq*) 30 ml PO DAILY PRN PRN Reason: CONSTIPATION Last Admin: 11/11/18 11:54 Dose: 30 ml Magnesium Oxide (Magox 400 Tab*) 400 mg PO BID [facility] Last Admin: 11/29/18 08:11 Dose: 400 mg Methadone HCl (Dolophine Tab*) 10 mg PO Q6H [facility] Last Admin: 11/29/18 08:11 Dose: 10 mg Methadone HCl (Dolophine Tab*) 5 mg PO Q6H [facility] Last Admin: 11/29/18 08:12 Dose: 5 mg Nicotine (Nicotine Patch 21 Mg/24 Hr*) 1 patch TRANSDERM DAILY [facility] Last Admin: 11/29/18 08:13 Dose: 1 patch Pharmacy Profile Note (Nicotine Patch Removal Note*) 1 note FOLLOW UP 2099 [facility] Last Admin: 11/28/18 21:52 Dose: 1 note Pharmacy Profile Note (Lidocaine Patch Remove*) 1 note PATCH OFF 2099 [facility] Last Admin: 11/28/18 21:52 Dose: 1 note Prochlorperazine (Compazine Tab*) 10 mg PO Q8HR PRN PRN Reason: NAUSEA/VOMITING Quetiapine Fumarate (Seroquel Tab*) 50 mg PO BEDTIME [facility] Last Admin: 11/28/18 20:33 Dose: 50 mg Vital Signs - 8 hr 11/29/18 11/29/18 11/29/18 08:00 08:04 08:11 Temperature 98.2 F Pulse Rate Respiratory 18 16 18 Rate Blood Pressure 132/86 (mmHg) O2 Sat by Pulse Oximetry 11/29/18 11/29/18 08:12 11:48 Temperature 98.5 F Pulse Rate 90 Respiratory 18 17 Rate Blood Pressure 124/84 (mmHg) O2 Sat by Pulse 98 Oximetry Oxygen Devices in Use Now: None Appearance: Patient is a 43yo female who appears older than stated age and is sitting in the bed in [facility]. Eyes: No Scleral Icterus, PERRLA Ears/Nose/Mouth/Throat: NL Teeth, Lips, Gums, Clear Oropharnyx, Mucous Membranes Moist Neck: NL Appearance and Movements; NL JVP, Trachea Midline Respiratory: Symmetrical Chest Expansion and Respiratory Effort, Clear to Auscultation Cardiovascular: NL Sounds; No Murmurs; No JVD, RRR, No Edema Abdominal: NL Sounds; No Tenderness; No Distention, No Hepatosplenomegaly Lymphatic: No Cervical Adenopathy Extremities: No Edema, No Clubbing, Cyanosis Skin: No Rash or Ulcers, No Nodules or Sclerosis Neurological: Alert and Oriented x 3, NL Sensation, NL Muscle Strength and Tone , - - CN II-XII intact. Result Diagrams: 11/25/18 05:13 11/25/18 05:13 Additional Lab and Data: . Microbiology and Other Data: . Diagnostic Imaging: . Assess/Plan/Problems-Billing Assessment: Ms. Herrera is a 43 yo female with a PMH for possible seizures, traumatic spine injury and IV drug abuse who presents to the ED with chills, tachycardia, hypotension, severe back pain and elevated CRP and admitted for evaluation of radicular back pain with concern for epidural abscess impinging on nerve root, s /p washout and decompression, bacteremia and sepsis. - Patient Problems (1) Epidural abscess Current Visit: Yes Status: Acute Code(s): G06.2 - EXTRADURAL AND SUBDURAL ABSCESS, UNSPECIFIED SNOMED Code(s): 33194172 Comment: - MSSA epidural abscess, paraspinal abscess, osteodiskitis - POD #20 lumbar washout and decompression - Management per Neurosurgery - Ambulates well - CARMELO showed no vegetation on valves - PICC removed; most recent blood cultures negative - ID following; Continue Cefazolin, no recent fevers- will need total of 6-8 weeks of IV antibiotics from surgery- completion of 6 weeks will be 12/22/2018 - sutures will remain in place for 6 weeks according to neurosurgery - Gabapentin to BID for pain management - Baclofen PRN - Continue methadone. (2) Sepsis Current Visit: Yes Status: Acute Comment: - Resolved - Repeat blood cultures negative (3) History of intravenous drug abuse Current Visit: Yes Status: Acute Code(s): Z87.898 - PERSONAL HISTORY OF OTHER SPECIFIED CONDITIONS SNOMED Code(s): 22044805257234194 Comment: - Rescreen UDS shows opiates; per lab, our in house test does not show methadone - Patient continues to deny any recent drug use/abuse, though daughters found drug supplies in purse while inpatient - Hepatitis C antibody positive with elevated LFTs; may need treatment in the non-acute setting - Dr. Greenwood following - Continue Methadone (4) Acute respiratory failure with hypoxia Current Visit: Yes Status: Acute Code(s): J96.01 - ACUTE RESPIRATORY FAILURE WITH HYPOXIA SNOMED Code(s): 55635109 Comment: - Resolved - tx to ICU for 24 hours 11/17-11/18 - CXR favoring ARDS vs acute pulmonary edema - Responded well to IV furosemide (5) Altered mental status Current Visit: Yes Status: Acute Code(s): R41.82 - ALTERED MENTAL STATUS, UNSPECIFIED SNOMED Code(s): 250629460 Comment: - No longer having episodes of confusion - BF reports he has note episodes of confusion for about one week prior to admission - Neurology consulting (6) Anemia Current Visit: Yes Status: Acute Code(s): D64.9 - ANEMIA, UNSPECIFIED SNOMED Code(s): 851195586 Comment: - Currently stable hemoglobin - S/p 3 units PRBCs this hospitalization hemoglobin stable - Stool occult blood positive. With RAFA without menorrhagia. - Appreciate GI input, EGD showed no ulcers, Colonoscopy unable to be done. - colonoscopy not completed as patient did not complete prep - Repeat CT of spine shows no hematoma - Combination of iron deficiency and anemia of chronic disease - Patient reports longstanding anemia and melena when with negative colonoscopy 12 years ago - Will plan to transfuse if Hgb <7 as she is currently asymptomatic - Continue ferrous sulfate, will not give IV iron with active infection. (7) Full code status Current Visit: Yes Status: Acute Code(s): Z78.9 - OTHER SPECIFIED HEALTH STATUS SNOMED Code(s): 937356197 Comment: (8) DVT prophylaxis Current Visit: Yes Status: Acute Code(s): KWS8977 - SNOMED Code(s): 943676366 Comment: - Heparin SQ Status and Disposition: Inpatient. Will need senior living abx therapy. Will likely remain inpatient for IV antibiotics, may be able to go to facility if able to get insurance coverage.
[2018-11-29] MEDS: QUEtiapine TAB* 25 MG PO SCH (20:22)
[2018-11-29] MEDS: Lidocaine Patch REMOVE* 1 NOTE MISC PATCH OFF SCH (20:28)
[2018-11-29] MEDS: Nicotine Patch Removal NOTE FOLLOW UP SCH (20:28)
[2018-11-30] MEDS: Methadone TAB* 10 MG PO SCH ×3 (03:08→14:15)
[2018-11-30] MEDS: Methadone TAB* 5 MG PO SCH ×3 (03:08→14:14)
[2018-11-30] MEDS: ceFAZolin* 2 GM in NS 100 MLS Q8H (Pharmacy Admix) IVPB SCH ×2 (03:45→12:31)
[2018-11-30] MEDS: Heparin VIAL(*) 5000 UNITS/ML VIAL (FIVE THOUSAND) SUBCUT SCH ×2 (05:13→14:15)
[2018-11-30] MEDS: Magnesium Oxide TAB* 400 MG PO SCH (07:56)
[2018-11-30] MEDS: Famotidine TAB* 20 MG PO SCH (07:57)
[2018-11-30] MEDS: Gabapentin CAP(*) 300 MG PO SCH (07:57)
[2018-11-30] MEDS: Ferrous Sulfate TAB* 325 MG PO SCH (07:57)
[2018-11-30] MEDS: Baclofen TAB* 10 MG PO PRN ×2 (07:58→14:15)
[2018-11-30] MEDS: Lidocaine PATCH 5%* 1 PATCH TRANSDERM SCH (07:58)
[2018-11-30] MEDS: Nicotine PATCH 21 MG/24 HR* PATCH TRANSDERM SCH (07:59)
[2018-11-30] MEDS: Docusate CAP* 100 MG PO SCH (12:31)
[2018-11-30] MEDS: Acetaminophen TAB* 325 MG PO PRN (12:31)
[2018-11-30 13:10] VITALS: BP 104/69
--- NOTE | 2018-11-30 16:56 | DS ---
CC: Dr. Aishwarya Linares; Dr. Solomon Siddiqui; Dr. Rickey Sosa * DISCHARGE SUMMARY/ADMISSION HISTORY AND PHYSICAL FOR SWING STATUS: DATE OF ADMISSION: 11/30/18 DATE OF DISCHARGE: 11/30/18 PRIMARY CARE PROVIDER: Dr. Aishwarya Linares. MY ATTENDING WHILE IN THE HOSPITAL: Dr. Edwin Espitia.* (DICTATED BY ELIEZER SIMON) PRIMARY DISCHARGE DIAGNOSES: 1. Paraspinal abscess at L4-L5, epidural abscess at L4-L5, status post incision and drainage. 2. Likely polysubstance abuse. 3. Bacteremia. 4. Acute hypoxic respiratory failure due to acute respiratory distress syndrome , resolved. 5. Anemia due to acute blood loss and iron deficiency. 6. Chronic pain. SECONDARY DISCHARGE DIAGNOSES: 1. Questionable history of seizure disorder. 2. Anxiety. 3. Tobacco abuse. 4. Hepatitis C. STUDIES DONE WHILE IN THE HOSPITAL: Lumbar spine MRI from 11/08/18 read as right paraspinal fluid collection at L4-L5 measuring 2 x 1.5 x 2.4 representing an abscess. There is a second abscess on left at the same level measuring 7.7 mm, small epidural abscess fluid collection posteriorly at L4-L5 measuring 6 x 4 mm. Chest x-ray from 11/08/18 read as small right basilar infiltrate. Brain CT from 11/08/18 read as no acute intracranial pathology, no visible abscess. Chest x-ray from read as radiographic evidence for acute cardiopulmonary abnormality. Lumbar spine x-ray from 11/12/18 read as status post posterior spinal fusion at the L4- L5 level, grade 2 anterior spondylolisthesis at that level. Chest x-ray from read as acceptable position of the right upper extremity PICC, no significant change in patchy bilateral pulmonary consolidations suspicious for bronchopneumonia. Transesophageal echocardiogram read as global left ventricular wall motion and contractility within normal limits, left ventricular systolic function with estimated ejection fraction of 55% to 60%. No thrombus visualized in right atrial appendage. PFO was not demonstrated by color Doppler, agitated contrast. Aortic valve leaflets are mildly thickened. There is no aortic vegetation present, trace mild mitral regurgitation. No vegetations noted in the mitral valve. There is mild tricuspid regurgitation. No vegetations noted in the tricuspid valve. No significant pericardial effusion. Chest x-ray from 11/15/18 read as progressive airspace disease in both lung smith, predominantly in the right. Lumbar spine CT from 11/16/18 read as limited noncontrast CT of the lumbar spine with imaging, probably compromised due to the fusion hardware at L4-L5. No compelling CT evidence for osteomyelitis. The clinic indicates an MRI or 3-phase bone scan for further assessment. Edema of the bilateral erector spinae muscles, conspicuous, loculated, soft tissue plane abscess collection. The clinic indicates considering MRI, potential ultrasound for further assessment. Chest x-ray from 11/17/18 read as severe bilateral airspace consolidation with progression, consider bronchopneumonia as well as ARDS. Repeat chest x-ray from 11/17/18 read as probable ARDS without significant interval change. Differential includes bronchopneumonia, small right pleural effusion without change, mild pulmonary vascular congestion. Electroencephalogram from 11/12/18 read as limited study with significant muscle motion artifact. Readable portions of tracing revealed mild slowing background rhythm consistent with mild diffuse cerebral dysfunction. There are no focal epileptiform features recorded including during episodes of muscle jerking. EGD was unremarkable. MEDICATIONS CONTINUED AT DISCHARGE: 1. Tylenol 650 mg p.o. q.4 hours as needed for pain. 2. Baclofen 10 mg p.o. t.i.d. as needed for spasm. 3. Cefazolin 2 g q.8 hours. 4. Docusate 100 mg p.o. daily scheduled. 5. Famotidine 20 mg p.o. daily scheduled. 6. Ferrous sulfate 325 mg p.o. b.i.d. scheduled. 7. Gabapentin 300 mg p.o. b.i.d. scheduled. 8. Heparin sodium 5000 units subcutaneous q.8 hours scheduled. 9. Lidocaine 1 patch transdermal daily scheduled. 10. Magnesium hydroxide 30 mL p.o. daily for constipation as needed. 11. Magnesium oxide 400 mg p.o. b.i.d. scheduled. 12. Methadone 10 mg p.o. q.6 hours scheduled. 13. Methadone 5 mg p.o. q.6 hours scheduled. 14. Nicotine 1 patch transdermal daily. 15. Compazine 10 mg p.o. q.8 hours as needed for nausea and vomiting. 16. Seroquel 50 mg p.o. at bedtime scheduled. HOSPITAL COURSE: This is a brief summary of the patient's presentation. For more details, please see the history and physical from Krystal Anderson DO, on . In brief, the patient is a 43-year-old female with past medical history significant for chronic back pain, possible seizures, who presented to the emergency department for 3 days of lower back pain, which had become severe with hypertension, tachycardia, fevers, chills, and altered mental status. The patient had a severely elevated CRP and elevated white count, elevated liver enzymes, grossly positive urinalysis as well as positive opiate screen and amphetamines as well as a positive hepatitis C antibody with confirmation. The patient is admitted to the hospital. The patient was started on broad-spectrum antibiotics. The patient was significantly altered and in significant pain. The patient was unable to have an MRI initially due to intractable back pain making her unable to stay still; however, the patient was able to have an under anesthesia guidance, which showed the abscesses as above. The patient was seen in consultation by Dr. Solomon Siddiqui of Neurosurgery. The patient was taken to the operating room for incision and drainage, lumbar decompression, and laminectomy. The patient tolerated the procedure. The patient continued to be significantly altered. This was believed to be due to withdrawal from the patient's illicit drug use. The patient, while she was inpatient, had illicit drug paraphernalia found in her purse. The patient's paraspinal abscess came back positive for MSSA PCR and she was started on Ancef. The patient also had concern for pneumonia based on chest x- ray and UTI. The patient's white count trended down and then began to increase again. The patient's CRP also trended down and then went back up again. The patient had repeat urinalysis, which was negative x2. The patient was seen in consultation by Dr. Omar Rios of Neurology, who believed that her altered mental status was due to postop delirium and drug withdrawal, did not recommend lumbar puncture or other intervention. The patient's mental status improved. The patient had a CARMELO, which was read as above showing no vegetations. The patient was seen in consultation by Dr. Rickey Sosa of Infectious Disease, who recommended continuing with the Ancef with a long-term of IV antibiotics. Dr. Ferris recommended methadone as she had previously failed Suboxone therapy. The patient to that point had been needing IV morphine. The patient continued to have intermittent fevers. The patient improved slowly, but then on 11/15/18 again began to spike fevers and have disorientation. The patient had a chest x- ray, which showed worsening in her lung disease. The patient had shaking chills. The patient was brought in to [facility] and vancomycin for coverage of hospital-acquired pneumonia. The patient improved overnight on broad-spectrum antibiotic coverage. The patient needs to be started on oxygen and after having been transferred to the ICU was able to be transferred out. The patient was given 3 units of PRBC, likely missing her fluid overload for anemia, whose low level was at 5.8 on 11/16/18. The patient was seen in consultation by Dr. Corrales of Psychiatry due to delirium, who recommended Seroquel for agitation, which helped with the patient's delirium. The patient continued for several days on broad-spectrum antibiotic coverage and continued to have intermittent fevers; however, respiratory status improved. The patient was able to be weaned off of oxygen. The patient's hemoglobin continued to be low in low 7s. The patient was started on oral iron, which helped. The patient however has stool occult blood positive and was seen in consultation by Dr. Agustin Mata of Gastroenterology, who did an upper endoscopy showing no ulcers or signs of bleeding and he was unable to perform a lower endoscopy due to incomplete prep. The patient's fevers subsided and she was transitioned back to Ancef. The patient's pain was very well controlled on methadone and baclofen. The patient was able to increase her ambulation significantly. The patient had no worsening of her anemia. The patient was able to obtain Medicaid Insurance on 11/29/18 and was eligible for a transition to swing status to complete her course of IV antibiotics. PHYSICAL EXAM ON THE DAY OF DISCHARGE: General: The patient is a 43-year-old female who appears older than stated age and sitting comfortably in the bed, in no acute distress. Vital Signs: At the time of evaluation, temperature 98.6, pulse rate 87, respiratory rate 20, oxygen saturation 98% on room air, blood pressure 104/69. HEENT: Head: Normocephalic, atraumatic. Sclerae anicteric. No conjunctival injection. Nasal mucosa is moist. Oral mucosa is moist. No pharyngeal erythema, discharge, or exudate. Neck: Supple, nontender. No lymphadenopathy. No carotid bruits auscultated. No JVD. Cardiac: Regular rate and rhythm. No clicks, murmurs, gallops, or rubs. Pulses 2+ in the bilateral dorsalis pedis, posterior tibialis, and radial areas. Respiratory: Clear to auscultation bilaterally. No wheezes, rales, or rhonchi. Good air exchange bilaterally. Abdomen: Soft, nontender, nondistended. Bowel sounds present. Normoactive in all 4 quadrants. No hepatosplenomegaly. No abdominal bruits auscultated. No hepatojugular reflux. Genitourinary: No suprapubic or CVA tenderness. Skin: Clean, dry. Incision over the midline of the back without signs of erythema or discharge, sutures still in place. Neuro: Cranial nerves II through XII intact. No focal deficits. Alert and oriented x3. Psychiatric: Pleasant and cooperative. DISCHARGE PLAN: The patient will be transitioned to swing status. The patient will be continued on cefazolin 3 times a day for the recommendation of Infectious Disease until 12/22/18. The patient will be continued on methadone, Tylenol, and baclofen for her pain. The patient should some point have a followup colonoscopy for her iron deficiency anemia; however, the patient at this time will continue on ferrous sulfate 325 mg p.o. b.i.d. The patient's respiratory issues including ARDS appeared to have resolved. The patient is having no further fevers. The patient should engage in outpatient substance abuse resources when available and should undergo a nonurgent basis treatment for her hepatitis C. The patient should have a regular unrestricted diet and engage in activity as tolerated. The patient should have a CRP, CMP, and CBC every week per Infectious Disease with the next one on 12/02/18. TIME SPENT: Approximately 1 hour was spent on the discharge of this patient, 30 minutes of which were spent [id number] with the patient obtaining history and physical and discussing treatment plan. ELIEZER SIMON [id number]/[facility] #: [id number] JATINDER
== END 2018-11-30 14:57 | disposition swing bed (61) | DRG 853 ==
LOC: ED 23:58 → MEDTELE 11-08 03:26 → OBSVTOIN 11-08 16:48 → MEDTELE 11-08 22:21 → ICU 11-09 14:22 → SSU 11-11 09:18 → ICU 11-17 09:36 → SSU 11-18 11:09 → MED 11-29 10:53
PROVIDERS: ADMIT Internal Medicine; ATTEND Neurological Surgery
PROC: B03BZZZ Magnetic Resonance Imaging (MRI) of Spinal Cord (ICD-10-PCS; 2018-11-08)
PROC: 01NB0ZZ Release Lumbar Nerve, Open Approach (ICD-10-PCS; 2018-11-09)
PROC: 8E0WXBZ Computer Assisted Procedure of Trunk Region (ICD-10-PCS; 2018-11-09)
PROC: 0SG00K1 Fusion of Lumbar Vertebral Joint with Nonautologous Tissue Substitute, Posterior Approach, Posterior Column, Open Approach (ICD-10-PCS; principal; 2018-11-09 10:00)
PROC: 02HV33Z Insertion of Infusion Device into Superior Vena Cava, Percutaneous Approach (ICD-10-PCS; 2018-11-12)
PROC: B24BZZ4 Ultrasonography of Heart with Aorta, Transesophageal (ICD-10-PCS; 2018-11-13)
PROC: 30233N1 Transfusion of Nonautologous Red Blood Cells into Peripheral Vein, Percutaneous Approach (ICD-10-PCS; 2018-11-15)
PROC: 4A00X4Z Measurement of Central Nervous Electrical Activity, External Approach (ICD-10-PCS; 2018-11-21)
PROC: 0DB98ZX Excision of Duodenum, Via Natural or Artificial Opening Endoscopic, Diagnostic (ICD-10-PCS; 2018-11-26)
PROC: 0DB68ZX Excision of Stomach, Via Natural or Artificial Opening Endoscopic, Diagnostic (ICD-10-PCS; 2018-11-26)
DX: A41.01 Sepsis due to Methicillin susceptible Staphylococcus aureus (principal); G06.1 Intraspinal abscess and granuloma; J96.01 Acute respiratory failure with hypoxia; J18.0 Bronchopneumonia, unspecified organism; F05 Delirium due to known physiological condition; G93.40 Encephalopathy, unspecified; D62 Acute posthemorrhagic anemia; N39.0 Urinary tract infection, site not specified; J90 Pleural effusion, not elsewhere classified; E72.20 Disorder of urea cycle metabolism, unspecified; M46.36 Infection of intervertebral disc (pyogenic), lumbar region; G43.909 Migraine, unspecified, not intractable, without status migrainosus; F41.9 Anxiety disorder, unspecified; F17.210 Nicotine dependence, cigarettes, uncomplicated; G89.29 Other chronic pain; G40.909 Epilepsy, unspecified, not intractable, without status epilepticus; F11.10 Opioid abuse, uncomplicated; F15.10 Other stimulant abuse, uncomplicated; B95.61 Methicillin susceptible Staphylococcus aureus infection as the cause of diseases classified elsewhere; K44.9 Diaphragmatic hernia without obstruction or gangrene; M43.16 Spondylolisthesis, lumbar region; B19.20 Unspecified viral hepatitis C without hepatic coma; I08.1 Rheumatic disorders of both mitral and tricuspid valves; E83.51 Hypocalcemia; Y95 Nosocomial condition; D50.9 Iron deficiency anemia, unspecified; Z82.49 Family history of ischemic heart disease and other diseases of the circulatory system; Z83.3 Family history of diabetes mellitus; Z90.49 Acquired absence of other specified parts of digestive tract; Z87.440 Personal history of urinary (tract) infections; Z79.01 Long term (current) use of anticoagulants
CPT/HCPCS: 36415; 36600; 70470; 71045; 72100; 72131; 72158; 76000; 80048; 80053; 80074; 80076; 80202; 80307; 80320; 81003; 81015; 82140; 82270; 82272; 82565; 82607; 82728; 82803; 83010; 83540; 83550; 83605; 83615; 83735; 84520; 84702; 85014; 85018; 85025; 85060; 85610; 86078; 86140; 86703; 86850; 86900; 86901; 86922; 87040; 87070; 87073; 87077; 87086; 87150; 87186; 87205; 87640; 87641; 88305; 90686; 93005; 93312; 93325; 95816; 99156; 99157; 99284; 99406; A9270-GY; A9579; C1713; C1751; C1776; G0480; J0690; J0692; J0696; J1100; J1170; J1644; J1650; J1756; J1885; J1940; J2001; J2060; J2250; J2270; J2310; J2405; J2543; J2704; J2710; J2765; J2997; J3010; J3370; J3411; J3475; J3480; J8540; P9040; Q9967

== ENCOUNTER 2018-11-30 15:03 | Inpatient (IN) | payer MEDICAID ==
--- OUTSIDE RECORDS SUMMARY | 2018-11-30 15:07 | XMS REPORT | Continuity of Care Document ---
:1975 External Reference #:[id number] Author Name Anna Barnard Care Team Providers Name Role Phone Solomon Siddiqui MD Care Team Information Telecom Specialist Unavailable Payers Date Identification Numbers Payment Provider Subscriber Expires: 2018 Policy Number: [id number] Justino Herrera PayID: [id number] [address] [place] [address] Expires: 2016 Policy Number: [id number] Medicaid [employer] Name: 1 1 [address] PayID: [id number] [place] [address] Expires: 2014 Policy Number: [employer] [place] [employer] [id number] PayID: [id number] [address] [address] [place] [address] Advance Directives Description No Information Available Problems Description No Information Family History Description No Information Available Social History Type Date Description Comments Sex Unknown Allergies, Adverse Reactions, Alerts Description No Information Medications Medication Date Status Form Strength Qnty SIG Indications Ordering Provider Robaxin-750 08/26/20 Active Tablets 750mg 50tabs 1-2 po q Billy M. 10 tid prn Zupruk, muscle M.D. spasm Oxycodone HCL 08/26/20 Active Tablets 10mg 40tabs 1 tablet Billy M. 10 po q6 hrs Zupruk, prn pain M.D. Immunizations Description No Information Available Vital Signs Description No Information Available Results Test Date Facility Test Result H/L Range Note Comp Metabolic Panel 11/08/2018 [facility] Sodium 136 mmol/L N 135-[address] [place] [address] [phone] Potassium 3.4 mmol/L Low 3.5-5.0 Chloride 102 mmol/L N 101-111 Co2 Carbon Dioxide 21 mmol/L Low 22-32 Anion Gap 13 mmol/L High 2-11 Glucose 117 mg/dL High 70-100 Blood Urea Nitrogen 23 mg/dL N 6-24 Creatinine 0.99 mg/dL High 0.51-0.95 BUN/Creatinine Ratio 23.2 High 8-20 Calcium 9.1 mg/dL N 8.6-10.3 Total Protein 7.3 g/dL N 6.4-8.9 Albumin 3.5 g/dL N 3.2-5.2 Globulin 3.8 g/dL N 2-4 Albumin/Globulin Ratio 0.9 Low 1-3 Total Bilirubin 1.10 mg/dL High 0.2-1.0 Alkaline Phosphatase 148 U/L High 34-104 Alt 72 U/L High 7-52 Ast 47 U/L High 13-39 Egfr Non- 61.8 >60 Egfr 74.8 >60 1 Laboratory test 11/08/2018 [facility] C Reactive 394.09 mg/L High <8.[address] [place] [address] [phone] HCG < 0.60 mIU/mL 2 CBC Auto 11/08/2018 [facility] White Blood 12.0 10^3/uL High 3.5-10.[address] [place] [address] [phone] Red Blood Count 4.23 10^6/uL N 4.00-5.40 Hemoglobin 12.4 g/dL N 12.0-16.0 Hematocrit 37 % N 35-47 Mean Corpuscular Volume 86 fL N 80-97 Mean Corpuscular Hemoglobin 29 pg N 27-31 Mean Corpuscular HGB Conc 34 g/dL N 31-36 Red Cell Distribution Width 15 % N 10.5-15 Platelet Count 255 10^3/uL N 150-450 Mean Platelet Volume 7.3 fL Low 7.4-10.4 Abs Neutrophils 11.0 10^3/uL High 1.5-7.7 Abs Lymphocytes 0.5 10^3/uL Low 1.0-4.8 Abs Monocytes 0.3 10^3/uL N 0-0.8 Abs Eosinophils 0.1 10^3/uL N 0-0.6 Abs Basophils 0.1 10^3/uL N 0-0.2 Abs Nucleated RBC 0 10^3/uL Granulocyte % 91.9 % Lymphocyte % 3.8 % Monocyte % 2.8 % Eosinophil % 0.7 % Basophil % 0.8 % Nucleated Red Blood Cells % 0.1 Hepatitis 11/08/2018 [facility] Hepatitis B Nonreactive Nonreactive Acute Panel [address] [place] [address] Antigen [phone] Hepatitis B Core IgM Nonreactive Nonreactive Hepatitis A AB IgM Nonreactive Nonreactive HCV Index > 11.0 Index Hepatitis C Antibody High Reactive Abnormal Nonreactive 3 Urinalysis Profile 11/08/2018 [facility] Urine Color Glenna [address] [place] [address] [phone] Urine Appearance Cloudy Urine Specific Thayer 1.021 N 1.010-1.030 Urine pH 5.0 N 5-9 Urine Urobilinogen Positive Abnormal Negative Urine Ketones Negative Negative Urine Protein Negative Negative Urine Leukocytes 1+ Abnormal Negative Urine Blood Negative Negative Urine Nitrite Positive Abnormal Negative Urine Bilirubin Negative Negative Urine Glucose Negative Negative Urine White Blood Cell 2+(11-20/hpf) Abnormal Absent Urine Red Blood Cell 1+(3-5/hpf) Abnormal Absent Urine Bacteria 1+ Abnormal Absent Urine Squamous Epithelial Cell Present Abnormal Absent Urine Hyaline Casts Present Abnormal Absent Urine Culture And 11/08/2018 [facility] Urine Culture SEE RESULT [address] [place] [address] [phone] CBC Auto Diff 10/19/2016 [facility] White Blood 7.6 10^3/uL N 3.5-[address] Count [address]8 [place] [address] [phone] Red Blood Count 4.42 10^6/uL N 4.0-5.4 Hemoglobin 13.0 g/dL N 12.0-16.0 Hematocrit 39 % N 35-47 Mean Corpuscular Volume 88 fL N 80-97 Mean Corpuscular Hemoglobin 29 pg N 27-31 Mean Corpuscular HGB Conc 34 g/dL N 31-36 Red Cell Distribution Width 14 % N 10.5-15 Platelet Count 238 10^3/uL N 150-450 Mean Platelet Volume 7 um3 Low 7.4-10.4 Abs Neutrophils 3.5 10^3/uL N 1.5-7.7 Abs Lymphocytes 3.0 10^3/uL N 1.0-4.8 Abs Monocytes 0.7 10^3/uL N 0-0.8 Abs Eosinophils 0.3 10^3/uL N 0-0.6 Abs Basophils 0.1 10^3/uL N 0-0.2 Abs Nucleated RBC 0 10^3/uL N Granulocyte % 45.5 % N 38-83 Lymphocyte % 39.7 % N 25-47 Monocyte % 9.7 % High 1-9 Eosinophil % 3.9 % N 0-6 Basophil % 1.2 % N 0-2 Nucleated Red Blood Cells % 0.1 N Urinalysis Profile 10/19/2016 [facility] Urine Color Yellow N [address] [place] [address] [phone] Urine Appearance Cloudy N Urine Specific Thayer 1.014 N 1.010-1.030 Urine pH 8.0 N 5-9 Urine Urobilinogen Negative N Negative Urine Ketones Negative N Negative Urine Protein Negative N Negative Urine Leukocytes Negative N Negative Urine Blood 3+ Abnormal Negative Urine Nitrite Positive Abnormal Negative Urine Bilirubin Negative N Negative Urine Glucose Negative N Negative Urine White Blood Cell Trace(0-5/hpf) N Absent Urine Red Blood Cell 3+(>10/hpf) Abnormal Absent Urine Bacteria 1+ Abnormal Absent Urine Squamous Epithelial Cell Present Abnormal Absent Comp Metabolic Panel 10/19/2016 [facility] Sodium 136 mmol/L N 133-145 [address] [place] [address] [phone] Potassium 4.1 mmol/L N 3.5-5.0 Chloride 106 mmol/L N 101-111 Co2 Carbon Dioxide 23 mmol/L N 22-32 Anion Gap 7 mmol/L N 2-11 Glucose 96 mg/dL N 70-100 Blood Urea Nitrogen 11 mg/dL N 6-24 Creatinine 0.62 mg/dL N 0.51-0.95 BUN/Creatinine Ratio 17.7 N 8-20 Calcium 9.3 mg/dL N 8.6-10.3 Total Protein 7.3 g/dL N 6.4-8.9 Albumin 4.1 g/dL N 3.2-5.2 Globulin 3.2 g/dL N 2-4 Albumin/Globulin Ratio 1.3 N 1-3 Total Bilirubin 0.30 mg/dL N 0.2-1.0 Alkaline Phosphatase 49 U/L N 34-104 Alt 11 U/L N 7-52 Ast 16 U/L N 13-39 Egfr Non- 107.2 N >60 Egfr 137.8 N >60 5 Laboratory test finding 10/19/2016 [facility] Lipase 30 U/L N 11.0-82.[address] [place] [address] [phone] HCG < 0.60 mIU/mL N 6 C Reactive Protein 4.74 mg/L N < 5.00 7 Urine Culture And 10/19/2016 [facility] Urine Culture SEE RESULT [address] [place] [address] [phone] 1 Because ethnic data is not always readily available, this report includes an eGFR for both -Americans and non- Americans. The National Kidney Disease Education Program (NKDEP) does not endorse the use of the MDRD equation for patients that are not between the ages of 18 and 70, are , have extremes of body size, muscle mass, or nutritional status, or are non- or non-. According to the National Kidney Foundation, irrespective of diagnosis, the stage of the disease is based on the level of kidney function: Stage Description GFR(mL/min/1.73 m(2)) 1 Kidney damage with normal or decreased GFR 90 2 Kidney damage with mild decrease in GFR 60-89 3 Moderate decrease in GFR 30-59 4 Severe decrease in GFR 15-29 5 Kidney failure <15 (or dialysis) 2 <5.0 Negative 5.0 - 25.0 Indeterminate (Repeat testing recommended after 72 hours) >25.0 Positive Perimenopausal women can display HCG levels of up to 20 mIU/mL 3 High reactive sample are considered positive for Hepatitis C 4 SEE RESULT BELOW Name: CHAPINCITO HERRERA : [address]: Vonnie Beaulieu DO Acct: [id number] Unit: [id number] AGE: 43 Location: [place] [address] Re11/08/18 SEX: F Status: ADM IN SPEC: [id number] MELVINA: 11/08/[address]: Brando Dotson MD REQ: [id number] RECD: 11/08/18 STATUS: ROSELIA SANTORO DR: Nick Alcocer MD _ [facility] ORDERED: Urine Culture Procedure Result Reported Site Urine Culture Final 11/09/18- 1205 ML No Growth (<1,000 CFU/mL) * - [facility] . END OF REPORT DEPARTMENT OF PATHOLOGY, [address] [place] [address] Tristin Macias M.D. Director [facility] # [id number] 5 Because ethnic data is not always readily available, this report includes an eGFR for both -Americans and non- Americans. The National Kidney Disease Education Program (NKDEP) does not endorse the use of the MDRD equation for patients that are not between the ages of 18 and 70, are , have extremes of body size, muscle mass, or nutritional status, or are non- or non-. According to the National Kidney Foundation, irrespective of diagnosis, the stage of the disease is based on the level of kidney function: Stage Description GFR(mL/min/1.73 m(2)) 1 Kidney damage with normal or decreased GFR 90 2 Kidney damage with mild decrease in GFR 60-89 3 Moderate decrease in GFR 30-59 4 Severe decrease in GFR 15-29 5 Kidney failure <15 (or dialysis) 6 <5.0 Negative 5.0 - 25.0 Indeterminate (Repeat testing recommended after 72 hours) >25.0 Positive Perimenopausal women can display HCG levels of up to 20 mIU/mL 7 Acute inflammation: >10.00 8 SEE RESULT BELOW Name: CHAPINCITO HERRERA Yang : [address]: Gary Andrade MD Acct: [id number] Unit: [id number] AGE: 41 Location: [place] [address] Re10/19/16 Dis: 10/20/16 SEX: F Status: DIS Galdino SPEC: [id number] MELVINA: 10/19/[address]: Shahzad Lara MD REQ: [id number] RECD: 10/19/16 STATUS: ROSELIA SANTORO DR: Saleem Cramer DIRECTOR OF SOLUTIONS ARCHITECTURE _ SOURCE: URINE [facility]ESC: ORDERED: Urine Culture Procedure Result Reported Site Urine Culture Final 10/21/16- 0832 ML Organism 1 STAPHYLOCOCCUS EPIDERMIDIS [place] Count >100,000 (Many) CFU/ML 1. STAPHYLOCOCCUS EPIDERMIDIS M.I.C. RX --------- ------ Penicillin R Gentamicin <=0.5 S Linezolid 1 S Nitrofurantoin <=16 S Oxacillin <=0.25 S * Quinupristin/Dalfopristin <=0.25 S Rifampin <=0.5 S Tetracycline <=1 S Doxycycline - Deduced S * Minocycline - Deduced S Tigecycline <=0.12 S Vancomycin 1 S Imipenem-Deduced S * Ampicillin/Sulbactam-Deduced S Cefazolin-Deduced S * These antibiotics are not available in the [facility] Formulary Contact the Microbiology Department for any additional antibiotic reporting. * ML - MAIN LAB (PSC1) . END OF REPORT * ML=Testing performed at Main Lab DEPARTMENT OF PATHOLOGY, [address] [place] [address] Tristin Macias M.D. Director [facility] # [id number] Procedures Date Code Description Status 11/13/2018 54576 Color Flow Doppler/Interp & Reprt Completed 11/13/2018 38172 Pulse Wave/Continuous-Interp.RPT Completed 11/13/2018 95491 Echocardiography, Transesophageal, Real Time W/Image 2D Completed W/W/O M-M 01/13/2018 04686 EEG Recording Awake & Asleep Completed 01/12/2018 50080 EEG Recording Awake & Drowsy Completed Encounters Type Date Location Provider Dx Diagnosis Office Visit 01/14/2018 Neurohospitalist Jose Tam R56.9 Unspecified 10:10a Makayla Eastman convulsions F41.9 Anxiety disorder, unspecified Office Visit 01/14/2018 3:49p [facility] Shahzad R56.9 Unspecified Assoccindy PA convulsions Hospitalists F41.9 Anxiety disorder, unspecified Office Visit 01/13/2018 Neurohospitalist Omar Medina R56.9 Unspecified 10:08a Makayla Rios M.D. convulsions F41.9 Anxiety disorder, unspecified Office Visit 01/13/2018 3:49p [place] Stevie Pike R56.9 Unspecified Assoccindy PA convulsions Hospitalists F41.9 Anxiety disorder, unspecified Office Visit 01/12/2018 Neurohospitalist Sherin Bautista R56.9 Unspecified 10:06a Clinic Raiza Childs convulsions Office Visit 01/12/2018 [facility] Cynthia Yan, R56.9 Unspecified 3:47p Assoc,pc Hospitalists N.P. convulsions F41.9 Anxiety disorder, unspecified Office Visit 10/20/2016 [facility] Katarina Charline R10.9 Unspecified 11:19a Assoc,pc ABHIJEET Cobian abdominal pain Hospitalists R11.2 Nausea with vomiting, unspecified N39.0 Urinary tract infection, site not specified R31.9 Hematuria, unspecified Office 10/19/2016 [facility] Ruy R10.9 Unspecified Visit 11:19a Assoc,pc ELIEZER Kulkarni abdominal pain Hospitalists R11.2 Nausea with vomiting, unspecified N39.0 Urinary tract infection, site not specified R31.9 Hematuria, unspecified Office Visit 08/31/2016 2:56p [facility] Klaudia Aguila M54.5 Low back Assoc,pc Raiza pain Hospitalists N30.00 Acute cystitis without hematuria Office Visit 08/30/2016 2:56p [facility] Lincoln Arredondo M54.5 Low back Assoc,pc Raiza MENDOZA pain Hospitalists N30.01 Acute cystitis with hematuria Office Visit 02/07/2014 2:12p [facility] Tesfaye Barragan, 481 Pneumonia Assoccindy M.D. Pneumococcal Hospitalists 786.05 Shortness Of Breath 786.2 Cough 786.52 Painful Respiration Office Visit 02/06/2014 2:11p [facility] Tesfaye Barragan, 481 Pneumonia Assoc,pc Raiza Pneumococcal Hospitalists 786.05 Shortness Of Breath 786.2 Cough 786.52 Painful Respiration Office Visit 02/04/2014 2:10p [facility] Enedelia Diaz, 481 Pneumonia Assoc,pc DO Pneumococcal Hospitalists 786.05 Shortness Of Breath 786.2 Cough 786.52 Painful Respiration Office Visit 08/26/2010 1:00p Neurosurgery Billy Bautista 847.2 [facility] Go M.D. Strains Lumbar Plan of Treatment No Information Available
[2018-11-30] MEDS ORDERED: Acetaminophen TAB* 325 MG PO PRN (15:31)
[2018-11-30] MEDS ORDERED: Ondansetron INJ* 2 MG/ML VIAL IV PRN (15:31)
[2018-11-30] MEDS ORDERED: Docusate CAP* 100 MG PO PRN (15:36)
[2018-11-30] MEDS ORDERED: Prochlorperazine TAB* 10 MG PO PRN (15:36)
[2018-11-30] MEDS ORDERED: Baclofen TAB* 10 MG PO PRN (15:36)
[2018-11-30] MEDS: Methadone TAB* 10 MG PO SCH (19:54)
[2018-11-30] MEDS: Gabapentin CAP(*) 300 MG PO SCH (19:55)
[2018-11-30] MEDS: Methadone TAB* 5 MG PO SCH (19:55)
[2018-11-30] MEDS: QUEtiapine TAB* 25 MG PO SCH (19:55)
[2018-11-30] MEDS: Magnesium Oxide TAB* 400 MG PO SCH (19:55)
[2018-11-30] MEDS: Lidocaine Patch REMOVE* 1 NOTE MISC PATCH OFF SCH (19:58)
[2018-11-30] MEDS: Nicotine Patch Removal NOTE PATCH OFF SCH (19:58)
[2018-11-30] MEDS ORDERED: Lidocaine Patch REMOVE* 1 NOTE MISC SCH (21:00)
[2018-11-30] MEDS: Heparin VIAL(*) 5000 UNITS/ML VIAL (FIVE THOUSAND) SUBCUT SCH (21:57)
[2018-11-30] MEDS: ceFAZolin* 2 GM in NS 100 MLS Q8H (Pharmacy Admix) IVPB SCH (21:58)
[2018-11-30] MEDS ORDERED: ceFAZolin 2 GM PREMIX in ORs 2 GM/50 ML BAG IVPB SCH (22:00)
[2018-12-01] MEDS: Methadone TAB* 5 MG PO SCH ×4 (02:29→20:16)
[2018-12-01] MEDS: Methadone TAB* 10 MG PO SCH ×4 (02:29→20:16)
[2018-12-01] MEDS: ceFAZolin* 2 GM in NS 100 MLS Q8H (Pharmacy Admix) IVPB SCH ×3 (05:32→21:25)
[2018-12-01] MEDS: Heparin VIAL(*) 5000 UNITS/ML VIAL (FIVE THOUSAND) SUBCUT SCH ×3 (05:32→21:26)
[2018-12-01] MEDS: Magnesium Oxide TAB* 400 MG PO SCH ×2 (08:54→20:16)
[2018-12-01] MEDS: Nicotine PATCH 21 MG/24 HR* PATCH TRANSDERM SCH (08:55)
[2018-12-01] MEDS: Gabapentin CAP(*) 300 MG PO SCH ×2 (08:55→20:16)
[2018-12-01] MEDS: Famotidine TAB* 20 MG PO SCH (08:55)
[2018-12-01] MEDS: Lidocaine PATCH 5%* 1 PATCH TRANSDERM SCH (08:55)
[2018-12-01] MEDS: Lidocaine Patch REMOVE* 1 NOTE MISC PATCH OFF SCH (20:17)
[2018-12-01] MEDS: QUEtiapine TAB* 25 MG PO SCH (20:17)
[2018-12-01] MEDS: Nicotine Patch Removal NOTE PATCH OFF SCH (20:17)
[2018-12-02] MEDS: Methadone TAB* 10 MG PO SCH ×4 (02:45→21:07)
[2018-12-02] MEDS: Methadone TAB* 5 MG PO SCH ×4 (02:45→21:08)
[2018-12-02] MEDS: ceFAZolin* 2 GM in NS 100 MLS Q8H (Pharmacy Admix) IVPB SCH ×3 (05:41→21:03)
[2018-12-02] MEDS: Heparin VIAL(*) 5000 UNITS/ML VIAL (FIVE THOUSAND) SUBCUT SCH ×3 (05:43→21:09)
[2018-12-02 06:45] LABS: ABS Basophils 0.1 10^3/ul (0-0.2); ABS Eosinophils 0.1 10^3/ul (0-0.6); ABS Lymphocytes 2.3 10^3/ul (1.0-4.8); ABS Monocytes 1.1 10^3/ul (0-0.8); ABS Neutrophils 4.7 10^3/ul (1.5-7.7); ABS Nucleated RBC 0 10^3/ul; Eosinophil % 1.8 %; Hematocrit 30 % (33-41); Lymphocyte % 27.8 %; Mean Corpuscular HGB Conc 33 g/dL (31-36); Mean Corpuscular Hemoglobin 29 pg (27-31); Mean Corpuscular Volume 87 fL (80-97); Mean Platelet Volume 6.2 fL (7.4-10.4); Nucleated Red Blood Cells % 0.3; Platelet Count 429 10^3/uL (150-450); Red Blood Count 3.51 10^6 /uL (3.70-4.87); Red Cell Distribution Width 15 % (10.5-15); White Blood Count 8.3 10^3/uL (3.5-10.8)
[2018-12-02 06:45] LABS: Albumin 3.3 g/dL (3.2-5.2); Albumin/Globulin Ratio 0.6 (1-3); BUN/Creatinine Ratio 18.6 (8-20); C Reactive Protein 47.21 mg/L (<8.01); Calcium 9.4 mg/dL (8.6-10.3); EGFR Non-African American 72.7 (>60); Globulin 5.2 g/dL (2-4); Potassium 3.8 mmol/L (3.5-5.0); Total Bilirubin 0.2 mg/dL (0.2-1.0); Total Protein 8.5 g/dL (6.4-8.9)
[2018-12-02] MEDS: Gabapentin CAP(*) 300 MG PO SCH ×2 (08:55→21:07)
[2018-12-02] MEDS: Magnesium Oxide TAB* 400 MG PO SCH ×2 (08:55→21:07)
[2018-12-02] MEDS: Famotidine TAB* 20 MG PO SCH (08:55)
[2018-12-02] MEDS: Nicotine PATCH 21 MG/24 HR* PATCH TRANSDERM SCH (08:56)
[2018-12-02] MEDS: Lidocaine PATCH 5%* 1 PATCH TRANSDERM SCH (08:56)
[2018-12-02] MEDS: Baclofen TAB* 10 MG PO PRN (11:56)
[2018-12-02] MEDS: QUEtiapine TAB* 25 MG PO SCH (21:07)
[2018-12-02] MEDS: Lidocaine Patch REMOVE* 1 NOTE MISC PATCH OFF SCH (21:10)
[2018-12-02] MEDS: Nicotine Patch Removal NOTE PATCH OFF SCH (21:10)
[2018-12-03] MEDS: Methadone TAB* 5 MG PO SCH ×4 (04:03→21:24)
[2018-12-03] MEDS: Methadone TAB* 10 MG PO SCH ×4 (04:03→21:23)
[2018-12-03] MEDS: ceFAZolin* 2 GM in NS 100 MLS Q8H (Pharmacy Admix) IVPB SCH ×3 (05:51→22:13)
[2018-12-03] MEDS: Heparin VIAL(*) 5000 UNITS/ML VIAL (FIVE THOUSAND) SUBCUT SCH ×3 (05:51→22:13)
[2018-12-03] MEDS: Nicotine PATCH 21 MG/24 HR* PATCH TRANSDERM SCH (08:11)
[2018-12-03] MEDS: Lidocaine PATCH 5%* 1 PATCH TRANSDERM SCH (08:11)
[2018-12-03] MEDS: Magnesium Oxide TAB* 400 MG PO SCH ×2 (08:14→21:24)
[2018-12-03] MEDS: Famotidine TAB* 20 MG PO SCH (08:14)
[2018-12-03] MEDS: Gabapentin CAP(*) 300 MG PO SCH ×2 (08:14→21:24)
--- NOTE | 2018-12-03 09:26 | PN ---
Progress Note - Progress Note Date of Service: 12/03/18 SOAP: Subjective: CC: spine infection HPI: 43 year old woman with JULIO CESAR and paraspinal abscess s/p I&D and fixation; fever resolved, back pain improving. No leg spasm or weakness. Appetite is good. No rash or diarrhea. Previous HCV testing was pos Ab and neg VL per her report. Objective: Vital Signs Temp 37.2 C 12/02/18 15:24 Pulse 83 12/02/18 15:24 Resp 16 12/03/18 08:14 BP 119/78 12/02/18 15:24 Pulse Ox 97 12/02/18 15:24 Intake & Output 12/02/18 12/03/18 12/03/18 18:59 06:59 18:59 Intake Total 450 150 Balance 450 150 Intake: IV Fluids 40 NS (0.9%) 40 IVPB 100 110 ABX - CEFAZOLIN 100 110 Oral 350 0 Other: # Bowel Movements 0 0 # Voids 0 0 Gen:awake, no distress HEENT: no thrush Heart:RRR no murmur Lungs:CTA BL Abd:+BS NTND soft Skin: no rash MSK: L spine incision intact no erythema Neuro: strength 5/5 quad/TA/gastroc BL, sensation intact LE BL Laboratory Tests 12/02/18 12/02/18 06:09 06:11 WBC 8.3 RBC 3.51 L Hgb 10.0 L Hct 30 L MCV 87 MCH 29 MCHC 33 RDW 15 Plt Count 429 MPV 6.2 L Neut % (Auto) 56.4 Lymph % (Auto) 27.8 [place] % (Auto) 12.8 Eos % (Auto) 1.8 Baso % (Auto) 1.2 Absolute Neuts (auto) 4.7 Absolute Lymphs (auto) 2.3 Absolute Monos (auto) 1.1 H Absolute Eos (auto) 0.1 Absolute Basos (auto) 0.1 Absolute Nucleated RBC 0 Nucleated RBC % 0.3 Sodium 134 L Potassium 3.8 Chloride 97 L Carbon Dioxide 25 Anion Gap 12 H BUN 16 Creatinine 0.86 Est GFR ( Amer) 88.0 Est GFR (Non-Af Amer) 72.7 BUN/Creatinine Ratio 18.6 Glucose 90 Calcium 9.4 Total Bilirubin 0.20 AST 11 L ALT 3 L Alkaline Phosphatase 111 H C-Reactive Protein 47.21 H Total Protein 8.5 Albumin 3.3 Globulin 5.2 H Albumin/Globulin Ratio 0.6 L Assessment: 1. MSSA epidural abscess, paraspinal abscess, osteodiskitis 2. Fever likely due to #1 or withdrawal; vanco/zosyn day 5 3. HCV Ab+; past VL- 4. elevated CRP improving Plan: 1. continue ancef 2 gm IV Q8hrs until 12/22, will add rifampin for remainder of course in setting of fixation hardware 2. weekly cbc, cmp, crp
[2018-12-03] MEDS: QUEtiapine TAB* 25 MG PO SCH (21:25)
[2018-12-03] MEDS: Lidocaine Patch REMOVE* 1 NOTE MISC PATCH OFF SCH (21:26)
[2018-12-03] MEDS: Nicotine Patch Removal NOTE PATCH OFF SCH (21:26)
[2018-12-04] MEDS: Methadone TAB* 10 MG PO SCH ×4 (04:28→19:58)
[2018-12-04] MEDS: Methadone TAB* 5 MG PO SCH ×4 (04:29→19:57)
[2018-12-04] MEDS: Heparin VIAL(*) 5000 UNITS/ML VIAL (FIVE THOUSAND) SUBCUT SCH ×3 (06:19→20:00)
[2018-12-04] MEDS: ceFAZolin* 2 GM in NS 100 MLS Q8H (Pharmacy Admix) IVPB SCH ×3 (06:19→20:00)
[2018-12-04] MEDS: Famotidine TAB* 20 MG PO SCH (08:00)
[2018-12-04] MEDS: Gabapentin CAP(*) 300 MG PO SCH ×2 (08:20→19:57)
[2018-12-04] MEDS: Nicotine PATCH 21 MG/24 HR* PATCH TRANSDERM SCH (08:22)
[2018-12-04] MEDS: Lidocaine PATCH 5%* 1 PATCH TRANSDERM SCH (08:22)
[2018-12-04] MEDS: Magnesium Oxide TAB* 400 MG PO SCH ×2 (08:22→19:59)
[2018-12-04] MEDS: Nicotine Inhaler* 10 MG AMP INH PRN ×2 (15:31→19:59)
[2018-12-04] MEDS ORDERED: Mouth Piece, Nicotine* 1 EACH CARTRIDGE INH ONE (16:00)
[2018-12-04] MEDS: QUEtiapine TAB* 25 MG PO SCH (19:59)
[2018-12-04] MEDS: Nicotine Patch Removal NOTE PATCH OFF SCH (20:00)
[2018-12-04] MEDS: Lidocaine Patch REMOVE* 1 NOTE MISC PATCH OFF SCH (20:00)
[2018-12-05] MEDS: Methadone TAB* 10 MG PO SCH ×4 (02:09→19:52)
[2018-12-05] MEDS: Methadone TAB* 5 MG PO SCH ×4 (02:10→19:52)
[2018-12-05] MEDS: ceFAZolin* 2 GM in NS 100 MLS Q8H (Pharmacy Admix) IVPB SCH ×3 (05:34→21:32)
[2018-12-05] MEDS: Heparin VIAL(*) 5000 UNITS/ML VIAL (FIVE THOUSAND) SUBCUT SCH ×3 (05:37→21:28)
[2018-12-05] MEDS: Famotidine TAB* 20 MG PO SCH (10:39)
[2018-12-05] MEDS: Magnesium Oxide TAB* 400 MG PO SCH ×2 (10:40→21:28)
[2018-12-05] MEDS: Gabapentin CAP(*) 300 MG PO SCH ×2 (10:40→21:28)
[2018-12-05] MEDS: Nicotine Inhaler* 10 MG AMP INH PRN (10:40)
[2018-12-05] MEDS: Nicotine PATCH 21 MG/24 HR* PATCH TRANSDERM SCH (10:41)
[2018-12-05] MEDS: Lidocaine PATCH 5%* 1 PATCH TRANSDERM SCH (10:41)
--- NOTE | 2018-12-05 18:39 | PN ---
Subjective Date of Service: 12/05/18 Interval History: Resting in bed on assessment. Reports pain is well controlled. Reports she continues to have "issues" with left leg, specifically it becomes weak and more painful with ambulation. Patient requesting cane as she has been doing well with walker and believes she could progress. Denies chest pain, palpitations, nausea, vomiting, fever chills. Objective Active Medications: Acetaminophen (Tylenol Tab*) 650 mg PO Q6H PRN PRN Reason: FEVER/PAIN Baclofen (Lioresal Tab*) 10 mg PO BID PRN PRN Reason: SPASMS - BACK Last Admin: 12/02/18 11:56 Dose: 10 mg Docusate Sodium (Colace Cap*) 100 mg PO DAILY PRN PRN Reason: CONSTIPATION Famotidine (Pepcid Tab*) 20 mg PO DAILY [facility] Last Admin: 12/05/18 10:39 Dose: 20 mg Gabapentin (Neurontin Cap(*)) 300 mg PO BID [facility] Last Admin: 12/05/18 10:40 Dose: 300 mg Heparin Sodium (Porcine) (Heparin Vial(*)) 5,000 units SUBCUT Q8HR [facility] Last Admin: 12/05/18 13:45 Dose: 5,000 units Cefazolin Sodium 2 gm/ Sodium (Chloride) 100 mls @ 200 mls/hr IVPB Q8HR [facility] Last Admin: 12/05/18 13:44 Dose: 200 mls/hr Lidocaine (Lidoderm 5% Patch*) 1 patch TRANSDERM DAILY [facility] Last Admin: 12/05/18 10:41 Dose: 1 patch Magnesium Oxide (Magox 400 Tab*) 400 mg PO BID [facility] Last Admin: 12/05/18 10:40 Dose: 400 mg Methadone HCl (Dolophine Tab*) 10 mg PO Q6H [facility] Last Admin: 12/05/18 13:45 Dose: 10 mg Methadone HCl (Dolophine Tab*) 5 mg PO Q6H [facility] Last Admin: 12/05/18 13:44 Dose: 5 mg Nicotine (Nicotine Patch 21 Mg/24 Hr*) 1 patch TRANSDERM DAILY@0800 [facility] Last Admin: 12/05/18 10:41 Dose: 1 patch Nicotine (Nicotine Inhaler*) 10 mg INH Q2H PRN PRN Reason: CRAVING Last Admin: 12/05/18 10:40 Dose: 10 mg Ondansetron HCl (Zofran Inj*) 4 mg IV Q6H PRN PRN Reason: NAUSEA Pharmacy Profile Note (Lidocaine Patch Remove*) 1 note PATCH OFF 2099 [facility] Last Admin: 12/04/18 20:00 Dose: 1 note Pharmacy Profile Note (Nicotine Patch Removal Note*) 1 note PATCH OFF 2099 [facility] Last Admin: 12/04/18 20:00 Dose: 1 note Prochlorperazine (Compazine Tab*) 10 mg PO Q8HR PRN PRN Reason: NAUSEA Quetiapine Fumarate (Seroquel Tab*) 50 mg PO BEDTIME [facility] Last Admin: 12/04/18 19:59 Dose: 50 mg Vital Signs - 8 hr 12/05/18 12/05/18 12/05/18 10:38 10:39 10:40 Respiratory 18 18 18 Rate 12/05/18 12/05/18 12/05/18 12:40 13:44 13:45 Respiratory 18 18 18 Rate 12/05/18 15:45 Respiratory 16 Rate Oxygen Devices in Use Now: None Appearance: Comfortable, NAD Eyes: No Scleral Icterus Ears/Nose/Mouth/Throat: Clear Oropharnyx, Mucous Membranes Moist Neck: NL Appearance and Movements; NL JVP Respiratory: Symmetrical Chest Expansion and Respiratory Effort, Clear to Auscultation Cardiovascular: NL Sounds; No Murmurs; No JVD, No Edema Abdominal: NL Sounds; No Tenderness; No Distention Lymphatic: No Cervical Adenopathy Extremities: No Clubbing, Cyanosis Skin: No Rash or Ulcers Neurological: Alert and Oriented x 3, NL Sensation, NL Muscle Strength and Tone Nutrition: Taking PO's Result Diagrams: 12/02/18 06:09 12/02/18 06:11 Assess/Plan/Problems-Billing Assessment: Swing status for IV antibiotics - Patient Problems (1) Epidural abscess Comment: - MSSA epidural abscess, paraspinal abscess, osteodiskitis - S/P lumbar washout and decompression - Ambulates well with walker. PT consult ordered for progression to cane. - CARMELO showed no vegetation on valves - PICC removed; most recent blood cultures negative - ID following; Continue Cefazolin, no recent fevers- will need total of 6-8 weeks of IV antibiotics from surgery- completion of 6 weeks will be 12/22/2018 - sutures will remain in place for 6 weeks according to neurosurgery - Gabapentin to BID for pain management - Baclofen PRN - Continue methadone. - Needs weekly cbc, cmp, crp. Last 12/02/18 (2) DVT prophylaxis Comment: - Heparin SQ Status and Disposition: Swing. Attending: Krystal Anderson
[2018-12-05] MEDS: QUEtiapine TAB* 25 MG PO SCH (21:28)
[2018-12-05] MEDS: Nicotine Patch Removal NOTE PATCH OFF SCH (21:31)
[2018-12-05] MEDS: Lidocaine Patch REMOVE* 1 NOTE MISC PATCH OFF SCH (21:31)
[2018-12-06] MEDS: Methadone TAB* 5 MG PO SCH ×4 (02:29→19:57)
[2018-12-06] MEDS: Methadone TAB* 10 MG PO SCH ×4 (02:29→19:56)
[2018-12-06] MEDS: Heparin VIAL(*) 5000 UNITS/ML VIAL (FIVE THOUSAND) SUBCUT SCH ×3 (05:10→22:09)
[2018-12-06] MEDS: ceFAZolin* 2 GM in NS 100 MLS Q8H (Pharmacy Admix) IVPB SCH ×3 (06:15→22:02)
[2018-12-06] MEDS: Nicotine PATCH 21 MG/24 HR* PATCH TRANSDERM SCH (07:57)
[2018-12-06] MEDS: Lidocaine PATCH 5%* 1 PATCH TRANSDERM SCH (07:58)
[2018-12-06] MEDS: Magnesium Oxide TAB* 400 MG PO SCH ×2 (07:59→19:56)
[2018-12-06] MEDS: Famotidine TAB* 20 MG PO SCH (08:00)
[2018-12-06] MEDS: Gabapentin CAP(*) 300 MG PO SCH ×2 (08:00→19:56)
[2018-12-06] MEDS ORDERED: NS 0.9% 100 ML* 100 ML ONE (14:07)
[2018-12-06] MEDS: QUEtiapine TAB* 25 MG PO SCH (19:56)
[2018-12-06] MEDS: Nicotine Patch Removal NOTE PATCH OFF SCH (19:59)
[2018-12-06] MEDS: Lidocaine Patch REMOVE* 1 NOTE MISC PATCH OFF SCH (19:59)
[2018-12-07] MEDS: Methadone TAB* 10 MG PO SCH ×4 (03:05→21:15)
[2018-12-07] MEDS: Methadone TAB* 5 MG PO SCH ×4 (03:05→21:15)
[2018-12-07] MEDS: ceFAZolin* 2 GM in NS 100 MLS Q8H (Pharmacy Admix) IVPB SCH ×3 (05:31→22:08)
[2018-12-07] MEDS: Heparin VIAL(*) 5000 UNITS/ML VIAL (FIVE THOUSAND) SUBCUT SCH ×3 (05:44→21:16)
[2018-12-07] MEDS: Nicotine PATCH 21 MG/24 HR* PATCH TRANSDERM SCH (07:51)
[2018-12-07] MEDS: Lidocaine PATCH 5%* 1 PATCH TRANSDERM SCH (07:52)
[2018-12-07] MEDS: Magnesium Oxide TAB* 400 MG PO SCH ×2 (07:52→21:15)
[2018-12-07] MEDS: Famotidine TAB* 20 MG PO SCH (07:53)
[2018-12-07] MEDS: Gabapentin CAP(*) 300 MG PO SCH ×2 (07:53→21:15)
[2018-12-07] MEDS: QUEtiapine TAB* 25 MG PO SCH (21:14)
[2018-12-07] MEDS: Lidocaine Patch REMOVE* 1 NOTE MISC PATCH OFF SCH (21:17)
[2018-12-07] MEDS: Nicotine Patch Removal NOTE PATCH OFF SCH (21:17)
[2018-12-08] MEDS: Methadone TAB* 5 MG PO SCH ×4 (02:10→20:02)
[2018-12-08] MEDS: Methadone TAB* 10 MG PO SCH ×4 (02:10→20:02)
[2018-12-08 04:50] LABS: ABS Basophils 0.1 10^3/ul (0-0.2); ABS Eosinophils 0.1 10^3/ul (0-0.6); ABS Lymphocytes 2.9 10^3/ul (1.0-4.8); ABS Monocytes 0.9 10^3/ul (0-0.8); ABS Neutrophils 3.4 10^3/ul (1.5-7.7); ABS Nucleated RBC 0 10^3/ul; Eosinophil % 1.6 %; Hematocrit 32 % (33-41); Hemoglobin 10.6 g/dL (12.0-16.0); Lymphocyte % 39.3 %; Mean Corpuscular HGB Conc 33 g/dL (31-36); Mean Corpuscular Hemoglobin 29 pg (27-31); Mean Corpuscular Volume 86 fL (80-97); Mean Platelet Volume 6.2 fL (7.4-10.4); Nucleated Red Blood Cells % 0.1; Platelet Count 261 10^3/uL (150-450); Red Blood Count 3.71 10^6 /uL (3.70-4.87); Red Cell Distribution Width 15 % (10.5-15); White Blood Count 7.5 10^3/uL (3.5-10.8)
[2018-12-08 04:54] LABS: BUN/Creatinine Ratio 19.2 (8-20); Calcium 9.7 mg/dL (8.6-10.3); EGFR African American 106.3 (>60); EGFR Non-African American 87.9 (>60); Potassium 4.6 mmol/L (3.5-5.0)
[2018-12-08] MEDS: Heparin VIAL(*) 5000 UNITS/ML VIAL (FIVE THOUSAND) SUBCUT SCH ×3 (05:09→22:13)
[2018-12-08] MEDS: ceFAZolin* 2 GM in NS 100 MLS Q8H (Pharmacy Admix) IVPB SCH ×3 (06:14→22:13)
[2018-12-08] MEDS: Magnesium Oxide TAB* 400 MG PO SCH ×2 (08:30→20:01)
[2018-12-08] MEDS: Famotidine TAB* 20 MG PO SCH (08:30)
[2018-12-08] MEDS: Gabapentin CAP(*) 300 MG PO SCH ×2 (08:30→20:01)
[2018-12-08] MEDS: Lidocaine PATCH 5%* 1 PATCH TRANSDERM SCH (09:22)
[2018-12-08] MEDS: Nicotine PATCH 21 MG/24 HR* PATCH TRANSDERM SCH (09:22)
[2018-12-08] MEDS: QUEtiapine TAB* 25 MG PO SCH (20:02)
[2018-12-08] MEDS: Nicotine Patch Removal NOTE PATCH OFF SCH (20:03)
[2018-12-08] MEDS: Lidocaine Patch REMOVE* 1 NOTE MISC PATCH OFF SCH (20:03)
[2018-12-08] MEDS: Nicotine Inhaler* 10 MG AMP INH PRN (20:12)
[2018-12-09] MEDS: Methadone TAB* 5 MG PO SCH ×4 (02:22→20:10)
[2018-12-09] MEDS: Methadone TAB* 10 MG PO SCH ×4 (02:24→20:11)
[2018-12-09] MEDS: Heparin VIAL(*) 5000 UNITS/ML VIAL (FIVE THOUSAND) SUBCUT SCH ×3 (05:55→20:13)
[2018-12-09] MEDS: ceFAZolin* 2 GM in NS 100 MLS Q8H (Pharmacy Admix) IVPB SCH ×3 (05:55→21:48)
[2018-12-09] MEDS: Gabapentin CAP(*) 300 MG PO SCH ×2 (07:52→20:11)
[2018-12-09] MEDS: Famotidine TAB* 20 MG PO SCH (07:52)
[2018-12-09] MEDS: Magnesium Oxide TAB* 400 MG PO SCH ×2 (07:52→20:12)
[2018-12-09] MEDS: Nicotine PATCH 21 MG/24 HR* PATCH TRANSDERM SCH (12:14)
[2018-12-09] MEDS: Lidocaine PATCH 5%* 1 PATCH TRANSDERM SCH (12:14)
[2018-12-09] MEDS: Baclofen TAB* 10 MG PO PRN (18:28)
[2018-12-09] MEDS: QUEtiapine TAB* 25 MG PO SCH (20:11)
[2018-12-09] MEDS: Nicotine Patch Removal NOTE PATCH OFF SCH (20:12)
[2018-12-09] MEDS: Lidocaine Patch REMOVE* 1 NOTE MISC PATCH OFF SCH (20:12)
[2018-12-10] MEDS: Methadone TAB* 5 MG PO SCH ×4 (03:00→20:18)
[2018-12-10] MEDS: Methadone TAB* 10 MG PO SCH ×4 (03:00→20:18)
[2018-12-10] MEDS: Heparin VIAL(*) 5000 UNITS/ML VIAL (FIVE THOUSAND) SUBCUT SCH ×3 (06:08→20:42)
[2018-12-10] MEDS: ceFAZolin* 2 GM in NS 100 MLS Q8H (Pharmacy Admix) IVPB SCH ×3 (06:09→22:18)
[2018-12-10] MEDS: Baclofen TAB* 10 MG PO PRN (08:26)
[2018-12-10] MEDS: Magnesium Oxide TAB* 400 MG PO SCH ×2 (08:27→20:19)
[2018-12-10] MEDS: Famotidine TAB* 20 MG PO SCH (08:27)
[2018-12-10] MEDS: Gabapentin CAP(*) 300 MG PO SCH ×2 (08:28→20:18)
[2018-12-10] MEDS: Nicotine PATCH 21 MG/24 HR* PATCH TRANSDERM SCH (08:28)
[2018-12-10] MEDS: Lidocaine PATCH 5%* 1 PATCH TRANSDERM SCH (08:29)
[2018-12-10] MEDS: QUEtiapine TAB* 25 MG PO SCH (20:19)
[2018-12-10] MEDS: Lidocaine Patch REMOVE* 1 NOTE MISC PATCH OFF SCH (20:19)
[2018-12-10] MEDS: Nicotine Patch Removal NOTE PATCH OFF SCH (20:19)
[2018-12-11] MEDS: Methadone TAB* 5 MG PO SCH ×4 (03:11→20:55)
[2018-12-11] MEDS: Methadone TAB* 10 MG PO SCH ×4 (03:11→20:55)
[2018-12-11] MEDS: ceFAZolin* 2 GM in NS 100 MLS Q8H (Pharmacy Admix) IVPB SCH ×3 (05:41→22:03)
[2018-12-11] MEDS: Heparin VIAL(*) 5000 UNITS/ML VIAL (FIVE THOUSAND) SUBCUT SCH ×3 (05:41→22:04)
[2018-12-11] MEDS: Famotidine TAB* 20 MG PO SCH (09:32)
[2018-12-11] MEDS: Magnesium Oxide TAB* 400 MG PO SCH ×2 (09:32→20:55)
[2018-12-11] MEDS: Lidocaine PATCH 5%* 1 PATCH TRANSDERM SCH (09:33)
[2018-12-11] MEDS: Nicotine PATCH 21 MG/24 HR* PATCH TRANSDERM SCH (09:33)
[2018-12-11] MEDS: Gabapentin CAP(*) 300 MG PO SCH ×2 (10:56→20:55)
--- NOTE | 2018-12-11 15:10 | PN ---
Progress Note - Progress Note Date of Service: 12/11/18 SOAP: Subjective: CC: spine infection HPI: 43 year old woman with JULIO CESAR and paraspinal abscess s/p I&D and fixation; here on IV antibiotics. No back pain, incision healed. No fever, rash, or diarrhea. Objective: Vital Signs Temp 37.2 C 12/02/18 15:24 Pulse 83 12/02/18 15:24 Resp 16 12/03/18 08:14 BP 119/78 12/02/18 15:24 Pulse Ox 97 12/02/18 15:24 Intake & Output 12/02/18 12/03/18 12/03/18 18:59 06:59 18:59 Intake Total 450 150 Balance 450 150 Intake: IV Fluids 40 NS (0.9%) 40 IVPB 100 110 ABX - CEFAZOLIN 100 110 Oral 350 0 Other: # Bowel Movements 0 0 # Voids 0 0 Gen:awake, no distress HEENT: no thrush Heart:RRR no murmur Lungs:CTA BL Abd:+BS NTND soft Skin: no rash MSK: L spine incision intact no erythema Assessment: 1. MSSA epidural abscess, paraspinal abscess, osteodiskitis 2. HCV Ab+; past VL- 3. elevated CRP improving Plan: 1. continue ancef 2 gm IV Q8hrs day 33/, then keflex for 28 days; if crp normalized will change to po sooner
[2018-12-11] MEDS: Nicotine Inhaler* 10 MG AMP INH PRN (20:55)
[2018-12-11] MEDS: QUEtiapine TAB* 25 MG PO SCH (20:55)
[2018-12-11] MEDS: Lidocaine Patch REMOVE* 1 NOTE MISC PATCH OFF SCH (20:56)
[2018-12-11] MEDS: Nicotine Patch Removal NOTE PATCH OFF SCH (20:56)
[2018-12-12] MEDS: Methadone TAB* 10 MG PO SCH ×4 (01:47→20:25)
[2018-12-12] MEDS: Methadone TAB* 5 MG PO SCH ×4 (01:47→20:25)
[2018-12-12] MEDS: Heparin VIAL(*) 5000 UNITS/ML VIAL (FIVE THOUSAND) SUBCUT SCH ×3 (05:20→21:31)
[2018-12-12] MEDS: ceFAZolin* 2 GM in NS 100 MLS Q8H (Pharmacy Admix) IVPB SCH ×3 (05:46→21:29)
[2018-12-12 06:04] LABS: ABS Basophils 0.1 10^3/ul (0-0.2); ABS Eosinophils 0.2 10^3/ul (0-0.6); ABS Lymphocytes 3.3 10^3/ul (1.0-4.8); ABS Monocytes 0.8 10^3/ul (0-0.8); ABS Neutrophils 2.7 10^3/ul (1.5-7.7); ABS Nucleated RBC 0 10^3/ul; Eosinophil % 2.7 %; Hematocrit 32 % (33-41); Hemoglobin 10.7 g/dL (12.0-16.0); Lymphocyte % 46.8 %; Mean Corpuscular HGB Conc 34 g/dL (31-36); Mean Corpuscular Hemoglobin 29 pg (27-31); Mean Corpuscular Volume 86 fL (80-97); Mean Platelet Volume 6.2 fL (7.4-10.4); Nucleated Red Blood Cells % 0.1; Platelet Count 243 10^3/uL (150-450); Red Cell Distribution Width 15 % (10.5-15)
[2018-12-12 06:25] LABS: Albumin 3.3 g/dL (3.2-5.2); Albumin/Globulin Ratio 0.6 (1-3); BUN/Creatinine Ratio 21.7 (8-20); C Reactive Protein 33.88 mg/L (<8.01); Calcium 9.7 mg/dL (8.6-10.3); EGFR African American 133.3 (>60); EGFR Non-African American 110.2 (>60); Globulin 5.2 g/dL (2-4); Potassium 4.1 mmol/L (3.5-5.0); Total Bilirubin 0.2 mg/dL (0.2-1.0); Total Protein 8.5 g/dL (6.4-8.9)
[2018-12-12] MEDS: Gabapentin CAP(*) 300 MG PO SCH ×2 (09:14→21:30)
[2018-12-12] MEDS: Nicotine PATCH 21 MG/24 HR* PATCH TRANSDERM SCH (09:15)
[2018-12-12] MEDS: Magnesium Oxide TAB* 400 MG PO SCH ×2 (09:15→21:30)
[2018-12-12] MEDS: Famotidine TAB* 20 MG PO SCH (09:15)
[2018-12-12] MEDS: Lidocaine PATCH 5%* 1 PATCH TRANSDERM SCH (09:15)
--- NOTE | 2018-12-12 16:00 | PN ---
Subjective Date of Service: 12/12/18 Interval History: Pt feels well. Uses a cane for mild residual left leg weakness Objective Active Medications: Acetaminophen (Tylenol Tab*) 650 mg PO Q6H PRN PRN Reason: FEVER/PAIN Baclofen (Lioresal Tab*) 10 mg PO BID PRN PRN Reason: SPASMS - BACK Last Admin: 12/10/18 08:26 Dose: 10 mg Docusate Sodium (Colace Cap*) 100 mg PO DAILY PRN PRN Reason: CONSTIPATION Famotidine (Pepcid Tab*) 20 mg PO DAILY [facility] Last Admin: 12/12/18 09:15 Dose: 20 mg Gabapentin (Neurontin Cap(*)) 300 mg PO BID [facility] Last Admin: 12/12/18 09:14 Dose: 300 mg Heparin Sodium (Porcine) (Heparin Vial(*)) 5,000 units SUBCUT Q8HR [facility] Last Admin: 12/12/18 14:25 Dose: Not Given Cefazolin Sodium 2 gm/ Sodium (Chloride) 100 mls @ 200 mls/hr IVPB Q8HR [facility] Last Admin: 12/12/18 14:24 Dose: 200 mls/hr Lidocaine (Lidoderm 5% Patch*) 1 patch TRANSDERM DAILY [facility] Last Admin: 12/12/18 09:15 Dose: 1 patch Magnesium Oxide (Magox 400 Tab*) 400 mg PO BID [facility] Last Admin: 12/12/18 09:15 Dose: 400 mg Methadone HCl (Dolophine Tab*) 10 mg PO Q6H [facility] Last Admin: 12/12/18 14:24 Dose: 10 mg Methadone HCl (Dolophine Tab*) 5 mg PO Q6H [facility] Last Admin: 12/12/18 14:24 Dose: 5 mg Nicotine (Nicotine Patch 21 Mg/24 Hr*) 1 patch TRANSDERM DAILY@0800 [facility] Last Admin: 12/12/18 09:15 Dose: 1 patch Nicotine (Nicotine Inhaler*) 10 mg INH Q2H PRN PRN Reason: CRAVING Last Admin: 12/11/18 20:55 Dose: 10 mg Ondansetron HCl (Zofran Inj*) 4 mg IV Q6H PRN PRN Reason: NAUSEA Pharmacy Profile Note (Lidocaine Patch Remove*) 1 note PATCH OFF 2100 [facility] Last Admin: 12/11/18 20:56 Dose: 1 note Pharmacy Profile Note (Nicotine Patch Removal Note*) 1 note PATCH OFF 2100 [facility] Last Admin: 12/11/18 20:56 Dose: 1 note Prochlorperazine (Compazine Tab*) 10 mg PO Q8HR PRN PRN Reason: NAUSEA Quetiapine Fumarate (Seroquel Tab*) 50 mg PO BEDTIME [facility] Last Admin: 12/11/18 20:55 Dose: 50 mg Vital Signs - 8 hr 12/12/18 12/12/18 12/12/18 07:56 09:13 09:14 Temperature 98.5 F Pulse Rate 77 Respiratory 18 18 18 Rate Blood Pressure 109/68 (mmHg) O2 Sat by Pulse 97 Oximetry 12/12/18 12/12/18 12/12/18 09:42 09:45 09:47 Temperature Pulse Rate Respiratory 16 16 16 Rate Blood Pressure (mmHg) O2 Sat by Pulse Oximetry 12/12/18 14:24 Temperature Pulse Rate Respiratory 16 Rate Blood Pressure (mmHg) O2 Sat by Pulse Oximetry Oxygen Devices in Use Now: None Appearance: 43 yo F in NAD, aAOx3 Eyes: No Scleral Icterus, PERRLA Ears/Nose/Mouth/Throat: NL Teeth, Lips, Gums, Mucous Membranes Moist Neck: NL Appearance and Movements; NL JVP, Trachea Midline Respiratory: Symmetrical Chest Expansion and Respiratory Effort, Clear to Auscultation Cardiovascular: NL Sounds; No Murmurs; No JVD, RRR Abdominal: NL Sounds; No Tenderness; No Distention Lymphatic: No Cervical Adenopathy Extremities: No Edema, No Clubbing, Cyanosis Skin: No Nodules or Sclerosis, - - back incision healed, sutures in place Neurological: Alert and Oriented x 3, - - minimally decreased left leg strenght Result Diagrams: 12/12/18 05:19 12/12/18 05:19 Assess/Plan/Problems-Billing Assessment: Swing status for IV antibiotics - Patient Problems (1) Epidural abscess Comment: - MSSA epidural abscess, paraspinal abscess, osteodiskitis - S/P lumbar washout and decompression - Ambulates well with a cane - CARMELO showed no vegetation on valves - PICC removed; most recent blood cultures negative - ID following; Continue Cefazolin, no recent fevers- will need total of 6-8 weeks of IV antibiotics from surgery- completion of 6 weeks will be 12/22/2018 - sutures will remain in place for 6 weeks according to neurosurgery - Gabapentin to BID for pain management - Baclofen PRN - Continue methadone. - Needs weekly cbc, cmp, crp. Last noted 12/11/18 (2) DVT prophylaxis Comment: - Heparin SQ Status and Disposition: Swing.
[2018-12-12] MEDS: QUEtiapine TAB* 25 MG PO SCH (21:31)
[2018-12-12] MEDS: Nicotine Inhaler* 10 MG AMP INH PRN (21:32)
[2018-12-12] MEDS: Lidocaine Patch REMOVE* 1 NOTE MISC PATCH OFF SCH (21:32)
[2018-12-12] MEDS: Nicotine Patch Removal NOTE PATCH OFF SCH (21:32)
[2018-12-13] MEDS: Methadone TAB* 5 MG PO SCH ×4 (03:59→21:30)
[2018-12-13] MEDS: Methadone TAB* 10 MG PO SCH ×4 (03:59→21:30)
[2018-12-13] MEDS: Heparin VIAL(*) 5000 UNITS/ML VIAL (FIVE THOUSAND) SUBCUT SCH ×3 (05:47→21:30)
[2018-12-13] MEDS: ceFAZolin* 2 GM in NS 100 MLS Q8H (Pharmacy Admix) IVPB SCH ×3 (05:47→21:29)
[2018-12-13] MEDS: Famotidine TAB* 20 MG PO SCH (07:48)
[2018-12-13] MEDS: Lidocaine PATCH 5%* 1 PATCH TRANSDERM SCH (07:48)
[2018-12-13] MEDS: Gabapentin CAP(*) 300 MG PO SCH ×2 (07:48→21:30)
[2018-12-13] MEDS: Nicotine PATCH 21 MG/24 HR* PATCH TRANSDERM SCH (07:48)
[2018-12-13] MEDS: Magnesium Oxide TAB* 400 MG PO SCH ×2 (07:48→21:30)
--- NOTE | 2018-12-13 10:55 | PN ---
Progress Note - Progress Note Date of Service: 12/13/18 SOAP: Subjective: CC: Spine infection HPI: Ms. Herrera is a 43 yo female with PMH significant possible seizure disorder and polysubstance abuse, tobacco abuse and anxiety. Who was found to have an epidural abscess and paraspinal abscess s/p I&D and fixation. 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 Denies any issues or complaints. Denies fever, chills, rash, back pain, diarrhea, nausea or vomiting. She is anxious to get home. Objective: Vital Signs 12/13/18 12/13/18 12/13/18 07:11 07:12 07:48 Temperature 98.1 F Pulse Rate 70 Respiratory 16 16 16 Rate Blood Pressure 111/71 (mmHg) O2 Sat by Pulse 99 Oximetry Physical Exam: General: NAD, sitting up on the side of the bed Neurological: Alert and Oriented x4. VELEZ and good strength in bilateral LEs Cardiovascular: Heart rate regular, no murmur Respiratory: Lung sounds clear bilateral Abdominal: Bowel sounds present, ABD soft, non tender and non distended Skin: Incision to midline back well approximated with sutures intact, open to air. No surrounding erythema or drainage. Laboratory Last Values WBC 7.0 10^3/uL (3.5-10.8) 12/12/18 05:19 RBC 3.70 10^6 /uL (3.70-4.87) 12/12/18 05:19 Hgb 10.7 g/dL (12.0-16.0) L 12/12/18 05:19 Hct 32 % (33-41) L 12/12/18 05:19 MCV 86 fL (80-97) 12/12/18 05:19 MCH 29 pg (27-31) 12/12/18 05:19 MCHC 34 g/dL (31-36) 12/12/18 05:19 RDW 15 % (10.5-15) 12/12/18 05:19 Plt Count 243 10^3/uL (150-450) 12/12/18 05:19 MPV 6.2 fL (7.4-10.4) L 12/12/18 05:19 Neut % (Auto) 38.4 % 12/12/18 05:19 Lymph % (Auto) 46.8 % 12/12/18 05:19 [place] % (Auto) 11.1 % 12/12/18 05:19 Eos % (Auto) 2.7 % 12/12/18 05:19 Baso % (Auto) 1.0 % 12/12/18 05:19 Absolute Neuts (auto) 2.7 10^3/ul (1.5-7.7) 12/12/18 05:19 Absolute Lymphs (auto) 3.3 10^3/ul (1.0-4.8) 12/12/18 05:19 Absolute Monos (auto) 0.8 10^3/ul (0-0.8) 12/12/18 05:19 Absolute Eos (auto) 0.2 10^3/ul (0-0.6) 12/12/18 05:19 Absolute Basos (auto) 0.1 10^3/ul (0-0.2) 12/12/18 05:19 Absolute Nucleated RBC 0 10^3/ul 12/12/18 05:19 Nucleated RBC % 0.1 12/12/18 05:19 Sodium 135 mmol/L (135-145) 12/12/18 05:19 Potassium 4.1 mmol/L (3.5-5.0) 12/12/18 05:19 Chloride 98 mmol/L (101-111) L 12/12/18 05:19 Carbon Dioxide 29 mmol/L (22-32) 12/12/18 05:19 Anion Gap 8 mmol/L (2-11) 12/12/18 05:19 BUN 13 mg/dL (6-24) 12/12/18 05:19 Creatinine 0.60 mg/dL (0.51-0.95) 12/12/18 05:19 Est GFR ( Amer) 133.3 (>60) 12/12/18 05:19 Est GFR (Non-Af Amer) 110.2 (>60) 12/12/18 05:19 BUN/Creatinine Ratio 21.7 (8-20) H 12/12/18 05:19 Glucose 85 mg/dL (70-100) 12/12/18 05:19 Calcium 9.7 mg/dL (8.6-10.3) 12/12/18 05:19 Total Bilirubin 0.20 mg/dL (0.2-1.0) 12/12/18 05:19 AST 14 U/L (13-39) 12/12/18 05:19 ALT 3 U/L (7-52) L 12/12/18 05:19 Alkaline Phosphatase 107 U/L (34-104) H 12/12/18 05:19 C-Reactive Protein 33.88 mg/L (<8.01) H 12/12/18 05:19 Total Protein 8.5 g/dL (6.4-8.9) 12/12/18 05:19 Albumin 3.3 g/dL (3.2-5.2) 12/12/18 05:19 Globulin 5.2 g/dL (2-4) H 12/12/18 05:19 Albumin/Globulin Ratio 0.6 (1-3) L 12/12/18 05:19 Assessment: 1. MSSA epidural abscess, paraspinal abscess, and osteodiskitis. Afebrile and no leukocytosis. Denies back pain or bowel/bladder issues 2. HCV positive antibody 3. Elevated CRP, improving Plan: Continue ancef 2 gm IV Q8H, day 35/42, then Keflex 500 mg PO TID for 28 days. If CRP has normalized when checked next week can consider changing to PO sooner.
[2018-12-13] MEDS ORDERED: NS 0.9% 100 ML* 100 ML ONE (14:25)
[2018-12-13] MEDS: Baclofen TAB* 10 MG PO PRN (14:49)
[2018-12-13] MEDS: QUEtiapine TAB* 25 MG PO SCH (21:30)
[2018-12-13] MEDS: Nicotine Inhaler* 10 MG AMP INH PRN (21:30)
[2018-12-13] MEDS: Nicotine Patch Removal NOTE PATCH OFF SCH (21:38)
[2018-12-13] MEDS: Lidocaine Patch REMOVE* 1 NOTE MISC PATCH OFF SCH (21:38)
[2018-12-14] MEDS: Methadone TAB* 10 MG PO SCH ×4 (05:51→21:01)
[2018-12-14] MEDS: Methadone TAB* 5 MG PO SCH ×4 (05:51→21:02)
[2018-12-14] MEDS: Heparin VIAL(*) 5000 UNITS/ML VIAL (FIVE THOUSAND) SUBCUT SCH ×3 (06:22→21:03)
[2018-12-14] MEDS: ceFAZolin* 2 GM in NS 100 MLS Q8H (Pharmacy Admix) IVPB SCH ×3 (06:23→21:02)
[2018-12-14] MEDS: Gabapentin CAP(*) 300 MG PO SCH ×2 (07:51→21:01)
[2018-12-14] MEDS: Famotidine TAB* 20 MG PO SCH (07:52)
[2018-12-14] MEDS: Lidocaine PATCH 5%* 1 PATCH TRANSDERM SCH (07:52)
[2018-12-14] MEDS: Magnesium Oxide TAB* 400 MG PO SCH ×2 (07:52→21:01)
[2018-12-14] MEDS: Nicotine PATCH 21 MG/24 HR* PATCH TRANSDERM SCH (07:54)
--- NOTE | 2018-12-14 14:07 | PN ---
Progress Note - Progress Note Date of Service: 12/14/18 SOAP: Subjective: CC: Spine infection HPI: Ms. Herrera is a 43 yo female with PMH significant possible seizure disorder and polysubstance abuse, tobacco abuse and anxiety. Who was found to have an epidural abscess and paraspinal abscess s/p I&D and fixation. She is here to complete a course of manager long term care IV ABX. Denies any issues or complaints. Denies fever, chills, rash, back pain, diarrhea, nausea or vomiting. She is anxious to get home, she hopes to get home next week. Objective: Vital Signs - 8 hr 12/14/18 07:43 Temperature 98.2 F Pulse Rate 66 Respiratory 16 Rate Blood Pressure 92/52 (mmHg) O2 Sat by Pulse 96 Oximetry Physical Exam: General: NAD, laying in bed Neurological: Alert and Oriented x4 Cardiovascular: Heart rate regular, no murmur Respiratory: Lungs clear bilateral Abdominal: Bowel wounds present, ABD soft, non tender and non distended Skin: No rashes or abnormalities seen on the exposed skin Laboratory Last Values WBC 7.0 10^3/uL (3.5-10.8) 12/12/18 05:19 RBC 3.70 10^6 /uL (3.70-4.87) 12/12/18 05:19 Hgb 10.7 g/dL (12.0-16.0) L 12/12/18 05:19 Hct 32 % (33-41) L 12/12/18 05:19 MCV 86 fL (80-97) 12/12/18 05:19 MCH 29 pg (27-31) 12/12/18 05:19 MCHC 34 g/dL (31-36) 12/12/18 05:19 RDW 15 % (10.5-15) 12/12/18 05:19 Plt Count 243 10^3/uL (150-450) 12/12/18 05:19 MPV 6.2 fL (7.4-10.4) L 12/12/18 05:19 Neut % (Auto) 38.4 % 12/12/18 05:19 Lymph % (Auto) 46.8 % 12/12/18 05:19 [place] % (Auto) 11.1 % 12/12/18 05:19 Eos % (Auto) 2.7 % 12/12/18 05:19 Baso % (Auto) 1.0 % 12/12/18 05:19 Absolute Neuts (auto) 2.7 10^3/ul (1.5-7.7) 12/12/18 05:19 Absolute Lymphs (auto) 3.3 10^3/ul (1.0-4.8) 12/12/18 05:19 Absolute Monos (auto) 0.8 10^3/ul (0-0.8) 12/12/18 05:19 Absolute Eos (auto) 0.2 10^3/ul (0-0.6) 12/12/18 05:19 Absolute Basos (auto) 0.1 10^3/ul (0-0.2) 12/12/18 05:19 Absolute Nucleated RBC 0 10^3/ul 12/12/18 05:19 Nucleated RBC % 0.1 12/12/18 05:19 Sodium 135 mmol/L (135-145) 12/12/18 05:19 Potassium 4.1 mmol/L (3.5-5.0) 12/12/18 05:19 Chloride 98 mmol/L (101-111) L 12/12/18 05:19 Carbon Dioxide 29 mmol/L (22-32) 12/12/18 05:19 Anion Gap 8 mmol/L (2-11) 12/12/18 05:19 BUN 13 mg/dL (6-24) 12/12/18 05:19 Creatinine 0.60 mg/dL (0.51-0.95) 12/12/18 05:19 Est GFR ( Amer) 133.3 (>60) 12/12/18 05:19 Est GFR (Non-Af Amer) 110.2 (>60) 12/12/18 05:19 BUN/Creatinine Ratio 21.7 (8-20) H 12/12/18 05:19 Glucose 85 mg/dL (70-100) 12/12/18 05:19 Calcium 9.7 mg/dL (8.6-10.3) 12/12/18 05:19 Total Bilirubin 0.20 mg/dL (0.2-1.0) 12/12/18 05:19 AST 14 U/L (13-39) 12/12/18 05:19 ALT 3 U/L (7-52) L 12/12/18 05:19 Alkaline Phosphatase 107 U/L (34-104) H 12/12/18 05:19 C-Reactive Protein 33.88 mg/L (<8.01) H 12/12/18 05:19 Total Protein 8.5 g/dL (6.4-8.9) 12/12/18 05:19 Albumin 3.3 g/dL (3.2-5.2) 12/12/18 05:19 Globulin 5.2 g/dL (2-4) H 12/12/18 05:19 Albumin/Globulin Ratio 0.6 (1-3) L 12/12/18 05:19 Assessment: 1. MSSA epidural abscess, paraspinal abscess, and osteodiskitis. Afebrile and no leukocytosis. Denies back pain or bowel/bladder issues 2. HCV positive antibody 3. Elevated CRP, improving Plan: Continue ancef 2 gm IV Q8H, day 36/42, then Keflex 500 mg PO TID for 28 days. If CRP has normalized when checked next week can consider changing to PO sooner. Will check follow up labs on Sunday 12/17.
[2018-12-14] MEDS: Baclofen TAB* 10 MG PO PRN (14:37)
[2018-12-14] MEDS: QUEtiapine TAB* 25 MG PO SCH (21:01)
[2018-12-14] MEDS: Lidocaine Patch REMOVE* 1 NOTE MISC PATCH OFF SCH (21:04)
[2018-12-14] MEDS: Nicotine Patch Removal NOTE PATCH OFF SCH (21:04)
[2018-12-14] MEDS: Nicotine Inhaler* 10 MG AMP INH PRN (21:09)
[2018-12-15] MEDS: Methadone TAB* 10 MG PO SCH ×4 (04:44→20:26)
[2018-12-15] MEDS: Methadone TAB* 5 MG PO SCH ×4 (04:45→20:25)
[2018-12-15] MEDS: Heparin VIAL(*) 5000 UNITS/ML VIAL (FIVE THOUSAND) SUBCUT SCH ×3 (05:25→23:44)
[2018-12-15] MEDS: ceFAZolin* 2 GM in NS 100 MLS Q8H (Pharmacy Admix) IVPB SCH ×3 (05:55→22:05)
[2018-12-15] MEDS: Lidocaine PATCH 5%* 1 PATCH TRANSDERM SCH (08:45)
[2018-12-15] MEDS: Nicotine PATCH 21 MG/24 HR* PATCH TRANSDERM SCH (08:45)
[2018-12-15] MEDS: Gabapentin CAP(*) 300 MG PO SCH ×2 (08:46→20:23)
[2018-12-15] MEDS: Famotidine TAB* 20 MG PO SCH (08:47)
[2018-12-15] MEDS: Magnesium Oxide TAB* 400 MG PO SCH ×2 (08:47→20:23)
[2018-12-15] MEDS: Nicotine Inhaler* 10 MG AMP INH PRN (11:24)
[2018-12-15] MEDS: Baclofen TAB* 10 MG PO PRN (14:38)
[2018-12-15] MEDS: QUEtiapine TAB* 25 MG PO SCH (20:24)
[2018-12-15] MEDS: Lidocaine Patch REMOVE* 1 NOTE MISC PATCH OFF SCH (22:01)
[2018-12-15] MEDS: Nicotine Patch Removal NOTE PATCH OFF SCH (22:02)
[2018-12-16] MEDS: Methadone TAB* 10 MG PO SCH ×4 (05:35→21:45)
[2018-12-16] MEDS: Methadone TAB* 5 MG PO SCH ×4 (05:37→21:45)
[2018-12-16] MEDS: Heparin VIAL(*) 5000 UNITS/ML VIAL (FIVE THOUSAND) SUBCUT SCH ×3 (06:37→21:16)
[2018-12-16] MEDS: ceFAZolin* 2 GM in NS 100 MLS Q8H (Pharmacy Admix) IVPB SCH ×3 (06:37→21:44)
[2018-12-16 07:23] LABS: Albumin 3.3 g/dL (3.2-5.2); Albumin/Globulin Ratio 0.6 (1-3); BUN/Creatinine Ratio 22.6 (8-20); C Reactive Protein 26.87 mg/L (<8.01); Calcium 9.6 mg/dL (8.6-10.3); EGFR African American 128.4 (>60); EGFR Non-African American 106.1 (>60); Globulin 5.2 g/dL (2-4); Magnesium 1.6 mg/dL (1.9-2.7); Phosphorus 4.8 mg/dL (2.5-5.0); Total Bilirubin 0.2 mg/dL (0.2-1.0); Total Protein 8.5 g/dL (6.4-8.9)
[2018-12-16 07:25] LABS: ABS Basophils 0.1 10^3/ul (0-0.2); ABS Eosinophils 0.3 10^3/ul (0-0.6); ABS Lymphocytes 3.6 10^3/ul (1.0-4.8); ABS Monocytes 0.8 10^3/ul (0-0.8); ABS Neutrophils 2.6 10^3/ul (1.5-7.7); ABS Nucleated RBC 0 10^3/ul; Eosinophil % 3.9 %; Hematocrit 32 % (33-41); Hemoglobin 10.8 g/dL (12.0-16.0); Lymphocyte % 49.2 %; Mean Corpuscular HGB Conc 34 g/dL (31-36); Mean Corpuscular Hemoglobin 29 pg (27-31); Mean Corpuscular Volume 86 fL (80-97); Mean Platelet Volume 6.2 fL (7.4-10.4); Nucleated Red Blood Cells % 0; Platelet Count 245 10^3/uL (150-450); Red Blood Count 3.76 10^6 /uL (3.70-4.87); Red Cell Distribution Width 15 % (10.5-15); White Blood Count 7.4 10^3/uL (3.5-10.8)
[2018-12-16] MEDS ORDERED: Magnesium Sulf 4 GM/100 ML IV* 4,000 MG/100 ML BAG IVPB ONE (07:36)
[2018-12-16] MEDS: Nicotine PATCH 21 MG/24 HR* PATCH TRANSDERM SCH (08:49)
[2018-12-16] MEDS: Famotidine TAB* 20 MG PO SCH (08:50)
[2018-12-16] MEDS: Gabapentin CAP(*) 300 MG PO SCH ×2 (08:50→21:45)
[2018-12-16] MEDS: Lidocaine PATCH 5%* 1 PATCH TRANSDERM SCH (08:50)
[2018-12-16] MEDS: Nicotine Inhaler* 10 MG AMP INH PRN (08:54)
[2018-12-16] MEDS: Magnesium Oxide TAB* 400 MG PO SCH ×2 (09:03→21:46)
--- NOTE | 2018-12-16 12:06 | PN ---
Subjective Date of Service: 12/16/18 Interval History: Pt seen and examined. Meds and labs reviewed. CC: N/A ROS: Denied PUCKETT/dizziness, F/C, N/V, CP, SOB, increased cough, sputum production , abd pain, diarrhea, constipation, dysuria, myalgias, arthralgias, throat pain , and new skin lesions. The rest of the 14 point ROS are unremarkable. PHYSICAL EXAM: GEN APPEARANCE: Awake, not in acute distress HEENT: NC/AT, PERRLA, moist oral mucosa, (-) throat erythema NECK: Soft, supple, (-) cervical LAD, (-)JVD HEART: S1S2 WNL, RRR, No MRG CHEST: CTA, BL, GAE, No W/R/R ABD: Soft, ND/NT, NABS 4x Q EXT: No C/C/E SKIN: Warm to touch, post-surgical back wound appears clean with sutures PSYCH: No active psychosis, hallucinations, depression, SI/HI Objective Active Medications: Acetaminophen (Tylenol Tab*) 650 mg PO Q6H PRN PRN Reason: FEVER/PAIN Baclofen (Lioresal Tab*) 10 mg PO BID PRN PRN Reason: SPASMS - BACK Last Admin: 12/15/18 14:38 Dose: 10 mg Docusate Sodium (Colace Cap*) 100 mg PO DAILY PRN PRN Reason: CONSTIPATION Famotidine (Pepcid Tab*) 20 mg PO DAILY [facility] Last Admin: 12/16/18 08:50 Dose: 20 mg Gabapentin (Neurontin Cap(*)) 300 mg PO BID [facility] Last Admin: 12/16/18 08:50 Dose: 300 mg Heparin Sodium (Porcine) (Heparin Vial(*)) 5,000 units SUBCUT Q8HR [facility] Last Admin: 12/16/18 06:37 Dose: Not Given Cefazolin Sodium 2 gm/ Sodium (Chloride) 100 mls @ 200 mls/hr IVPB Q8HR [facility] Last Admin: 12/16/18 06:37 Dose: 200 mls/hr Lidocaine (Lidoderm 5% Patch*) 1 patch TRANSDERM DAILY [facility] Last Admin: 12/16/18 08:50 Dose: 1 patch Magnesium Oxide (Magox 400 Tab*) 400 mg PO BID [facility] Last Admin: 12/16/18 09:03 Dose: 400 mg Methadone HCl (Dolophine Tab*) 10 mg PO Q6H [facility] Last Admin: 12/16/18 08:51 Dose: 10 mg Methadone HCl (Dolophine Tab*) 5 mg PO Q6H [facility] Last Admin: 12/16/18 08:50 Dose: 5 mg Nicotine (Nicotine Patch 21 Mg/24 Hr*) 1 patch TRANSDERM DAILY@0800 [facility] Last Admin: 12/16/18 08:49 Dose: 1 patch Nicotine (Nicotine Inhaler*) 10 mg INH Q2H PRN PRN Reason: CRAVING Last Admin: 12/16/18 08:54 Dose: 10 mg Ondansetron HCl (Zofran Inj*) 4 mg IV Q6H PRN PRN Reason: NAUSEA Pharmacy Profile Note (Lidocaine Patch Remove*) 1 note PATCH OFF 2100 [facility] Last Admin: 12/15/18 22:01 Dose: 1 note Pharmacy Profile Note (Nicotine Patch Removal Note*) 1 note PATCH OFF 2100 [facility] Last Admin: 12/15/18 22:02 Dose: 1 note Prochlorperazine (Compazine Tab*) 10 mg PO Q8HR PRN PRN Reason: NAUSEA Quetiapine Fumarate (Seroquel Tab*) 50 mg PO BEDTIME [facility] Last Admin: 12/15/18 20:24 Dose: 50 mg Vital Signs - 8 hr 12/16/18 12/16/18 08:50 08:51 Respiratory 16 16 Rate Oxygen Devices in Use Now: None Result Diagrams: 12/16/18 06:55 12/16/18 06:55 Assess/Plan/Problems-Billing Assessment: Swing status for IV antibiotics - Patient Problems (1) Epidural abscess Current Visit: No Status: Acute Code(s): G06.2 - EXTRADURAL AND SUBDURAL ABSCESS, UNSPECIFIED SNOMED Code(s): 09774534 Comment: - MSSA epidural abscess, paraspinal abscess, osteodiskitis - S/P lumbar washout and decompression - Ambulates well with a cane - CARMELO showed no vegetation on valves - PICC removed; most recent blood cultures negative - ID following; Continue Cefazolin, no recent fevers- will need total of 6-8 weeks of IV antibiotics from surgery- completion of 6 weeks will be 12/22/2018 -Will await further ID suggestions in AM upon their review of data - sutures will remain in place for 6 weeks according to neurosurgery - Gabapentin to BID for pain management - Baclofen PRN - Continue methadone. - Needs weekly cbc, cmp, crp. Last noted 12/11/18 (2) Hypomagnesemia Current Visit: Yes Status: Acute Code(s): E83.42 - HYPOMAGNESEMIA SNOMED Code(s): 957745250 Comment: -Corrected -Will continue to watchful waiting (3) HCV antibody positive Current Visit: Yes Status: Acute Code(s): R76.8 - OTHER SPECIFIED ABNORMAL IMMUNOLOGICAL FINDINGS IN SERUM SNOMED Code(s): 225426568 Comment: -Will check for HCV viral load -Defer w/ID to F/U as outpt (4) DVT prophylaxis Current Visit: No Status: Acute Code(s): OHV9924 - SNOMED Code(s): 475632915 Comment: - Heparin SQq8H Status and Disposition: -Will discuss case w/ID in AM to see if pt can be D/Cd home or will need to finish IV before D/C
[2018-12-16] MEDS: Baclofen TAB* 10 MG PO PRN (15:49)
[2018-12-16] MEDS: QUEtiapine TAB* 25 MG PO SCH (21:45)
[2018-12-16] MEDS: Nicotine Patch Removal NOTE PATCH OFF SCH (21:46)
[2018-12-16] MEDS: Lidocaine Patch REMOVE* 1 NOTE MISC PATCH OFF SCH (21:46)
[2018-12-17] MEDS: Methadone TAB* 10 MG PO SCH ×3 (01:04→14:25)
[2018-12-17] MEDS: Methadone TAB* 5 MG PO SCH ×2 (01:04→08:19)
[2018-12-17] MEDS: Heparin VIAL(*) 5000 UNITS/ML VIAL (FIVE THOUSAND) SUBCUT SCH ×2 (05:33→14:28)
[2018-12-17] MEDS: ceFAZolin* 2 GM in NS 100 MLS Q8H (Pharmacy Admix) IVPB SCH ×2 (05:48→14:29)
[2018-12-17 06:50] LABS: ABS Eosinophils 0.3 10^3/ul (0-0.6); ABS Lymphocytes 3.5 10^3/ul (1.0-4.8); ABS Monocytes 0.8 10^3/ul (0-0.8); ABS Neutrophils 2.7 10^3/ul (1.5-7.7); Eosinophil % 4.5 %; Hematocrit 32 % (33-41); Hemoglobin 10.7 g/dL (12.0-16.0); Lymphocyte % 47.9 %; Mean Corpuscular HGB Conc 33 g/dL (31-36); Mean Corpuscular Hemoglobin 29 pg (27-31); Mean Corpuscular Volume 86 fL (80-97); Mean Platelet Volume 6.1 fL (7.4-10.4); Platelet Count 258 10^3/uL (150-450); Red Blood Count 3.71 10^6 /uL (3.70-4.87); Red Cell Distribution Width 15 % (10.5-15); White Blood Count 7.4 10^3/uL (3.5-10.8)
[2018-12-17 07:12] LABS: Albumin 3.3 g/dL (3.2-5.2); Albumin/Globulin Ratio 0.6 (1-3); BUN/Creatinine Ratio 21.1 (8-20); C Reactive Protein 25.04 mg/L (<8.01); Calcium 9.7 mg/dL (8.6-10.3); EGFR African American 109.8 (>60); EGFR Non-African American 90.7 (>60); Globulin 5.3 g/dL (2-4); Magnesium 1.7 mg/dL (1.9-2.7); Phosphorus 4.9 mg/dL (2.5-5.0); Potassium 4.2 mmol/L (3.5-5.0); Total Bilirubin 0.2 mg/dL (0.2-1.0); Total Protein 8.6 g/dL (6.4-8.9)
[2018-12-17 08:00] LABS: ABS Basophils 0.1 10^3/ul (0-0.2); ABS Nucleated RBC 0 10^3/ul; Nucleated Red Blood Cells % 0.1
[2018-12-17] MEDS ORDERED: Magnesium Sulf 4 GM/100 ML IV* 4,000 MG/100 ML BAG IVPB ONE (08:00)
[2018-12-17] MEDS: Gabapentin CAP(*) 300 MG PO SCH (08:17)
[2018-12-17] MEDS: Magnesium Oxide TAB* 400 MG PO SCH ×2 (08:20→14:25)
[2018-12-17] MEDS: Famotidine TAB* 20 MG PO SCH (08:20)
[2018-12-17] MEDS: Nicotine PATCH 21 MG/24 HR* PATCH TRANSDERM SCH (08:21)
[2018-12-17] MEDS: Lidocaine PATCH 5%* 1 PATCH TRANSDERM SCH (08:21)
[2018-12-17 09:10] VITALS: BP 99/65
--- NOTE | 2018-12-17 09:28 | PN ---
Progress Note - Progress Note Date of Service: 12/17/18 SOAP: Subjective: CC: Spine infection HPI: Ms. Herrera is a 43 yo female with PMH significant possible seizure disorder and polysubstance abuse, tobacco abuse and anxiety. She was found to have an epidural abscess and paraspinal abscess, s/p I&D and fixation. She is here to complete a course of skilled nursing IV ABX. Denies any issues or complaints. Denies fever, chills, rash, back pain, diarrhea, nausea or vomiting. She is up and ambulating in the halls without difficulty. She is anxious to get home, she hopes to get home this week. Objective: Vital Signs 12/17/18 12/17/18 12/17/18 07:56 08:00 08:17 Temperature 98.3 F Pulse Rate 79 Respiratory 16 18 16 Rate Blood Pressure 99/65 (mmHg) O2 Sat by Pulse 100 Oximetry Physical Exam: General: NAD, laying in bed Neurological: Alert and Oriented x4. Good strength bilateral LEs Cardiovascular: Heart rate regular, no murmur Respiratory: Lung sounds clear Abdominal: Bowel sounds +, ABD soft, non tender and non distended Musculoskeletal: VELEZ, no tenderness with palpation to the spine or back Skin: No rashes or abnormalities seen. Well approximated and healed incision to the lower back, sutures intact Laboratory Last Values WBC 7.4 10^3/uL (3.5-10.8) 12/17/18 06:29 RBC 3.71 10^6 /uL (3.70-4.87) 12/17/18 06:29 Hgb 10.7 g/dL (12.0-16.0) L 12/17/18 06:29 Hct 32 % (33-41) L 12/17/18 06:29 MCV 86 fL (80-97) 12/17/18 06:29 MCH 29 pg (27-31) 12/17/18 06:29 MCHC 33 g/dL (31-36) 12/17/18 06:29 RDW 15 % (10.5-15) 12/17/18 06:29 Plt Count 258 10^3/uL (150-450) 12/17/18 06:29 MPV 6.1 fL (7.4-10.4) L 12/17/18 06:29 Neut % (Auto) 35.8 % 12/17/18 06:29 Lymph % (Auto) 47.9 % 12/17/18 06:29 [place] % (Auto) 10.9 % 12/17/18 06:29 Eos % (Auto) 4.5 % 12/17/18 06:29 Baso % (Auto) 0.9 % 12/17/18 06:29 Absolute Neuts (auto) 2.7 10^3/ul (1.5-7.7) 12/17/18 06:29 Absolute Lymphs (auto) 3.5 10^3/ul (1.0-4.8) 12/17/18 06:29 Absolute Monos (auto) 0.8 10^3/ul (0-0.8) 12/17/18 06:29 Absolute Eos (auto) 0.3 10^3/ul (0-0.6) 12/17/18 06:29 Absolute Basos (auto) 0.1 10^3/ul (0-0.2) 12/17/18 06:29 Absolute Nucleated RBC 0 10^3/ul 12/17/18 06:29 Nucleated RBC % 0.1 12/17/18 06:29 Sodium 136 mmol/L (135-145) 12/17/18 06:29 Potassium 4.2 mmol/L (3.5-5.0) 12/17/18 06:29 Chloride 100 mmol/L (101-111) L 12/17/18 06:29 Carbon Dioxide 28 mmol/L (22-32) 12/17/18 06:29 Anion Gap 8 mmol/L (2-11) 12/17/18 06:29 BUN 15 mg/dL (6-24) 12/17/18 06:29 Creatinine 0.71 mg/dL (0.51-0.95) 12/17/18 06:29 Est GFR ( Amer) 109.8 (>60) 12/17/18 06:29 Est GFR (Non-Af Amer) 90.7 (>60) 12/17/18 06:29 BUN/Creatinine Ratio 21.1 (8-20) H 12/17/18 06:29 Glucose 83 mg/dL (70-100) 12/17/18 06:29 Calcium 9.7 mg/dL (8.6-10.3) 12/17/18 06:29 Phosphorus 4.9 mg/dL (2.5-5.0) 12/17/18 06:29 Magnesium 1.7 mg/dL (1.9-2.7) L 12/17/18 06:29 Total Bilirubin 0.20 mg/dL (0.2-1.0) 12/17/18 06:29 AST 14 U/L (13-39) 12/17/18 06:29 ALT 4 U/L (7-52) L 12/17/18 06:29 Alkaline Phosphatase 100 U/L (34-104) 12/17/18 06:29 C-Reactive Protein 25.04 mg/L (<8.01) H 12/17/18 06:29 Total Protein 8.6 g/dL (6.4-8.9) 12/17/18 06:29 Albumin 3.3 g/dL (3.2-5.2) 12/17/18 06:29 Globulin 5.3 g/dL (2-4) H 12/17/18 06:29 Albumin/Globulin Ratio 0.6 (1-3) L 12/17/18 06:29 Assessment: 1. MSSA epidural abscess, paraspinal abscess, and osteodiskitis. Afebrile and no leukocytosis. Denies back pain or bowel/bladder issues. CRP continues to be elevated, but trending down 2. HCV positive antibody 3. Elevated CRP, improving Plan: Ancef 2 gm IV Q8H, day 39/42, ok to change to Keflex 500 mg PO TID for 28 days starting today. Will need to follow up with ID outpatient in 1-2 weeks. Will also need an outpatient followup with neurosurgery for suture removal in the next 2 weeks.
[2018-12-17] MEDS: Nicotine Inhaler* 10 MG AMP INH PRN (10:41)
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
== END 2018-12-17 16:40 | disposition home or self-care (01) | DRG 49 ==
LOC: MED 15:03
PROVIDERS: ADMIT Hospitalist; ATTEND Student in an Organized Health Care Education/Training Program
DX: G06.2 Extradural and subdural abscess, unspecified (principal); E83.42 Hypomagnesemia; B19.20 Unspecified viral hepatitis C without hepatic coma; G89.29 Other chronic pain; M46.46 Discitis, unspecified, lumbar region; B95.61 Methicillin susceptible Staphylococcus aureus infection as the cause of diseases classified elsewhere; F41.9 Anxiety disorder, unspecified; R50.9 Fever, unspecified; I08.1 Rheumatic disorders of both mitral and tricuspid valves; Z72.0 Tobacco use
CPT/HCPCS: 36415; 80048; 80053; 83735; 84100; 85025; 86140; 87522; A9270-GY; J0690; J1644; J3475

== ENCOUNTER 2019-02-12 11:41 | Emergency (ER) | payer OTHER ==
[2019-02-12 11:48] VITALS: BP 134/84
--- OUTSIDE RECORDS SUMMARY | 2019-02-12 11:49 | XMS REPORT | Continuity of Care Document ---
:1975 External Reference #:[id number] Author Name Bailey Walter Care Team Providers Name Role Phone Rickey Samaniego M.D. 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 Payers Date Identification Numbers Payment Provider Subscriber Effective: 2019 Policy Number: [id number] Justino Herrera PayID: [id number] [address] [place] [id number] Expires: 2019 Policy Number: [id number] Medicaid [employer] Name: 1 1 [address] PayID: [id number] [place] [address] Expires: 2018 Policy Number: [id number] Justino Herrera PayID: [id number] [address] [place] [address] Expires: 2016 Policy Number: [id number] Medicaid [employer] Name: 1 1 [address] PayID: [id number] [place] [address] Expires: 2014 Policy Number: [employer] Medicaid [employer] [id number] PayID: [id number] [address] [address] [place] [address] Advance Directives Description No Information Available Problems Active Problems Provider Date Foot-drop Kevin Gallardo MD Onset: 01/09/2019 Screening for malignant neoplasm of cervix Kevin Gallardo MD Onset: 12/25/2018 Insomnia Kevin Gallardo MD Onset: 12/25/2018 Iron deficiency anemia Kevin Gallardo MD Onset: 12/25/2018 Low back pain Kevin Gallardo MD Onset: 12/25/2018 Chronic hepatitis C Kevin Gallardo MD Onset: 12/25/2018 Intraspinal abscess Kevin Gallardo MD Onset: 12/25/2018 Family History Description No Information Available Social History Type Date Description Comments Sex Unknown Tobacco Use Start: Unknown End: Unknown Patient is a former smoker Smoking Status Reviewed: 01/18/19 Patient is a former smoker Allergies, Adverse Reactions, Alerts Description No Known Drug Allergies Medications Active Medications SIG Qnty Indications Ordering Date Provider Ferrous Gluconate take 1 tab twice a 60tabs D50.9 Kevin Gallardo MD 12/25/2018 day 324(37.5Fe) mg Tablets Naproxen 1 by mouth twice a Unknown 500mg day Tablets Tylenol Extra 1-2 tabs by mouth Unknown Strength every 6 hours as 500mg needed Tablets Floranex 2 tabs by mouth Unknown Tablets once a day for 30 days (end date 01/23/19) Ibuprofen 1 tab every 6 hours Unknown 400mg as needed Tablets Keflex 1 by mouth three Unknown 500mg times a day Capsules Quetiapine Fumarate 1 tab by mouth every 30tabs G47.00 Kevin Gallardo MD night 50mg Tablets Nicotine one daily as Unknown Transdermal System directed Step 1 21mg/24HR Patches 24HR Nicotrol 1 cartridges every 2 Unknown 10mg hours as needed Inhaler Methadone HCL one by mouth every 6 Unknown 10mg hours as needed for Tablets pain Methadone HCL every 6 hours as Unknown 5mg needed Tablets Magnesium Oxide 1 by mouth three Unknown times a day 400mg Tablets Lidoderm 1 patch on 12 hours 30units M54.5 Kevin Gallardo MD 5% Patches then off 12 hours Gabapentin 1 by mouth three 90caps Kevin Gallardo MD 300mg times a day Capsules Famotidine 1 tab by mouth once Unknown 20mg a day Tablets Colace 1 tab twice daily as Unknown 100mg needed for Capsules constipation Baclofen 1 tab p.o twice a Unknown 10mg day as needed Tablets History Medications Robaxin-750 1-2 po q tid 50tabs Billy Bautista 08/26/2010 - 750mg Tablets prn muscle Raiza Go 12/13/2018 spasm Oxycodone HCL 1 tablet po q6 40tabs Billy Bautista 08/26/2010 - 10mg Tablets hrs prn pain Raiza Go 12/13/2018 Cyclobenzaprine HCL 1 by mouth 90tabs M54.5 Kevin Gallardo MD - 10mg three times a 01/09/2019 Tablets day Immunizations Description No Information Available Vital Signs Date Vital Result Comment 01/18/2019 11:35am Heart Rate 97 /min BP Systolic 122 mmHg BP Diastolic 78 mmHg Body Temperature 97.2 F Pain Level 6 01/09/2019 11:19am Weight 124.00 lb shoes on Heart Rate 80 /min BP Systolic 110 mmHg BP Diastolic 76 mmHg Respiratory Rate 16 /min Body Temperature 98.2 F Pain Level 2 O2 % BldC Oximetry 98 % 12/25/2018 9:27am Height 61 inches 5'1" Weight 117.00 lb Heart Rate 96 /min BP Systolic 120 mmHg BP Diastolic 76 mmHg Respiratory Rate 16 /min Body Temperature 98.6 F Pain Level 8 BMI (Body Mass Index) 22.1 kg/m2 Results Test Date Facility Test Result H/L Range Note Urine Culture And 01/09/2019 [facility] Urine Culture SEE RESULT [address] [place] [address] [phone] Urinalysis Profile 01/09/2019 [facility] Urine Color Yellow [address] [place] [address] [phone] Urine Appearance Cloudy Urine Specific [place] 1.014 N 1.010-1.030 Urine pH 7.0 N 5-9 Urine Urobilinogen Negative Negative Urine Ketones Negative Negative Urine Protein Negative Negative Urine Leukocytes Trace Abnormal Negative Urine Blood Negative Negative Urine Nitrite Negative Negative Urine Bilirubin Negative Negative Urine Glucose Negative Negative Urine White Blood Cell Trace(0-5/hpf) Absent Urine Red Blood Cell Trace(0-2/hpf) Absent Urine Bacteria 1+ Abnormal Absent Urine Squamous Epithelial Cell Present Abnormal Absent Laboratory test 11/26/2018 [facility] Surgical SEE RESULT [address] [place] [address] [phone] Comp Metabolic 11/08/2018 [facility] Sodium 136 mmol/L N 135- [address] [place] [address] [phone] Potassium 3.4 mmol/L Low 3.5-5.0 Chloride 102 [...] Egfr Non- 61.8 >60 Egfr 74.8 >60 3 Laboratory test 11/08/2018 [facility] C Reactive 394.09 mg/L High <8.[address] [place] [address] [phone] HCG < 0.60 mIU/mL 4 CBC Auto 11/08/2018 [facility] White Blood 12.0 10^3/uL High 3.5-10.[address] [place] [address] [phone] Red Blood Count 4.23 10^6/uL N 4.00-5.40 [...] Red Blood Cells % 0.1 Hepatitis 11/08/2018 [facility] Hepatitis B Nonreactive Nonreactive Acute Panel [address] [place] [address] Antigen [phone] Hepatitis B Core IgM Nonreactive Nonreactive Hepatitis A AB IgM Nonreactive Nonreactive HCV Index > 11.0 Index Hepatitis C Antibody High Reactive Abnormal Nonreactive 5 Urinalysis Profile 11/08/2018 [facility] Urine Color Glenna [address] [place], [place] [id number] [phone] Urine Appearance Cloudy Urine Specific [place] 1.021 N 1.010-1.030 Urine pH 5.0 N [...] Present Abnormal Absent Urine Culture And 11/08/2018 [facility] Urine Culture SEE RESULT [address] [place], [place] [address] [phone] CBC Auto Diff 10/19/2016 [facility] White Blood 7.6 10^3/uL N 3.5-[address] Count .8 [place], [place] [address] [phone] Red Blood Count 4.42 10^6/uL N 4.0-5.4 [...] Cells % 0.1 N Urinalysis Profile 10/19/2016 [facility] Urine Color Yellow N [address] [place] [address] [phone] Urine Appearance Cloudy N Urine Specific [place] 1.014 N 1.010-1.030 Urine pH 8.0 N [...] Present Abnormal Absent Comp Metabolic Panel 10/19/2016 [facility] Sodium 136 mmol/L N 133-145 [address] [place] [address] [phone] Potassium 4.1 mmol/L N 3.5-5.0 Chloride 106 [...] 107.2 N >60 Egfr 137.8 N >60 7 Laboratory test finding 10/19/2016 [facility] Lipase 30 U/L N 11.0-82.[address] [place] [address] [phone] HCG < 0.60 mIU/mL N 8 C Reactive Protein 4.74 mg/L N < 5.00 9 Urine Culture And 10/19/2016 [facility] Urine Culture SEE RESULT [address] [place] [address] [phone] 1 SEE RESULT BELOW Name: CHAPINCITO HERRERA : [address]: Kevin Gallardo MD Acct: [id number] Unit: [id number] AGE: 43 Location: [facility] Re01/09/19 SEX: F Status: REG REF SPEC: [id number] MELVINA: 01/09/19-[address]: Kevin Gallardo MD REQ: [id number] RECD: 01/09/19 STATUS: COMP _ SOURCE: URINE SPDC: ORDERED: Urine Culture Procedure Result Reported Site Urine Culture Final 01/10/19- 1208 ML No Growth (<1,000 CFU/mL) * ML - Main Lab . END OF REPORT DEPARTMENT OF PATHOLOGY, [address] [place] [address] Tristin Macias M.D. Director [facility] # [id number] 2 SEE RESULT BELOW Name: CHAPINCITO HERRERA : [address]: Omar Larkin MD Acct: [id number] Unit: [id number] AGE: 43 Location: [facility]- Re11/08/18 SEX: F Status: ADM IN SPEC: [id number] MELVINA: 11/26/18-[address] [facility] [address]: Agustin Mata MD REQ: [id number] RECD: 11/26/18 STATUS: DIEGO SANTORO DR: Omar Larkin MD _ ORDERED: LEVEL 4 FINAL DIAGNOSIS Duodenum, biopsy: -- Benign small intestinal mucosa with no significant pathologic abnormalities. -- No evidence of villous blunting or increased intraepithelial lymphocytes. CLINICAL HISTORY Anemia POST-OPERATIVE DIAGNOSIS EGD: esophagus - small hiatal hernia; gastric - normal, biopsy; duodenum - normal, biopsy; no ulcers GROSS DESCRIPTION The specimen is received in formalin labeled, Duodenal Biopsy, and consists of a 0.4 x 0.2 x 0.2 cm philip-pink irregular soft tissue fragment which is submitted entirely in one cassette. Signed by and Reported on: Pattie Bloom MD 11/27/18 1029 END OF REPORT DEPARTMENT OF PATHOLOGY, [address] [place] [address] Tristin Macias M.D. Director [facility] # [id number] 3 Because ethnic data is not always readily [...] 15-29 5 Kidney failure <15 (or dialysis) 4 <5.0 Negative 5.0 - 25.0 Indeterminate (Repeat testing recommended after 72 hours) >25.0 Positive Perimenopausal women can display HCG levels of up to 20 mIU/mL 5 High reactive sample are considered positive for Hepatitis C 6 SEE RESULT BELOW Name: CHAPINCITO HERRERA : [address]: Vonnie Beaulieu DO Acct: [id number] Unit: [id number] AGE: 43 Location: [place] [address] Re11/08/18 SEX: F Status: ADM IN SPEC: [id number] MELVINA: 11/08/[address] [facility] [address]: Brando Dotson MD REQ: [id number] RECD: 11/08/18 STATUS: ROSELIA SANTORO DR: Nick Alcocer MD _ SOURCE: URINE [facility] [place]: ORDERED: Urine Culture Procedure Result Reported Site Urine Culture Final 11/09/18- 1205 ML No Growth (<1,000 CFU/mL) * ML - Main Lab . END OF REPORT DEPARTMENT OF PATHOLOGY, [address] [place] [address] Tristin Macias M.D. Director [facility] # [id number] 7 Because ethnic data is not always readily [...] 15-29 5 Kidney failure <15 (or dialysis) 8 <5.0 Negative 5.0 - 25.0 Indeterminate (Repeat testing recommended after 72 hours) >25.0 Positive Perimenopausal women can display HCG levels of up to 20 mIU/mL 9 Acute inflammation: >10.00 10 SEE RESULT BELOW Name: SANDI HERRERABenny Soria : [address]: Gary Andrade MD Acct: [id number] Unit: [id number] AGE: 41 Location: [place] [address] Re10/19/16 Dis: 10/20/16 SEX: F Status: DIS Galdino SPEC: [id number] MELVINA: 10/19/[address] [facility] [address]: Shahzad Lara MD REQ: [id number] RECD: 10/19/16 STATUS: ROSELIA SANTORO DR: Saleem Cramer [employer] _ SOURCE: URINE [facility] [place]: ORDERED: Urine Culture Procedure Result Reported Site Urine Culture Final 10/21/16- 0832 ML Organism 1 STAPHYLOCOCCUS EPIDERMIDIS [place] Count >100,000 (Many) CFU/ML 1. STAPHYLOCOCCUS EPIDERMIDIS [...] These antibiotics are not available in the [facility] Formulary Contact the Microbiology Department for any additional antibiotic reporting. * ML - MAIN LAB ([facility]) . END OF REPORT * ML=Testing performed at Main Lab DEPARTMENT OF PATHOLOGY, [address] [place] [address] Tristin Macias M.D. Director [facility] # [id number] Procedures Date Code Description Status 11/21/2018 87864 EEG Recording Awake & Drowsy Completed 11/16/2018 20904 EKG, Interpretation Only Completed 11/13/2018 94668 Color Flow Doppler/Interp & Reprt Completed 11/13/2018 77646 Pulse Wave/Continuous-Interp.RPT Completed 11/13/2018 81895 Echocardiography, Transesophageal, Real Time W/Image 2D Completed W/W/O M-M 11/09/2018 66827 Laminectomy;For Intraspinal Lesion/Lumbar Completed 11/09/2018 84208 Laminectomy;For Intraspinal Lesion/Lumbar Completed 11/09/2018 73216 Post Segmental Instrumentation 3-6 Segments Completed 11/09/2018 71567 Post Segmental Instrumentation 3-6 Segments Completed 11/09/2018 19829 Arhtrodesis Post Lateral W/Lami-Lumbar Completed 11/09/2018 57323 Arhtrodesis Post Lateral W/Lami-Lumbar Completed 11/09/2018 09646 Allograft For Spine Surgery, Morselized Completed 01/13/2018 38705 EEG Recording Awake & Asleep Completed 01/12/2018 49390 EEG Recording Awake & Drowsy Completed Encounters Type Date Location Provider Dx Diagnosis Office Visit 01/09/2019 [facility] Kevin Gallardo MD G06.1 Intraspinal abscess 11:00a [facility] Teacher and granuloma B18.2 Chronic viral hepatitis C M54.5 Low back pain D50.9 Iron deficiency anemia, unspecified G47.00 Insomnia, unspecified R32 Unspecified urinary incontinence M21.372 Foot drop, left foot Office Visit 12/17/2018 [facility] Katarina Olivier G06.1 Intraspinal 8:46a For Infectious [place], [employer] abscess and Diseases granuloma M46.26 Osteomyelitis of vertebra, lumbar region M46.46 Discitis, unspecified, lumbar region Office Visit 12/16/2018 [facility] Orestes Blayne 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, Hospitalists unspecified E83.42 Hypomagnesemia R76.8 Other specified abnormal immunological findings in serum Office Visit 12/14/2018 [facility] G06.1 Intraspinal 8:46a For Infectious [place], [employer] abscess and Diseases granuloma M46.26 Osteomyelitis of vertebra, lumbar region M46.46 Discitis, unspecified, lumbar region Office Visit 12/13/2018 [facility] G06.1 Intraspinal 8:45a For Infectious [place], [employer] abscess and Diseases granuloma M46.26 Osteomyelitis of vertebra, lumbar region M46.46 Discitis, unspecified, lumbar region R79.82 Elevated C-reactive protein (CRP) Office Visit 12/12/2018 [facility] Klaudia Aguila G06.1 Intraspinal 9:36a cindy Foster M.D. abscess and Hospitalists granuloma M46.46 Discitis, unspecified, lumbar region Office Visit 12/11/2018 8:44a [facility] Kelly Adams G06.1 Intraspinal Infectious Raiza Samaniego abscess and Diseases granuloma M46.26 Osteomyelitis of vertebra, lumbar region M46.46 Discitis, unspecified, lumbar region Office Visit 12/05/2018 9:36a [facility] G06.1 Intraspinal Assoccindy NP abscess and Hospitalists granuloma Office Visit 12/03/2018 8:42a [facility] Kelly Adams G06.1 Intraspinal Infectious Raiza Samaniego abscess and Diseases granuloma M46.26 Osteomyelitis of vertebra, lumbar region M46.46 Discitis, unspecified, lumbar region R50.9 Fever, unspecified R79.82 Elevated C-reactive protein (CRP) Office Visit 11/30/2018 10:40a [facility] Shahzad G06.1 Intraspinal Assoc,ELIEZER Aleman abscess and Hospitalists granuloma R78.81 Bacteremia J96.01 Acute respiratory failure with hypoxia D50.0 Iron deficiency anemia secondary to blood loss (chronic) G89.29 Other chronic pain F41.9 Anxiety disorder, unspecified Z72.0 Tobacco use Office Visit 11/29/2018 10:40a [facility] Shahzad G06.1 Intraspinal Assoc,pc [place], [place] abscess and Hospitalists granuloma D64.9 Anemia, unspecified [facility] G[facility].1 Intr[facility]inal 11:08a Infectious [place], [employer] abscess and Diseases granuloma Office Visit 11/28/2018 [facility] Shahzad Rowe, G06.1 Intraspinal 10:39a Assoc,pc [place] abscess and Hospitalists granuloma D64.9 Anemia, unspecified Office Visit 11/27/2018 [facility] G06.1 Intraspinal 10:39a Assoc,pc [place], [employer] abscess and Hospitalists granuloma D64.9 Anemia, unspecified G93.41 Metabolic encephalopathy Office Visit 11/26/2018 [facility] G06.1 Intraspinal 10:39a Assoc,pc [place], [employer] abscess and Hospitalists granuloma D64.9 Anemia, unspecified G93.41 Metabolic encephalopathy Office Visit 11/25/2018 [facility] G06.1 Intraspinal 10:39a Assoc,pc [place], [employer] abscess and Hospitalists granuloma G93.41 Metabolic encephalopathy D64.9 Anemia, unspecified Office Visit 11/24/2018 [facility] G06.1 Intraspinal 10:38a Assoc,pc [place], [employer] abscess and Hospitalists granuloma G93.41 Metabolic encephalopathy D64.9 Anemia, unspecified Office Visit 11/23/2018 10:38a [facility] Shahzad G06.1 Intraspinal Assoc,pc [place] abscess and Hospitalists granuloma D64.9 Anemia, unspecified M79.605 Pain in left leg Office Visit 11/22/2018 10:37a [facility] Shahzad G06.1 Intraspinal Assoc,pc [place], [place] abscess and Hospitalists granuloma D64.9 Anemia, unspecified M54.5 Low back pain M79.606 Pain in leg, unspecified Office Visit 11/21/2018 10:37a [facility] Megha John, G06.1 Intraspinal Assoc,pc [employer] abscess and Hospitalists granuloma R44.3 Hallucinations, unspecified D64.9 Anemia, unspecified Office Visit 11/20/2018 10:37a [facility] Megha John, G06.1 Intraspinal Assoc,pc [employer] abscess and Hospitalists granuloma R44.3 Hallucinations, unspecified D64.9 Anemia, unspecified Office Visit 11/20/2018 [facility] Katarina Charline G06.1 Intraspinal 10:10a For Infectious [place], [employer] abscess and Diseases granuloma R50.9 Fever, unspecified M79.604 Pain in right leg M79.605 Pain in left leg Office Visit 11/19/2018 10:36a [facility] Megha John, G06.1 Intraspinal Assoc,pc [employer] abscess and Hospitalists granuloma R44.3 Hallucinations, unspecified D64.9 Anemia, unspecified J96.01 Acute respiratory failure with hypoxia M79.605 Pain in left leg Office Visit 11/19/2018 9:55a [facility] Kelly Adams G06.1 Intraspinal Infectious Raiza Samaniego abscess and Diseases granuloma R50.9 Fever, unspecified Office Visit 11/18/2018 10:36a [facility] Megha John, J96.01 Acute respiratory Assoc,pc [employer] failure with Hospitalists hypoxia G06.1 Intraspinal abscess and granuloma D64.9 Anemia, unspecified R44.3 Hallucinations, unspecified A41.02 Sepsis due to Methicillin resistant Staphylococcus aureus Office Visit 11/17/2018 [facility] Gianna J96.01 Acute respiratory 10:35a Assoc,pc [facility] [place], failure with Hospitalists [employer] hypoxia G06.1 Intraspinal abscess and granuloma D64.9 Anemia, unspecified G89.18 Other acute postprocedural pain A41.02 Sepsis due to Methicillin resistant Staphylococcus aureus R44.3 Hallucinations, unspecified Office Visit 11/16/2018 [facility] Katarina Olivier G06.1 Intraspinal 1:34p For Infectious [place], [employer] abscess and Diseases granuloma R41.0 Disorientation, unspecified M79.652 Pain in left thigh Office Visit 11/16/2018 10:35a [facility] G06.1 Intraspinal Assoc,pc [facility] [place], abscess and Hospitalists [employer] granuloma D64.9 Anemia, unspecified A41.02 Sepsis due to Methicillin resistant Staphylococcus aureus Z87.898 Personal history of other specified conditions G89.18 Other acute postprocedural pain R44.3 Hallucinations, unspecified Office Visit 11/15/2018 1:13p [facility] Kelly Adams G06.1 Intraspinal Infectious Raiza Samaniego abscess and Diseases granuloma B95.61 Methicillin suscep staph infct causing dis classd elswhr G93.41 Metabolic encephalopathy R50.9 Fever, unspecified Office Visit 11/15/2018 10:35a [facility] G06.1 Intraspinal Assoc,pc Neftaly [place], abscess and Hospitalists [employer] granuloma Z87.898 Personal history of other specified conditions G89.18 Other acute postprocedural pain A41.02 Sepsis due to Methicillin resistant Staphylococcus aureus R44.3 Hallucinations, unspecified Office Visit 11/14/2018 10:34a [facility] G06.1 Intraspinal Assoc,pc Neftaly [place], abscess and Hospitalists [employer] granuloma G89.18 Other acute postprocedural pain A41.02 Sepsis due to Methicillin resistant Staphylococcus aureus Office Visit 11/13/2018 [facility] D72.829 Elevated white 10:34a Assoc,pc [place], [employer] blood cell count, Hospitalists unspecified G06.1 Intraspinal abscess and granuloma R41.82 Altered mental status, unspecified A41.02 Sepsis due to Methicillin resistant Staphylococcus aureus N39.0 Urinary tract infection, site not specified G89.18 Other acute postprocedural pain E83.51 Hypocalcemia E83.42 Hypomagnesemia Office Visit 11/12/2018 10:34a [facility] G06.1 Intraspinal Assoc,pc [place], [employer] abscess and Hospitalists granuloma D72.829 Elevated white blood cell count, unspecified R41.82 Altered mental status, unspecified A41.02 Sepsis due to Methicillin resistant Staphylococcus aureus E83.51 Hypocalcemia N39.0 Urinary tract infection, site not specified G89.18 Other acute postprocedural pain Office Visit 11/12/2018 12:53p [facility] Kelyl Adams G06.1 Intraspinal Infectious Raiza Samaniego abscess and Diseases granuloma M79.605 Pain in left leg B95.61 Methicillin suscep staph infct causing dis classd elswhr R78.81 Bacteremia Office Visit 11/11/2018 10:33a [facility] G06.1 Intraspinal Assoc,pc [place], [employer] abscess and Hospitalists granuloma D72.829 Elevated white blood cell count, unspecified R41.82 Altered mental status, unspecified A41.02 Sepsis due to Methicillin resistant Staphylococcus aureus N39.0 Urinary tract infection, site not specified E83.51 Hypocalcemia Office Visit 11/11/2018 [facility] Omar Medina R41.82 Altered mental 7:00a Makayla Rios M.D. status, unspecified Office Visit 11/10/2018 [facility] D72.829 Elevated white 10:33a Assoc,pc Hospitalists [place], [employer] blood cell count, unspecified G06.1 Intraspinal abscess and granuloma R41.82 Altered mental status, unspecified A41.02 Sepsis due to Methicillin resistant Staphylococcus aureus N39.0 Urinary tract infection, site not specified E83.51 Hypocalcemia Office Visit 11/10/2018 [facility] Omar Medina R41.82 Altered mental 7:00a Makayla Rios M.D. status, unspecified Office Visit 11/09/2018 [facility] G06.1 Intraspinal 10:32a Assoc,pc Hospitalists [place], [employer] abscess and granuloma A41.9 Sepsis, unspecified organism N39.0 Urinary tract infection, site not specified F19.20 Other psychoactive substance dependence, uncomplicated E83.51 Hypocalcemia Office Visit 11/08/2018 10:32a [facility] Krystal Anderson, M54.5 Low back Assoc,pc Hospitalists DO pain R79.82 Elevated C-reactive protein (CRP) R94.5 Abnormal results of liver function studies Office 11/08/2018 [facility] G06.1 Intraspinal Visit 7:00a Of Helen Siddiqui MD abscess and granuloma Office 01/14/2018 [facility] Jose R56.9 Unspecified Visit 10:10a Makayla Tam M.D. convulsions F41.9 Anxiety disorder, unspecified Office Visit 01/14/2018 3:49p [facility] Shahzad R56.9 Unspecified Assoc,pc ELIEZER Rowe convulsions Hospitalists F41.9 Anxiety disorder, unspecified Office Visit 01/13/2018 3:49p [facility] Shahzad R56.9 Unspecified Assoc,pc ELIEZER Rowe convulsions Hospitalists F41.9 Anxiety disorder, unspecified Office Visit 01/13/2018 [facility] Omar Medina R56.9 Unspecified 10:08a Clinic Raiza Rios convulsions F41.9 Anxiety disorder, unspecified Office Visit 01/12/2018 [facility] Sherin Bautista R56.9 Unspecified 10:06a Clinic Raiza Childs convulsions Office Visit 01/12/2018 [facility] Cynthianorma Heredia, R56.9 Unspecified 3:47p Assoc,pc Hospitalists N.P. convulsions F41.9 Anxiety disorder, unspecified Office Visit 10/20/2016 [facility] Katarinanorma Olivier R10.9 Unspecified 11:19a Assoc,pc ABHIJEET Cobian abdominal pain Hospitalists R11.2 Nausea with vomiting, unspecified N39.0 Urinary tract infection, site not specified R31.9 Hematuria, unspecified Office 10/19/2016 [facility] Ruy R10.9 Unspecified Visit 11:19a Assoc,pc ELIEZER Kulkarni abdominal pain Hospitalists R11.2 Nausea with vomiting, unspecified N39.0 Urinary tract infection, site not specified R31.9 Hematuria, unspecified Office Visit 08/31/2016 2:56p [facility] Klaudia Aguila M54.5 [facility],cindy Eastman pain Hospitalists N30.00 Acute cystitis without hematuria Office Visit 08/30/2016 2:56p [facility] Lincoln Arredondo M54.5 [facility],cindy MENDOZA M.D. pain Hospitalists N30.01 Acute cystitis with hematuria Office Visit 02/07/2014 2:12p [facility] Tesfaye Barragan, 481 [facility],cindy Eastman Pneumococcal Hospitalists 786.05 Shortness Of Breath 786.2 Cough 786.52 Painful Respiration Office Visit 02/06/2014 2:11p [facility] Tesfaye Barragan, 481 Pneumonia Assoccindy M.D. Pneumococcal Hospitalists 786.05 Shortness Of Breath 786.2 Cough 786.52 Painful Respiration Office Visit 02/04/2014 2:10p [facility] Enedelia Diaz, 481 Pneumonia [facility]oc,pc DO Pneumococcal Hospitalists 786.05 Shortness Of Breath 786.2 Cough 786.52 Painful Respiration Office Visit 08/26/2010 1:00p [facility] Billy Bautista 847.2 [facility] Go M.D. Strains Lumbar Plan of Treatment 01/18/2019 - ELIEZER Chong-CM43.16 Spondylolisthesis, lumbar regionNew Xrays: MRI Lumbar Spine W/Wo, Ordered: 01/18/19G06.1 Intraspinal abscess and granulomaNew Labs:Blood Urea Nitrogen BUN, Ordered: 01/18/19Creatinine, Ordered : 01/18/19New Xrays:MRI Lumbar Spine W/Wo, Ordered: 01/18/19New Therapy: Physical TherapyFollow up:After imaging
--- NOTE | 2019-02-12 12:16 | UC ---
Back Pain HPI - HPI Summary HPI Summary: WOKE UP THIS MORNING WITH ACUTE MID BACK PAIN. FEELS SHAKY. UNABLE TO GET COMFORTABLE. DENIES ANY RECENT TRAUMA OR INJURY HOWEVER DID HAVE BACK SURGERY AT [facility] A FEW MONTHS AGO. STATES SHE HAD AN INFECTION. DENIES ANY RECENT ILLICIT DRUG USE. NO FEVER. - History of Current Complaint Chief Complaint: UCGeneralIllness Stated Complaint: SOB HEAVY FEELING ARMS Time Seen by Provider: 02/12/19 11:49 Hx Obtained From: Patient, Family/Supervisor Edging - SISTER Hx Last Menstrual Period: 01/11/19 Onset/Duration: Sudden Onset, Lasting Hours, Still Present Timing: Constant Severity Initially: Severe Severity Currently: Severe Pain Intensity: 10 Pain Scale Used: 0-10 Numeric Back Pain: Is Discrete @ - BACK Character: Sharp Aggravating Factor(s): Nothing Alleviating Factor(s): Nothing - Allergies/Home Medications Allergies/Adverse Reactions: Allergies Allergy/AdvReac Type Severity Reaction Status Date / Time No Known Allergies Allergy Verified 02/12/19 11:48 PMH/Surg Hx/FS Hx/Imm Hx - Additional Past Medical History Additional PMH: BACK ABSCESS Other History Of: Negative For: HIV, Hepatitis B, Hepatitis C, Anticoagulant Therapy - Surgical History Surgical History: Yes Surgery Procedure, Year, and Place: CHOLECYSECTOMY; APPENDECTOMY; TUBAL LIGATION , Laminectomies of L spine - Family History Known Family History: Positive: Hypertension, Diabetes Negative: Cardiac Disease - Social History Alcohol Use: None Substance Use Type: None 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 Smoking Status (MU): Light Every Day Tobacco Smoker Type: Cigarettes Amount Used/How Often: 1PPD Length of Time of Smoking/Using Tobacco: 20+ years Have You Smoked in the Last Year: Yes Household Exposure Type: Cigarettes - Immunization History Most Recent Influenza Vaccination: 11/11/18 Most Recent Tetanus Shot: within the last 5 years Most Recent Pneumonia Vaccination: never Review of Systems All Other Systems Reviewed And Are Negative: Yes Constitutional: Positive: Negative Respiratory: Positive: Negative Cardiovascular: Positive: Negative Gastrointestinal: Positive: Negative Musculoskeletal: Positive: Arthralgia, Decreased ROM, Myalgia Physical Exam Triage Information Reviewed: Yes Appearance: Pain Distress - SEVERE, Thin, Other: - CURLED UP IN POSITION, SHAKING Vital Signs: Initial Vital Signs Temp 98.5 F 02/12/19 11:45 Pulse 92 02/12/19 11:45 Resp 16 02/12/19 11:45 BP 134/84 02/12/19 11:45 Pulse Ox 99 02/12/19 11:45 Vital Signs Reviewed: Yes Eyes: Positive: Conjunctiva Clear ENT: Positive: Hearing grossly normal Neck: Positive: Supple Respiratory: Positive: No respiratory distress, No accessory muscle use Cardiovascular: Positive: Pulses Normal Musculoskeletal: Positive: No Edema Neurological: Positive: Alert Psychological: Positive: Normal Response To Family, Age Appropriate Behavior Skin: Negative: Rashes Back Pain Course/Dx - Course Course Of Treatment: PATIENT IN SIGNIFICANT PAIN ON EXAMINATION. UNABLE TO BE STILL OR GET COMFORTABLE IN THE ROOM. ADVISED SHE WOULD BE BETTER SERVED IN THE EMERGENCY ROOM FOR FURTHER EVALUATION OF HER SYMPTOMS. BACK SURGERY BY DR. HOUSE 2018. PT OFFERED TRANSPORT TO THE ED BY AMBULANCE BUT DECLINES. ADVISED THAT BY NOT TRAVELING IN A MONITORED SETTING SHE COULD BE RISKING WORSENING OF HER CONDITION THAT COULD POSE A THREAT TO HER LIFE, HEALTH AND MEDICAL SAFETY. SHE VERBALIZES UNDERSTANDING AND CONTINUES TO DECLINE AMBULANCE TRANSFER. PATIENT DID NOT WAIT FOR DISCHARGE PAPERWORK. - Differential Dx/Diagnosis Provider Diagnosis: Acute back pain Discharge - Sign-Out/Discharge Documenting (check all that apply): Patient Departure All imaging exams completed and their final reports reviewed: No Studies - Discharge Plan Condition: Guarded Disposition: TRANS HIGHER LVL OF CARE FAC Patient Education Materials: Back Pain (ED) Referrals: Soraya Cowart MD [Primary Care Provider] - If Needed Additional Instructions: GO DIRECTLY TO THE [facility] ED FROM HERE FOR FURTHER EVALUATION. YOU HAVE DECLINED TRANSFER TO THE ED BY AMBULANCE. BE ADVISED THAT BY NOT TRAVELING IN A MONITORED SETTING YOU COULD BE RISKING WORSENING OF YOUR CONDITION THAT COULD POSE A THREAT TO YOUR LIFE, HEALTH AND MEDICAL SAFETY. - Billing Disposition and Condition Condition: GUARDED Disposition: Trans Higher Lvl of Care Fac
== END 2019-02-12 12:08 | disposition short-term general hospital (02) ==
LOC: UCEAST 11:41
DX: M54.6 Pain in thoracic spine (principal); F17.210 Nicotine dependence, cigarettes, uncomplicated
CPT/HCPCS: 99212; G0463